=== PATIENT | female | born 1955 | race Caucasian/White ===

== ENCOUNTER 2023-03-16 09:51 | Outpatient (OUT) | payer OTHER, SELFPAY ==
--- NOTE | 2023-03-16 10:43 | CA_ITS ---
Patient Name: ABUNDIO IGLESIAS MR#: [id number] : 1955 Exam Date: 03/16/2023 Ordering Doctor: DIOMEDES PEPE CNP ECHOCARDIOGRAM REPORT PROCEDURE: CA ECHO DOPPLER COMPLETE INDICATIONS: Dizziness, hypertension COMPARISON: None. DESCRIPTION: COMPLETE ECHOCARDIOGRAM Real-time transthoracic echocardiography with 2D, M-mode, spectral and color flow Doppler performed. QUALITY: Technical quality was adequate. 60 , 163#, BSA 1.71 m2 LEFT VENTRICLE: Normal chamber size. Normal left ventricular wall thickness. LV EF: Global left ventricular systolic function is difficult to assess but appears preserved; visually estimated ejection fraction is 55 to 60%. Cannot assess regional wall motion abnormalities. DIASTOLIC: Normal diastolic function. ATRIAL SEPTUM: Visually appears intact. LEFT ATRIUM: Normal chamber size. RIGHT ATRIUM: Normal chamber size. RIGHT VENTRICLE: Normal chamber size. Normal right ventricular systolic function. TRICUSPID VALVE: Normal mobility and thickness. No stenosis with trivial regurgitation. MITRAL VALVE: Normal mobility and thickness. No evidence of mitral valve stenosis. There is no mitral annular calcification. No mitral regurgitation. AORTIC VALVE: Normal trileaflet appearance. No visible sclerosis. Normal leaflet mobility. No evidence of aortic valve stenosis. No aortic regurgitation. AORTIC ROOT: Normal diameter and appearance. PULMONIC VALVE: Normal thickness and mobility. No stenosis. No regurgitation. PERICARDIUM: Anterior free space; trivial effusion versus fat pad. IVC: Not well visualized. CONCLUSION: 1. Global left ventricular systolic function is difficult to assess but appears preserved; visually estimated ejection fraction is 55 to 60% 2. The right ventricle is normal in size and systolic function 3. Normal diastolic function 4. Valves are poorly seen; no obvious valvular abnormalities 5. Anterior free space; trivial effusion versus fat pad Adult Echocardiography Procedure Report Left Ventricle LVEDD (3.7 - 5.6 cm): 4.28 cm LVESD (2.2 - 4.0 cm): 2.49 cm LVIVS thickness (0.6 - 1.2 cm): 0.85 cm LVPW thickness (0.5 - 1.0 cm): 0.85 cm e': 0.08 m/s E - e': 4.22 LVOT Max Gradient: 1.99 mm[Hg] LVOT Area (cm2): 0.71 m/s Peak Velocity (LVOT): 0.71 m/s Mean Velocity (LVOT): 0.46 m/s LVOT Diameter 2.04 cm Left Atrium LA Volume Index (2D A2C): 21.72 ml/m2 Left Atrium Systolic Dimension: 3.70 cm Mitral Valve MV E to A Ratio: 0.78 Mitral Valve A-Wave Peak Velocity: 0.44 m/s Mitral Valve E-Wave Peak Velocity: 0.35 m/s Right Ventricle Aorta AO Root Diam: 2.90 cm Ascending Ao Diam: 2.76 cm Aortic Valve AoV Area (Peak Manuel): 2.29 cm2, 2.29 cm2 AoV Area (VTI): 2.65 cm2, 2.65 cm2 Peak Velocity(Antegrade Flow): 1.01 m/s Peak Gradient(Antegrade Flow): 4.05 mm[Hg] Mean Velocity(Antegrade Flow): 0.69 m/s Mean Gradient(Antegrade Flow): 2.13 mm[Hg] Velocity Time Integral: 19.72 cm Tricuspid Valve Pulmonic Valve Mean Gradient: 1.77 mm[Hg], 1.61 mm[Hg], 1.65 mm[Hg] Mean Velocity: 0.64 m/s, 0.60 m/s, 0.60 m/s Peak Velocity: 0.83 m/s Peak Gradient: 2.66 mm[Hg], 2.66 mm[Hg], 2.90 mm[Hg] Right Atrium Right Atrium Systolic Pressure: 28.79 ml, 28.79 ml Dictated by: Leandro Rice M.D. on 03/16/2023 at 14:18 Approved by: Leandro Rice M.D. on 03/16/2023 at 14:22
== END 2023-03-16 09:52 | disposition home or self-care (01) ==
LOC: CARD 09:52
PROVIDERS: PCP Nurse Practitioner Family; Visit Provider Nurse Practitioner Family
DX: R07.9 Chest pain, unspecified (principal)
CPT/HCPCS: 93306

== ENCOUNTER 2023-06-19 14:34 | Outpatient (OUT) | payer OTHER, SELFPAY ==
[2023-06-19 15:14] LABS: Bilirubin Urine NEGATIVE (NEGATIVE); Blood Urine TRACE-I (NEGATIVE); Clarity Urine CLEAR (CLEAR); Color Urine LT. YELLOW (YELLOW); Glucose Urine UA NEGATIVE (NEGATIVE); Ketones Urine NEGATIVE (NEGATIVE); Leukocyte Esterase Urine TRACE (NEGATIVE); Nitrite Urine NEGATIVE (NEGATIVE); Protein Urine NEGATIVE (NEG/TRACE); Specific Gravity Urine <=1.005 (1.005-1.025); Urobilinogen Urine 0.2 EU/dL (0.2-1.0)
[2023-06-19 15:22] LABS: Bacteria Urine NONE SEEN #/HPF (NONE SEEN); Mucus Urine NONE SEEN (NONE SEEN); RBC Urine 0-2 #/HPF (0-2); Squamous Epithelial Cell Urine FEW #/LPF (NONE/RARE); WBC Urine 0-2 #/HPF (NONE SEEN)
== END 2023-06-19 14:35 | disposition home or self-care (01) ==
LOC: LAB 14:36
PROVIDERS: PCP Nurse Practitioner Family; Visit Provider Nurse Practitioner Family
DX: N39.0 Urinary tract infection, site not specified (principal)
CPT/HCPCS: 81001; 87086

== ENCOUNTER 2023-09-05 10:15 | Outpatient (OUT) | payer OTHER, SELFPAY ==
[2023-09-05 10:45] LABS: Basophils Absolute Auto 0.1 10^3/uL (0.0-0.1); Basophils Percent Auto 0.8 % (0.2-2.0); Eosinophils Absolute Auto 0.2 10^3/uL (0.0-0.7); Hematocrit 43.4 % (36.0-48.0); Hemoglobin 14.4 g/dL (12.0-16.0); Immature Granulocytes Abs Auto 0.01 10^3/uL (0.00-0.03); Immature Granulocytes Pct Auto 0.2 % (0.0-0.5); Lymphocytes Absolute Auto 1.5 10^3/uL (1.2-3.8); Lymphocytes Percent Auto 25.6 % (20.5-60.0); Mean Corpuscular HGB Conc 33.2 g/dL (29.9-35.2); Mean Corpuscular Hemoglobin 29.8 pg (26.7-34.0); Mean Corpuscular Volume 89.9 fL (81.0-99.0); Mean Platelet Volume 12.3 fL (9.5-13.5); Monocytes Absolute Auto 0.6 10^3/uL (0.3-0.8); Monocytes Percent Auto 9.6 % (1.7-12.0); Neutrophils Absolute Auto 3.6 10^3/uL (1.4-6.5); Neutrophils Percent Auto 59.8 % (43.0-75.0); Platelet Count 187 10^3/uL (150-450); Red Blood Count 4.83 10^6/uL (4.20-5.40); Red Cell Distribution Width 13.2 % (11.0-15.0); White Blood Count 5.9 10^3/uL (4.0-11.0)
[2023-09-05 11:03] LABS: Estimated Average Glucose 114 mg/dL; Glycohemoglobin A1C 5.6 % (4.5-6.2)
[2023-09-05 12:01] LABS: Alanine Aminotransferase 17 U/L (14-59); Albumin Globulin Ratio 1.2; Albumin Level 3.8 g/dL (3.4-5.0); Alkaline Phosphatase 76 U/L (46-116); Anion Gap 13.8; Aspartate Amino Transferase 21 U/L (15-37); BUN Creatinine Ratio 23.5; Calcium 8.9 mg/dL (8.5-10.1); Carbon Dioxide 26.3 mmol/L (21.0-32.0); Chloride 103 mmol/L (98-107); Cholesterol 191 mg/dL (<=200); Estimated GFR (African America >60 (>=60); Estimated GFR (Non-African Ame >60 (>=60); Free T3 3.18 pg/mL (2.18-3.98); Globulin 3.2 g/dL; Glucose 92 mg/dL (74-106); HDL Cholesterol 63 mg/dL (40-60); Potassium 4.1 mmol/L (3.5-5.1); Sodium 139 mmol/L (136-145); Triglycerides 67 mg/dL (<=150); VLDL CHOLESTEROL 13.4 mg/dL
[2023-09-06 04:07] LABS: Insulin 5.3 uIU/mL (2.6-24.9)
== END 2023-09-05 10:16 | disposition home or self-care (01) ==
LOC: LAB 10:17
PROVIDERS: PCP Nurse Practitioner Family; Visit Provider Nurse Practitioner Family
DX: E78.5 Hyperlipidemia, unspecified (principal); R53.83 Other fatigue; R73.09 Other abnormal glucose; I10 Essential (primary) hypertension; D64.9 Anemia, unspecified; E03.9 Hypothyroidism, unspecified; E55.9 Vitamin D deficiency, unspecified
CPT/HCPCS: 36415; 80053; 80061; 82306; 83036; 83525; 83540; 84436; 84443; 84481; 85025

== ENCOUNTER 2024-01-02 09:49 | Outpatient (OUT) | payer OTHER, SELFPAY ==
--- OUTSIDE RECORDS SUMMARY | 2024-01-02 09:54 | XMS_ITS | CCD ---
Author Organization [facility] Care Team Providers Care Operations Advisor Name Role Phone MILLY PEPE Admitting Unavailable MY, MILLY Attending Unavailable MY, MILLY Consulting Unavailable MY, MILLY Primary Care Unavailable MY, MILLY Attending Unavailable MY, MILLY Consulting Unavailable MY, MILLY Primary Care Unavailable MY, MILLY Admitting Unavailable MY, MILLY Attending Unavailable MY, MILLY Primary Care Unavailable DR SHWETA FISCHER V Consulting Unavailable MY, MILLY Admitting Unavailable MY, MILLY Consulting Unavailable My East MD Primary Care Provider [phone] DIMITRY ALY Attending Unavailable ROSALIEY, MY M Referring Unavailable HOY, MY M Primary Care Unavailable PADMAJA BARNEY Attending Unavailable STARLA LAMAS Attending Unavailable DIMITRY ALY Attending Unavailable DIMITRY ALY G Referring Unavailable HOY, MY M Primary Care Unavailable ORLY RODRÍGUEZ Attending Unavailable ORLY RODRÍGUEZ Referring Unavailable HOY, MY M Primary Care Unavailable DIMITRY ALY Referring Unavailable HOY, MY M Primary Care Unavailable DIMITRY ALY Referring Unavailable HOY, MY M Primary Care Unavailable Allergies Allergy Classification Reported Allergen(s) Allergy Type Date of Onset Reaction(s) Facility (4 sources) NSAIDs; Translations: [NSAIDS (NON-STEROIDAL ANTI-INFLAMMATORY DRUG)] Drug allergy (disorder) 06-28-19 17 [facility] (1 source) Sulfamethoxazole / Trimethoprim Drug Allergy 07-05-19 17 [facility] (2 sources) Non-steroidal anti-inflammatory agent Propensity to adverse reactions to drug 01-29-20 21 [facility]See Comments[facility] Sulfonamides (Antibiotic); Translations: [SULFA (SULFONAMIDE ANTIBIOTICS)] Propensity to adverse reactions to drug 05-12-[address] [facility] (4 sources) Trimethoprim; Translations: [TRIMETHOPRIM] Drug Allergy 01-29-20 21 Other (See Comments) [facility] (4 sources) trolamine salicylate; Translations: [TROLAMINE SALICYLATE] Drug Allergy 09-17-[address] [facility] (1 source) Sulfamethoxazole / Trimethoprim; Translations: [SULFAMETHOXAZOLE-T RIMETHOPRIM] Drug Allergy 08-12-19 07 [facility] Medications Current Medications Medication Drug Class(es) Dates Sig (Normalized) Sig (Original) estradiol 0.1 mg/ml vaginal cream (2 sources) Estrogen Start: 01-05-2023 estradioL (ESTRACE) 0.01 % (0.1 mg/gram) vaginal cream Indications: Vaginal atrophy Insert 2 g into the vagina 2 (two) times a week. 43 g 3 01/05/2023 Active irbesartan 300 mg oral tablet (2 sources) Angiotensin 2 Receptor Jesus take 1 tablet by mouth in the morning irbesartan (AVAPRO) 300 mg tablet Take 1 tablet (300 mg total) by mouth in the morning. 0 Active levothyroxine sodium 0.075 mg oral tablet (2 sources) l-Thyroxine Start: 07-21-2016 take 1 tablet by mouth in the morning levothyroxine (SYNTHROID, LEVOTHROID) 75 MCG tablet Take 1 tablet (75 mcg total) by mouth in the morning. 0 07/21/2016 Active liothyronine sodium 0.005 mg oral tablet (2 sources) l-Triiodothyronin e Start: 03-28-2019 take 1 tablet by mouth in the morning liothyronine (CYTOMEL) 5 MCG tablet Take 1 tablet (5 mcg total) by mouth in the morning. 0 03/28/2019 Active oxknxlji-juum-UQ-megha cium &mins (THERAGRAN-M) 9 mg iron-400 mcg tablet (2 sources) jovybcbc-qfzs-GF -ca lcium &mins (THERAGRAN-M) 9 mg iron-400 mcg tablet Take 1 tablet by mouth in the morning. 0 Active pravastatin sodium 40 mg oral tablet (2 sources) HMG-CoA Reductase Inhibitor take 1 tablet by mouth once daily pravastatin (PRAVACHOL) 40 mg tablet Take 1 tablet (40 mg total) by mouth nightly. 0 Active Completed/Discontinued Medications Medication Drug Class(es) Dates Sig (Normalized) Sig (Original) potassium citrate 10 meq extended release oral tablet (2 sources) Start: 07-14-2020 End: 04-18-2023 take 2 tablets by mouth twice daily at mealtime potassium citrate (UROCIT-K) 10 mEq (1,080 mg) CR tablet Take 2 tablets (20 mEq total) by mouth 2 (two) times a day with meals. 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] Onset: 01-08-2013 2021 Chronic Cardiac dysrhythmias (6 sources) Tachycardia, unspecified; Translations: [Palpitations] Onset: 06-30-2022 Episodic Disorders of lipid metabolism (2 sources) Hypercholesterolemia ; Translations: [Pure hypercholesterolemia , unspecified] Onset: 09-19-2017 09-19-2017 Chronic Essential hypertension (2 sources) Hypertensive disorder; Translations: [Essential (primary) hypertension] Onset: 01-05-2023 01-05-2023 Chronic Menopausal disorders (2 sources) Atrophy of vagina; Translations: [Postmenopausal atrophic vaginitis] Onset: 09-19-2017 09-19-2017 Chronic Other nutritional; endocrine; and metabolic disorders (2 sources) Obese class I; Translations: [Obesity, unspecified] Onset: 01-05-2023 01-05-2023 Chronic Other screening for suspected conditions (not mental disorders or infectious disease) (1 source) Encounter for screening mammogram for malignant neoplasm of breast; Translations: [Encounter for screening mammogram for malignant neoplasm of breast] Onset: 10-23-2023 Episodic Residual codes; unclassified (1 source) Family history of ischemic heart disease and other diseases of the circulatory system; Translations: [FAM HX ISCHEMIC HRT DZ OTH DZ CIRC] Onset: 07-06-2022 Episodic Thyroid disorders (4 sources) Hypothyroidism; Translations: [Hypothyroidism, unspecified] Onset: 12-27-2012 09-19-2017 Chronic Past or Other Problems Problem Classification Problem Date Documented Da te Episodic/Chronic Calculus of urinary tract (6 sources) Calculus of kidney; Translations: [Kidney stone] Onset: 10-13-2016 04-12-2022 Episodic Cancer of head and neck (2 sources) History of malignant neoplasm of salivary gland; Translations: [Personal history of malignant neoplasm of other sites of lip, oral cavity, and pharynx] Onset: 09-19-2017 09-19-2017 Episodic Genitourinary symptoms and ill-defined conditions (1 source) Hematuria, unspecified; Translations: [HEMATURIA UNSPECIFIED] Onset: 10-21-2021 Episodic Mood disorders (2 sources) Mood disorders Onset: 01-05-2023 01-05-2023 Other non-traumatic joint disorders (2 sources) Shoulder pain; Translations: [Pain in unspecified shoulder] Onset: 05-27-2013 2021 Episodic Residual codes; unclassified (2 sources) Insomnia; Translations: [Insomnia, unspecified] Onset: 05-27-2013 2021 Episodic Residual codes; unclassified (2 sources) Family history of diabetes mellitus; Translations: [Family history of diabetes mellitus] Onset: 01-08-2013 2021 Episodic Residual codes; unclassified (2 sources) Family history of malignant neoplasm of lung; Translations: [Family history of malignant neoplasm of trachea, bronchus and lung] Onset: 01-08-2013 2021 Episodic Spondylosis; intervertebral disc disorders; other back problems (2 sources) Sciatica; Translations: [Sciatica, left side] Onset: 10-05-2018 2021 Episodic Unclassified (2 sources) Onset: 01-05-2023 01-05-2023 Urinary tract infections (4 sources) Urinary tract infection, site not specified; Translations: [UTI SITE NOT SPECIFIED] Onset: 10-19-2021 Episodic Results Test Name Value Interpretation Reference Range Facility 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 Computer aided detection was utilized. FINDINGS: The breasts are heterogeneously dense, which may obscure small masses. There are no suspicious masses, calcifications, or areas of architectural distortion. IMPRESSION: No mammographic evidence of malignancy. BI-RADS: BI-RADS 1 - Negative Recommendation: Routine screening mammogram in 1 year. Finalized by Darrel Phillips MD on 10/24/2023 11:24 AM 1 c MAMM 1 YR Normal [facility] XR ABDOMEN AP 1 VWon 024 XR ABDOMEN AP 1 VW XR ABDOMEN AP 1 VW Abdomen single view Clinical history: Kidney stones Impression: * Appropriate bowel pattern. No acute findings. Vague calcifications projecting over the kidneys. Difficult to determine whether any of these are actually calyx stones due to overlying stool but there are probably multiple tiny calyx stones on the left. Each of these measure a few millimeters and are similar to the appearance from the CT from November 11, 2021 showing extensive medullary calcifications. Finalized by Trey Atkins MD on 06/22/2023 6:29 PM Normal [facility] XR ABDOMEN AP 1 VWon 024 XR ABDOMEN AP 1 VW XR ABDOMEN AP 1 VW Single view of the abdomen supine dated 04/14/2023 at 3:15 PM INDICATION: Nephrolithiasis. FINDINGS: Comparison is 12/05/2017. Constipation. Multiple small calculi projecting over the left kidney, and calcifications in the pelvis likely phlebolith. IMPRESSION: 1. Multiple small left renal calculi, and the probable phleboliths in the pelvis. Finalized by Sj Ku MD on 04/17/2023 7:22 AM Normal [facility] Office Visiton 04-11-2023 Follow-up visit [id number] Abundio Iglesias 1955 F Date Provider Department Center 04/11/2023 [facility] Family History Problem Relation Age of Onset Heart failure Mother Heart attack Father Heart attack Father's Brother Family Status - Relation Status Age at Mother Father Father's Brother Level of Service:73614 [place] OFFICE/OUTPATIENT ESTABLISHED MOD MDM 30 MIN Normal [facility] INSULINon 05-21-2022 Insulin 9.7 uIU/mL Normal 2.6-24.9 [facility] Comment on above: Performed By: #### C BC #### [facility] [address] [place] [address] Dr. Zackery Beck CBC AUTO DIFFon 05-20-2022 BASO # 0.1 103/ul Normal 0.0-0.1 [facility] Comment on above: Performed By: #### C BC #### [facility] [address] [place] [address] Dr. Zackery Beck Basophils/100 WBC (Bld) 0.6 % Normal 0.2-2.0 [facility] Comment on above: Performed By: #### C BC #### [facility] [address] [place] [address] Dr. Zackery Beck EO # 0.1 103/ul Normal 0.0-0.7 [facility] Comment on above: Performed By: #### C BC #### [facility] [address] [place] [address] Dr. Zackery Beck Eosinophils/100 WBC (Bld) 1.8 % Normal 0.9-7.0 [facility] Comment on above: Performed By: #### C BC #### [facility] [address] [place] [address] Dr. Zackery Beck Erythrocyte distribution width (RBC) [Ratio] 13.6 % Normal 11.0-15.0 [facility] Comment on above: Performed By: #### C BC #### [facility] [address] [place] [address] Dr. Zackery Beck Hematocrit (Bld) [Volume fraction] 48.1 % Critically high 36.0-48.0 [facility] Comment on above: Performed By: #### C BC #### [facility] [address] [place] [address] Dr. Zackery Beck Hemoglobin (Bld) [Mass/Vol] 16.0 g/dL Normal 12.0-16.0 [facility] Comment on above: Performed By: #### C BC #### [facility] [address] [place] [address] Dr. Zackery Beck IG # 0.02 10e3/ul Normal 0.00-0.03 [facility] Comment on above: Performed By: #### C BC #### [facility] [address] [place] [address] Dr. Zackery Beck IG % 0.3 % Normal 0.0-0.5 [facility] Comment on above: Performed By: #### C BC #### [facility] [address] [place] [address] Dr. Zackery Beck LYMPH # 1.5 103/ul Normal 1.2-3.8 [facility] Comment on above: Performed By: #### C BC #### [facility] [address] [place] [address] Dr. Zackery Beck Lymphocytes/100 WBC (Bld) 19.0 % Critically low 20.5-60.0 [facility] Comment on above: Performed By: #### C BC #### [facility] [address] [place] [address] Dr. Zackery Beck MANUAL DIFF REQ NO Normal [facility] Comment on above: Performed By: #### C BC #### [facility] [address] [place] [address] Dr. Zackery Beck MCH (RBC) [Entitic mass] 28.6 pg Normal 26.7-34.0 [facility] Comment on above: Performed By: #### C BC #### [facility] [address] [place] [address] Dr. Zackery Beck MCHC (RBC) [Mass/Vol] 33.3 g/dL Normal 29.9-35.2 [facility] Comment on above: Performed By: #### C BC #### [facility] [address] [place] [address] Dr. Zackery Beck MCV (RBC) [Entitic vol] 85.9 fL Normal 81.0-99.0 [facility] Comment on above: Performed By: #### C BC #### [facility] [address] [place] [address] Dr. Zackery Beck MONO # 0.5 103/ul Normal 0.3-0.8 [facility] Comment on above: Performed By: #### C BC #### [facility] [address] [place] [address] Dr. Zackery Beck Monocytes/100 WBC (Bld) 6.7 % Normal 1.7-12.0 [facility] Comment on above: Performed By: #### C BC #### [facility] [address] [place] [address] Dr. Zackery Beck NEUT # 5.6 103/ul Normal 1.4-6.5 [facility] Comment on above: Performed By: #### C BC #### [facility] [address] [place] [address] Dr. Zackery Beck Neutrophils/100 WBC (Bld) 71.6 % Normal 43.0-75.0 [facility] Comment on above: Performed By: #### C BC #### [facility] [address] [place] [address] Dr. Zackery Beck Platelet mean volume (Bld) [Entitic vol] 11.6 fL Normal 9.5-13.5 [facility] Comment on above: Performed By: #### C BC #### [facility] [address] [place] [address] Dr. Zackery Beck PLT 249 103/ul Normal 150-450 [facility] Comment on above: Performed By: #### C BC #### [facility] [address] [place] [address] Dr. Zackery Beck RBC 5.60 106/ul Critically high 4.20-5.40 [facility] Comment on above: Performed By: #### C BC #### [facility] [address] [place] [address] Dr. Zackery Beck WBC 7.8 103/ul Normal 4.0-11.0 [facility] Comment on above: Performed By: #### C BC #### [facility] [address] [place] [address] Dr. Zackery Beck FREE THYROXINE INDEX T7on FTI 3.74 Normal 1.30-4.50 [facility] Comment on above: Performed By: #### L IPID, TSH, CMP, T7 #### [facility] [address] [address] [address] Zackery Beck T3U 37.0 % Normal 30.0-39.0 [facility] Comment on above: Performed By: #### L IPID, TSH, CMP, T7 #### [facility] [address] [address] [address] Zackery Beck T4 [Mass/Vol] 10.10 ug/dL Normal 4.80-13.90 [facility] Comment on above: Performed By: #### L IPID, TSH, CMP, T7 #### [facility] [address] [address] [address] Zackery Beck GLYCOHEMOGLOBIN A1Con 2022 ADA RECOMMENDATION SEE BELOW Normal [facility] Comment on above: Result Comment: ADA RECOMMENDED LIMIT 4.0 - 6.0 ADA THERAPEUTIC TARGET < 7.0 ACTION SUGGESTED > 7.0 Performed By: #### A 1C #### [facility] [address] [address] [address] Zackery Beck Glucose [Mass/Vol] 114 mg/dL Normal [facility] Comment on above: Performed By: #### A 1C #### [facility] [address] [address] [address] Zackery Beck HbA1c (Bld) [Mass fraction] 5.6 % Normal 4.5-6.2 [facility] Comment on above: Performed By: #### A 1C #### [facility] [address] [address] [address] Zackery Beck IRONon 05-20-2022 Iron [Mass/Vol] 84.0 ug/dL Normal 50.0-170.0 [facility] Comment on above: Performed By: #### I GÓMEZ #### [facility] [address] [place] [address] Dr. Zackery Beck LIPID PROFILEon 05-20-2022 CHOL-HDL RATIO NORM SEE BELOW Normal [facility] Comment on above: Result Comment: 3.3 - 4.4 LOW RISK 4.4 - 7.1 AVERAGE RISK 7.1 - 11.0 MODERATE RISK >11.0 HIGH RISK Performed By: #### L IPID, TSH, CMP, T7 #### [facility] [address] [address] [address] Zackery Beck Cholesterol [Mass/Vol] 293 mg/dL Critically high <=200 [facility] Comment on above: Performed By: #### L IPID, TSH, CMP, T7 #### [facility] [address] [address] [address] Zackery Beck Cholesterol in HDL [Mass/Vol] 71 mg/dL Critically high 40-60 [facility] Comment on above: Performed By: #### L IPID, TSH, CMP, T7 #### [facility] [address] [place] [address] Dr. Zackery Beck Cholesterol in LDL [Mass/Vol] 206.4 mg/dL Normal [facility] Comment on above: Performed By: #### L IPID, TSH, CMP, T7 #### [facility] [address] [address] [address] Zackery Beck Cholesterol.total/Ch olesterol in HDL [Mass ratio] 4.1 {ratio} Normal [facility] Comment on above: Performed By: #### L IPID, TSH, CMP, T7 #### [facility] [address] [address] [address] Zackery Beck HDL NORMAL > or = 60 mg/dl - LOW CARDIOVASCULAR RISK <40 mg/dl - HIGH CARDIOVASCULAR RISK Normal [facility] Comment on above: Performed By: #### L IPID, TSH, CMP, T7 #### [facility] [address] [place] [address] Dr. Zackery Beck LDL CALC NORMAL SEE BELOW Normal [facility] Comment on above: Result Comment: <100 mg/dl OPTIMAL 100 - 129 mg/dl NEAR OR ABOVE OPTIMAL 130 - 159 mg/dl BORDERLINE HIGH 160 - 189 mg/dl HIGH >190 mg/dl VERY HIGH Performed By: #### L IPID, TSH, CMP, T7 #### [facility] [address] [place] [address] Dr. Zackery Beck Triglyceride [Mass/Vol] 78 mg/dL Normal <=150 [facility] Comment on above: Performed By: #### L IPID, TSH, CMP, T7 #### [facility] [address] [address] [address] Zackery Beck VLDL CALC 15.6 mg/dL Normal [facility] Comment on above: Performed By: #### L IPID, TSH, CMP, T7 #### [facility] [address] [address] [address] Zackery Beck PROF 14(COMP METB)on 023 Albumin [Mass/Vol] 4.3 g/dL Normal 3.4-5.0 [facility] Comment on above: Performed By: #### L IPID, TSH, CMP, T7 #### [facility] [address] [place] [address] Dr. Zackery Beck Albumin/Globulin [Mass ratio] 1.3 {ratio} Normal [facility] Comment on above: Performed By: #### L IPID, TSH, CMP, T7 #### [facility] [address] [address] [address] Zackery Beck ALP [Catalytic activity/Vol] 94 U/L Normal 46-116 [facility] Comment on above: Performed By: #### L IPID, TSH, CMP, T7 #### [facility] [address] [place] [address] Dr. Zackery Beck ALT [Catalytic activity/Vol] 20 U/L Normal 14-59 [facility] Comment on above: Performed By: #### L IPID, TSH, CMP, T7 #### [facility] [address] [address] [address] Zackery Beck Anion gap [Moles/Vol] 16.5 mmol/L Normal [facility] Comment on above: Performed By: #### L IPID, TSH, CMP, T7 #### [facility] [address] [address] [address] Zackery Beck AST [Catalytic activity/Vol] 20 U/L Normal 15-37 [facility] Comment on above: Performed By: #### L IPID, TSH, CMP, T7 #### [facility] [address] [place] [address] Dr. Zackery Beck Bilirubin [Mass/Vol] 0.5 mg/dL Normal 0.2-1.0 [facility] Comment on above: Performed By: #### L IPID, TSH, CMP, T7 #### [facility] [address] [place] [address] Dr. Zackery Beck Calcium [Mass/Vol] 9.5 mg/dL Normal 8.5-10.1 [facility] Comment on above: Performed By: #### L IPID, TSH, CMP, T7 #### [facility] [address] [place] [address] Dr. Zackery Beck Chloride [Moles/Vol] 103 mmol/L Normal 98-107 [facility] Comment on above: Performed By: #### L IPID, TSH, CMP, T7 #### [facility] [address] [place] [address] Dr. Zackery Beck CO2 [Moles/Vol] 23.5 mmol/L Normal 21.0-32.0 [facility] Comment on above: Performed By: #### L IPID, TSH, CMP, T7 #### [facility] [address] [place] [address] Dr. Zackery Beck Creatinine [Mass/Vol] 0.93 mg/dL Normal 0.55-1.02 [facility] Comment on above: Performed By: #### L IPID, TSH, CMP, T7 #### [facility] [address] [place] [address] Dr. Zackery Beck EGFR-AF SPANISH >60 Normal >=60 [facility] Comment on above: Performed By: #### L IPID, TSH, CMP, T7 #### [facility] [address] [place] [address] Dr. Zackery Beck EGFR-NON AF SPANISH >60 Normal >=60 [facility] Comment on above: Performed By: #### L IPID, TSH, CMP, T7 #### [facility] [address] [place] [address] Dr. Zackery Beck Globulin (S) [Mass/Vol] 3.2 g/dL Normal [facility] Comment on above: Performed By: #### L IPID, TSH, CMP, T7 #### [facility] [address] [address] [address] Zackery Beck Glucose [Mass/Vol] 112 mg/dL Critically high 74-106 T [facility] Comment on above: Performed By: #### L IPID, TSH, CMP, T7 #### [facility] [address] [address] [address] Zackery Beck Potassium [Moles/Vol] 4.0 mmol/L Normal 3.5-5.1 [facility] Comment on above: Performed By: #### L IPID, TSH, CMP, T7 #### [facility] [address] [address] [address] Zackery Beck Protein [Mass/Vol] 7.5 g/dL Normal 6.4-8.2 [facility] Comment on above: Performed By: #### L IPID, TSH, CMP, T7 #### [facility] [address] [address] [address] Zackery Beck Sodium [Moles/Vol] 139 mmol/L Normal 136-145 [facility] Comment on above: Performed By: #### L IPID, TSH, CMP, T7 #### [facility] [address] [address] [address] Zackery Beck Urea nitrogen [Mass/Vol] 30.0 mg/dL Critically high 7.0-18.0 [facility] Comment on above: Performed By: #### L IPID, TSH, CMP, T7 #### [facility] [address] [address] [address] Zackery Beck Urea nitrogen/Creatinine [Mass ratio] 32.3 mg/mg Normal [facility] Comment on above: Performed By: #### L IPID, TSH, CMP, T7 #### [facility] [address] [address] [address] Zackery Beck TSHon 05-20-2022 TSH 0.652 uIU/mL Normal 0.358-3.740 [facility] Comment on above: Performed By: #### L IPID, TSH, CMP, T7 #### [facility] [address] [place] [address] Dr. Zackery Beck CULTURE URINEon 10-19-2021 CULTURE URINE Culture Observations: LIGHT GROWTH OF MIXED GENITAL DARSHANA. NO POTENTIAL PATHOGENS SEEN. Normal [facility] Comment on above: Performed By: #### U RCX #### [facility] [address] [place] [address] Dr. Zackery Beck UA RANDOM W/MICROSCOPICon AMORPHOUS CRYSTALS RARE Normal [facility] [facility] Comment on above: Performed By: #### U AMIC #### [facility] [address] [place] [address] Dr. Zackery Beck BACTERIA TRACE Abnormal NONE SEEN [facility] Comment on above: Performed By: #### U AMIC #### [facility] [address] [place] [address] Dr. Zackery Beck Bilirubin Ql (U) Negative Normal NEGATIVE [facility] Comment on above: Performed By: #### U AMIC #### [facility] [address] [place] [address] Dr. Zackery Beck CAST NONE SEEN Normal NONE SEEN [facility] Comment on above: Performed By: #### U AMIC #### [facility] [address] [place] [address] Dr. Zackery Beck Clarity (U) CLEAR Normal CLEAR [facility] Comment on above: Performed By: #### U AMIC #### [facility] [address] [place] [address] Dr. Zackery Beck Color (U) LT. YELLOW Normal YELLOW [facility] Comment on above: Performed By: #### U AMIC #### [facility] [address] [place] [address] Dr. Zackery Beck Crystals LM Nom (Urine sed) SEEN Abnormal NONE SEEN [facility] Comment on above: Performed By: #### U AMIC #### [facility] [address] [place] [address] Dr. Zackery Beck Epithelial cells LM Ql (Urine sed) RARE Normal NONE SEEN /RARE [facility] Comment on above: Performed By: #### U AMIC #### [facility] [address] [address] [address] Zackery Beck Glucose Ql (U) Negative Normal NEGATIVE [facility] Comment on above: Performed By: #### U AMIC #### [facility] [address] [address] [address] Zackery Beck Hemoglobin Ql (U) TRACE-LYSED Abnormal NEGATIVE [facility] [place] [facility] Comment on above: Performed By: #### U AMIC #### [facility] [address] [address] [address] Zackery Beck Ketones Ql (U) Negative Normal NEGATIVE [facility] Comment on above: Performed By: #### U AMIC #### [facility] [address] [place] [address] Dr. Zackery Beck LEUKOCYTES TRACE Abnormal NEGATIVE [facility] Comment on above: Performed By: #### U AMIC #### [facility] [address] [address] [address] Zackery Beck MUCOUS TRACE Abnormal NONE SEEN [facility] Comment on above: Performed By: #### U AMIC #### [facility] [address] [address] [address] Zackery Beck Nitrite Ql (U) Negative Normal NEGATIVE [facility] Comment on above: Performed By: #### U AMIC #### [facility] [address] [address] [address] Zackery Beck pH (U) 5.5 [pH] Normal 5-9 [facility] Comment on above: Performed By: #### U AMIC #### [facility] [address] [address] [address] Zackery Beck RBC 2-5 Abnormal 0-2 [facility] Comment on above: Performed By: #### U AMIC #### [facility] [address] [place] [address] Dr. Zackery Beck SPEC GRAVITY <=1.005 Abnormal 1.005-<=1.025 [facility] Comment on above: Performed By: #### U AMIC #### [facility] [address] [address] [address] Zackery Beck UA PROTEIN Negative Normal NEGATIVE/ TRACE [facility] Comment on above: Performed By: #### U AMIC #### [facility] [address] [place], [place] [address] Dr. Zackery Beck Urobilinogen Qn (U) 0.2 {Monse'U}/dL Normal 0.2 - 1. 0 [facility] Comment on above: Performed By: #### U AMIC #### [facility] [address] [address] [address] Zackery Beck WBC 5-10 Abnormal NONE SEEN [facility] Comment on above: Performed By: #### U AMIC #### [facility] [address] [address] [address] Zackery Beck XR KUB 1 VIEWon 10-19-2021 XR KUB 1 VIEW EXAMINATION: XR KUB 1 VIEW HISTORY: Blood in urine COMPARISON: 07/31/2020 FINDINGS: KIDNEY/URETER - RIGHT: No visible renal or ureteral calcifications. KIDNEY/URETER - LEFT: Nephrolithiasis PELVIS: No visible ureteral calcifications. Any visible calcifications favor phleboliths. BOWEL: No abnormal dilation or deviation. BONES: No acute abnormality. OTHER: Negative. No abnormal gaseous collections. IMPRESSION: Left nephrolithiasis Electronically authenticated by: SHWETA FISCHER Date: 2021-10-19 18:38 Normal [facility] Vital Signs Date Time Vital Sign Value Performing Clinician Ayala julien 04-18-2023 13:25-0500 Body height 152.4 cm Dimitry Aly MD Work Phone: [facility] [employer] [facility] 04-18-2023 13:25-050 Body mass index (BMI) [Ratio] 31.25 kg/m2 Dimitry Aly MD Work Phone: [facility] 04-18-2023 13:25-0500 Body weight 72.58 kg Dimitry Aly MD Work Phone: [facility] 04-18-2023 13:25-0500 Diastolic blood pressure 82 mm[Hg] Dimitry Aly MD Work Phone: [facility] 04-18-2023 13:25-0500 Heart rate 72 /min Dimitry Aly MD Work Phone: [facility] 04-18-2023 13:25-0500 Systolic blood pressure 121 mm[Hg] Dimitry Aly MD Work Phone: [facility] Encounters Encounter Date Encounter Type Care Provider Facility Start: 10-23-2023 End: 10-23-2023 ambulatory ORLY Naik [facility] Start: 06-22-2023 End: 06-22-2023 ambulatory [facility] Start: 05-23-2023 End: 05-23-2023 ambulatory [facility] Start: 04-18-2023 End: 04-18-2023 ambulatory [facility] Start: 04-18-2023 End: 04-18-2023 Office outpatient visit 15 minutes Dimitry Aly MD [facility] Comment on above: Kidney stones (Prima ry Dx) Start: 04-14-2023 End: 04-14-2023 ambulatory [facility] Start: 04-14-2023 Telephone encounter Jerri Byrnes [facility] Start: 04-14-2023 End: 04-15-2023 ambulatory [facility] Start: 04-11-2023 End: 04-11-2023 ambulatory [facility] Start: 06-30-2022 End: 07-01-2022 ambulatory MILLY PEPE Facility:[facility] Start: 05-22-2022 Encounter for genera l adult medical examination without abnormal findings MILLY PEPE [facility] Start: 05-20-2022 End: 05-21-2022 ambulatory MILLY PEPE Facility:[facility] Start: 05-20-2022 End: 05-21-2022 Encounter for general adult medical examination without abnormal findings MILLY PEPE Facility:[facility] Start: 10-19-2021 End: 10-20-2021 ambulatory MILLY PEPE Facility:[facility] Procedures Date Procedure Procedure Detail Performing Clinician Start: 04-18-2023 Follow-up visit Follow-up DIMITRY ALY Start: 01-05-2023 Adult depression screening assessment Jerri Arleth CHAVIRA Start: 06-29-2022 Mammography Jerrikelly Reinoso LPN Start: 03-09-2020 Colonoscopy Jerri Arleth CHAVIRA Start: 12-27-2012 History of cholecystectomy History of cholecystectomy Jerri Arleth CHAVIRA Plan of Treatment Date Care Activity Detail Author Start: 10-23-2031 DTaP,Tdap and Td Vaccines (2 - Td or Tdap) DTaP,Tdap and Td Vaccines (2 - Td or Tdap) [facility] Start: 03-09-2030 Screening for malign ant neoplasm of colon Colonoscopy [facility] Start: 04-18-2024 Adult BMI Screening Adult BMI Screen ing [facility] Start: 04-18-2024 Tobacco Screening Tobacco Screening [facility] Start: 04-17-2024 End: 04-17-2025 XR Abdomen AP X-ray abdomen ap 1 view Imaging Routine Kidney stones Expected: 04/17/2024, Expires: 04/17/2025 [facility] Work Phone: Comment on above: Expected: 04/17/2024 , Expires: 04/17/2025 Start: 04-09-2024 End: 04-09-2024 Patient encounter procedure 04/09/2024 3:15 PM EST Office Visit [facility] [address] [place] [address] [place] [address] [address] Dimitry Aly MD [address] [place] [address] [facility] Start: 01-06-2024 Adult BMI Follow Up Plan Adult BMI Follow Up Plan [facility] Start: 01-06-2024 Adult BMI Screening Adult BMI Screen ing [facility] Start: 01-06-2024 Depression Screening Depression Scre ening [facility] Start: 01-06-2024 Tobacco Screening Tobacco Screening [facility] Start: 06-30-2023 Screening for malign ant neoplasm of breast Mammogram [facility] Start: 04-18-2023 End: 04-18-2023 Patient encounter procedure 04/18/2023 1:15 PM EST Office Visit [facility] [address] [place] [address] [place] [address] Dimitry Aly MD [address] [place] [address] [facility] Start: 2022 Fall Risk Screening Fall Risk Screen ing [facility] Start: 10-28-2022 Influenza vaccination Influenza Vacc ine [facility] Start: 1955 Medicare Annual Wellness Visit Medicare Annual Wellness Visit [facility] Immunizations Immunization Date Immunization Notes Care Provider Fa cility 02-08-2021 zoster vaccine recombinant Jerri Reinoso [employer] [facility] 11-21-2020 zoster vaccine recombinant Jerri Reinoso [employer] [facility] 10-24-2015 zoster vaccine, live Jerri Reinoso L PN [facility] Payers Date Payer Category Payer Unknown [employer] [id number] 2022-Present [phone] [address] [place] [address] [id number] 2022 Medicare [id number] 1959 Private Health Insurance [id number] 1955 Unknown [id number] 1957 Unknown [id number] 1957 Unknown [id number] 1957 Unknown [id number] 1957 Unknown [id number] 1957 Unknown [id number] 1957 Unknown [id number] 1955 Unknown [id number] Unknown [id number] Social History Date Type Detail Facility Start: 2021 Tobacco smoking stat [place] [facility] Ex-smoker [facility] End: 02-27-2006 History of tobacco use Current smoker [facility] End: 02-27-2006 History of tobacco use Cigarette Smoker [facility] Start: 2021 Tobacco use and exposure Smokeless tobacco non-user [facility] Start: 01-05-2023 End: 04-18-2023 Alcohol intake Current non-drinker of alcohol (finding) [facility] Start: 03-10-2020 End: 01-05-2023 History of Social function [facility] Start: 03-10-2020 End: 01-05-[address] [facility] Adolescent depressio n screening assessment 0 [facility] Start: 1955 Sex Assigned At Not on file P [facility] Medical Equipment Procedure Code Equipment Code Equipment Origin al Text Equipment Identifier Dates Stent Percuflex [place]+ 6x24 - [id number] Start: 05-11-2017 Progress note 05-23-2023 Note Date & Type Note Facility 05-23-2023 Note Patient here for fol low up 7 day Holter monitor. Palpitations have resolved, and she states her lightheadedness has improved. Still denies chest pain and SOB. Review of Systems Neurological: Positive for light-headedness (improving). All other systems reviewed and are negative. [facility] History of Present illness Narrative 04-18-2023 Dimitry Aly MD - 04/18/2023 1:15 PM EST Note Date & Type Note Facility 04-18-2023 History of Present illness Narrative Images from the original note were not included. [address] [place] [address] A [facility] [address] Patient: Abundio Iglesias Date of : 1955 Encounter Date: 04/18/2023 History of Present Illness: The patient is a 67 y.o. female, an established patient, and is here for followup. She has a history of recurrent kidney stones with medullary sponge kidney. She has undergone ESWL in 2018, bilateral ureteroscopy in 2018 and again in 2020 and 2021. She has also done metabolic workups in 2018 showing elevated oxalate and low citrate and decreased urine volume. She was put on Urocit-K with correction of the parameters on follow-up 24 urine. Last imaging was ct in Nov 18. She had left-sided small nonobstructing stones. The largest stone was 3 x 4 mm. She is asymptomatic. . She found that the Urocit-K was causing constipation and stop taking it. Follow-up KUB was performed which we reviewed together showing some stable left lower pole small calculi. No additional new stones seen bilaterally. There is some overlying stool on the left with a few punctate calcifications which probably are part of the colon but possibly within the kidney. Also similar to her prior CT. Summary of old records: Urinalysis today: No results for input(s): EXTPOCURCO , EXTPOCURCH , EXTPOCAPP , EXTPOCURBS , EXTPOCURBIL , EXTPOCUKET , EXTPOCUSPG , EXTPOCUHGB , EXTPOCUPRO , EXTPOCUURO , EXTPOCULEU , EXTPOCUNIT , EXTPOCUWBC , EXTPOCUBLD , EXTPOCURBC , EXTPOCUCRY , EXTPOCUBAC , EXTPOCUTREP , EXTPOCUPH in the last 72 hours. Last BUN and creatinine: Lab Results Component Value Date BUN 23 02/12/2021 Lab Results Component Value Date CREATININE 1.42 (H) 02/12/2021 Last PSA: No results found for: PSA No results found for: PROSTATICSP Additional Lab/Culture results: None Imaging Reviewed during this Office Visit: None (Results were independently reviewed by physician and radiology report verified) Past Medical, Family, and Social History Update: The following portions of the patient's history were reviewed and updated as appropriate: allergies, current medications, past family history, past medical history, past social history, past surgical history and problem list. 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 CYSTOSCOPY REMOVAL STENT Bilateral 03/31/2021 Performed by Dimitry Aly MD at [facility] CYSTOSCOPY REMOVAL STENT Bilateral 05/23/2017 Performed by Dimitry Aly MD at [facility] CYSTOSCOPY URETEROSCOPY BILATERAL WITH HOMIUM LASER/BILATERAL STENT PLACEMENT/STONE BASKETING Bilateral 05/11/2017 Performed by Dimitry Aly MD at [facility] ESOPHAGOGASTRODUODENOSCOPY ESOPHAGOGASTRODUODENOSCOPY N/A 03/09/2020 Performed by Jerald Malhotra DO at [facility] EXTRACORPOREAL SHOCK WAVE LITHOTRIPSY Right 04/25/2017 Performed by Dimitry Aly MD at [facility] EYE SURGERY INSERTION STENT URETER Bilateral 02/12/2021 Performed by Dimitry Aly MD at [facility] LASER HOLMIUM URETEROSCOPY RENAL STONES < OR=1CM Right 03/31/2021 Performed by Dimitry Aly MD at [facility] NECK SURGERY URETERAL STENT PLACEMENT Family History Problem Relation Age of Onset Heart disease Maternal Grandmother Cancer Maternal Grandfather lung Hypertension Father Heart disease Father Diabetes Father Arthritis Father Hypertension Mother Heart disease Mother Diabetes Mother Diabetes Brother Hypertension Brother Hypertension Sister Ovarian cancer Neg Hx Breast cancer Neg Hx Current Outpatient Medications Medication Sig Dispense Refill estradioL (ESTRACE) 0.01 % (0.1 mg/gram) vaginal cream Insert 2 g into the vagina 2 (two) times a week. 43 g 3 irbesartan (AVAPRO) 300 mg tablet Take 1 tablet (300 mg total) by mouth in the morning. levothyroxine (SYNTHROID, LEVOTHROID) 75 MCG tablet Take 1 tablet (75 mcg total) by mouth in the morning. liothyronine (CYTOMEL) 5 MCG tablet Take 1 tablet (5 mcg total) by mouth in the morning. zpbgcbzo-tkce-NN-calcium &mins (THERAGRAN-M) 9 mg iron-400 mcg tablet Take 1 tablet by mouth in the morning. pravastatin (PRAVACHOL) 40 mg tablet Take 1 tablet (40 mg total) by mouth nightly. No current facility-administered medications for this visit. (All medications reviewed and updated by provider since last office visit or hospitalization) Allergies: Arthritis [trolamine salicylate], Nsaids (non-steroidal anti-inflammatory drug), Sulfa (sulfonamide antibiotics), and Trimethoprim Tobacco History: Social History Tobacco Use Smoking Status Former Types: Cigarettes Quit date: 2006 Years since quittin.1 Smokeless Tobacco Never (If patient a smoker, smoking cessation counseling offered) Social History: Social History Substance and Sexual Activity Alcohol Use No Review of Systems: General: Negative for chills and fever. Cardiovascular: Negative for chest pain and shortness of breath. Gastrointestinal: Negative for constipation, diarrhea, nausea, and vomitting. Physical Exam: BP 121/82 Pulse 72 Ht 152.4 cm (5') Wt 72.6 kg (160 lb) BMI 31.25 kg/m Assessment and Plan: Abundio was seen today for follow-up. Diagnoses and all orders for this visit: Kidney stones - X-ray abdomen ap 1 view; Future Problem List Genitourinary Kidney stones - Primary Overview Gross hematuria with CT urogram and cystoscopy performed January 2015. Has known bilateral stones and medullary sponge kidney Recurrent gross hematuria January 2017 with right upper pole hydronephrosis secondary to 1.2 x 6 mm renal stone.. ESWL and cysto 04/27/17 - successful Left renal colic with bilateral ureteral stones present May 10, 2017. Bilateral ureteroscopy with laser and stents May 11, 2017 Her creatinine is elevated to 2.04 a few days after surgery. I explained to her this is multifactorial due to her dehydration, ibuprofen which has been stopped, and the bilateral ureteral obstruction which has now been addressed with stents in place. Repeat creatinine improved. Stents removed May 23, 201712/14: Passed a left stone 02/13: Metabolic workup with decreased urine volume, elevated oxalate and low citrate. Today we talked about ways to decrease stone recurrences including increased hydration (more than 2.5 liters or urine output per day), avoidance of Western diet and not changing calcium consumption. Additionally given a copy of low oxalate diet. Plan repeat 24 hour urine in 6-8 weeks 04/03/18: Repeat 24 hr urine showing improvement in urine output, continued elevated oxalate despite low oxalate diet, decreased citrate. Options for citrate replacement discussed. Plan to start Urocit-K 05/29/18: Normal 24 hour urine with correction of oxalate and citrate with use of Urocit K. Will continue but cut down to 2 tabs bid given the profound response using 6 per day. Recheck 1 year with kub Feb 2020 - passed stone on right 07/14/20: CT with bilateral renal calculi largest 6 mm on right. Plan to restart Urocit-K 2 tablets twice a day. KUB 1 year unless symptomatic 02/12/21: Bilateral ureteral stones. Bilateral ureteroscopy with laser of left-sided stones, right ureter too tight to pass ureteral scope and stents 03/31/21: Bilateral stent removal, right ureteroscopy laser lithotripsy 11/02/21: Recent dysuria. Will get records/imaging from PCP. Start Rapaflo in case of small distal stone. Try 3 days of Pyridium 11/04/21: UA neg, C&S neg. See addendum for PCP's notes. Symptoms persist. She agrees to CT for further evaluation. If persistent and no obvious stones, we could consider [facility] instillations or cystoscopy 12/01/21: CT shows numerous left-sided stones and a few small stones on the right. No obvious ureteral stones. I advised a bland diet and avoidance of bladder irritants. We did discuss [facility] instillations but she wants to hold off on that for now. She will call if she changes her mind. Cystoscopy if persistent 04/12/22: Nonobstructing left renal stones. Asymptomatic. Plan to continue Urocit-K, recheck KUB 1 year 04/18/23: stable stone burden. Stopped urocit k due to constipation Relevant Orders X-ray abdomen ap 1 view Follow-up: Dimitry Aly MD This note was created with the assistance of a speech recognition program. While intending to generate a timely document that accurately reflects the content of the visit, no guarantee can be provided that every grammatical or spelling mistake has been or will be identified or corrected. Thank you for your understanding. documented in this encounter [facility] Note 04-14-2023 Telephone Encounter - Jerri Reinoso LPN - 04/14/2023 2:17 PM EST Note Date & Type Note Facility 04-14-2023 Miscellaneous Notes Formattin g of this note might be different from the original. Called Pt. To remind her to get her KUB done before her appointment on Monday with MD Jeffery. This nurse also reminded Pt. Of when her appointment was. Pt. Stated that She completely forgot about getting her KUB done for her appointment and was glad that this nurse called to remind her. documented in this encounter [facility] Telephone encounter Note 04-14-2023 Telephone Encounter - Jerri Reinoso LPN - 04/14/2023 2:17 PM EST Note Date & Type Note Facility 04-14-2023 Telephone encount er Note Called Pt. To remind her to get her KUB done before her appointment on Monday with MD Jeffery. This nurse also reminded Pt. Of when her appointment was. Pt. Stated that She completely forgot about getting her KUB done for her appointment and was glad that this nurse called to remind her. [facility] Progress note 04-11-2023 Note Date & Type Note Facility 04-11-2023 Note New patient here to establish care. Ref from Milly Pepe CNP for tachycardia. She had echo last month. Wore a Holter monitor and had routine stress test back in June 2022. She does feel flutters once in awhile. Says her HR gets very high sometimes, around [address]. Gets lightheaded after bending down and standing up. Mother had CHF and they believe her father had [place]. Review of Systems Cardiovascular: Positive for palpitations. Neurological: Positive for light-headedness. All other systems reviewed and are negative. [facility] Progress note 04-11-2023 Note Date & Type Note Facility 04-11-2023 Note [facility] Consult Note Reason for visit: tachycardia? HPI: Abundio Iglesias is a 67 y.o. year old with past medical history of Hypertension, GERD, hypothyroidism, dyslipidemia. She was referred to us for concerns of tachycardia. She had a Holter monitor which showed a couple episodes of PSVT which were 4 beats but she was not symptomatic of She has had some recent dizziness but she has been doing 18-hour fast and working out while she is fasting and after workouts is when she became dizzy She is concerned about tachycardia while she exercises her heart rate gets up to 150s to 160 She had stress test 06/2022 and it was a treadmill test and her peak heart was 157 with no concerns for ischemia I discussed with her if her heart rate is just gradually going up during exercise up to 150s 160s that is okay as long she is not having any chest pain or abnormal shortness of breath PMH: No past medical history on file. PSH: No past surgical history on file. SH: Social Determinants of Health Tobacco Use: Not on file Alcohol Use: Not on file Financial Resource Strain: Not on file Food Insecurity: Not on file Transportation Needs: Not on file Physical Activity: Not on file Stress: Not on file Social Connections: Not on file Intimate Partner Violence: Not on file Depression: Not on file Housing Stability: Not on file Utilities: Not on file Allergies: Not on File Weight: No weight available There were no vitals taken for this visit. Meds: No current outpatient medications on file prior to visit. No current facility-administered medications on file prior to visit. ROS: Cardio Basic Cardiovascular Symptoms: no lightheadedness, no leg edema, no syncope, no orthopnea, no PND, no claudication, Constitutional Constitutional: no fever, no night sweats, no significant weight gain, no significant weight loss, no exercise intolerance Eyes Eyes: no dry eyes, no irritation, no vision change ENMT Ears: no difficulty hearing, no ear pain Nose: no frequent nosebleeds, Mouth/Throat: no sore throat, no bleeding gums, no snoring, no dry mouth, no mouth ulcers, no oral abnormalities, no teeth problems Respiratory Respiratory: no cough, no wheezing, no coughing up blood, no sleep apnea Musculoskeletal Musculoskeletal: no muscle aches, no muscle weakness, joint pain+, no back pain, no swelling in the extremities Integumentary Skin no rash, no ulcer, no varicosities, no discoloration, no pruritus Neurologic Neurologic: no loss of consciousness, no weakness, no numbness, no seizures, no dizziness, no headaches Psychiatric Psych: no depression, feeling safe in relationship, no alcohol abuse, Hematologic/Lymphatic Hematologic/Lymphatic no swollen glands, no bruising Physical Exam: Constitutional General Appearance: well-nourished, well-developed, appears stated age Level of Distress: comfortable Psychiatric Mental Status: alert, normal affect Orientation: oriented to time, place, and person Insight: good judgement Eyes Lids and Conjunctivae: non-injected, no xanthelasma ENMT Ears: no lesions on external ear Nose: no lesions on external nose Oropharynx: no cyanosis, no pallor Neck Neck: supple, trachea midline Carotid Arteries: bilateral normal upstroke, no bruits Jugular Veins: normal jugular venous pressure Thyroid: not enlarged Lungs Respiratory Effort: unlabored Chest Exam: normal curvature, no thoracic deformity Auscultation: clear, no wheezing, no rales, no rhonchi Cardiovascular Rate And Rhythm: regular Heart Sounds: normal S1, normal s2, no gallop Systolic Murmur: not heard Diastolic Murmur: not heard Extremities: no cyanosis, no edema, no peripheral signs of emboli Peripheral Pulses Radial Pulse: normal Abdomen Inspection and Palpation: soft, non distended, no bruit, non tender Musculoskeletal Inspection: no joint swelling Neurologic Gait: normal gait Skin Inspection and Palpation: warm and dry Nails: no clubbing Labs: @LABRESULTS@ No results found for: CHOLESTEROL TOTAL , HDL , LDL CALC , LDL DIRECT , TRIGLYCERIDES , TSH , T3 TOTAL , T4 TOTAL , THYROID PEROXIDASE AB , BNP EKG: No results found for this or any previous visit (from the past 4464 hour(s)). Echo: Stress test: Coronary angiogram: @CATH@ Diagnostic Imaging: No images are attached to the encounter. Assessment and Plan: Dizziness/tachycardia -dizziness related to working out while doing intermittent fasting -tachycarida is normal with exercise and she rice snot get any symptoms of chest pain -will do 7 day holter , will have her exercise while wearing to rule out arrhythmia concerns -treadmill stress 06/2022 negative for ischemia, peak HR 157bpm which is what is happeneing when she exercisess -she has no sudden spike in HR or drop in HR and does nto sound like an SVT while she exercises -her holter showed a (more content not included)... [facility] Evaluation note Note Date & Type Note Facility Evaluation note Diagnosis Kidney stones- Primary Calculus of kidney documented in this encounter [facility] Instructions Note Date & Type Note Facility Instructions Not on filedocumented in this en counter [facility] Instructions Note Date & Type Note Facility Instructions Not on filedocumented in this en counter [facility] Summary Purpose Family History No Family History Records FoundNo Family History Records FoundNo Family History Records FoundNo Family History Records Found Advance Directives No Advanced Directives Records FoundLatest Code Status on File Code Status Date Activated Date Inactivated Comments Full Code 02/11/2021 6:45 PM 02/12/2021 10:20 PM Additional Source Comments INFORMATION SOURCE (unrecogn ized section and content) DATE CREATED AUTHOR 07/07/2022 [facility] DATE CREATED AUTHOR AUTHOR'S ORGANIZ ATION [facility] DATE CREATED AUTHOR AUTHOR'S ORGANIZ ATION 05/24/2023 [facility] DATE CREATED AUTHOR AUTHOR'S ORGANIZ ATION 10/24/2023 [facility] Care Teams (unrecognized sec tion and content) Operations Advisor Relationship Specialty Start Date End Date My East MD [address] [place] [id number] PCP - General Family Medicine 09/24/18 Operations Advisor Relationship Specialty [place] [address] [place] [id number] PCP - General Family Medicine 09/24/18 Reason for Visit (unrecogniz ed section and content) Reason Comments Follow-up FOR RECORDS PERTAINING TO PATIENTS WHO ARE OR HAVE BEEN ENROLLED IN A CHEMICAL DEPENDENCY/SUBSTANCEABUSE PROGRAM, SOME INFORMATION MAY BE OMITTED. This clinical summary was aggregated from multiple sources. Caution should be exercised in using it in the provision of clinical care. This summary normalizes information from multiple sources, and as a consequence, information in this document may materially change the coding, format and clinical context of patient data. In addition, data may be omitted in some cases. CLINICAL DECISIONS SHOULD BE BASED ON THE PRIMARY CLINICAL RECORDS. [facility] [employer] provides no warranty or guarantee of the accuracy or completeness of information in this document.
[2024-01-02 10:11] LABS: Bilirubin Urine NEGATIVE (NEGATIVE); Blood Urine TRACE-I (NEGATIVE); Clarity Urine SL CLOUDY (CLEAR); Color Urine LT. GREEN (YELLOW); Glucose Urine UA NEGATIVE (NEGATIVE); Ketones Urine NEGATIVE (NEGATIVE); Leukocyte Esterase Urine LARGE (NEGATIVE); Nitrite Urine NEGATIVE (NEGATIVE); Protein Urine NEGATIVE (NEG/TRACE); Specific Gravity Urine 1.015 (1.005-1.025); Urobilinogen Urine 0.2 EU/dL (0.2-1.0)
[2024-01-02 10:25] LABS: WBC Urine 50-75 #/HPF (NONE SEEN)
[2024-01-02 10:26] LABS: Bacteria Urine SMALL #/HPF (NONE SEEN); Cast Seen? NONE SEEN #/LPF (NONE SEEN); Crystals Seen? None Seen #/HPF (None Seen); Mucus Urine NONE SEEN (NONE SEEN); Squamous Epithelial Cell Urine RARE #/LPF (NONE/RARE); Urine Culture Indicated ALREADY ORDERED
== END 2024-01-02 09:50 | disposition home or self-care (01) ==
LOC: LAB 09:50
PROVIDERS: PCP Nurse Practitioner Family; Visit Provider Nurse Practitioner Family
DX: R30.0 Dysuria (principal)
CPT/HCPCS: 81001; 87086; 87150; 87186

== ENCOUNTER 2024-01-23 10:25 | Outpatient (OUT) | payer OTHER, SELFPAY ==
--- OUTSIDE RECORDS SUMMARY | 2024-01-23 10:45 | XMS_ITS | CCD ---
Author Organization [facility]ini[facility] Care Team Providers Care Patient Admitting Clerk Name Role Phone MILLY PEPE Admitting Unavailable [...] Unavailable My [place] MD Primary Care Provider [phone] DIMITRY ALY Attending Unavailable ROSALIEY, MY M [...] DRUG)] Drug allergy (disorder) 06-28-19 17 [facility] (1 source) Sulfamethoxazole / Trimethoprim Drug Allergy 07-05-19 17 [facility] (2 sources) Non-steroidal anti-inflammatory agent Propensity to adverse reactions to drug 01-29-20 21 [facility]See Comments[facility] Sulfonamides (Antibiotic); Translations: [SULFA (SULFONAMIDE ANTIBIOTICS)] Propensity to adverse reactions to drug 05-12-19 18 [facility] (4 sources) Trimethoprim; Translations: [TRIMETHOPRIM] Drug Allergy 01-29-20 21 Other (See Comments) [facility] (4 sources) trolamine salicylate; Translations: [TROLAMINE SALICYLATE] Drug Allergy 09-17-19 17 Swelling [facility] (1 source) Sulfamethoxazole / Trimethoprim; Translations: [SULFAMETHOXAZOLE-T RIMETHOPRIM] Drug Allergy 08-12-19 07 [facility] Repository Medications Current Medications Medication Drug Class(es) [...] mouth in the morning. 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 MAMM SCREENING BILATERAL W CAD MAMM SCREENING BILATERAL W CAD ABUNDIO ISAAK IGLESIAS 1955 [id number] EXAM: MAMM SCREENING BILATERAL W CAD, 10/23/2023 [...] AM 1 c MAMM 1 YR Normal [facility] XR ABDOMEN AP 1 VWon 024 XR [...] Atkins MD on 06/22/2023 6:29 PM Normal [facility] XR ABDOMEN AP 1 VWon 024 XR [...] Ku MD on 04/17/2023 7:22 AM Normal [facility] Office Visiton 04-11-2023 Follow-up visit [id number] Abundio Iglesias 1955 F Date Provider Department Center 04/11/2023 [facility] Family History Problem Relation Age of Onset Heart failure Mother Heart attack Father Heart attack Father's Brother Family Status - Relation Status Age at Mother Father Father's Brother Level of Service:73141 NC OFFICE/OUTPATIENT ESTABLISHED MOD MDM 30 MIN Normal [facility] INSULINon 05-21-2022 Insulin 9.7 uIU/mL Normal 2.6-24.9 [facility] Comment on above: Performed By: #### C BC #### [facility] [address] [place] [address] Dr. Zackery Beck CBC AUTO DIFFon 05-20-2022 BASO # 0.1 103/ul Normal 0.0-0.1 [facility] Comment on above: Performed By: #### C BC #### [facility] [address] [place] [address] Dr. Zackery Beck Basophils/100 WBC (Bld) 0.6 % Normal 0.2-2.0 [facility] Comment on above: Performed By: #### C BC #### [facility] [address] [place] [address] Dr. Zackery Beck EO # 0.1 103/ul Normal 0.0-0.7 [facility] Comment on above: Performed By: #### C BC #### [facility] [address] [place] [address] Dr. Zackery Beck Eosinophils/100 WBC (Bld) 1.8 % Normal 0.9-7.0 [facility] Comment on above: Performed By: #### C BC #### [facility] [address] [place] [address] Dr. Zackery Beck Erythrocyte distribution width (RBC) [Ratio] 13.6 % Normal 11.0-15.0 [facility] Comment on above: Performed By: #### C BC #### [facility] [address] [place] [address] Dr. Zackery Beck Hematocrit (Bld) [Volume fraction] 48.1 % Critically high 36.0-48.0 [facility] Comment on above: Performed By: #### C BC #### [facility] [address] [place] [address] Dr. Zackery Beck Hemoglobin (Bld) [Mass/Vol] 16.0 g/dL Normal 12.0-16.0 [facility] Comment on above: Performed By: #### C BC #### [facility] [address] [place] [address] Dr. Zackery Beck IG # 0.02 10e3/ul Normal 0.00-0.03 [facility] Comment on above: Performed By: #### C BC #### [facility] [address] [place] [address] Dr. Zackery Beck IG % 0.3 % Normal 0.0-0.5 [facility] Comment on above: Performed By: #### C BC #### [facility] [address] [place] [address] Dr. Zackery Beck LYMPH # 1.5 103/ul Normal 1.2-3.8 [facility] Comment on above: Performed By: #### C BC #### [facility] [address] [place] [address] Dr. Zackery Beck Lymphocytes/100 WBC (Bld) 19.0 % Critically low 20.5-60.0 [facility] Comment on above: Performed By: #### C BC #### [facility] [address] [place] [address] Dr. Zackery Beck MANUAL DIFF REQ NO Normal [facility] Comment on above: Performed By: #### C BC #### [facility] [address] [place] [address] Dr. Zackery Beck MCH (RBC) [Entitic mass] 28.6 pg Normal 26.7-34.0 [facility] Comment on above: Performed By: #### C BC #### [facility] [address] [place] [address] Dr. Zackery Beck MCHC (RBC) [Mass/Vol] 33.3 g/dL Normal 29.9-35.2 [facility] Comment on above: Performed By: #### C BC #### [facility] [address] [place] [address] Dr. Zackery Beck MCV (RBC) [Entitic vol] 85.9 fL Normal 81.0-99.0 [facility] Comment on above: Performed By: #### C BC #### [facility] [address] [place] [address] Dr. Zackery Beck MONO # 0.5 103/ul Normal 0.3-0.8 [facility] Comment on above: Performed By: #### C BC #### [facility] [address] [place] [address] Dr. Zackery Beck Monocytes/100 WBC (Bld) 6.7 % Normal 1.7-12.0 [facility] Comment on above: Performed By: #### C BC #### [facility] [address] [place] [address] Dr. Zackery Beck NEUT # 5.6 103/ul Normal 1.4-6.5 [facility] Comment on above: Performed By: #### C BC #### [facility] [address] [place] [address] Dr. Zackery Beck Neutrophils/100 WBC (Bld) 71.6 % Normal 43.0-75.0 [facility] Comment on above: Performed By: #### C BC #### [facility] [address] [place] [address] Dr. Zackery Beck Platelet mean volume (Bld) [Entitic vol] 11.6 fL Normal 9.5-13.5 [facility] Comment on above: Performed By: #### C BC #### [facility] [address] [place] [address] Dr. Zackery Beck PLT 249 103/ul Normal 150-450 [facility] Comment on above: Performed By: #### C BC #### [facility] [address] [place] [address] Dr. Zackery Beck RBC 5.60 106/ul Critically high 4.20-5.40 [facility] Comment on above: Performed By: #### C BC #### [facility] [address] [place] [address] Dr. Zackery Beck WBC 7.8 103/ul Normal 4.0-11.0 [facility] Comment on above: Performed By: #### C BC #### [facility] [address] [place] [address] Dr. Zackery Beck FREE THYROXINE INDEX T7on FTI 3.74 Normal 1.30-4.50 [facility] Comment on above: Performed By: #### L IPID, TSH, CMP, T7 #### [facility] [address] [address] [address] Zackery Beck T3U 37.0 % Normal 30.0-39.0 [facility] Comment on above: Performed By: #### L IPID, TSH, CMP, T7 #### [facility] [address] [address] [address] Zackery Beck T4 [Mass/Vol] 10.10 ug/dL Normal 4.80-13.90 [facility] Comment on above: Performed By: #### L IPID, TSH, CMP, T7 #### [facility] [address] [address] [address] Zackery Beck GLYCOHEMOGLOBIN A1Con 2022 ADA RECOMMENDATION SEE BELOW Normal [facility] Comment on above: Result Comment: ADA RECOMMENDED LIMIT 4.0 - 6.0 ADA THERAPEUTIC TARGET < 7.0 ACTION SUGGESTED > 7.0 Performed By: #### A 1C #### [facility] [address] [address] [address] Zackery Beck Glucose [Mass/Vol] 114 mg/dL Normal [facility] Comment on above: Performed By: #### A 1C #### [facility] [address] [address] [address] Zackery Beck HbA1c (Bld) [Mass fraction] 5.6 % Normal 4.5-6.2 [facility] Comment on above: Performed By: #### A 1C #### [facility] [address] [address] [address] Zackery Beck IRONon 05-20-2022 Iron [Mass/Vol] 84.0 ug/dL Normal 50.0-170.0 [facility] Comment on above: Performed By: #### I GÓMEZ #### [facility] [address] [place] [address] Dr. Zackery Beck LIPID PROFILEon 05-20-2022 CHOL-HDL RATIO NORM SEE BELOW Normal [facility] Comment on above: Result Comment: 3.3 - 4.4 LOW RISK 4.4 - 7.1 AVERAGE RISK 7.1 - 11.0 MODERATE RISK >11.0 HIGH RISK Performed By: #### L IPID, TSH, CMP, T7 #### [facility] [address] [address] [address] Zackery Beck Cholesterol [Mass/Vol] 293 mg/dL Critically high <=200 [facility] Comment on above: Performed By: #### L IPID, TSH, CMP, T7 #### [facility] [address] [address] [address] Zackery Beck Cholesterol in HDL [Mass/Vol] 71 mg/dL Critically high 40-60 [facility] Comment on above: Performed By: #### L IPID, TSH, CMP, T7 #### [facility] [address] [place] [address] Dr. Zackery Beck Cholesterol in LDL [Mass/Vol] 206.4 mg/dL Normal [facility] Comment on above: Performed By: #### L IPID, TSH, CMP, T7 #### [facility] [address] [address] [address] Zackery Beck Cholesterol.total/Ch olesterol in HDL [Mass ratio] 4.1 {ratio} Normal [facility] Comment on above: Performed By: #### L IPID, TSH, CMP, T7 #### [facility] [address] [address] [address] Zackery Beck HDL NORMAL > or = 60 mg/dl - LOW CARDIOVASCULAR RISK <40 mg/dl - HIGH CARDIOVASCULAR RISK Normal [facility] Comment on above: Performed By: #### L IPID, TSH, CMP, T7 #### [facility] [address] [place] [address] Dr. Zackery Beck LDL CALC NORMAL SEE BELOW Normal [facility] Comment on above: Result Comment: <100 mg/dl OPTIMAL 100 - 129 mg/dl NEAR OR ABOVE OPTIMAL 130 - 159 mg/dl BORDERLINE HIGH 160 - 189 mg/dl HIGH >190 mg/dl VERY HIGH Performed By: #### L IPID, TSH, CMP, T7 #### [facility] [address] [place] [address] Dr. Zackery Beck Triglyceride [Mass/Vol] 78 mg/dL Normal <=150 [facility] Comment on above: Performed By: #### L IPID, TSH, CMP, T7 #### [facility] [address] [address] [address] Zackery Beck VLDL CALC 15.6 mg/dL Normal [facility] Comment on above: Performed By: #### L IPID, TSH, CMP, T7 #### [facility] [address] [address] [address] Zackery Beck PROF 14(COMP METB)on 023 Albumin [Mass/Vol] 4.3 g/dL Normal 3.4-5.0 [facility] Comment on above: Performed By: #### L IPID, TSH, CMP, T7 #### [facility] [address] [place] [address] Dr. Zackery Beck Albumin/Globulin [Mass ratio] 1.3 {ratio} Normal [facility] Comment on above: Performed By: #### L IPID, TSH, CMP, T7 #### [facility] [address] [address] [address] Zackery Beck ALP [Catalytic activity/Vol] 94 U/L Normal 46-116 [facility] Comment on above: Performed By: #### L IPID, TSH, CMP, T7 #### [facility] [address] [place] [address] Dr. Zackery Beck ALT [Catalytic activity/Vol] 20 U/L Normal 14-59 [facility] Comment on above: Performed By: #### L IPID, TSH, CMP, T7 #### [facility] [address] [address] [address] Zackery Beck Anion gap [Moles/Vol] 16.5 mmol/L Normal [facility] Comment on above: Performed By: #### L IPID, TSH, CMP, T7 #### [facility] [address] [address] [address] Zackery Beck AST [Catalytic activity/Vol] 20 U/L Normal 15-37 [facility] Comment on above: Performed By: #### L IPID, TSH, CMP, T7 #### [facility] [address] [place] [address] Dr. Zackery Beck Bilirubin [Mass/Vol] 0.5 mg/dL Normal 0.2-1.0 [facility] Comment on above: Performed By: #### L IPID, TSH, CMP, T7 #### [facility] [address] [place] [address] Dr. Zackery Beck Calcium [Mass/Vol] 9.5 mg/dL Normal 8.5-10.1 [facility] Comment on above: Performed By: #### L IPID, TSH, CMP, T7 #### [facility] [address] [place] [address] Dr. Zackery Beck Chloride [Moles/Vol] 103 mmol/L Normal 98-107 [facility] Comment on above: Performed By: #### L IPID, TSH, CMP, T7 #### [facility] [address] [place] [address] Dr. Zackery Beck CO2 [Moles/Vol] 23.5 mmol/L Normal 21.0-32.0 [facility] Comment on above: Performed By: #### L IPID, TSH, CMP, T7 #### [facility] [address] [place] [address] Dr. Zackery Beck Creatinine [Mass/Vol] 0.93 mg/dL Normal 0.55-1.02 [facility] Comment on above: Performed By: #### L IPID, TSH, CMP, T7 #### [facility] [address] [place] [address] Dr. Zackery Beck EGFR-AF TURKMEN >60 Normal >=60 [facility] Comment on above: Performed By: #### L IPID, TSH, CMP, T7 #### [facility] [address] [place] [address] Dr. Zackery Beck EGFR-NON AF TURKMEN >60 Normal >=60 [facility] Comment on above: Performed By: #### L IPID, TSH, CMP, T7 #### [facility] [address] [place] [address] Dr. Zackery Beck Globulin (S) [Mass/Vol] 3.2 g/dL Normal [facility] Comment on above: Performed By: #### L IPID, TSH, CMP, T7 #### [facility] [address] [address] [address] Zackery Beck Glucose [Mass/Vol] 112 mg/dL Critically high 74-106 T [facility] Comment on above: Performed By: #### L IPID, TSH, CMP, T7 #### [facility] [address] [address] [address] Zackery Beck Potassium [Moles/Vol] 4.0 mmol/L Normal 3.5-5.1 [facility] Comment on above: Performed By: #### L IPID, TSH, CMP, T7 #### [facility] [address] [address] [address] Zackery Beck Protein [Mass/Vol] 7.5 g/dL Normal 6.4-8.2 [facility] Comment on above: Performed By: #### L IPID, TSH, CMP, T7 #### [facility] [address] [address] [address] Zackery Beck Sodium [Moles/Vol] 139 mmol/L Normal 136-145 [facility] Comment on above: Performed By: #### L IPID, TSH, CMP, T7 #### [facility] [address] [address] [address] Zackery Beck Urea nitrogen [Mass/Vol] 30.0 mg/dL Critically high 7.0-18.0 [facility] Comment on above: Performed By: #### L IPID, TSH, CMP, T7 #### [facility] [address] [address] [address] Zackery Beck Urea nitrogen/Creatinine [Mass ratio] 32.3 mg/mg Normal [facility] Comment on above: Performed By: #### L IPID, TSH, CMP, T7 #### [facility] [address] [address] [address] Zackery Beck TSHon 05-20-2022 TSH 0.652 uIU/mL Normal 0.358-3.740 [facility] Comment on above: Performed By: #### L IPID, TSH, CMP, T7 #### [facility] [address] [place] [address] Dr. Zackery Beck CULTURE URINEon 10-19-2021 CULTURE URINE Culture Observations: LIGHT GROWTH OF MIXED GENITAL DARSHANA. NO POTENTIAL PATHOGENS SEEN. Normal [facility] Comment on above: Performed By: #### U RCX #### [facility] [address] [place] [address] Dr. Zackery Beck UA RANDOM W/MICROSCOPICon AMORPHOUS CRYSTALS RARE Normal [facility] Comment on above: Performed By: #### U AMIC #### [facility] [address] [place] [address] Dr. Zackery Beck BACTERIA TRACE Abnormal NONE SEEN [facility] Comment on above: Performed By: #### U AMIC #### [facility] [address] [place] [address] Dr. Zackery Beck Bilirubin Ql (U) Negative Normal NEGATIVE [facility] Comment on above: Performed By: #### U AMIC #### [facility] [address] [place] [address] Dr. Zackery Beck CAST NONE SEEN Normal NONE SEEN [facility] Comment on above: Performed By: #### U AMIC #### [facility] [address] [place] [address] Dr. Zackery Beck Clarity (U) CLEAR Normal CLEAR [facility] Comment on above: Performed By: #### U AMIC #### [facility] [address] [place] [address] Dr. Zackery Beck Color (U) LT. YELLOW Normal YELLOW [facility] Comment on above: Performed By: #### U AMIC #### [facility] [address] [place] [address] Dr. Zackery Beck Crystals LM Nom (Urine sed) SEEN Abnormal NONE SEEN [facility] Comment on above: Performed By: #### U AMIC #### [facility] [address] [place] [address] Dr. Zackery Beck Epithelial cells LM Ql (Urine sed) RARE Normal NONE SEEN /RARE [facility] Comment on above: Performed By: #### U AMIC #### [facility] [address] [address] [address] Zackery Beck Glucose Ql (U) Negative Normal NEGATIVE [facility] Comment on above: Performed By: #### U AMIC #### [facility] [address] [address] [address] Zackery Beck Hemoglobin Ql (U) TRACE-LYSED Abnormal NEGATIVE [facility] Comment on above: Performed By: #### U AMIC #### [facility] [address] [address] [address] Zackery Beck Ketones Ql (U) Negative Normal NEGATIVE [facility] Comment on above: Performed By: #### U AMIC #### [facility] [address] [place] [address] Dr. Zackery Beck LEUKOCYTES TRACE Abnormal NEGATIVE [facility] Comment on above: Performed By: #### U AMIC #### [facility] [address] [address] [address] Zackery Beck MUCOUS TRACE Abnormal NONE SEEN [facility] Comment on above: Performed By: #### U AMIC #### [facility] [address] [address] [address] Zackery Beck Nitrite Ql (U) Negative Normal NEGATIVE [facility] Comment on above: Performed By: #### U AMIC #### [facility] [address] [address] [address] Zackery Beck pH (U) 5.5 [pH] Normal 5-9 [facility] Comment on above: Performed By: #### U AMIC #### [facility] [address] [address] [address] Zackery Beck RBC 2-5 Abnormal 0-2 [facility] Comment on above: Performed By: #### U AMIC #### [facility] [address] [place] [address] Dr. Zackery Beck SPEC GRAVITY <=1.005 Abnormal 1.005-<=1.025 [facility] Comment on above: Performed By: #### U AMIC #### [facility] [address] [address] [address] Zackery Beck UA PROTEIN Negative Normal NEGATIVE/ TRACE [facility] Comment on above: Performed By: #### U AMIC #### [facility] [address] [place], [place] [address] Dr. Zackery Beck Urobilinogen Qn (U) 0.2 {Monse'U}/dL Normal 0.2 - 1. 0 [facility] Comment on above: Performed By: #### U AMIC #### [facility] [address] [address] [address] Zackery Beck WBC 5-10 Abnormal NONE SEEN [facility] Comment on above: Performed By: #### U AMIC #### [facility] [address] [address] [address] Zackery Beck XR KUB 1 VIEWon [...] by: SHWETA FISCHER Date: 2021-10-19 18:38 Normal [facility] Vital Signs Date Time Vital Sign Value Performing Clinician Ayala julien 04-18-2023 13:25-0500 Body height 152.4 cm Dimitry Aly MD Work Phone: [facility] [employer] [facility] 04-18-2023 13:25-050 Body mass index (BMI) [Ratio] 31.25 kg/m2 Dimitry Aly MD Work Phone: [facility] 04-18-2023 13:25-0500 Body weight 72.58 kg Dimitry Aly MD Work Phone: [facility] 04-18-2023 13:25-0500 Diastolic blood pressure 82 mm[Hg] Dimitry Aly MD Work Phone: [facility] 04-18-2023 13:25-0500 Heart rate 72 /min Dimitry Aly MD Work Phone: [facility] 04-18-2023 13:25-0500 Systolic blood pressure 121 mm[Hg] Dimitry Aly MD Work Phone: [facility] Encounters Encounter Date Encounter Type Care Provider Facility Start: 10-23-2023 End: 10-23-2023 ambulatory ORLY Naik [facility] Start: 06-22-2023 End: 06-22-2023 ambulatory [facility] Start: 05-23-2023 End: 05-23-[address] [facility] Start: 04-18-2023 End: 04-18-2023 ambulatory [facility] Start: 04-18-2023 End: 04-18-2023 Office outpatient visit 15 minutes Dimit[facility] Aly [facility] Comment on above: Kidney stones (Prima ry Dx) Start: 04-14-2023 End: 04-14-2023 ambulatory [facility] Start: 04-14-2023 Telephone encounter Jerri Byrnes [facility] Start: 04-14-2023 End: 04-15-2023 ambulatory [facility] Start: 04-11-2023 End: 04-11-[address] [facility] Start: 06-30-2022 End: 07-01-2022 ambulatory MILLY PEPE Facility:[facility] Start: 05-22-2022 Encounter for genera l adult medical examination without abnormal findings MILLY PEPE [facility] Start: 05-20-2022 End: 05-21-2022 ambulatory MILLY PEPE Facility:[facility] Start: 05-20-2022 End: 05-21-2022 Encounter for general adult medical examination without abnormal findings MILLY PEPE Facility:[facility] Start: 10-19-2021 End: 10-20-2021 ambulatory MILLY PPEE Facility:[facility] Procedures Date Procedure Procedure Detail Performing [...] Td Vaccines (2 - Td or Tdap) [facility] Start: 03-09-2030 Screening for malign ant neoplasm of colon Colonoscopy [facility] Start: 04-18-2024 Adult BMI Screening Adult BMI Screen ing [facility] Start: 04-18-2024 Tobacco Screening Tobacco Screening [facility] Start: 04-17-2024 End: 04-17-2025 XR Abdomen AP X-ray abdomen ap 1 view Imaging Routine Kidney stones Expected: 04/17/2024, Expires: 04/17/2025 [facility] Work Phone: Comment on above: Expected: 04/17/2024 , Expires: 04/17/2025 Start: 04-09-2024 End: 04-09-2024 Patient encounter procedure 04/09/2024 3:15 PM EST Office Visit [facility] [address] [place] [address] [place] [address] [place] [address] Dimitry Aly MD [address] [place] [address] [facility] Start: 01-06-2024 Adult BMI Follow Up Plan Adult BMI Follow Up Plan [facility] Start: 01-06-2024 Adult BMI Screening Adult BMI Screen ing [facility] Start: 01-06-2024 Depression Screening Depression Scre ening [facility] Start: 01-06-2024 Tobacco Screening Tobacco Screening [facility] Start: 06-30-2023 Screening for malign ant neoplasm of breast Mammogram [facility] Start: 04-18-2023 End: 04-18-2023 Patient encounter procedure 04/18/2023 1:15 PM EST Office Visit [facility] [address] [place] [address] [place] [address] Dimitry Aly MD [address] [place] [address] [facility] Start: 2022 Fall Risk Screening Fall Risk Screen ing [facility] Start: 10-28-2022 Influenza vaccination Influenza Vacc ine [facility] Start: 1955 Medicare Annual Wellness Visit Medicare Annual Wellness Visit [facility] Immunizations Immunization Date Immunization Notes Care Provider Fa cility 02-08-2021 zoster vaccine recombinant 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 2022 Medicare [id number] 1957 Private Health Insurance [id number] 1955 Unknown [id number] [id number] 1955 Unknown [id number]. [id number] 1957 Unknown [id number]. [id number] 1957 Unknown [id number]. 2.1286 1957 Unknown [id number] [id number]. 2.1286 1957 Unknown [id number] [id number]. 2.1286 1957 Unknown [id number] [id number]. 2.1286 1955 Unknown [id number]. 2.1286 Unknown [id number] Social History Date Type Detail Facility Start: 2021 Tobacco smoking stat [facility] Ex-smoker [facility] End: 02-27-2006 History of tobacco use Current smoker [facility] End: 02-27-2006 History of tobacco use Cigarette Smoker [facility] Start: 2021 Tobacco use and exposure Smokeless tobacco non-user [facility] Start: 01-05-2023 End: 04-18-2023 Alcohol intake Current non-drinker of alcohol (finding) [facility] Start: 03-10-2020 End: 01-05-2023 History of Social function [facility] Start: 03-10-2020 End: 01-05-2023 Tobacco use panel [facility] Adolescent depressio n screening assessment 0 [facility] Start: 1955 Sex Assigned At Not on file P [facility] Medical Equipment Procedure Code Equipment Code Equipment Origin al Text Equipment Identifier Dates Stent Percuflex [place]+ [id number] - [id number] Start: 05-11-2017 Progress note 05-23-2023 Note Date & Type Note Facility 05-23-2023 Note Patient here for fol low up 7 day Holter monitor. Palpitations have resolved, and she states her lightheadedness has improved. Still denies chest pain and SOB. Review of Systems Neurological: Positive for light-headedness (improving). All other systems reviewed and are negative. [facility] History of Present illness Narrative 04-18-2023 Dimitry Aly MD - 04/18/2023 1:15 PM EST Note Date & Type Note Facility 04-18-2023 History of Present illness Narrative Images from the original note were not included. 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 Visual impairment contacts Past Surgical History: Procedure Laterality Date APPENDECTOMY BREAST BIOPSY Left 05/26/1994 benign excisional-not visible CHOLECYSTECTOMY COLONOSCOPY [id number] COLONOSCOPY N/A 03/09/2020 Performed by Jerald Malhotra DO at [facility] CYSTOSCOPY N/A 04/25/2017 Performed by Dimitry Aly MD at [facility] CYSTOSCOPY , right ureteroscopy, with laser right ureter dilation Right 02/12/2021 Performed by Dimitry Aly MD at [facility] CYSTOSCOPY REMOVAL STENT Bilateral 03/31/2021 Performed by Dimitry Aly MD at [facility] CYSTOSCOPY REMOVAL STENT Bilateral 05/23/2017 Performed by Dimitry Ayl MD at [facility] CYSTOSCOPY URETEROSCOPY BILATERAL WITH HOMIUM LASER/BILATERAL STENT PLACEMENT/STONE BASKETING Bilateral 05/11/2017 Performed by Dimitry Aly MD at [facility] ESOPHAGOGASTRODUODENOSCOPY ESOPHAGOGASTRODUODENOSCOPY N/A 03/09/2020 Performed by Jerald Malhotra DO at [facility] EXTRACORPOREAL SHOCK WAVE LITHOTRIPSY Right 04/25/2017 Performed by Dimitry Aly MD at [facility] EYE SURGERY INSERTION STENT URETER Bilateral 02/12/2021 Performed by Dimitry Aly MD at [facility] LASER HOLMIUM URETEROSCOPY RENAL STONES < OR=1CM Right 03/31/2021 Performed by Dimitry Aly MD at [facility] NECK SURGERY URETERAL STENT PLACEMENT Family History [...] mcg total) by mouth in the morning. [id number]-calcium &mins (THERAGRAN-M) 9 mg iron-400 mcg tablet [...] for your understanding. documented in this encounter [facility] Note 04-14-2023 Telephone Encounter - Jerri Reinoso [...] to remind her. documented in this encounter [facility] Telephone encounter Note 04-14-2023 Telephone Encounter - [...] that this nurse called to remind her. [facility] Progress note 04-11-2023 Note Date & Type [...] CHF and they believe her father had ND. Review of Systems Cardiovascular: Positive for palpitations. Neurological: Positive for light-headedness. All other systems reviewed and are negative. [facility] Progress note 04-11-2023 Note Date & Type [...] holter showed a (more content not included)... [facility] Evaluation note Note Date & Type Note [...] and content) DATE CREATED AUTHOR 07/07/2022 [facility] DATE CREATED AUTHOR AUTHOR'S ORGANIZ ATION [facility]/26/2023 [facility] DATE CREATED AUTHOR AUTHOR'S ORGANIZ ATION 05/24/2023 [facility] DATE CREATED AUTHOR AUTHOR'S ORGANIZ ATION 10/24/2023 [facility] Care Teams (unrecognized sec tion and content) Patient Admitting Clerk Relationship Specialty Start Date End Date My East MD [address] [place] [id number] PCP - General Family Medicine 09/24/18 Patient Admitting Clerk Relationship Specialty [place] [address] [place] [id number] PCP - General Family Medicine 09/24/18 Reason [...] BE BASED ON THE PRIMARY CLINICAL RECORDS. [facility] [employer] provides no warranty or guarantee of the accuracy or completeness of information in this document.
[2024-01-23 10:52] LABS: Bilirubin Urine NEGATIVE (NEGATIVE); Blood Urine TRACE-I (NEGATIVE); Clarity Urine SL CLOUDY (CLEAR); Color Urine LT. YELLOW (YELLOW); Glucose Urine UA NEGATIVE (NEGATIVE); Ketones Urine NEGATIVE (NEGATIVE); Leukocyte Esterase Urine MODERATE (NEGATIVE); Nitrite Urine NEGATIVE (NEGATIVE); Protein Urine NEGATIVE (NEG/TRACE); Urobilinogen Urine 0.2 EU/dL (0.2-1.0)
[2024-01-23 11:02] LABS: Bacteria Urine SMALL #/HPF (NONE SEEN); Cast Seen? NONE SEEN #/LPF (NONE SEEN); Crystals Seen? None Seen #/HPF (None Seen); Mucus Urine NONE SEEN (NONE SEEN); Squamous Epithelial Cell Urine RARE #/LPF (NONE/RARE); Urine Culture Indicated ALREADY ORDERED; WBC Urine 50-75 #/HPF (NONE SEEN)
== END 2024-01-23 10:26 | disposition home or self-care (01) ==
LOC: LAB 10:28
PROVIDERS: PCP Nurse Practitioner Family; Visit Provider Nurse Practitioner Family
DX: N39.0 Urinary tract infection, site not specified (principal)
CPT/HCPCS: 81001; 87086; 87150; 87186

== ENCOUNTER 2024-02-12 12:30 | Outpatient (OUT) | payer OTHER, SELFPAY ==
--- OUTSIDE RECORDS SUMMARY | 2024-02-12 12:34 | XMS_ITS | CCD ---
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 Name Role Phone MILLY PEPE Admitting Unavailable [...] Unavailable [facility] [place] MD Primary Care Provider [phone] DIMITRY ALY Attending Unavailable ROSALIEY, MY M [...] DRUG)] Drug allergy (disorder) 06-28-19 17 [facility] (1 source) Sulfamethoxazole / Trimethoprim Drug Allergy 07-05-19 17 [facility] (2 sources) Non-steroidal anti-inflammatory agent Propensity to adverse reactions to drug 01-29-20 21 [facility]See Comments[facility] Sulfonamides (Antibiotic); Translations: [SULFA (SULFONAMIDE ANTIBIOTICS)] Propensity to adverse reactions to drug 05-12-19 18 [facility] (4 sources) Trimethoprim; Translations: [TRIMETHOPRIM] Drug Allergy 01-29-20 21 Other (See Comments) [facility] (4 sources) trolamine salicylate; Translations: [TROLAMINE SALICYLATE] Drug Allergy 09-17-19 17 Swelling [facility] (1 source) Sulfamethoxazole / Trimethoprim; Translations: [SULFAMETHOXAZOLE-T RIMETHOPRIM] Drug Allergy 08-12-19 07 [facility] Medications Current Medications Medication Drug [...] mouth in the morning. 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 10-24-2023 MAMM SCREENING BILATERAL W CAD MAMM SCREENING BILATERAL W CAD ABUNDIO ISAAK IGLESIAS 1955 [id number] EXAM: MAMM SCREENING BILATERAL W CAD, 10/23/2023 [...] [facility] Follow-up visit [id number] Abundio Iglesias 1955 F Date Provider Department Center 04/11/2023 [facility] Family History Problem Relation Age of Onset Heart failure Mother Heart attack Father Heart attack Father's Brother Family Status - Relation Status Age at Mother Father Father's Brother Level of Service:59389 AL OFFICE/OUTPATIENT ESTABLISHED MOD MDM 30 MIN Normal [facility] INSULINon 05-21-2022 Insulin 9.7 uIU/mL Normal 2.6-24.9 [facility] Comment on above: Performed By: #### C BC #### [facility] [address] [place] [address] Dr. Zackery Beck CBC AUTO DIFFon 05-20-2022 BASO # 0.1 103/ul Normal 0.0-0.1 [facility] Comment on above: Performed By: #### C BC #### [facility] [address] [place] [address] Dr. Zackery Beck Basophils/100 WBC (Bld) 0.6 % Normal 0.2-2.0 [facility] Comment on above: Performed By: #### C BC #### [facility] [address] [place] [address] Dr. Zackery Beck EO # 0.1 103/ul Normal 0.0-0.7 [facility] Comment on above: Performed By: #### C BC #### [facility] [address] [place] [address] Dr. Zackery Beck Eosinophils/100 WBC (Bld) 1.8 % Normal 0.9-7.0 [facility] Comment on above: Performed By: #### C BC #### [facility] [address] [place] [address] Dr. Zackery Beck Erythrocyte distribution width (RBC) [Ratio] 13.6 % Normal 11.0-15.0 [facility] Comment on above: Performed By: #### C BC #### [facility] [address] [place] [address] Dr. Zackery Beck Hematocrit (Bld) [Volume fraction] 48.1 % Critically high 36.0-48.0 [facility] Comment on above: Performed By: #### C BC #### [facility] [address] [place] [address] Dr. Zackery Beck Hemoglobin (Bld) [Mass/Vol] 16.0 g/dL Normal 12.0-16.0 [facility] Comment on above: Performed By: #### C BC #### [facility] [address] [place] [address] Dr. Zackery Beck IG # 0.02 10e3/ul Normal 0.00-0.03 [facility] Comment on above: Performed By: #### C BC #### [facility] [address] [place] [address] Dr. Zackery Beck IG % 0.3 % Normal 0.0-0.5 [facility] Comment on above: Performed By: #### C BC #### [facility] [address] [place] [address] Dr. Zackery Beck LYMPH # 1.5 103/ul Normal 1.2-3.8 [facility] Comment on above: Performed By: #### C BC #### [facility] [address] [place] [address] Dr. Zackery Beck Lymphocytes/100 WBC (Bld) 19.0 % Critically low 20.5-60.0 [facility] Comment on above: Performed By: #### C BC #### [facility] [address] [place] [address] Dr. Zackery Beck MANUAL DIFF REQ NO Normal [facility] Comment on above: Performed By: #### C BC #### [facility] [address] [place] [address] Dr. Zackery Beck MCH (RBC) [Entitic mass] 28.6 pg Normal 26.7-34.0 [facility] Comment on above: Performed By: #### C BC #### [facility] [address] [place] [address] Dr. Zackery Beck MCHC (RBC) [Mass/Vol] 33.3 g/dL Normal 29.9-35.2 [facility] Comment on above: Performed By: #### C BC #### [facility] [address] [place] [address] Dr. Zackery Beck MCV (RBC) [Entitic vol] 85.9 fL Normal 81.0-99.0 [facility] Comment on above: Performed By: #### C BC #### [facility] [address] [place] [address] Dr. Zackery Beck MONO # 0.5 103/ul Normal 0.3-0.8 [facility] Comment on above: Performed By: #### C BC #### [facility] [address] [place] [address] Dr. Zackery Beck Monocytes/100 WBC (Bld) 6.7 % Normal 1.7-12.0 [facility] Comment on above: Performed By: #### C BC #### [facility] [address] [place] [address] Dr. Zackery Beck NEUT # 5.6 103/ul Normal 1.4-6.5 [facility] Comment on above: Performed By: #### C BC #### [facility] [address] [place] [address] Dr. Zackery Beck Neutrophils/100 WBC (Bld) 71.6 % Normal 43.0-75.0 [facility] Comment on above: Performed By: #### C BC #### [facility] [address] [place] [address] Dr. Zackery Beck Platelet mean volume (Bld) [Entitic vol] 11.6 fL Normal 9.5-13.5 [facility] Comment on above: Performed By: #### C BC #### [facility] [address] [place] [address] Dr. Zackery Beck PLT 249 103/ul Normal 150-450 [facility] Comment on above: Performed By: #### C BC #### [facility] [address] [place] [address] Dr. Zackery Beck RBC 5.60 106/ul Critically high 4.20-5.40 [facility] Comment on above: Performed By: #### C BC #### [facility] [address] [place] [address] Dr. Zackery Beck WBC 7.8 103/ul Normal 4.0-11.0 [facility] Comment on above: Performed By: #### C BC #### [facility] [address] [place] [address] Dr. Zackery Beck FREE THYROXINE INDEX T7on FTI 3.74 Normal 1.30-4.50 [facility] Comment on above: Performed By: #### L IPID, TSH, CMP, T7 #### [facility] [address] [address] [address] Zackery Beck T3U 37.0 % Normal 30.0-39.0 [facility] Comment on above: Performed By: #### L IPID, TSH, CMP, T7 #### [facility] [address] [address] [address] Zackery Beck T4 [Mass/Vol] 10.10 ug/dL Normal 4.80-13.90 [facility] Comment on above: Performed By: #### L IPID, TSH, CMP, T7 #### [facility] [address] [address] [address] Zackery Beck GLYCOHEMOGLOBIN A1Con 2022 ADA RECOMMENDATION SEE BELOW Normal [facility] Comment on above: Result Comment: ADA RECOMMENDED LIMIT 4.0 - 6.0 ADA THERAPEUTIC TARGET < 7.0 ACTION SUGGESTED > 7.0 Performed By: #### A 1C #### [facility] [address] [address] [address] Zackery Beck Glucose [Mass/Vol] 114 mg/dL Normal [facility] Comment on above: Performed By: #### A 1C #### [facility] [address] [address] [address] Zackery Beck HbA1c (Bld) [Mass fraction] 5.6 % Normal 4.5-6.2 [facility] Comment on above: Performed By: #### A 1C #### [facility] [address] [address] [address] Zackery Beck IRONon 05-20-2022 Iron [Mass/Vol] 84.0 ug/dL Normal 50.0-170.0 [facility] Comment on above: Performed By: #### I GÓMEZ #### [facility] [address] [place] [address] Dr. Zackery Beck LIPID PROFILEon 05-20-2022 CHOL-HDL RATIO NORM SEE BELOW Normal [facility] Comment on above: Result Comment: 3.3 - 4.4 LOW RISK 4.4 - 7.1 AVERAGE RISK 7.1 - 11.0 MODERATE RISK >11.0 HIGH RISK Performed By: #### L IPID, TSH, CMP, T7 #### [facility] [address] [address] [address] Zackery Beck Cholesterol [Mass/Vol] 293 mg/dL Critically high <=200 [facility] Comment on above: Performed By: #### L IPID, TSH, CMP, T7 #### [facility] [address] [address] [address] Zackery Beck Cholesterol in HDL [Mass/Vol] 71 mg/dL Critically high 40-60 [facility] Comment on above: Performed By: #### L IPID, TSH, CMP, T7 #### [facility] [address] [place] [address] Dr. Zackery Beck Cholesterol in LDL [Mass/Vol] 206.4 mg/dL Normal [facility] Comment on above: Performed By: #### L IPID, TSH, CMP, T7 #### [facility] [address] [address] [address] Zackery Beck Cholesterol.total/Ch olesterol in HDL [Mass ratio] 4.1 {ratio} Normal [facility] Comment on above: Performed By: #### L IPID, TSH, CMP, T7 #### [facility] [address] [address] [address] Zackery Beck HDL NORMAL > or = 60 mg/dl - LOW CARDIOVASCULAR RISK <40 mg/dl - HIGH CARDIOVASCULAR RISK Normal [facility] Comment on above: Performed By: #### L IPID, TSH, CMP, T7 #### [facility] [address] [place] [address] Dr. Zackery Beck LDL CALC NORMAL SEE BELOW Normal [facility] Comment on above: Result Comment: <100 mg/dl OPTIMAL 100 - 129 mg/dl NEAR OR ABOVE OPTIMAL 130 - 159 mg/dl BORDERLINE HIGH 160 - 189 mg/dl HIGH >190 mg/dl VERY HIGH Performed By: #### L IPID, TSH, CMP, T7 #### [facility] [address] [place] [address] Dr. Zackery Beck Triglyceride [Mass/Vol] 78 mg/dL Normal <=150 [facility] Comment on above: Performed By: #### L IPID, TSH, CMP, T7 #### [facility] [address] [address] [address] Zackery Beck VLDL CALC 15.6 mg/dL Normal [facility] Comment on above: Performed By: #### L IPID, TSH, CMP, T7 #### [facility] [address] [address] [address] Zackery Beck PROF 14(COMP METB)on 023 Albumin [Mass/Vol] 4.3 g/dL Normal 3.4-5.0 [facility] Comment on above: Performed By: #### L IPID, TSH, CMP, T7 #### [facility] [address] [place] [address] Dr. Zackery Beck Albumin/Globulin [Mass ratio] 1.3 {ratio} Normal [facility] Comment on above: Performed By: #### L IPID, TSH, CMP, T7 #### [facility] [address] [address] [address] Zackery Beck ALP [Catalytic activity/Vol] 94 U/L Normal 46-116 [facility] Comment on above: Performed By: #### L IPID, TSH, CMP, T7 #### [facility] [address] [place] [address] Dr. Zackery Beck ALT [Catalytic activity/Vol] 20 U/L Normal 14-59 [facility] Comment on above: Performed By: #### L IPID, TSH, CMP, T7 #### [facility] [address] [address] [address] Zackery Beck Anion gap [Moles/Vol] 16.5 mmol/L Normal [facility] Comment on above: Performed By: #### L IPID, TSH, CMP, T7 #### [facility] [address] [address] [address] Zackery Beck AST [Catalytic activity/Vol] 20 U/L Normal 15-37 [facility] Comment on above: Performed By: #### L IPID, TSH, CMP, T7 #### [facility] [address] [place] [address] Dr. Zackery Beck Bilirubin [Mass/Vol] 0.5 mg/dL Normal 0.2-1.0 [facility] Comment on above: Performed By: #### L IPID, TSH, CMP, T7 #### [facility] [address] [place] [address] Dr. Zackery Beck Calcium [Mass/Vol] 9.5 mg/dL Normal 8.5-10.1 [facility] Comment on above: Performed By: #### L IPID, TSH, CMP, T7 #### [facility] [address] [place] [address] Dr. Zackery Beck Chloride [Moles/Vol] 103 mmol/L Normal 98-107 [facility] Comment on above: Performed By: #### L IPID, TSH, CMP, T7 #### [facility] [address] [place] [address] Dr. Zackery Beck CO2 [Moles/Vol] 23.5 mmol/L Normal 21.0-32.0 [facility] Comment on above: Performed By: #### L IPID, TSH, CMP, T7 #### [facility] [address] [place] [address] Dr. Zackery Beck Creatinine [Mass/Vol] 0.93 mg/dL Normal 0.55-1.02 [facility] Comment on above: Performed By: #### L IPID, TSH, CMP, T7 #### [facility] [address] [place] [address] Dr. Zackery Beck EGFR-AF CAMBODIAN >60 Normal >=60 [facility] Comment on above: Performed By: #### L IPID, TSH, CMP, T7 #### [facility] [address] [place] [address] Dr. Zackery Beck EGFR-NON AF CAMBODIAN >60 Normal >=60 [facility] Comment on above: Performed By: #### L IPID, TSH, CMP, T7 #### [facility] [address] [place] [address] Dr. Zackery Beck Globulin (S) [Mass/Vol] 3.2 g/dL Normal [facility] Comment on above: Performed By: #### L IPID, TSH, CMP, T7 #### [facility] [address] [address] [address] Zackery Beck Glucose [Mass/Vol] 112 mg/dL Critically high 74-106 [facility] Comment on above: Performed By: #### L IPID, TSH, CMP, T7 #### [facility] [address] [address] [address] Zackery Beck Potassium [Moles/Vol] 4.0 mmol/L Normal 3.5-5.1 [facility] Comment on above: Performed By: #### L IPID, TSH, CMP, T7 #### [facility] [address] [address] [address] Zackery Beck Protein [Mass/Vol] 7.5 g/dL Normal 6.4-8.2 [facility] Comment on above: Performed By: #### L IPID, TSH, CMP, T7 #### [facility] [address] [address] [address] Zackery Beck Sodium [Moles/Vol] 139 mmol/L Normal 136-145 [facility] Comment on above: Performed By: #### L IPID, TSH, CMP, T7 #### [facility] [address] [address] [address] Zackery Beck Urea nitrogen [Mass/Vol] 30.0 mg/dL Critically high 7.0-18.0 [facility] Comment on above: Performed By: #### L IPID, TSH, CMP, T7 #### [facility] [address] [address] [address] Zackery Beck Urea nitrogen/Creatinine [Mass ratio] 32.3 mg/mg Normal [facility] Comment on above: Performed By: #### L IPID, TSH, CMP, T7 #### [facility] [address] [address] [address] Zackery Beck TSHon 05-20-2022 TSH 0.652 uIU/mL Normal 0.358-3.740 [facility] Comment on above: Performed By: #### L IPID, TSH, CMP, T7 #### [facility] [address] [place] [address] Dr. Zackery Beck CULTURE URINEon 10-19-2021 CULTURE URINE Culture Observations: LIGHT GROWTH OF MIXED GENITAL DARSHANA. NO POTENTIAL PATHOGENS SEEN. Normal [facility] Comment on above: Performed By: #### U RCX #### [facility] [address] [place] [address] Dr. Zackery Beck UA RANDOM W/MICROSCOPICon AMORPHOUS CRYSTALS RARE Normal [facility] Comment on above: Performed By: #### U AMIC #### [facility] [address] [place] [address] Dr. Zackery Beck BACTERIA TRACE Abnormal NONE SEEN [facility] Comment on above: Performed By: #### U AMIC #### [facility] [address] [place] [address] Dr. Zackery Beck Bilirubin Ql (U) Negative Normal NEGATIVE [facility] Comment on above: Performed By: #### U AMIC #### [facility] [address] [place] [address] Dr. Zackery Beck CAST NONE SEEN Normal NONE SEEN [facility] Comment on above: Performed By: #### U AMIC #### [facility] [address] [place] [address] Dr. Zackery Beck Clarity (U) CLEAR Normal CLEAR [facility] Comment on above: Performed By: #### U AMIC #### [facility] [address] [place] [address] Dr. Zackery Beck Color (U) LT. YELLOW Normal YELLOW [facility] Comment on above: Performed By: #### U AMIC #### [facility] [address] [place] [address] Dr. Zackery Beck Crystals LM Nom (Urine sed) SEEN Abnormal NONE SEEN [facility] Comment on above: Performed By: #### U AMIC #### [facility] [address] [place] [address] Dr. Zackery Beck Epithelial cells LM Ql (Urine sed) RARE Normal NONE SEEN /RARE [facility] Comment on above: Performed By: #### U AMIC #### [facility] [address] [address] [address] Zackery Beck Glucose Ql (U) Negative Normal NEGATIVE [facility] Comment on above: Performed By: #### U AMIC #### [facility] [address] [address] [address] Zackery Beck Hemoglobin Ql (U) TRACE-LYSED Abnormal NEGATIVE [facility] Comment on above: Performed By: #### U AMIC #### [facility] [address] [address] [address] Zackery Beck Ketones Ql (U) Negative Normal NEGATIVE [facility] Comment on above: Performed By: #### U AMIC #### [facility] [address] [place] [address] Dr. Zackery Beck LEUKOCYTES TRACE Abnormal NEGATIVE [facility] Comment on above: Performed By: #### U AMIC #### [facility] [address] [address] [address] Zackery Beck MUCOUS TRACE Abnormal NONE SEEN [facility] Comment on above: Performed By: #### U AMIC #### [facility] [address] [address] [address] Zackery Beck Nitrite Ql (U) Negative Normal NEGATIVE [facility] Comment on above: Performed By: #### U AMIC #### [facility] [address] [address] [address] Zackery Beck pH (U) 5.5 [pH] Normal 5-9 [facility] Comment on above: Performed By: #### U AMIC #### [facility] [address] [address] [address] Zackery Beck RBC 2-5 Abnormal 0-2 [facility] Comment on above: Performed By: #### U AMIC #### [facility] [address] [place] [address] Dr. Zackery Beck SPEC GRAVITY <=1.005 Abnormal 1.005-<=1.025 [facility] Comment on above: Performed By: #### U AMIC #### [facility] [address] [address] [address] Zackery Beck UA PROTEIN Negative Normal NEGATIVE/ TRACE [facility] Comment on above: Performed By: #### U AMIC #### [facility] [address] [place], [place] [address] Dr. Zackery Beck Urobilinogen Qn (U) 0.2 {Monse'U}/dL Normal 0.2 - 1. 0 [facility] Comment on above: Performed By: #### U AMIC #### [facility] [address] [address] [address] Zackery Beck WBC 5-10 Abnormal NONE SEEN [facility] Comment on above: Performed By: #### U AMIC #### [facility] [address] [address] [address] Zackery Beck XR KUB 1 VIEWon [...] by: SHWETA FISCHER Date: 2021-10-19 18:38 Normal [facility] Vital Signs Date Time Vital Sign Value Performing Clinician Ayala julien 04-18-2023 13:25-0500 Body height 152.4 cm Dimitry Aly MD Work Phone: [facility] 04-18-2023 13:25-050 Body mass index (BMI) [Ratio] 31.25 kg/m2 Dimitry Aly MD Work Phone: [facility] 04-18-2023 13:25-0500 Body weight 72.58 kg Dimitry Aly MD Work Phone: [facility] 04-18-2023 13:25-0500 Diastolic blood pressure 82 mm[Hg] Dimitry Aly MD Work Phone: [facility] 04-18-2023 13:25-0500 Heart rate 72 /min Dimitry Aly MD Work Phone: [facility] 04-18-2023 13:25-0500 Systolic blood pressure 121 mm[Hg] Dimitry Aly MD Work Phone: [facility] Encounters Encounter Date Encounter Type Care Provider Facility Start: 10-23-2023 End: 10-23-2023 ambulatory ORLY Naik [facility] Start: 06-22-2023 End: 06-22-2023 ambulatory [facility] Start: 05-23-2023 End: 05-23-2023 ambulatory [facility] Start: 04-18-2023 End: 04-18-2023 ambulatory [facility] Start: 04-18-2023 End: 04-18-2023 Office outpatient visit 15 minutes Dimitry Aly MD [facility] Comment on above: Kidney stones (Prima ry Dx) Start: 04-14-2023 End: 04-14-2023 ambulatory [facility] Start: 04-14-2023 Telephone encounter Jerri Byrnes [facility] Start: 04-14-2023 End: 04-15-2023 ambulatory [facility] Start: 04-11-2023 End: 04-11-2023 ambulatory [facility] Start: 06-30-2022 End: 07-01-2022 ambulatory MILLY PEPE Facility:[facility] Start: 05-22-2022 Encounter for genera l adult medical examination without abnormal findings MILLY PEPE [facility] Start: 05-20-2022 End: 05-21-2022 ambulatory MILLY [...] Td Vaccines (2 - Td or Tdap) [facility] Start: 03-09-2030 Screening for malign ant neoplasm of colon Colonoscopy [facility] Start: 04-18-2024 Adult BMI Screening Adult BMI Screen ing [facility] Start: 04-18-2024 Tobacco Screening Tobacco Screening [facility] Start: 04-17-2024 End: 04-17-2025 XR Abdomen AP X-ray abdomen ap 1 view Imaging Routine Kidney stones Expected: 04/17/2024, Expires: 04/17/2025 [facility] Work Phone: Comment on above: Expected: 04/17/2024 , Expires: 04/17/2025 Start: 04-09-2024 End: 04-09-2024 Patient encounter procedure 04/09/2024 3:15 PM EST Office Visit [facility] [address] [place] [address] [place] [address] [place] [address] Dimitry Aly MD [address] [place] [address] [facility] Start: 01-06-2024 Adult BMI Follow Up Plan Adult BMI Follow Up Plan [facility] Start: 01-06-2024 Adult BMI Screening Adult BMI Screen ing [facility] Start: 01-06-2024 Depression Screening Depression Scre ening [facility] Start: 01-06-2024 Tobacco Screening Tobacco Screening [facility] Start: 06-30-2023 Screening for malign ant neoplasm of breast Mammogram [facility] Start: 04-18-2023 End: 04-18-2023 Patient encounter procedure 04/18/2023 1:15 PM EST Office Visit [facility] [address] [place] [address] [place] [address] Dimitry Aly MD [address] [place] [address] [facility] Start: 2022 Fall Risk Screening Fall Risk Screen ing [facility] Start: 10-28-2022 Influenza vaccination Influenza Vacc ine [facility] Start: 1955 Medicare Annual Wellness Visit Medicare Annual Wellness Visit [facility] Immunizations Immunization Date Immunization Notes Care Provider Fa cility 02-08-2021 zoster vaccine recombinant Jerri Reinoso VAMP STRAP IRONER [facility] 11-21-2020 zoster vaccine recombinant Jerri Reinoso VAMP STRAP IRONER [facility] 10-24-2015 zoster vaccine, live Jerri Reinoso L PN [facility] Payers Date Payer Category Payer Unknown [employer] [id number] 2022-Present [phone] [address] [place] [address] [id number] 2022 Medicare [id number] 1957 Private Health Insurance [id number] 1955 Unknown [id number]. 2.593 1955 Unknown [id number] [id number]. 2.593 1957 Unknown [id number] 2.16.840.1.327502.3.579. 2.593 1957 Unknown [id number] [id number]. 2.1286 1957 Unknown [id number] 2.16.840.1.579038.3.579. 2.1286 1957 Unknown [id number] [id number]. 2.1286 1957 Unknown [id number] [id number]. 2.1286 1955 Unknown [id number] [id number]. 2.1286 Unknown [id number] Social History Date Type Detail Facility Start: 2021 Tobacco smoking stat [facility] Ex-smoker [facility] End: 02-27-2006 History of tobacco use Current smoker [facility] End: 02-27-2006 History of tobacco use Cigarette Smoker [facility] Start: 2021 Tobacco use and exposure Smokeless tobacco non-user [facility] Start: 01-05-2023 End: 04-18-2023 Alcohol intake Current non-drinker of alcohol (finding) [facility] Start: 03-10-2020 End: 01-05-2023 History of Social function [facility] Start: 03-10-2020 End: 01-05-2023 Tobacco use panel [facility] Adolescent depressio n screening assessment 0 [facility] Start: 1955 Sex Assigned At Not on file P [facility] Medical Equipment Procedure Code Equipment Code Equipment Origin al Text Equipment Identifier Dates Stent Percuflex [place]+ 6x24 - [id number] Start: 05-11-2017 Progress note 05-23-2023 Note Date & Type Note Facility 05-23-2023 Note Patient here for fol low up 7 day Holter monitor. Palpitations have resolved, and she states her lightheadedness has improved. Still denies chest pain and SOB. Review of Systems Neurological: Positive for light-headedness (improving). All other systems reviewed and are negative. [facility] History of Present illness Narrative 04-18-2023 Dimitry Aly MD - 04/18/2023 1:15 PM EST Note Date & Type Note Facility 04-18-2023 History of Present illness Narrative Images from the original note were not included. 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 Visual impairment contacts Past Surgical History: Procedure Laterality Date APPENDECTOMY BREAST BIOPSY Left 05/26/1994 benign excisional-not visible CHOLECYSTECTOMY COLONOSCOPY [id number] COLONOSCOPY N/A 03/09/2020 Performed by Jerald Malhotra DO at [facility] CYSTOSCOPY N/A 04/25/2017 Performed by Dimitry Aly MD at [facility] CYSTOSCOPY , right ureteroscopy, with laser right ureter dilation Right 02/12/2021 Performed by Dimitry Aly MD at [facility] CYSTOSCOPY REMOVAL STENT Bilateral 03/31/2021 Performed by Dimitry Aly MD at [facility] CYSTOSCOPY REMOVAL STENT Bilateral 05/23/2017 Performed by Dimitry Aly MD at [facility] CYSTOSCOPY URETEROSCOPY BILATERAL WITH HOMIUM LASER/BILATERAL STENT PLACEMENT/STONE BASKETING Bilateral 05/11/2017 Performed by Dimitry Aly MD at [facility] ESOPHAGOGASTRODUODENOSCOPY ESOPHAGOGASTRODUODENOSCOPY N/A 03/09/2020 Performed by Jerald Malhotra DO at [facility] EXTRACORPOREAL SHOCK WAVE LITHOTRIPSY Right 04/25/2017 Performed by Dimitry Aly MD at [facility] EYE SURGERY INSERTION STENT URETER Bilateral 02/12/2021 Performed by Dimitry Aly MD at [facility] LASER HOLMIUM URETEROSCOPY RENAL STONES < OR=1CM Right 03/31/2021 Performed by Dimitry Aly MD at [facility] NECK SURGERY URETERAL STENT PLACEMENT Family [...] mcg total) by mouth in the morning. fpugnyqv-myzw-KU-calcium &mins (THERAGRAN-M) 9 mg iron-400 mcg tablet [...] for your understanding. documented in this encounter [facility] Note 04-14-2023 Telephone Encounter - Jerri Reinoso [...] to remind her. documented in this encounter [facility] Telephone encounter Note 04-14-2023 Telephone Encounter - [...] that this nurse called to remind her. [facility] Progress note 04-11-2023 Note Date & [...] CHF and they believe her father had AR. Review of Systems Cardiovascular: Positive for palpitations. Neurological: Positive for light-headedness. All other systems reviewed and are negative. [facility] Progress note 04-11-2023 Note Date & [...] holter showed a (more content not included)... 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 [facility] [employer] provides no warranty or guarantee of the accuracy or completeness of information in this document.
[2024-02-12 14:03] LABS: Bilirubin Urine NEGATIVE (NEGATIVE); Blood Urine TRACE-I (NEGATIVE); Clarity Urine CLEAR (CLEAR); Color Urine LT. YELLOW (YELLOW); Glucose Urine UA NEGATIVE (NEGATIVE); Ketones Urine NEGATIVE (NEGATIVE); Leukocyte Esterase Urine LARGE (NEGATIVE); Nitrite Urine NEGATIVE (NEGATIVE); Protein Urine TRACE mg/dL (NEG/TRACE); Specific Gravity Urine 1.015 (1.005-1.025)
[2024-02-12 14:18] LABS: WBC Urine 50-75 #/HPF (NONE SEEN)
[2024-02-12 14:23] LABS: Bacteria Urine LARGE #/HPF (NONE SEEN)
[2024-02-12 14:24] LABS: Mucus Urine NONE SEEN (NONE SEEN); Squamous Epithelial Cell Urine FEW #/LPF (NONE/RARE)
[2024-02-12 14:25] LABS: Urine Culture Indicated ALREADY ORDERED
== END 2024-02-12 12:31 | disposition home or self-care (01) ==
LOC: LAB 12:31
PROVIDERS: PCP Nurse Practitioner Family; Visit Provider Nurse Practitioner Family
DX: N39.0 Urinary tract infection, site not specified (principal)
CPT/HCPCS: 81001; 87086; 87150; 87186

== ENCOUNTER 2024-02-14 09:51 | Outpatient (OUT) | payer OTHER, SELFPAY ==
[2024-02-14 10:08] LABS: Hematocrit 37.7 % (36.0-48.0); Hemoglobin 12.6 g/dL (12.0-16.0); Mean Corpuscular HGB Conc 33.4 g/dL (29.9-35.2); Mean Corpuscular Hemoglobin 29.9 pg (26.7-34.0); Mean Corpuscular Volume 89.3 fL (81.0-99.0); Mean Platelet Volume 11.5 fL (9.5-13.5); Platelet Count 185 10^3/uL (150-450); Red Blood Count 4.22 10^6/uL (4.20-5.40); Red Cell Distribution Width 13.2 % (11.0-15.0); White Blood Count 14.6 10^3/uL (4.0-11.0)
--- OUTSIDE RECORDS SUMMARY | 2024-02-14 10:19 | XMS_ITS | CCD ---
Author Organization [facility] CliniSyin Care Team Providers Care Belt Polisher Name Role Phone MILLY PEPE Admitting Unavailable [...] Unavailable [place] MD Primary Care Provider [phone] DIMITRY ALY Attending Unavailable ROSALIEY, MY M [...] DRUG)] Drug allergy (disorder) 06-28-19 17 [facility] (1 source) Sulfamethoxazole / Trimethoprim Drug Allergy 07-05-19 17 [facility] (2 sources) Non-steroidal anti-inflammatory agent Propensity to adverse reactions to drug 01-29-20 21 Other (See Comments) [facility] (5 sources) Sulfonamides (Antibiotic); Translations: [SULFA (SULFONAMIDE ANTIBIOTICS)] Propensity to adverse reactions to drug 05-12-19 18 [facility] (4 sources) Trimethoprim; Translations: [TRIMETHOPRIM] Drug Allergy 01-29-20 21 Other (See Comments) [facility] (4 sources) trolamine salicylate; Translations: [TROLAMINE SALICYLATE] Drug Allergy 09-17-19 17 Swelling [facility] (1 source) Sulfamethoxazole / Trimethoprim; Translations: [SULFAMETHOXAZOLE-T RIMETHOPRIM] Drug Allergy 08-12-19 07 [facility] Repository Medications Current Medications Medication Drug Class(es) [...] mouth in the morning. 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 MAMM SCREENING BILATERAL W CAD MAMM SCREENING BILATERAL W CAD ABUNDIO ISAAK IGLESIAS 1955 [id number] EXAM: MAMM SCREENING BILATERAL W CAD, 10/23/2023 [...] AM 1 c MAMM 1 YR Normal [facility] XR ABDOMEN AP 1 VWon 024 [...] Atkins MD on 06/22/2023 6:29 PM Normal [facility] XR ABDOMEN AP 1 VWon 024 [...] Ku MD on 04/17/2023 7:22 AM Normal [facility] Office Visiton 04-11-2023 Follow-up visit [id number] Abundio Iglesias 1955 F Date Provider Department Center 04/11/2023 [facility] Family History Problem Relation Age of Onset Heart failure Mother Heart attack Father Heart attack Father's Brother Family Status - Relation Status Age at Mother Father Father's Brother Level of Service:37610 IN OFFICE/OUTPATIENT ESTABLISHED MOD MDM 30 MIN Normal [facility] INSULINon 05-21-2022 Insulin 9.7 uIU/mL Normal 2.6-24.9 [facility] Comment on above: Performed By: #### C BC #### [facility] [address] [place] [address] Dr. Zackery Beck CBC AUTO DIFFon 05-20-2022 BASO # 0.1 103/ul Normal 0.0-0.1 [facility] Comment on above: Performed By: #### C BC #### [facility] [address] [place] [address] Dr. Zackery Beck Basophils/100 WBC (Bld) 0.6 % Normal 0.2-2.0 [facility] Comment on above: Performed By: #### C BC #### [facility] [address] [place] [address] Dr. Zackery Beck EO # 0.1 103/ul Normal 0.0-0.7 [facility] Comment on above: Performed By: #### C BC #### [facility] [address] [place] [address] Dr. Zackery Beck Eosinophils/100 WBC (Bld) 1.8 % Normal 0.9-7.0 [facility] Comment on above: Performed By: #### C BC #### [facility] [address] [place] [address] Dr. Zackery Beck Erythrocyte distribution width (RBC) [Ratio] 13.6 % Normal 11.0-15.0 [facility] Comment on above: Performed By: #### C BC #### [facility] [address] [place] [address] Dr. Zackery Beck Hematocrit (Bld) [Volume fraction] 48.1 % Critically high 36.0-48.0 [facility] Comment on above: Performed By: #### C BC #### [facility] [address] [place] [address] Dr. Zackery Beck Hemoglobin (Bld) [Mass/Vol] 16.0 g/dL Normal 12.0-16.0 [facility] Comment on above: Performed By: #### C BC #### [facility] [address] [place] [address] Dr. Zackery Beck IG # 0.02 10e3/ul Normal 0.00-0.03 [facility] Comment on above: Performed By: #### C BC #### [facility] [address] [place] [address] Dr. Zackery Beck IG % 0.3 % Normal 0.0-0.5 [facility] Comment on above: Performed By: #### C BC #### [facility] [address] [place] [address] Dr. Zackery Beck LYMPH # 1.5 103/ul Normal 1.2-3.8 [facility] Comment on above: Performed By: #### C BC #### [facility] [address] [place] [address] Dr. Zackery Beck Lymphocytes/100 WBC (Bld) 19.0 % Critically low 20.5-60.0 [facility] Comment on above: Performed By: #### C BC #### [facility] [address] [place] [address] Dr. Zackery Beck MANUAL DIFF REQ NO Normal [facility] Comment on above: Performed By: #### C BC #### [facility] [address] [place] [address] Dr. Zackery Beck MCH (RBC) [Entitic mass] 28.6 pg Normal 26.7-34.0 [facility] Comment on above: Performed By: #### C BC #### [facility] [address] [place] [address] Dr. Zackery Beck MCHC (RBC) [Mass/Vol] 33.3 g/dL Normal 29.9-35.2 [facility] Comment on above: Performed By: #### C BC #### [facility] [address] [place] [address] Dr. Zackery Beck MCV (RBC) [Entitic vol] 85.9 fL Normal 81.0-99.0 [facility] Comment on above: Performed By: #### C BC #### [facility] [address] [place] [address] Dr. Zackery Beck MONO # 0.5 103/ul Normal 0.3-0.8 [facility] Comment on above: Performed By: #### C BC #### [facility] [address] [place] [address] Dr. Zackery Beck Monocytes/100 WBC (Bld) 6.7 % Normal 1.7-12.0 [facility] Comment on above: Performed By: #### C BC #### [facility] [address] [place] [address] Dr. Zackery Beck NEUT # 5.6 103/ul Normal 1.4-6.5 [facility] Comment on above: Performed By: #### C BC #### [facility] [address] [place] [address] Dr. Zackery Beck Neutrophils/100 WBC (Bld) 71.6 % Normal 43.0-75.0 [facility] Comment on above: Performed By: #### C BC #### [facility] [address] [place] [address] Dr. Zackery Beck Platelet mean volume (Bld) [Entitic vol] 11.6 fL Normal 9.5-13.5 [facility] Comment on above: Performed By: #### C BC #### [facility] [address] [place] [address] Dr. Zackery Beck PLT 249 103/ul Normal 150-450 [facility] Comment on above: Performed By: #### C BC #### [facility] [address] [place] [address] Dr. Zackery Beck RBC 5.60 106/ul Critically high 4.20-5.40 [facility] Comment on above: Performed By: #### C BC #### [facility] [address] [place] [address] Dr. Zackery Beck WBC 7.8 103/ul Normal 4.0-11.0 [facility] Comment on above: Performed By: #### C BC #### [facility] [address] [place] [address] Dr. Zackery Beck FREE THYROXINE INDEX T7on FTI 3.74 Normal 1.30-4.50 [facility] Comment on above: Performed By: #### L IPID, TSH, CMP, T7 #### [facility] [address] [address] [address] Zackery Beck T3U 37.0 % Normal 30.0-39.0 [facility] Comment on above: Performed By: #### L IPID, TSH, CMP, T7 #### [facility] [address] [address] [address] Zackery Beck T4 [Mass/Vol] 10.10 ug/dL Normal 4.80-13.90 [facility] Comment on above: Performed By: #### L IPID, TSH, CMP, T7 #### [facility] [address] [address] [address] Zackery Beck GLYCOHEMOGLOBIN A1Con 2022 ADA RECOMMENDATION SEE BELOW Normal [facility] Comment on above: Result Comment: ADA RECOMMENDED LIMIT 4.0 - 6.0 ADA THERAPEUTIC TARGET < 7.0 ACTION SUGGESTED > 7.0 Performed By: #### A 1C #### [facility] [address] [address] [address] Zackery Beck Glucose [Mass/Vol] 114 mg/dL Normal [facility] Comment on above: Performed By: #### A 1C #### [facility] [address] [address] [address] Zackery Beck HbA1c (Bld) [Mass fraction] 5.6 % Normal 4.5-6.2 [facility] Comment on above: Performed By: #### A 1C #### [facility] [address] [address] [address] Zackery Beck IRONon 05-20-2022 Iron [Mass/Vol] 84.0 ug/dL Normal 50.0-170.0 [facility] Comment on above: Performed By: #### I GÓMEZ #### [facility] [address] [place] [address] Dr. Zackery Beck LIPID PROFILEon 05-20-2022 CHOL-HDL RATIO NORM SEE BELOW Normal [facility] Comment on above: Result Comment: 3.3 - 4.4 LOW RISK 4.4 - 7.1 AVERAGE RISK 7.1 - 11.0 MODERATE RISK >11.0 HIGH RISK Performed By: #### L IPID, TSH, CMP, T7 #### [facility] [address] [address] [address] Zackery Beck Cholesterol [Mass/Vol] 293 mg/dL Critically high <=200 [facility] Comment on above: Performed By: #### L IPID, TSH, CMP, T7 #### [facility] [address] [address] [address] Zackery Beck Cholesterol in HDL [Mass/Vol] 71 mg/dL Critically high 40-60 [facility] Comment on above: Performed By: #### L IPID, TSH, CMP, T7 #### [facility] [address] [place] [address] Dr. Zackery Beck Cholesterol in LDL [Mass/Vol] 206.4 mg/dL Normal [facility] Comment on above: Performed By: #### L IPID, TSH, CMP, T7 #### [facility] [address] [address] [address] Zackery Beck Cholesterol.total/Ch olesterol in HDL [Mass ratio] 4.1 {ratio} Normal [facility] Comment on above: Performed By: #### L IPID, TSH, CMP, T7 #### [facility] [address] [address] [address] Zackery Beck HDL NORMAL > or = 60 mg/dl - LOW CARDIOVASCULAR RISK <40 mg/dl - HIGH CARDIOVASCULAR RISK Normal [facility] Comment on above: Performed By: #### L IPID, TSH, CMP, T7 #### [facility] [address] [place] [address] Dr. Zackery Beck LDL CALC NORMAL SEE BELOW Normal [facility] Comment on above: Result Comment: <100 mg/dl OPTIMAL 100 - 129 mg/dl NEAR OR ABOVE OPTIMAL 130 - 159 mg/dl BORDERLINE HIGH 160 - 189 mg/dl HIGH >190 mg/dl VERY HIGH Performed By: #### L IPID, TSH, CMP, T7 #### [facility] [address] [place] [address] Dr. Zackery Beck Triglyceride [Mass/Vol] 78 mg/dL Normal <=150 [facility] Comment on above: Performed By: #### L IPID, TSH, CMP, T7 #### [facility] [address] [address] [address] Zackery Beck VLDL CALC 15.6 mg/dL Normal [facility] Comment on above: Performed By: #### L IPID, TSH, CMP, T7 #### [facility] [address] [address] [address] Zackery Beck PROF 14(COMP METB)on 023 Albumin [Mass/Vol] 4.3 g/dL Normal 3.4-5.0 [facility] Comment on above: Performed By: #### L IPID, TSH, CMP, T7 #### [facility] [address] [place] [address] Dr. Zackery Beck Albumin/Globulin [Mass ratio] 1.3 {ratio} Normal [facility] Comment on above: Performed By: #### L IPID, TSH, CMP, T7 #### [facility] [address] [address] [address] Zackery Beck ALP [Catalytic activity/Vol] 94 U/L Normal 46-116 [facility] Comment on above: Performed By: #### L IPID, TSH, CMP, T7 #### [facility] [address] [place] [address] Dr. Zackery Beck ALT [Catalytic activity/Vol] 20 U/L Normal 14-59 [facility] Comment on above: Performed By: #### L IPID, TSH, CMP, T7 #### [facility] [address] [address] [address] Zackery Beck Anion gap [Moles/Vol] 16.5 mmol/L Normal [facility] Comment on above: Performed By: #### L IPID, TSH, CMP, T7 #### [facility] [address] [address] [address] Zackery Beck AST [Catalytic activity/Vol] 20 U/L Normal 15-37 [facility] Comment on above: Performed By: #### L IPID, TSH, CMP, T7 #### [facility] [address] [place] [address] Dr. Zackery Beck Bilirubin [Mass/Vol] 0.5 mg/dL Normal 0.2-1.0 [facility] Comment on above: Performed By: #### L IPID, TSH, CMP, T7 #### [facility] [address] [place] [address] Dr. Zackery Beck Calcium [Mass/Vol] 9.5 mg/dL Normal 8.5-10.1 [facility] Comment on above: Performed By: #### L IPID, TSH, CMP, T7 #### [facility] [address] [place] [address] Dr. Zackery Beck Chloride [Moles/Vol] 103 mmol/L Normal 98-107 [facility] Comment on above: Performed By: #### L IPID, TSH, CMP, T7 #### [facility] [address] [place] [address] Dr. Zackery Beck CO2 [Moles/Vol] 23.5 mmol/L Normal 21.0-32.0 [facility] Comment on above: Performed By: #### L IPID, TSH, CMP, T7 #### [facility] [address] [place] [address] Dr. Zackery Beck Creatinine [Mass/Vol] 0.93 mg/dL Normal 0.55-1.02 [facility] Comment on above: Performed By: #### L IPID, TSH, CMP, T7 #### [facility] [address] [place] [address] Dr. Zackery Beck EGFR-AF BELARUSIAN >60 Normal >=60 [facility] Comment on above: Performed By: #### L IPID, TSH, CMP, T7 #### [facility] [address] [place] [address] Dr. Zackery Beck EGFR-NON AF BELARUSIAN >60 Normal >=60 [facility] Comment on above: Performed By: #### L IPID, TSH, CMP, T7 #### [facility] [address] [place] [address] Dr. Zackery Beck Globulin (S) [Mass/Vol] 3.2 g/dL Normal [facility] Comment on above: Performed By: #### L IPID, TSH, CMP, T7 #### [facility] [address] [address] [address] Zackery Beck Glucose [Mass/Vol] 112 mg/dL Critically high 74-106 [facility] Comment on above: Performed By: #### L IPID, TSH, CMP, T7 #### [facility] [address] [address] [address] Zackery Beck Potassium [Moles/Vol] 4.0 mmol/L Normal 3.5-5.1 [facility] Comment on above: Performed By: #### L IPID, TSH, CMP, T7 #### [facility] [address] [address] [address] Zackery Beck Protein [Mass/Vol] 7.5 g/dL Normal 6.4-8.2 [facility] Comment on above: Performed By: #### L IPID, TSH, CMP, T7 #### [facility] [address] [address] [address] Zackery Beck Sodium [Moles/Vol] 139 mmol/L Normal 136-145 [facility] Comment on above: Performed By: #### L IPID, TSH, CMP, T7 #### [facility] [address] [address] [address] Zackery Beck Urea nitrogen [Mass/Vol] 30.0 mg/dL Critically high 7.0-18.0 [facility] Comment on above: Performed By: #### L IPID, TSH, CMP, T7 #### [facility] [address] [address] [address] Zackery Beck Urea nitrogen/Creatinine [Mass ratio] 32.3 mg/mg Normal [facility] Comment on above: Performed By: #### L IPID, TSH, CMP, T7 #### [facility] [address] [address] [address] Zackery Beck TSHon 05-20-2022 TSH 0.652 uIU/mL Normal 0.358-3.740 [facility] Comment on above: Performed By: #### L IPID, TSH, CMP, T7 #### [facility] [address] [place] [address] Dr. Zackery Beck CULTURE URINEon 10-19-2021 CULTURE URINE Culture Observations: LIGHT GROWTH OF MIXED GENITAL DARSHANA. NO POTENTIAL PATHOGENS SEEN. Normal [facility] Comment on above: Performed By: #### U RCX #### [facility] [address] [place] [address] Dr. Zackery Beck UA RANDOM W/MICROSCOPICon AMORPHOUS CRYSTALS RARE Normal [facility] Comment on above: Performed By: #### U AMIC #### [facility] [address] [place] [address] Dr. Zackery Beck BACTERIA TRACE Abnormal NONE SEEN [facility] Comment on above: Performed By: #### U AMIC #### [facility] [address] [place] [address] Dr. Zackery Beck Bilirubin Ql (U) Negative Normal NEGATIVE [facility] Comment on above: Performed By: #### U AMIC #### [facility] [address] [place] [address] Dr. Zackery Beck CAST NONE SEEN Normal NONE SEEN [facility] Comment on above: Performed By: #### U AMIC #### [facility] [address] [place] [address] Dr. Zackery Beck Clarity (U) CLEAR Normal CLEAR [facility] Comment on above: Performed By: #### U AMIC #### [facility] [address] [place] [address] Dr. Zackery Beck Color (U) LT. YELLOW Normal YELLOW [facility] Comment on above: Performed By: #### U AMIC #### [facility] [address] [place] [address] Dr. Zackery Beck Crystals LM Nom (Urine sed) SEEN Abnormal NONE SEEN [facility] Comment on above: Performed By: #### U AMIC #### [facility] [address] [place] [address] Dr. Zackery Beck Epithelial cells LM Ql (Urine sed) RARE Normal NONE SEEN /RARE [facility] Comment on above: Performed By: #### U AMIC #### [facility] [address] [address] [address] Zackery Beck Glucose Ql (U) Negative Normal NEGATIVE [facility] Comment on above: Performed By: #### U AMIC #### [facility] [address] [address] [address] Zackery Beck Hemoglobin Ql (U) TRACE-LYSED Abnormal NEGATIVE [facility] Comment on above: Performed By: #### U AMIC #### [facility] [address] [address] [address] Zackery Beck Ketones Ql (U) Negative Normal NEGATIVE [facility] Comment on above: Performed By: #### U AMIC #### [facility] [address] [place] [address] Dr. Zackery Beck LEUKOCYTES TRACE Abnormal NEGATIVE [facility] Comment on above: Performed By: #### U AMIC #### [facility] [address] [address] [address] Zackery Beck MUCOUS TRACE Abnormal NONE SEEN [facility] Comment on above: Performed By: #### U AMIC #### [facility] [address] [address] [address] Zackery Beck Nitrite Ql (U) Negative Normal NEGATIVE [facility] Comment on above: Performed By: #### U AMIC #### [facility] [address] [address] [address] Zackery Beck pH (U) 5.5 [pH] Normal 5-9 [facility] Comment on above: Performed By: #### U AMIC #### [facility] [address] [address] [address] Zackery Beck RBC 2-5 Abnormal 0-2 [facility] Comment on above: Performed By: #### U AMIC #### [facility] [address] [place] [address] Dr. Zackery Beck SPEC GRAVITY <=1.005 Abnormal 1.005-<=1.025 [facility] Comment on above: Performed By: #### U AMIC #### [facility] [address] [address] [address] Zackery Beck UA PROTEIN Negative Normal NEGATIVE/ TRACE [facility] Comment on above: Performed By: #### U AMIC #### [facility] [address] [place], [place] [address] Dr. Zackery Beck Urobilinogen Qn (U) 0.2 {Monse'U}/dL Normal 0.2 - 1. 0 [facility] Comment on above: Performed By: #### U AMIC #### [facility] [address] [address] [address] Zackery Beck WBC 5-10 Abnormal NONE SEEN [facility] Comment on above: Performed By: #### U AMIC #### [facility] [address] [address] [address] Zackery Beck XR KUB 1 VIEWon [...] by: SHWETA FISCHER Date: 2021-10-19 18:38 Normal [facility] Vital Signs Date Time Vital Sign Value Performing Clinician Ayala julien 04-18-2023 13:25-0500 Body height 152.4 cm Dimitry Aly MD Work Phone: [facility] 04-18-2023 13:25-050 Body mass index (BMI) [Ratio] 31.25 kg/m2 Dimitry Aly MD Work Phone: [facility] 04-18-2023 13:25-0500 Body weight 72.58 kg Dimitry Aly MD Work Phone: [facility] 04-18-2023 13:25-0500 Diastolic blood pressure 82 mm[Hg] Dimitry Aly MD Work Phone: [facility] 04-18-2023 13:25-0500 Heart rate 72 /min Dimitry Aly MD Work Phone: [facility] 04-18-2023 13:25-0500 Systolic blood pressure 121 mm[Hg] Dimitry Aly MD Work Phone: [facility] Encounters Encounter Date Encounter Type Care Provider Facility Start: 10-23-2023 End: 10-23-2023 ambulatory ORLY [facility] Start: 06-22-2023 End: 06-22-2023 ambulatory [facility] Start: 05-23-2023 End: 05-23-2023 ambulatory [facility] Start: 04-18-2023 End: 04-18-2023 ambulatory [facility] Start: 04-18-2023 End: 04-18-2023 Office outpatient visit 15 minutes Dimitry Aly MD Work Phone[facility] Comment on above: Kidney stones (Prima ry Dx) Start: 04-14-2023 End: 04-14-2023 ambulatory [facility] Start: 04-14-2023 Telephone encounter Jerri Byrnes [facility] Start: 04-14-2023 End: 04-15-2023 ambulatory [facility] Start: 04-11-2023 End: 04-11-2023 ambulatory [facility] Start: 06-30-2022 End: 07-01-2022 ambulatory MILLY PEPE Facility:[facility] Start: 05-22-2022 Encounter for genera l adult medical examination without abnormal findings MILLY PEPE [facility] Start: 05-20-2022 End: 05-21-2022 ambulatory MILLY PEPE [...] Td Vaccines (2 - Td or Tdap) [facility] Start: 03-09-2030 Screening for malign ant neoplasm of colon Colonoscopy [facility] Start: 04-18-2024 Adult BMI Screening Adult BMI Screen ing [facility] Start: 04-18-2024 Tobacco Screening Tobacco Screening [facility] Start: 04-17-2024 End: 04-17-2025 XR Abdomen AP X-ray abdomen ap 1 view Imaging Routine Kidney stones Expected: 04/17/2024, Expires: 04/17/2025 [facility] Work Phone: Comment on above: Expected: 04/17/2024 , Expires: 04/17/2025 Start: 04-09-2024 End: 04-09-2024 Patient encounter procedure 04/09/2024 3:15 PM EST Office Visit [facility] [address] [place] [address] [place] [address] [place] [address] Dimitry Aly MD [address] [place] [address] [facility] Start: 01-06-2024 Adult BMI Follow Up Plan Adult BMI Follow Up Plan [facility] Start: 01-06-2024 Adult BMI Screening Adult BMI Screen ing [facility] Start: 01-06-2024 Depression Screening Depression Scre ening [facility] Start: 01-06-2024 Tobacco Screening Tobacco Screening [facility] Start: 06-30-2023 Screening for malign ant neoplasm of breast Mammogram [facility] Start: 04-18-2023 End: 04-18-2023 Patient encounter procedure 04/18/2023 1:15 PM EST Office Visit [facility] [address] [place] [address] [place] [address] Dimitry Aly MD [address] [place] [address] [facility] Start: 2022 Fall Risk Screening Fall Risk Screen ing [facility] Start: 10-28-2022 Influenza vaccination Influenza Vacc ine [facility] Start: 1955 Medicare Annual Wellness Visit Medicare Annual Wellness Visit [facility] Immunizations Immunization Date Immunization Notes Care Provider Fa cility 02-08-2021 zoster vaccine recombinant Jerri Reinoso LUNCH COOK [facility] 11-21-2020 zoster vaccine recombinant Jerri Reinoso LUNCH COOK [facility] 10-24-2015 zoster vaccine, live Jerri Reinoso L PN [facility] Payers Date Payer Category Payer Unknown [employer] [id number] 2022-Present [phone] [address] [place] [address] [id number] 2022 Medicare [id number] 1957 Private Health Insurance [id number] 1955 Unknown [id number] 1955 Unknown [id number] 1955 Unknown [id number] 1955 Unknown [id number] [id number] 1955 Unknown [id number] [id number] 1955 Unknown [id number] [id number] 1955 Unknown [id number] [id number] 1955 Unknown [id number] [id number] Unknown [id number] Social History Date Type Detail Facility Start: 2021 Tobacco smoking stat [facility] Ex-smoker [facility] End: 02-27-2006 History of tobacco use Current smoker [facility] End: 02-27-2006 History of tobacco use Cigarette Smoker [facility] Start: 2021 Tobacco use and exposure Smokeless tobacco non-user [facility] Start: 01-05-2023 End: 04-18-2023 Alcohol intake Current non-drinker of alcohol (finding) [facility] Start: 03-10-2020 End: 01-05-2023 History of Social function [facility] Start: 03-10-2020 End: 01-05-2023 Tobacco use panel [facility] Adolescent depressio n screening assessment 0 [facility] Start: 1955 Sex Assigned At Not on file P [facility] Medical Equipment Procedure Code Equipment Code Equipment Origin al Text Equipment Identifier Dates Stent Percuflex [place]+ 6x24 - [id number] Start: 05-11-2017 Progress note 05-23-2023 Note Date & Type Note Facility 05-23-2023 Note Patient here for fol low up 7 day Holter monitor. Palpitations have resolved, and she states her lightheadedness has improved. Still denies chest pain and SOB. Review of Systems Neurological: Positive for light-headedness (improving). All other systems reviewed and are negative. [facility] History of Present illness Narrative 04-18-2023 Dimitry Aly MD - 04/18/2023 1:15 PM EST Note Date & Type Note Facility 04-18-2023 History of Present illness Narrative Images from the original note were not included. 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 Visual impairment contacts Past Surgical History: Procedure Laterality Date APPENDECTOMY BREAST BIOPSY Left 05/26/1994 benign excisional-not visible CHOLECYSTECTOMY COLONOSCOPY [id number] COLONOSCOPY N/A 03/09/2020 Performed by Jerald Malhotra DO at [facility] CYSTOSCOPY N/A 04/25/2017 Performed by Dimitry Aly MD at [facility] CYSTOSCOPY , right ureteroscopy, with laser right ureter dilation Right 02/12/2021 Performed by Dimitry Aly MD at [facility] CYSTOSCOPY REMOVAL STENT Bilateral 03/31/2021 Performed by Dimitry Aly MD at [facility] CYSTOSCOPY REMOVAL STENT Bilateral 05/23/2017 Performed by Dimitry Aly MD at [facility] CYSTOSCOPY URETEROSCOPY BILATERAL WITH HOMIUM LASER/BILATERAL STENT PLACEMENT/STONE BASKETING Bilateral 05/11/2017 Performed by Dimitry Aly MD at [facility] ESOPHAGOGASTRODUODENOSCOPY ESOPHAGOGASTRODUODENOSCOPY N/A 03/09/2020 Performed by Jerald Malhotra DO at [facility] EXTRACORPOREAL SHOCK WAVE LITHOTRIPSY Right 04/25/2017 Performed by Dimitry Aly MD at [facility] EYE SURGERY INSERTION STENT URETER Bilateral 02/12/2021 Performed by Dimitry Aly MD at [facility] LASER HOLMIUM URETEROSCOPY RENAL STONES < OR=1CM Right 03/31/2021 Performed by Dimitry Aly MD at [facility] NECK SURGERY URETERAL STENT PLACEMENT Family [...] mcg total) by mouth in the morning. ivbfxgoq-uwyj-SI-calcium &mins (THERAGRAN-M) 9 mg iron-400 mcg tablet [...] for your understanding. documented in this encounter [facility] Note 04-14-2023 Telephone Encounter - Jerri Reinoso [...] to remind her. documented in this encounter [facility] Telephone encounter Note 04-14-2023 Telephone Encounter - [...] that this nurse called to remind her. [facility] Progress note 04-11-2023 Note Date & Type [...] CHF and they believe her father had DE. Review of Systems Cardiovascular: Positive for palpitations. Neurological: Positive for light-headedness. All other systems reviewed and are negative. [facility] Progress note 04-11-2023 Note Date & Type [...] holter showed a (more content not included)... 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 [facility] [employer] provides no warranty or guarantee of the accuracy or completeness of information in this document.
[2024-02-14 10:39] LABS: Alanine Aminotransferase 26 U/L (14-59); Albumin Globulin Ratio 0.8; Albumin Level 2.9 g/dL (3.4-5.0); Alkaline Phosphatase 80 U/L (46-116); Aspartate Amino Transferase 27 U/L (15-37); BUN Creatinine Ratio 15.6; Calcium 9.1 mg/dL (8.5-10.1); Carbon Dioxide 27.6 mmol/L (21.0-32.0); Chloride 105 mmol/L (98-107); Estimated GFR (African America 48 (>=60 mL/min/1.73m^2); Estimated GFR (Non-African Ame 39 (>=60 mL/min/1.73m^2); Globulin 3.5 g/dL; Glucose 126 mg/dL (74-106); Potassium 3.6 mmol/L (3.5-5.1); Sodium 142 mmol/L (136-145); Total Protein 6.4 g/dL (6.4-8.2)
[2024-02-14 11:40] LABS: Monocytes Absolute Manual 0.58 10^3/uL (0.30-0.80); Segmented Neut Absolute Manual 11.68 10^3/uL (1.4-6.5)
[2024-02-14 11:41] LABS: Band Neutrophils Absolute 0.7 10^3/uL (0.0-0.3)
== END 2024-02-14 09:52 | disposition home or self-care (01) ==
LOC: LAB 09:57
PROVIDERS: PCP Nurse Practitioner Family; Visit Provider Nurse Practitioner Family
DX: N39.0 Urinary tract infection, site not specified (principal)
CPT/HCPCS: 36415; 80053; 85007; 85027

== ENCOUNTER 2024-02-14 16:41 | Emergency (ER) | payer OTHER, SELFPAY ==
[2024-02-14 16:49] VITALS: BP 170/105; PULSE 119; TEMP 39.2; O2SAT 100; BMI 33.8
--- NOTE | 2024-02-14 17:14 | ED.FEMALEGU1 ---
HPI - Female Genitourinary General Chief complaint: Urogenital-Female Stated complaint: UTI Time Seen by Provider: 02/14/24 16:42 Source: patient Mode of arrival: walk-in Limitations: no limitations History of Present Illness HPI Narrative: Patient is a 68-year-old female who presents to the emergency department for worsening pelvic, back pain and vomiting. She has been treated multiple times for UTI over the last 2 months with her primary care provider. She states she submitted a urine specimen 2 days ago and saw her doctor today in the office. She was found to have a low-grade fever. Patient reports increasing pain in the pelvis radiating to the back bilaterally. She was unaware that she had a fever. She states the pain started 3 days ago. She does have a history of kidney stones and has been seen by Dr. Aly for urology in [place] previously. She believes she had cystoscopy 5 to 7 years ago that was normal. Related Data Home Medications ?Medication ?Instructions ?Recorded ?Confirmed ciprofloxacin HCl 500 mg tablet 500 mg PO BID 02/14/24 02/14/24 irbesartan 300 mg tablet 300 mg PO .once daily 02/14/24 02/14/24 levothyroxine 75 mcg tablet 75 mcg PO .once daily 02/14/24 02/14/24 liothyronine 5 mcg tablet 5 mcg PO .once daily 02/14/24 02/14/24 pravastatin 40 mg tablet 40 mg PO .once daily 02/14/24 02/14/24 Allergies Allergy/AdvReac Type Severity Reaction Status Date / Time Sulfa (Sulfonamide Allergy Severe angio edema Verified 02/14/24 17:02 Antibiotics) sulfamethoxazole (From Allergy Severe angioedema Verified 02/14/24 17:02 Bactrim) trimethoprim (From Bactrim) Allergy Severe angioedema Verified 02/14/24 17:02 Review of Systems ROS Constitutional Reports: fever; Denies: chills Ears, nose, mouth, and throat Denies: throat pain Cardiovascular Denies: chest pain Respiratory Denies: shortness of breath or cough Gastrointestinal Reports: abdominal pain, nausea and vomiting; Denies: diarrhea Genitourinary Reports: painful urination Musculoskeletal Reports: back pain Integumentary/Breast Denies: rash Neurological Denies: numbness in extremities or weakness in extremities Hematologic/Lymphatic Denies: easy bruising or easy bleeding PFSH PFSH Social History Little interest or pleasure in doing things: not at all Feeling down, depressed, or hopeless: not at all Exam Narrative Exam Narrative: Gen.: Awake, alert, in no distress Head: Normocephalic, atraumatic ENT: Moist mucous membranes Respiratory: No respiratory distress, lungs clear bilaterally Cardio: Regular rate and rhythm Gastrointestinal: Abdomen is soft, nondistended and nontender to palpation, no CVA tenderness Extremities: Moves extremities equally Psych: Normal mood and affect Neuro: No focal neuro deficit Skin: Warm, dry, intact Constitutional Vital Signs, click to edit/add: Last Vital Signs Temp 99.6 F 02/14/24 18:39 Pulse 95 H 02/14/24 18:39 Resp 16 02/14/24 18:39 BP 120/85 02/14/24 18:39 Pulse Ox 88 L 02/14/24 19:06 O2 Del Method Room Air, Nasal Cannula 02/14/24 19:06 O2 Flow Rate 2 02/14/24 19:06 Course Vital Signs Vital signs: Vital Signs Temperature 102.6 F H 02/14/24 16:49 Pulse Rate 119 H 02/14/24 16:49 Respiratory Rate 20 02/14/24 16:49 Blood Pressure 170/105 H 02/14/24 16:49 Pulse Oximetry 100 02/14/24 16:49 Oxygen Delivery Method Room Air 02/14/24 16:49 Temperature 99.6 F 02/14/24 18:39 Pulse Rate 95 H 02/14/24 18:39 Respiratory Rate 16 02/14/24 18:39 Blood Pressure 120/85 02/14/24 18:39 Pulse Oximetry 88 L 02/14/24 19:06 Oxygen Delivery Method Room Air, Nasal Cannula 02/14/24 19:06 Oxygen Delivery Flow Rate 2 02/14/24 19:06 MDM - Female Genitourinary MDM Narrative Medical decision making narrative: Patient was medicated for pain with Dilaudid, Toradol and Tylenol for fever. She was given Zofran for comfort. IV fluids given for suspected sepsis and Levaquin was given for antibiotic coverage. Patient was given additional Zofran for comfort. She was placed on oxygen by nasal cannula 2 L for comfort after pain medication. Laboratory studies show mild leukocytosis with bandemia, minimally elevated lactic acid and creatinine 1.4. CT shows the patient has 2 stones in the left ureter with moderate hydronephrosis and obstruction. I discussed this with the patient and her at bedside. Patient is known to urology through [facility] where she has had procedures in the past. I contacted the on-call physician, Dr. Schuler. Patient's urologist is not on-call and it was recommended that the patient be admitted here for stent with definitive care as an outpatient with her urology group. I discussed this with the patient and her and she is agreeable. I discussed the case with Dr. Pandya for urology at this facility, we are unable to stent the patient tonight due to after hours anesthesia being unavailable. Dr. Pandya requested the patient be sent to [facility] to be evaluated by her known urology group. Patient and family are agreeable to transfer to [facility] for management by urology. Repeat vital signs show blood pressure 120/85, heart rate 95, temp 99.6 ?F. 1900: [facility] transfer line contacted to initiate transfer. Discussed the transfer with Dr. Schuler for urology who accepted the transfer (1921) and requested the patient be sent to the emergency department. She was accepted by ER physician Dr. Disla. Stable at time of transfer by EMS. Critical care time 35 min SHARED APC VISIT, PHYSICIAN ATTESTATION: [id number] I performed a substantive part of the MDM during the patient?s E/M visit. I personally evaluated and examined the patient. I personally made or approved the documented management plan and acknowledge its risk of complications. Medical Records Attestation: I reviewed the patient's medical records. Lab Data Attestation: I reviewed the patient's lab results. Labs: Lab Results 02/14/24 02/14/24 Range/Units 16:59 17:09 WBC 12.3 H (4.0-11.0) 10^3/uL RBC 4.27 (4.20-5.40) 10^6/uL Hgb 12.7 (12.0-16.0) g/dL Hct 38.0 (36.0-48.0) % MCV 89.0 (81.0-99.0) fL MCH 29.7 (26.7-34.0) pg MCHC 33.4 (29.9-35.2) g/dL RDW 13.3 (11.0-15.0) % Plt Count 182 (150-450) 10^3/uL MPV 12.0 (9.5-13.5) fL Seg Neuts % (Manual) 79.0 H (43.0-75.0) Band Neutrophils % 10.0 H (0-5) % Lymphocytes % (Manual) 9.0 L (20.5-60.0) % Monocytes % (Manual) 0.0 L (1.7-12.0) % Eosinophils % (Manual) 1.0 (0.9-7.0) % Basophils % (Manual) 1.0 (0.2-2.0) % Neutrophils # (Manual) 9.71 H (1.4-6.5) 10^3/uL Band Neutrophils # 1.2 H (0.0-0.3) 10^3/uL Lymphocytes # (Manual) 1.10 L (1.20-3.80) 10^3/uL Monocytes # (Manual) 0.00 L (0.30-0.80) 10^3/uL Eosinophils # (Manual) 0.12 (0.00-0.70) 10^3/uL Basophils # (Manual) 0.12 H (0.00-0.10) 10^3/uL PT 10.3 (9.0-11.6) sec INR 0.97 VBG pH 7.374 (7.330-7.430) VBG pCO2 43.3 (40.0-52.0) mmHg Sodium 138 (136-145) mmol/L Potassium 3.5 (3.5-5.1) mmol/L Chloride 100 (98-107) mmol/L Carbon Dioxide 24.7 (21.0-32.0) mmol/L Anion Gap 16.8 BUN 21.0 H (7.0-18.0) mg/dL Creatinine 1.42 H (0.55-1.02) mg/dL Est GFR ( Amer) 45 L (>=60 mL/min/1.73m^2) Est GFR (Non-Af Amer) 37 L (>=60 mL/min/1.73m^2) BUN/Creatinine Ratio 14.8 Glucose 119 H (74-106) mg/dL Lactate 2.1 H (0.4-2.0) mmol/L Calcium 9.2 (8.5-10.1) mg/dL Total Bilirubin 1.5 H (0.2-1.0) mg/dL AST 33 (15-37) U/L ALT 31 (14-59) U/L Alkaline Phosphatase 86 (46-116) U/L Total Protein 6.9 (6.4-8.2) g/dL Albumin 3.1 L (3.4-5.0) g/dL Globulin 3.8 g/dL Albumin/Globulin Ratio 0.8 Urine Color Lt. yellow (YELLOW) Urine Clarity Clear (CLEAR) Urine pH 5.5 (5.0-9.0) Ur Specific [place] >=1.030 A (1.005-1.025) Urine Protein 100 A (NEG/TRACE) mg/dL Urine Glucose (UA) Negative (NEGATIVE) mg/dL Urine Ketones 15 A (NEGATIVE) mg/dL Urine Occult Blood Small A (NEGATIVE) Urine Nitrite Negative (NEGATIVE) Urine Bilirubin Small A (NEGATIVE) Urine Urobilinogen 1.0 (0.2-1.0) EU/dL Ur Leukocyte Esterase Moderate A (NEGATIVE) Urine RBC 0-2 (0-2) #/HPF Urine WBC 20-50 A (NONE SEEN) #/HPF Ur Squamous Epith Cells Few A (NONE/RARE) #/LPF Urine Crystals None seen (None Seen) #/HPF Urine Bacteria Moderate A (NONE SEEN) #/HPF Urine Casts Seen A (NONE SEEN) #/LPF Hyaline Casts Rare Urine Mucus Small A (NONE SEEN) Ur Culture Indicated? Yes Imaging Data CT scan - abdomen: Attestation: I have reviewed the pertinent imaging results. Radiologist's impression: ITS Impressions Abdomen/Pelvis CT 02/14/24 17:58 IMPRESSION: Obstructing stones in the left UVJ and left mid ureter resulting in moderate hydronephrosis. Electronically authenticated by: ERICKA LEES Date: 02/14/2024 18:20 Discharge Plan Discharge Chief Complaint: Urogenital-Female Clinical Impression: Left ureteral calculus, Sepsis, Acute UTI Patient Disposition: [facility] Time of Disposition Decision: 19:31 Discharge Location: [facility] Condition: Good Mode of Transportation: EMS Prescriptions / Home Meds: No Action ciprofloxacin HCl 500 mg tablet 500 mg PO BID pravastatin 40 mg tablet 40 mg PO .once daily liothyronine 5 mcg tablet 5 mcg PO .once daily levothyroxine 75 mcg tablet 75 mcg PO .once daily irbesartan 300 mg tablet 300 mg PO .once daily Print Language: Greenlandic Referrals: DIOMEDES PEPE [Primary Care Provider] - 1 week
[2024-02-14 17:30] LABS: Hemoglobin 12.7 g/dL (12.0-16.0); Mean Corpuscular HGB Conc 33.4 g/dL (29.9-35.2); Mean Corpuscular Hemoglobin 29.7 pg (26.7-34.0); Platelet Count 182 10^3/uL (150-450); Red Blood Count 4.27 10^6/uL (4.20-5.40); Red Cell Distribution Width 13.3 % (11.0-15.0); White Blood Count 12.3 10^3/uL (4.0-11.0)
[2024-02-14] MEDS: 0.9 % SODIUM CHLORIDE 1,000 ML 999 ML IV (17:34)
[2024-02-14] MEDS: ONDANSETRON PF 4 MG/2 ML VIAL IV ×2 (17:36→19:04)
[2024-02-14] MEDS: KETOROLAC TROMETHAMINE 30 MG/ML VIAL IVP (17:37)
[2024-02-14] MEDS: HYDROMORPHONE HCL 1 MG/ML CARTRIDGE 0.5 MG IVP (17:39)
[2024-02-14 17:42] LABS: Bilirubin Urine SMALL (NEGATIVE); Blood Urine SMALL (NEGATIVE); Clarity Urine CLEAR (CLEAR); Color Urine LT. YELLOW (YELLOW); Glucose Urine UA NEGATIVE (NEGATIVE); Ketones Urine 15 mg/dL (NEGATIVE); Leukocyte Esterase Urine MODERATE (NEGATIVE); Nitrite Urine NEGATIVE (NEGATIVE); Protein Urine 100 mg/dL (NEG/TRACE); Specific Gravity Urine >=1.030 (1.005-1.025); pH Urine 5.5 (5.0-9.0)
[2024-02-14] MEDS: LEVOFLOXACIN IN DEXTROSE 5 % 750 MG/150 ML PREMIX 100 MG IV (17:42)
[2024-02-14 17:44] LABS: PCO2 VBG 43.3 mmHg (40.0-52.0); pH VBG 7.374 (7.330-7.430)
[2024-02-14] MEDS: ACETAMINOPHEN 325 MG TABLET 650 MG PO (17:45)
[2024-02-14 17:46] LABS: INR 0.97; Prothrombin Time 10.3 sec (9.0-11.6)
[2024-02-14 17:52] LABS: Urine Microscopic Indicated YES
[2024-02-14 17:53] LABS: Bacteria Urine MODERATE #/HPF (NONE SEEN); Cast Seen? SEEN #/LPF (NONE SEEN); Crystals Seen? None Seen #/HPF (None Seen); Hyaline Casts Urine RARE; Mucus Urine SMALL (NONE SEEN); RBC Urine 0-2 #/HPF (0-2); Squamous Epithelial Cell Urine FEW #/LPF (NONE/RARE); Urine Culture Indicated YES; WBC Urine 20-50 #/HPF (NONE SEEN)
--- NOTE | 2024-02-14 17:58 | CT_ITS ---
The [address] [address] Patient Name: ABUNDIO IGLESIAS MRN: [id number] date: 1955 Sex: F Assigned Patient Location: ER Current Patient Location: ER Accession/Order Number: [id number] Exam Date: 02/14/2024 17:56 Report Date: 02/14/2024 18:20 At the request of: WALTER LIMON Procedure: CT abdomen pelvis wo con CT ABDOMEN/PELVIS WITHOUT IV CONTRAST. INDICATION: Abdominal pain COMPARISON: There are no other studies available for comparison. TECHNIQUE: Contiguous axial images were obtained from the lung bases to the pelvic floor without intravenous or oral contrast. Coronal and sagittal reformations are provided. FINDINGS: LOWER LUNGS: Clear. LIVER/BILIARY TREE: No discrete lesion. No intrahepatic ductal dilatation. GALLBLADDER: Status post cholecystectomy.. CBD: Normal CBD. SPLEEN: Normal in size. PANCREAS: No appreciable peripancreatic fluid. No pancreatic ductal dilatation. No discrete lesion. ADRENALS: Normal. KIDNEYS: There is an obstructing 3 x 3 mm stone in the left UVJ and a 5 x 6 mm stone in the middle third of the left ureter resulting in moderate hydronephrosis. There are multiple nonobstructing left renal stones. STOMACH AND BOWEL: There is a small hiatal hernia. No dilated bowel loops. No bowel wall thickening. APPENDIX: Not visualized. PERITONEAL CAVITY: There is left perinephric stranding. ABDOMINAL WALL: No subcutaneous stranding. No subcutaneous fluid collection. LYMPH NODES: No mesenteric or retroperitoneal lymphadenopathy by CT criteria. ABDOMINAL AORTA: No aneurysm. PELVIS: No acute abnormality. MUSCULOSKELETAL: No acute osseous abnormality. CT/CT abdomen pelvis wo con IMPRESSION: Obstructing stones in the left UVJ and left mid ureter resulting in moderate hydronephrosis. Electronically authenticated by: ERICKA LEES Date: 02/14/2024 18:20
[2024-02-14 18:03] LABS: Lactate/Lactic Acid 2.1 mmol/L (0.4-2.0)
[2024-02-14 18:07] LABS: Alanine Aminotransferase 31 U/L (14-59); Albumin Globulin Ratio 0.8; Albumin Level 3.1 g/dL (3.4-5.0); Alkaline Phosphatase 86 U/L (46-116); Anion Gap 16.8; Aspartate Amino Transferase 33 U/L (15-37); BUN Creatinine Ratio 14.8; Bilirubin Total 1.5 mg/dL (0.2-1.0); Calcium 9.2 mg/dL (8.5-10.1); Carbon Dioxide 24.7 mmol/L (21.0-32.0); Chloride 100 mmol/L (98-107); Estimated GFR (African America 45 (>=60 mL/min/1.73m^2); Estimated GFR (Non-African Ame 37 (>=60 mL/min/1.73m^2); Globulin 3.8 g/dL; Glucose 119 mg/dL (74-106); Potassium 3.5 mmol/L (3.5-5.1); Sodium 138 mmol/L (136-145); Total Protein 6.9 g/dL (6.4-8.2)
[2024-02-14 18:08] LABS: Band Neutrophils Absolute 1.2 10^3/uL (0.0-0.3); Basophils Abs Manual 0.12 10^3/uL (0.00-0.10); Eosinophils Absolute Manual 0.12 10^3/uL (0.00-0.70); Segmented Neut Absolute Manual 9.71 10^3/uL (1.4-6.5)
[2024-02-14 18:39] VITALS: BP 120/85; PULSE 95; TEMP 37.6; O2SAT 94
[2024-02-14 19:06] VITALS: O2SAT 88
[2024-02-14 20:00] VITALS: BP 100/62; PULSE 88; TEMP 37.1; O2SAT 96
[2024-02-14 20:47] LABS: Lactate/Lactic Acid 0.8 mmol/L (0.4-2.0)
[2024-02-14 21:45] VITALS: BP 110/69; PULSE 85; TEMP 37.1; O2SAT 96
[2024-02-16 00:59] LABS: A. calcoaceticus-baumannii Cpx NOT DETECTED (NOT DETECTE); Bacteroides fragilis NOT DETECTED (NOT DETECTE); Candida albicans NOT DETECTED (NOT DETECTE); Candida auris NOT DETECTED (NOT DETECTE); Candida glabrata NOT DETECTED (NOT DETECTE); Candida krusei NOT DETECTED (NOT DETECTE); Candida parapsilosis NOT DETECTED (NOT DETECTE); Candida tropicalis NOT DETECTED (NOT DETECTE); Cryptococcus neoformans/gattii NOT DETECTED (NOT DETECTE); Enterobacter cloacae complex NOT DETECTED (NOT DETECTE); Enterococcus faecalis NOT DETECTED (NOT DETECTE); Enterococcus faecium NOT DETECTED (NOT DETECTE); Haemophilus influenzae NOT DETECTED (NOT DETECTE); Klebsiella aerogenes NOT DETECTED (NOT DETECTE); Klebsiella pneumoniae group NOT DETECTED (NOT DETECTE); Listeria monocytogenes NOT DETECTED (NOT DETECTE); Neisseria meningitidis NOT DETECTED (NOT DETECTE); Proteus spp. NOT DETECTED (NOT DETECTE); Pseudomonas aeruginosa NOT DETECTED (NOT DETECTE); Salmonella spp. NOT DETECTED (NOT DETECTE); Serratia marcescens NOT DETECTED (NOT DETECTE); Staphylococcus epidermidis NOT DETECTED (NOT DETECTE); Staphylococcus lugdunensis NOT DETECTED (NOT DETECTE); Staphylococcus spp. NOT DETECTED (NOT DETECTE); Stenotrophomonas maltophilia NOT DETECTED (NOT DETECTE); Streptococcus agalactiae NOT DETECTED (NOT DETECTE); Streptococcus pneumoniae NOT DETECTED (NOT DETECTE); Streptococcus pyogenes NOT DETECTED (NOT DETECTE); Streptococcus spp. NOT DETECTED (NOT DETECTE)
[2024-02-16 02:14] LABS: Source BLOOD
[2024-02-16 02:19] LABS: Enterobacterales DETECTED (NOT DETECTE)
[2024-02-16 14:27] LABS: CTX-M NOT DETECTED (NOT DETECTE); IMP NOT DETECTED (NOT DETECTE); KPC NOT DETECTED (NOT DETECTE)
[2024-02-16 14:28] LABS: NDM NOT DETECTED (NOT DETECTE); OXA-48-like NOT DETECTED (NOT DETECTE); mcr-1 NOT DETECTED (NOT DETECTE)
[2024-02-16 14:29] LABS: VIM NOT DETECTED (NOT DETECTE)
== END 2024-02-14 21:38 | disposition short-term general hospital (02) ==
PROVIDERS: Physician Assistant; Emergency Provider Emergency Medicine; PCP Nurse Practitioner Family
DX: A41.9 Sepsis, unspecified organism (principal); N13.6 Pyonephrosis; Z87.442 Personal history of urinary calculi; R50.9 Fever, unspecified
CPT/HCPCS: 36415; 74176; 80053; 81001; 82800; 83605; 85007; 85027; 85610; 87040; 87086; 87150; 87186; 96365; 96366; 96375; 96376; 99285; J1171; J1885; J2405

== ENCOUNTER 2024-07-02 10:00 | Outpatient (OUT) | payer OTHER, SELFPAY ==
[2024-07-02 10:23] LABS: Basophils Absolute Auto 0.1 10^3/uL (0.0-0.1); Basophils Percent Auto 0.9 % (0.2-2.0); Eosinophils Absolute Auto 0.2 10^3/uL (0.0-0.7); Eosinophils Percent Auto 3.9 % (0.9-7.0); Hematocrit 42.3 % (36.0-48.0); Hemoglobin 14.2 g/dL (12.0-16.0); Immature Granulocytes Abs Auto 0.01 10^3/uL (0.00-0.03); Immature Granulocytes Pct Auto 0.2 % (0.0-0.5); Lymphocytes Absolute Auto 1.5 10^3/uL (1.2-3.8); Lymphocytes Percent Auto 25.8 % (20.5-60.0); Mean Corpuscular HGB Conc 33.6 g/dL (29.9-35.2); Mean Corpuscular Hemoglobin 29.3 pg (26.7-34.0); Mean Corpuscular Volume 87.4 fL (81.0-99.0); Mean Platelet Volume 12.1 fL (9.5-13.5); Monocytes Absolute Auto 0.6 10^3/uL (0.3-0.8); Monocytes Percent Auto 9.7 % (1.7-12.0); Neutrophils Absolute Auto 3.5 10^3/uL (1.4-6.5); Neutrophils Percent Auto 59.5 % (43.0-75.0); Platelet Count 229 10^3/uL (150-450); Red Blood Count 4.84 10^6/uL (4.20-5.40); Red Cell Distribution Width 13.4 % (11.0-15.0); White Blood Count 5.9 10^3/uL (4.0-11.0)
--- NOTE | 2024-07-02 10:30 | XR_ITS ---
[address] [address] Patient Name: ABUNDIO IGLESIAS MRN: [id number] date: 1955 Sex: F Assigned Patient Location: LAB Current Patient Location: LAB Accession/Order Number: [id number] Exam Date: 07/02/2024 11:30 Report Date: 07/02/2024 11:30 At the request of: DIOMEDES PEPE Procedure: XR chest 2V Chest 2 views CLINICAL HISTORY: Dyspnea On Exertion COMPARISON: None FINDINGS: Heart appears normal in size. No consolidation pneumothorax pleural effusion or free air. XR/XR chest 2V IMPRESSION: NO ACUTE CARDIOPULMONARY ABNORMALITY. Impression dictated by: Milo Davila Jr., D.ORedd 07/02/2024 11:30 AM Dictation Location[facility] Electron[facility] authenticated by: [id number] Y Date: 07/02/2024 11:30
[2024-07-02 10:57] LABS: Estimated Average Glucose 123 mg/dL; Glycohemoglobin A1C 5.9 % (4.5-6.2)
[2024-07-02 10:58] LABS: Alanine Aminotransferase 21 U/L (14-59); Albumin Globulin Ratio 1.2; Albumin Level 3.8 g/dL (3.4-5.0); Alkaline Phosphatase 79 U/L (46-116); Anion Gap 12.5; Aspartate Amino Transferase 20 U/L (15-37); BUN Creatinine Ratio 22.4; Bilirubin Total 0.7 mg/dL (0.2-1.0); Calcium 8.9 mg/dL (8.5-10.1); Carbon Dioxide 28.7 mmol/L (21.0-32.0); Chloride 100 mmol/L (98-107); Chol HDL Ratio 2.4; Cholesterol 173 mg/dL (<=200); Estimated GFR (African America >60 (>=60 mL/min/1.73m^2); Estimated GFR (Non-African Ame 57 (>=60 mL/min/1.73m^2); Free T3 3.26 pg/mL (2.18-3.98); Globulin 3.3 g/dL; Glucose 98 mg/dL (74-106); HDL Cholesterol 72 mg/dL (40-60); Potassium 4.2 mmol/L (3.5-5.1); Sodium 137 mmol/L (136-145); Thyroid Stimulating Hormone 1.942 uIU/mL (0.358-3.740); Total Protein 7.1 g/dL (6.4-8.2); Triglycerides 51 mg/dL (<=150); VLDL CHOLESTEROL 10.2 mg/dL
[2024-07-03 03:07] LABS: Insulin 6.7 uIU/mL (2.6-24.9)
== END 2024-07-02 10:01 | disposition home or self-care (01) ==
LOC: LAB 10:03
PROVIDERS: PCP Nurse Practitioner Family; Visit Provider Nurse Practitioner Family
DX: R06.09 Other forms of dyspnea (principal); I10 Essential (primary) hypertension
CPT/HCPCS: 36415; 71046; 80053; 80061; 82306; 83036; 83525; 83540; 84436; 84443; 84481; 85025

== ENCOUNTER 2024-07-29 10:43 | Outpatient (OUT) | payer OTHER, SELFPAY ==
--- NOTE | 2024-07-29 10:35 | NM_ITS ---
Patient Name: ABUNDIO IGLESIAS MR#: [id number] : 1955 Exam Date: 07/29/2024 Ordering Doctor: DR ERIC LAY M.D. RADIOLOGY REPORT PROCEDURE: NM FLORINDA PERF SPECT REST STR COMPARISON: None. INDICATIONS: SHORTNESS OF BREATH TECHNIQUE: Exam Description: Stress/Rest one day protocol gated SPECT Rest Imagin.6 mCi Tc-99m Cardiolite IV on 07/29/2024 Stress Imaging 30.9 mCi Tc-99m Cardiolite IV on 07/29/2024 Exercise Protocol: Archie Heart Rate (bpm): Rest: 73 Max: 153 PMHR: 99 Blood Pressure: Rest: 138/78 Max: 146/90 Exercise Time: Minutes: 6 Seconds: 25 Stage Reached: Stage: 3 Mets 8.2 Symptoms: Rest and peak stress ECG findings were pending and the exercise portion of the study was pending per attending physician [facility] . For more details please see separate cardiac stress test report. FINDINGS: QUALITY OF STUDY: Good PERFUSION DEFECT: None LOCATION: SIZE: SEVERITY: TYPE: WALL MOTION: Normal LV SIZE: 42 mL. TID / TCD: 0.8 LVEF: Calculated EF 84%. SUMMARY: Normal Myocardial perfusion imaging study CONCLUSION: Normal myocardial perfusion stress test without evidence of ischemia or infarction Normal left ventricle systolic function, EF 84% No transient ischemic dilatation, TID 0.8 EKG portion of stress test is reported seperately Dictated by: Sarthak Shepherd MD on 08/01/2024 at 15:47 Approved by: Sarthak Shepherd MD on 08/01/2024 at 15:51
--- NOTE | 2024-07-29 13:20 | PM.STRESS ---
Stress Test Stress Test Allergies Allergy/AdvReac Type Severity Reaction Status Date / Time Sulfa (Sulfonamide Allergy Severe angio edema Verified 02/14/24 17:02 Antibiotics) sulfamethoxazole (From Allergy Severe angioedema Verified 02/14/24 17:02 Bactrim) trimethoprim (From Bactrim) Allergy Severe angioedema Verified 02/14/24 17:02 Requesting physician: Leandro Rice Procedure: This was a Treadmill stress test with myocardial perfusion imaging performed at the [facility] on 07/29/2024. Intravenous line was secured. The patient was attached to electrocardiographic monitoring. Baseline vital signs and ECG were obtained. The patient exercised on the treadmill according to the Archie protocol. Cardiolite was administered at peak exercise. The patient then went on to obtain myocardial perfusion imaging. The patient exercised for 6 minutes and 25 seconds according to the Archie protocol. the patient reached stage 3 and achieved 8.2 METS. Resting heart rate was 73 bpm and peak heart rate was 153 bpm representing 99% of maximal predicted heart rate. Resting blood pressure was 138/78 and peak blood pressure was 146/90. General Information: Reason for Stress Test: Shortness of breath. Cardiac History and Risk Factors: Hypertension. Resting 12 - Lead Electrocardiogram: Normal sinus rhythm. Stress Test: Protocol: Archie protocol. Exercise Capacity: Good. Blood Pressure Response: Resting hypertension with appropriate response to exercise. Rhythm: Sinus rhythm with no arrhythmias. ST - Response: No ischemic ST changes seen. Patient Response: Shortness of breath. No chest pain. Interpretation: 1. Negative treadmill exercise stress test for exercise-induced ischemic ST changes. 2. Luna treadmill score of +6.5 is associated with low risk for long-term cardiac events. 3. Myocardial perfusion images will be reported separately.
== END 2024-07-29 10:44 | disposition home or self-care (01) ==
LOC: NM 10:43
PROVIDERS: PCP Nurse Practitioner Family; Visit Provider Internal Medicine Interventional Cardiology
DX: R06.02 Shortness of breath (principal)
CPT/HCPCS: 78452; 93017; A9500

== ENCOUNTER 2024-08-09 09:51 | Outpatient (OUT) | payer OTHER, SELFPAY ==
--- OUTSIDE RECORDS SUMMARY | 2024-08-09 10:13 | XMS_ITS | CCD ---
Author Organization [facility] CliniSymo Care Team Providers Care Clinical Resource Nurse Name Role Phone DIOMEDES PEPE Admitting Unavailable MY, DIOMEDES Attending Unavailable MY, DIOMEDES Consulting Unavailable MY, DIOMEDES Primary Care Unavailable MY, DIOMEDES Attending Unavailable MY, DIOMEDES Consulting Unavailable MY, DIOMEDES Primary Care Unavailable MY, DIOMEDES Admitting Unavailable MY, DIOMEDES Attending Unavailable MY, DIOMEDES Primary Care Unavailable DR SHWETA FISCHER V Consulting Unavailable MY, DIOMEDES Admitting Unavailable MY, DIOMEDES Consulting Unavailable My East MD Primary Care Provider [phone] RESIDENT, EMILE ADMITTING NIGHT Admitting Un available NIMISHA JEAN Attending Unavailable HOY, MY M Primary Care Unavailable YASMIN, DIMITRY G Consulting Unavailable ELISEO VALLEJO Consulting Unavailable YASMIN, DIMITRY Attending Unavailable YASMIN, DIMITRY Referring Unavailable HOY, MY M Primary Care Unavailable SHAWNEE RODRÍGUEZ Attending Unavailable SHAWNEE RODRÍGUEZ Referring Unavailable HOY, MY M Primary Care Unavailable YASMIN, DIMITRY G Referring Unavailable HOY, MY M Primary Care Unavailable YASMIN, DIMITRY G Referring Unavailable HOY, MY M Primary Care Unavailable YASMIN, DIMITRY G Referring Unavailable HOY, MY M Primary Care Unavailable YASMIN, DIMITRY G Admitting Unavailable YASMIN, DIMITRY G Attending Unavailable HOY, MY M Primary Care Unavailable YASMIN, DIMITRY Referring Unavailable HOY, MY M Primary Care Unavailable YASMIN, DIMITRY Referring Unavailable HOY, MY M Primary Care Unavailable YASMIN, DIMITRY G Attending Unavailable YASMIN, DIMITRY G Referring Unavailable HOY, MY M Primary Care Unavailable HOY, MY M Referring Unavailable HOY, MY M Primary Care Unavailable YASMIN, DIMITRY G Attending Unavailable HOY, MY M Referring Unavailable HOY, MY M Primary Care Unavailable YASMIN, DIMITRY G Attending Unavailable HOY, MY M Referring Unavailable MY EAST Primary Care Unavailable ERIC RICE Attending Unavailable Allergies Allergy Classification Reported Allergen(s) Allergy Type Date of Onset Reaction(s) Facility (5 sources) NSAIDs; Translations: [NSAIDS (NON-STEROIDAL ANTI-INFLAMMATORY DRUG)] Drug allergy (disorder) 06-28-19 17 [facility] Repository (1 source) Sulfamethoxazole / Trimethoprim Drug Allergy 07-05-19 17 [facility] (8 sources) celecoxib; Translations: [CELECOXIB] Drug Allergy 02-16-20 24 Swelling [facility] (4 sources) Non-steroidal anti-inflammatory agent Propensity to adverse reactions to drug 01-29-20 Other (See Comments) [facility] (8 sources) Sulfonamides (Antibiotic); Translations: [SULFA (SULFONAMIDE ANTIBIOTICS)] Propensity to adverse reactions to drug 05-12-19 18 [facility] (8 sources) Trimethoprim; Translations: [TRIMETHOPRIM] Drug Allergy 01-29-20 21 Other (See Comments) [facility] (8 sources) trolamine salicylate; Translations: [TROLAMINE SALICYLATE] Drug Allergy 09-17-19 17 Swelling [facility] (5 sources) Morphine; Translations: [MORPHINE] Drug Allergy 03-12-19 25 Shortness Of Breath [facility] (1 source) Sulfamethoxazole / Trimethoprim; Translations: [SULFAMETHOXAZOLE-T RIMETHOPRIM] Drug Allergy 08-12-19 07 [facility] Repository Medications Current Medications Medication Drug Class(es) Dates Sig (Normalized) Sig (Original) acetaminophen 325 mg / HYDROcodone bitartrate 5 mg oral tablet (2 sources) Opioid Agonist Start: 03-26-2024 HYDROcodone-acet aminophen (NORCO) 5-325 mg per tablet Indications: Kidney stones Take 1 tablet by mouth every 6 (six) hours as needed for pain for up to 4 doses. Max Daily Amount: 4 tablets 4 tablet 03/26/2024 Active cefTRIAXone 1000 mg injection (1 source) Cephalosporin Antibacterial Start: 02-15-2024 take 1000 mg intravenously every twenty-four hours 1,000 mg, intravenous, at 100 mL/hr, Administer over 30 Minutes, Every 24 hours, First dose on Rosa Maria 02/15/24 at 1600, Look-alike/sound -alike medication - verify indication for use. Do not co-administer with calcium-containi ng solutions such as Lactated Ringers., Indication: UTI chlorhexidine gluconate 1.2 mg/ml mouthwash (1 source) Start: 02-16-2024 15 mL, mouth/throat, 2 times daily, First dose on Mon02/16/24 at 1230, Swish undiluted for 30 seconds, then spit. glucagon (rdna) 1 mg injection (1 source) Antihypoglycemic Agent Start: 02-15-2024 1 mg, intramuscular, As needed, low blood sugar, blood glucose less than 70 mg/dL and unconscious or NPO without IV access., Starting on Rosa Maria 02/15/24 at 0315, If conscious and not NPO, immediately follow with meal tray or high protein (7Grams) snack if tray not available. If NPO, initiate IV 5% Dextrose/Water at 100 mL/hr and contact prescriber for additional orders. If blood glucose is not greater than 70 mg/dL after initial treatment, repeat treatment. 150 ml glucose 50 mg/ml injection (3 sources) Start: 02-15-2024 15 g, oral, As needed, low blood sugar, blood glucose less than 70 mg/dL, Starting on Rosa Maria 02/15/24 at 0315, If patient conscious and taking PO. If blood glucose is not greater than 70 mg/dL after initial treatment, repeat treatment. Start: 02-15-2024 25 mL, intrave nous, As needed, low blood sugar, blood glucose less than 70 mg/dL and unconscious or NPO with IV access, Starting on Rosa Maria 02/15/24 at 0315, Push over 1-3 minutes STAT. If conscious and not NPO, immediately follow with meal tray or high protein (7 grams) snack if tray not available. If NPO, initiate 5% dextrose in water at 100 mL/hr and contact prescriber for additional orders. If blood glucose is not greater than 70 mg/dL after initial treatment, repeat treatment. VESICANT (RED) Warning: HYPERTONIC solution. Start: 02-15-2024 take 70 mg intraveno usly every hour 100 mL/hr, intravenous, Continuous PRN, blood glucose less than 70 mg/dL, Starting on Rosa Maria 19/24 at 0315, Use immediately following dextrose 50% or glucagon treatment for patients who are unconscious or NPO. Contact prescriber for additional orders. If blood glucose is not greater than 70 mg/dL after initial treatment, repeat treatment. 1 ml HYDROmorphone hydrochloride 1 mg/ml injection (1 source) Opioid Agonist Start: 02-15-2024 take 1 mg intravenously every four hours as needed for pain 1 mg, intravenous, Every 4 hours PRN, severe pain - pain scale 7-10, Starting on Mon02/15/24 at 0846, If IV push, administer over over 2 to 3 minutes. Look-alike/sound-alike medication - verify indication for use. irbesartan 300 mg oral tablet (5 sources) Angiotensin 2 Receptor Jesus take 1 tablet by mouth in the morning irbesartan (AVAPRO) 300 mg tablet Take 1 tablet (300 mg total) by mouth in the morning. Active levothyroxine sodium 0.075 mg oral tablet (6 sources) l-Thyroxine Start: 07-21-2016 take 1 tablet by mouth in the morning levothyroxine (SYNTHROID, LEVOTHROID) 75 MCG tablet Take 1 tablet (75 mcg total) by mouth in the morning. 07/21/2016 Active liothyronine sodium 0.005 mg oral tablet (6 sources) l-Triiodothyro nine Start: 03-28-2019 take 1 tablet by mouth in the morning liothyronine (CYTOMEL) 5 MCG tablet Take 1 tablet (5 mcg total) by mouth in the morning. 03/28/2019 Active losartan potassium 50 mg oral tablet (1 source) Angiotensin 2 Receptor Jesus Start: 02-16-2024 take 100 mg by mouth once daily 100 mg, oral, Daily, First dose on Mon02/16/24 at 0900, Look-alike/sound-alike medication - verify indication for use. 1 ml morphine sulfate 2 mg/ml injection (1 source) Opioid Agonist Start: 02-15-2024 take 2 mg intravenously every four hours as needed for pain 2 mg, intravenous, Every 4 hours PRN, severe pain - pain scale 7-10, Starting on Mon02/15/24 at 0221, Look-alike/sound-alike medication - verify indication for use. cnbhgdjj-lszw-AK- calcium &mins (THERAGRAN-M) 9 mg iron-400 mcg tablet (5 sources) ukxzoiee-jwwr-HY -calcium &mins (THERAGRAN-M) 9 mg iron-400 mcg tablet Take 1 tablet by mouth in the morning. Active gdbdrwqu-htyl-QG -calcium &mins (THERAGRAN-M) 9 mg iron-400 mcg tablet Take 1 tablet by mouth in the morning. 2 ml ondansetron 2 mg/ml injection (1 source) Serotonin-3 Receptor Antagonist Start: 02-15-2024 take 4 mg intravenously every eight hours as needed for vomiting and nausea 4 mg, intravenous, Every 8 hours PRN, vomiting, nausea, Starting on Rosa Maria 02/15/24 at 0221, Administer over 2-5 minutes. pravastatin sodium 40 mg oral tablet (5 sources) HMG-CoA Reductase Inhibitor take 1 tablet by mouth once daily pravastatin (PRAVACHOL) 40 mg tablet Take 1 tablet (40 mg total) by mouth nightly. Active 125 ml sodium chloride 9 mg/ml prefilled syringe (4 sources) Start: 02-15-2024 3 mL, intravenous, Every 12 hours scheduled, First dose on Rosa Maria 02/15/24 at 0900 Start: 02-15-2024 3 mL, intraven ous, As needed, line care, before and after each intermittent use, Starting on Rosa Maria 02/15/24 at 0315 Start: 02-15-2024 take 20 mL intraveno usly every hour as needed 20 mL/hr, intravenous, Continuous PRN, to maintain patency of lines, Starting on Rosa Maria 02/15/24 at 0315 Start: 02-15-2024 take 25 mL intraveno usly every hour as needed 25 mL, intravenous, at 100 mL/hr, Administer over 15 Minutes, As needed, line care, line care after IVPB administration, Starting on Rosa Maria 02/15/24 at 0315 Completed/Discontinued Medications Medication Drug Class(es) Dates Sig (Normalized) Sig (Original) aprepitant 40 mg oral capsule (1 source) Substance P/Neurokinin-1 Receptor Antagonist Start: 02-15-2024 End: 02-15-2024 take 40 mg by mouth once 40 mg, oral, Once, On Rosa Maria 02/15/24 at 1045, For 1 dose, Pre-op cefdinir 300 mg oral capsule (1 source) Cephalosporin Antibacterial Start: 02-16-2024 End: 02-16-2024 take 1 capsule by mouth in the morning, then take 1 capsule by mouth at bedtime cefDINIR (OMNICEF) 300 mg capsule Take 1 capsule (300 mg total) by mouth in the morning and 1 capsule (300 mg total) before bedtime. Do all this for 10 days. 20 capsule 02/16/2024 02/16/2024 Discontinued (Stop Taking at Discharge) cefTRIAXone (ROCEPHIN) 1,000 mg in sodium chloride 0.9 % 50 mL IVPB-MBP (1 source) Start: 02-15-2024 End: 02-15-2024 1,000 mg, intravenous, at 100 mL/hr, Administer over 30 Minutes, Once, On Rosa Maria 02/15/24 at 0115, For 1 dose, Look-alike/sound-a like medication - verify indication for use. Do not co-administer with calcium-containing solutions such as Lactated Ringers., Indication: Other, Specify: urosepsis ciprofloxacin 500 mg oral tablet (1 source) Quinolone Antimicrobial Start: 02-16-2024 End: 02-16-2024 take 1 tablet by mouth in the morning, then take 1 tablet by mouth at bedtime ciprofloxacin HCl (CIPRO) 500 mg tablet Take 1 tablet (500 mg total) by mouth in the morning and 1 tablet (500 mg total) before bedtime. Do all this for 7 days. 14 tablet 02/16/2024 02/16/2024 Discontinued (Patient Never Started This Medication) estradiol 0.1 mg/ml vaginal cream (1 source) Estrogen Start: 01-05-2023 End: 02-16-2024 estradioL (ESTRACE) 0.01 % (0.1 mg/gram) vaginal cream Indications: Vaginal atrophy Insert 2 g into the vagina 2 (two) times a week. 43 g 3 01/05/2023 02/16/2024 Discontinued (Therapy completed) 2 ml midazolam 1 mg/ml cartridge (1 source) Benzodiazepine Start: 02-15-2024 End: 02-15-2024 2 mg, intravenous, As needed, anxiety, Starting on Rosa Maria 02/15/24 at 0949, For 2 doses, Pre-op, May repeat in 10 minutes, if needed, if original midazolam (VERSED) ineffective, Indication: Other, Indication: anxiety pantoprazole 40 mg injection (2 sources) Proton Pump Inhibitor Start: 02-15-2024 End: 02-15-2024 40 mg, intravenous, Once, On Rosa Maria 02/15/24 at 0200, For 1 dose, Look-alike/sound-a like medication - verify indication for use., Indication: Other (ONEIL) Start: 02-15-2024 40 mg, oral, E very morning before breakfast, First dose on Rosa Maria 02/15/24 at 0700, Look-alike/sound-alike medication - verify indication for use. 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-2013 2021 Chronic Cardiac dysrhythmias (4 sources) Tachycardia, unspecified; Translations: [TACHYCARDIA UNSPECIFIED] Onset: 06-30-2022 Episodic Disorders of lipid metabolism (4 sources) Hypercholesterolemia ; Translations: [Pure hypercholesterolemia , unspecified] Onset: 09-19-2017 09-19-2017 Chronic Essential hypertension (5 sources) Hypertensive disorder; Translations: [Essential (primary) hypertension] Onset: 01-05-2023 01-05-2023 Chronic Genitourinary symptoms and ill-defined conditions (2 sources) Hematuria, unspecified; Translations: [Urinary tract obstruction] Onset: 10-21-2021 02-16-2024 Episodic Menopausal disorders (4 sources) Atrophy of vagina; Translations: [Postmenopausal atrophic vaginitis] Onset: 09-19-2017 09-19-2017 Chronic Other diseases of kidney and ureters (1 source) Hydronephrosis; Translations: [Other hydronephrosis] 02-15-2024 Episodic Other diseases of kidney and ureters (1 source) Other obstructive and reflux uropathy; Translations: [Other obstructive and reflux uropathy] Onset: 02-14-2024 Episodic Other diseases of kidney and ureters (1 source) Other hydronephrosis; Translations: [Other hydronephrosis] Onset: 02-14-2024 Episodic Other lower respiratory disease (2 sources) Shortness of breath; Translations: [Shortness of breath] Onset: 07-18-2024 Episodic Other nutritional; endocrine; and metabolic disorders (4 sources) Obese class I; Translations: [Obesity (BMI 30.0-34.9)] Onset: 01-05-2023 01-05-2023 Chronic Residual codes; unclassified (1 source) Family history of ischemic heart disease and other diseases of the circulatory system; Translations: [FAM HX ISCHEMIC HRT DZ OTH DZ CIRC] Onset: 07-06-2022 Episodic Residual codes; unclassified (1 source) Pain, unspecified; Translations: [Pain, unspecified] Onset: 02-15-2024 Episodic Septicemia (except in labor) (7 sources) Septic shock; Translations: [Sepsis, unspecified organism] Onset: 02-15-2024 02-15-2024 Episodic Shock (1 source) Severe sepsis with septic shock; Translations: [Severe sepsis with septic shock] Onset: 02-15-2024 Episodic Thyroid disorders (8 sources) Hypothyroidism; Translations: [Hypothyroidism, unspecified] Onset: 12-27-2012 09-19-2017 Chronic Unclassified (1 source) Abundio Iglesias 68 yr female (1955) Onset: 02-14-2024 Unclassified (1 source) Kidney stones [N20.0] Onset: 03-26-2024 Past or Other Problems Problem Classification Problem Date Documented Da te Episodic/Chronic Calculus of urinary tract (11 sources) Calculus of kidney; Translations: [Urinary tract obstruction] Onset: 10-13-2016 02-15-2024 Episodic Cancer of head and neck (4 sources) History of malignant neoplasm of salivary gland; Translations: [Personal history of malignant neoplasm of other sites of lip, oral cavity, and pharynx] Onset: 09-19-2017 09-19-2017 Episodic Mood disorders (4 sources) Mood disorders Onset: 01-05-2023 Resolved: 02-16-2024 02-16-2024 Other non-traumatic joint disorders (4 sources) Shoulder pain; Translations: [Pain in unspecified shoulder] Onset: 05-27-2013 2021 Episodic Other screening for suspected conditions (not mental disorders or infectious disease) (1 source) Encounter for screening mammogram for malignant neoplasm of breast; Translations: [Encounter for screening mammogram for malignant neoplasm of breast] Onset: 10-23-2023 Episodic Residual codes; unclassified (4 sources) Insomnia; Translations: [Insomnia, unspecified] Onset: 05-27-2013 2021 Episodic Residual codes; unclassified (4 sources) Family history of diabetes mellitus; Translations: [Family history of diabetes mellitus] Onset: 01-08-2013 2021 Episodic Residual codes; unclassified (4 sources) Family history of malignant neoplasm of lung; Translations: [Family history of malignant neoplasm of trachea, bronchus and lung] Onset: 01-08-2013 2021 Episodic Spondylosis; intervertebral disc disorders; other back problems (4 sources) Disorder of left sciatic nerve; Translations: [Sciatica, left side] Onset: 10-05-2018 2021 Episodic Unclassified (4 sources) Onset: 01-05-2023 01-05-2023 Urinary tract infections (4 sources) Urinary tract infection, site not specified; Translations: [UTI SITE NOT SPECIFIED] Onset: 10-19-2021 Episodic Results Test Name Value Interpretation Reference Range Facility 36on 08-05-2024 36 MD Nathaly Pacheco MA Please reassure her that her stress test was normal. She can follow-up with her PCP. Thank Advised patient of Dr. Rice's finding. Patient verbalized understanding. Normal [facility] Orders Onlyon 07-30-2024 Orders Only [id number] Abundio Iglesias 1955 F Date Provider Department Center 07/30/2024 [id number], HISTORICAL KAIT Ramírez Family History Problem Relation Age of Onset Heart failure Mother Heart attack Father Heart attack Father's Brother Family Status - Relation Status Age at Mother Father Father's Brother [facility] Office Visiton 07-18-2024 Follow-up visit [id number] Abundio Iglesias 1955 Date Provider Department Center 07/18/2024 271-[id number] RICE Family History Problem Relation Age of Onset Heart failure Mother Heart attack Father Heart attack Father's Brother Family Status - Relation Status Age at Mother Father Father's Brother Level of Service:60727 SD OFFICE/OUTPATIENT ESTABLISHED MOD MDM 30 MIN Normal [facility] Orders Onlyon 07-17-2024 Orders Only [id number] Abundio Iglesias 1955 F Date Provider Department Center 07/17/2024 [id number], HISTORICAL BH CARD Gianna Hos Family History Problem Relation Age of Onset Heart failure Mother Heart attack Father Heart attack Father's Brother Family Status - Relation Status Age at Mother Father Father's Brother Normal [facility] XR ABDOMEN AP 1 VWon 025 XR ABDOMEN AP 1 VW XR ABDOMEN AP 1 VW Abdomen single view Clinical history:Kidney stones renal calculus screening and follow-up Comparison: 06/22/2023 Findings: AP supine view of the abdomen. Nonobstructive bowel gas pattern. Mild to moderate amount of gas and stool throughout the colon. No current abnormal calcifications seen overlying the course of the ureters or kidneys. Impression: No current radiographic evidence of nephroureterolithias is. Finalized by Jerald Marie MD on 04/08/2024 12:49 PM Normal [facility] URINALYSISon 03-12-2024 Bilirubin Ql (U) Negative Normal NEG [facility] Comment on above: Performed By: #### U A #### [facility] ([id number]) [address], [address] [place] [address] BLOOD/HGB Large Abnormal NEG [facility] Comment on above: Performed By: #### U A #### [facility] ([id number]) [address], [address] [place] [address] Color (U) YELLOW Normal YELLOW [facility] Comment on above: Performed By: #### U A #### [facility] ([id number]) [address], [address] [place] [address] Glucose Ql (U) Negative Normal NEG [facility] Comment on above: Performed By: #### U A #### [facility] ([id number]) [address], [address] [place] [address] Ketones Ql (U) Negative Normal NEG [facility] Comment on above: Performed By: #### U A #### [facility] ([id number]) [address], [address] [place] [address] Leukocyte esterase Test strip Ql (U) Negative Normal NEG [facility] Comment on above: Performed By: #### U A #### [facility] ([id number]) [address], [address] [place] [address] MUCOUS PRESENT Abnormal NONE [facility] Comment on above: Performed By: #### U A #### [facility] ([id number]) [address], [address] [place] [address] Nitrite Ql (U) Negative Normal NEG [facility] Comment on above: Performed By: #### U A #### [facility] ([id number]) [address], [address] [place] [address] pH (U) 6.0 [pH] Normal 5.0-8.5 [facility] Comment on above: Performed By: #### U A #### [facility] ([id number]) [address], [address] [place] [address] Protein Ql (U) Negative Normal NEG [facility] Comment on above: Performed By: #### U A #### [facility] ([id number]) [address], [address] [place] [address] R.B.CELLS 1 /hpf Normal 0-5 [facility] Comment on above: Performed By: #### U A #### [facility] ([id number]) [address], [address] [place] [address] Specific gravity (U) [Rel density] 1.007 Normal 1.003-1.035 [facility] Comment on above: Performed By: #### U A #### [facility] ([id number]) [address] [place] [address] SQUAMOUS EPITHELIUM <1 Normal 0-5 [facility] Comment on above: Performed By: #### U A #### [facility] ([id number]) [address], [address] [place] [address] TURBIDITY CLEAR Normal CLEAR [facility] Comment on above: Performed By: #### U A #### [facility] ([id number]) [address] [place] [address] Urobilinogen (U) [Mass/Vol] mg/dL Normal <1.1 [facility] Comment on above: Performed By: #### U A #### [facility] ([id number]) [address] [place] [address] W.B.CELLS 1 /hpf Normal 0-5 [facility] Comment on above: Performed By: #### U A #### [facility] ([id number]) [address] [place] [address] URINE CULTUREon 03-12-2024 Bacteria identified Cx Nom (U) CULTURE RESULTS <10,000 ORGANISMS/ML NORMAL URO GENITAL DARSHANA Normal [facility] Comment on above: Performed By: #### 6 30-4 #### [facility] ([id number]) [address] [place] [address] BASIC METABOLIC PANLon 02-15 Anion gap [Moles/Vol] 12 mmol/L Normal 5-15 [facility] Comment on above: Performed By: #### C BCA, CMP, 3040-3 #### [facility] ([id number]) [address] [place] [address] Calcium [Mass/Vol] 9.0 mg/dL Normal 8.5-10.5 [facility] Comment on above: Performed By: #### C JACKIE MELENDEZ, 3040-3 #### [facility] ([id number]) [address], [address] [place] [address] Chloride [Moles/Vol] 106 mmol/L Normal 98-109 [facility] Comment on above: Performed By: #### C JACKIE MELENDEZ, 3039-3 #### [facility] ([id number]) [address], [address] [place] [address] CO2 [Moles/Vol] 21 mmol/L Low 22-32 [facility] Comment on above: Performed By: #### Any MELENDEZ CMP, 3040-3 #### [facility] ([id number]) [address], [address] [place] [address] Creatinine [Mass/Vol] 1.00 mg/dL Normal 0.40-1.00 [facility] Comment on above: Result Comment: METH OD TRACEABLE TO IDMS STANDARD Performed By: #### C JACKIE MELENDEZ, 0-3 #### [facility] ([id number]) [address], [address] [place] [address] GFR/1.73 sq M.predicted among non-blacks MDRD (S/P/Bld) [Vol rate/Area] 62 mL/min/{1.73_m2} Normal >59 [facility] Comment on above: Result Comment: Reported eGFR is based on the CKD-EPI 2020 equation that does not use a race coefficient. Performed By: #### C JACKIE MELENDEZ, 3040-3 #### [facility] ([id number]) [address], [address] [place] [address] Glucose [Mass/Vol] 108 mg/dL High 65-99 [facility] Comment on above: Performed By: #### Any MELENDEZ CMP, 0-3 #### [facility] ([id number]) [address], [address] [place] [address] Potassium [Moles/Vol] 3.9 mmol/L Normal 3.5-5.0 [facility] Comment on above: Performed By: #### C BCA, CMP, 3040-3 #### [facility] ([id number]) [address], [address] [place] [address] Sodium [Moles/Vol] 139 mmol/L Normal 134-146 [facility] Comment on above: Performed By: #### C BCA, CMP, 3040-3 #### [facility] ([id number]) [address], [address] [place] [address] Urea nitrogen [Mass/Vol] 30 mg/dL High 5-27 [facility] Comment on above: Performed By: #### C BCA, CMP, 3040-3 #### [facility] ([id number]) [address], [address] [place] [address] Bacteria identified Cx Nom ( U)on 02-16-2024 Service comment (Unsp spec) [Interp] <10,000 ORGANISMS/ML NORMAL URO GENITAL DARSHANA [facility] Service comment (Unsp spec) [Interp] URINE RECEIVED WITHOUT PRESERVATIVE [facility] Service comment (Unsp spec) [Interp] NO GROWTH AT <1000 CFU/mL [facility] Basic Metabolic Panelon 12-2 Anion gap [Moles/Vol] 12 mmol/L 5 - 15 mmol/L [facility] Calcium [Mass/Vol] 9 mg/dL 8.5 - 10. 5 mg/dL [facility] Chloride [Moles/Vol] 106 mmol/L 98 - 10 9 mmol/L [facility] CO2 [Moles/Vol] 21 mmol/L Low 22 - 32 mmol/L [facility] Creatinine [Mass/Vol] 1 mg/dL 0.40 - 1.00 mg/dL [facility] Comment on above: METHOD TRACEABLE TO IDMS STANDARD eGFR (CKD-EPI)non-race dependent 62 - PINF [facility] Comment on above: Reported eGFR is based on the CKD-EPI 2020 equation that does not use a race coefficient. Glucose [Mass/Vol] 108 mg/dL High 65 - 99 mg/dL [facility] Interpretation and review of laboratory results Abnormal [facility] Potassium [Moles/Vol] 3.9 mmol/L 3.5 - 5.0 mmol/L [facility] Sodium [Moles/Vol] 139 mmol/L 134 - 146 mmol/L [facility] Urea nitrogen [Mass/Vol] 30 mg/dL High 5 - 27 mg/dL [facility] CBC AND AUTO DIFFon 12-20 24 ABSOLUTE BASOPHIL 0.0 X10E9/L Normal 0.0-0.2 [facility] Comment on above: Performed By: #### Any MELENDEZ CMP, 3040-3 #### [facility] ([id number]) [address], [address] [place] [address] ABSOLUTE NEUTROPHIL 11.2 X10E9/L High 1.5-6.6 [facility] Comment on above: Performed By: #### Any MELENDEZ CMP, 3040-3 #### [facility] ([id number]) [address], [address] [place] [address] Basophils/100 WBC (Bld) 0.2 % Normal [facility] Comment on above: Performed By: #### Any MELENDEZ CMP, 3040-3 #### [facility] ([id number]) [address], [address] [place] [address] Eosinophils (Bld) [#/Vol] 0.0 10*3/uL Normal 0.0-0.4 [facility] Comment on above: Performed By: #### Any MELENDEZ CMP, 3040-3 #### [facility] ([id number]) [address], [address] [place] [address] Eosinophils/100 WBC (Bld) 0.3 % Normal [facility] Comment on above: Performed By: #### C NORA CMP, 3039-3 #### [facility] ([id number]) [address], [address] [place] [address] Erythrocyte distribution width (RBC) [Ratio] 13.6 % Normal 11.5-15.0 [facility] Comment on above: Performed By: #### C NORA CMP, 3039-3 #### [facility] ([id number]) [address], [facility] [address] [place] [address] Hematocrit (Bld) [Volume fraction] 34.5 % Low 35-47 [facility] Comment on above: Performed By: #### C NORA CMP, 3039-04 #### [facility] ([id number]) [address], [facility] [address] [place] [address] Hemoglobin (Bld) [Mass/Vol] 11.6 g/dL Low 11.7-15.5 [facility] Comment on above: Performed By: #### Any MELENDEZ CMP, 3039-04 #### [facility] ([id number]) [address], [facility] [address] [place] [address] Lymphocytes (Bld) [#/Vol] 0.8 10*3/uL Low 1.0-3.5 [facility] Comment on above: Performed By: #### Any MELENDEZ CMP, 3039-3 #### [facility] ([id number]) [address], [address] [place] [address] Lymphocytes/100 WBC (Bld) 6.3 % Normal [facility] Comment on above: Performed By: #### Any MELENDEZ CMP, 3039-3 #### [facility] ([id number]) [address], [address] [place] [address] MCH (RBC) [Entitic mass] 29.7 pg Normal 27-34 [facility] Comment on above: Performed By: #### C NORA CMP, 3039-3 #### [facility] ([id number]) [address], [address] [place] [address] MCHC (RBC) [Mass/Vol] 33.8 g/dL Normal 32-36 [facility] Comment on above: Performed By: #### C BCA, CMP, 3039-3 #### [facility] ([id number]) [address], [address] [place] [address] MCV (RBC) [Entitic vol] 88 fL Normal 80-100 [facility] Comment on above: Performed By: #### Any BCA, CMP, 3039-3 #### [facility] ([id number]) [address], [address] [place] [address] Monocytes (Bld) [#/Vol] 1.0 10*3/uL High 0-0.9 [facility] Comment on above: Performed By: #### Any BCA, CMP, 3039-3 #### [facility] ([id number]) [address], [address] [place] [address] Monocytes/100 WBC (Bld) 7.9 % Normal [facility] Comment on above: Performed By: #### Any BCA, CMP, 3039-3 #### [facility] ([id number]) [address], [address] [place] [address] Neutrophils/100 WBC (Bld) 85.3 % Normal [facility] Comment on above: Performed By: #### C BCA, CMP, 3039-3 #### [facility] ([id number]) [address], [address] [place] [address] Platelet mean volume (Bld) [Entitic vol] 11.1 fL Normal 7-12 [facility] Comment on above: Performed By: #### C BCA, CMP, 3039-3 #### [facility] ([id number]) [address], [address] [place] [address] Platelets (Bld) [#/Vol] 164 10*3/uL Normal 150-450 [facility] Comment on above: Performed By: #### Any MELENDEZ CMP, 3040-3 #### [facility] ([id number]) [address], [address] [place] [address] RBC COUNT 3.92 X10E12/L Normal 3.80-5.20 [facility] Comment on above: Performed By: #### Any MELENDEZ CMP, 3040-3 #### [facility] ([id number]) [address], [facility] [address] [place] [address] WBC (Bld) [#/Vol] 13.2 10*3/uL High 4.0-11.0 [facility] Comment on above: Performed By: #### Any MELENDEZ CMP, 3040-3 #### [facility] ([id number]) [address], [address] [place] [address] CBC auto differentialon 01-28 Basophils (Bld) [#/Vol] 0 10*3/uL [facility] Basophils/100 WBC (Bld) 0.2 % [facility] Eosinophils (Bld) [#/Vol] 0 10*3/uL [facility] Eosinophils/100 WBC (Bld) 0.3 % [facility] Erythrocyte distribution width (RBC) [Ratio] 13.6 % 11.5 - 15.0 % [facility] Hematocrit (Bld) [Volume fraction] 34.5 % Low 35 - 47 % [facility] Hemoglobin (Bld) [Mass/Vol] 11.6 g/dL Low 11.7 - 15.5 g/dL [facility] Interpretation and review of laboratory results Abnormal [facility] Lymphocytes (Bld) [#/Vol] 0.8 10*3/uL Low [facility] Lymphocytes/100 WBC (Bld) 6.3 % [facility] MCH (RBC) [Entitic mass] 29.7 pg 27 - 34 pg [facility] MCHC (RBC) [Mass/Vol] 33.8 g/dL 32 - 36 g/dL [facility] MCV (RBC) [Entitic vol] 88 fL 80 - 100 fL [facility] Monocytes (Bld) [#/Vol] 1 10*3/uL High [facility] Monocytes/100 WBC (Bld) 7.9 % [facility] Neutrophils (Bld) [#/Vol] 11.2 10*3/uL High [facility] Neutrophils/100 WBC (Bld) 85.3 % [facility] Platelet mean volume (Bld) [Entitic vol] 11.1 fL 7 - 12 fL [facility] Platelets (Bld) [#/Vol] 164 10*3/uL [facility] RBC (Bld) [#/Vol] 3.92 10*6/uL [facility] WBC corrected for nucl RBC Auto (Bld) [#/Vol] 13.2 High [facility] BLOOD CULTUREon 02-15-2024 Bacteria identified Aer cx Nom (Bld) CULTURE RESULTS NO GROWTH 5 DAYS Normal [facility] CBC AND AUTO DIFFon 02-15-20 24 Band form neutrophils/100 WBC (Bld) 7.8 % Normal [facility] Comment on above: Performed By: #### C JACKIE MELENDEZ, 3040-3 #### [facility] ([id number]) [address] [address] [address] [place] [address] Erythrocyte distribution width (RBC) [Ratio] 13.9 % Normal 11.5-15.0 [facility] Comment on above: Performed By: #### C NORA CMP, 3040-3 #### [facility] ([id number]) [address], [facility] [address] [place] [address] Hematocrit (Bld) [Volume fraction] 32.3 % Low 35-47 [facility] Comment on above: Performed By: #### Any MELENDEZ CMP, 3040-3 #### [facility] ([id number]) [address], [address] [place] [address] Hemoglobin (Bld) [Mass/Vol] 11.0 g/dL Low 11.7-15.5 [facility] Comment on above: Performed By: #### Any MELENDEZ CMP, 3039-3 #### [facility] ([id number]) [address], [facility] [address] [place] [address] Lymphocytes (Bld) [#/Vol] 0.6 10*3/uL Low 1.0-3.5 [facility] Comment on above: Performed By: #### Any MELENDEZ CMP, 3039-3 #### [facility] ([id number]) [address], [facility] [address] [place] [address] Lymphocytes/100 WBC (Bld) 4.9 % Normal [facility] Comment on above: Performed By: #### Any MELENDEZ CMP, 3039-3 #### [facility] ([id number]) [address], [facility] [address] [place] [address] MCH (RBC) [Entitic mass] 30.2 pg Normal 27-34 [facility] Comment on above: Performed By: #### Any MELENDEZ CMP, 3039-3 #### [facility] ([id number]) [address], [facility] [address] [place] [address] MCHC (RBC) [Mass/Vol] 34.0 g/dL Normal 32-36 [facility] Comment on above: Performed By: #### Any MELENDEZ, CMP, 3039-3 #### [facility] ([id number]) [address], [facility] [address] [place] [address] MCV (RBC) [Entitic vol] 89 fL Normal 80-100 [facility] Comment on above: Performed By: #### Any MELENDEZ, CMP, 3039-3 #### [facility] ([id number]) [address], [facility] [address] [place] [address] Monocytes (Bld) [#/Vol] 0.2 10*3/uL Normal 0-0.9 [facility] Comment on above: Performed By: #### Any MELENDEZ CMP, 3039-3 #### [facility] ([id number]) [address], [address] [place] [address] Monocytes/100 WBC (Bld) 1.9 % Normal [facility] Comment on above: Performed By: #### Any MELENDEZ CMP, 3039-3 #### [facility] ([id number]) [address], [address] [place] [address] NEUTROPHIL VACUOLES 1+ Abnormal NONE [facility] Comment on above: Performed By: #### Any MELENDEZ CMP, 3039- #### [facility] ([id number]) [address], [address] [place] [address] Neutrophils (Bld) [#/Vol] 11.1 10*3/uL High 1.5-6.6 [facility] Comment on above: Performed By: #### Any MELENDEZ CMP, 3039- #### [facility] ([id number]) [address], [address] [place] [address] OVALOCYTE 1+ Abnormal NONE [facility] Comment on above: Performed By: #### Any MELENDEZ CMP, 3039-3 #### [facility] ([id number]) [address], [address] [place] [address] Platelet mean volume (Bld) [Entitic vol] 10.6 fL Normal 7-12 [facility] Comment on above: Performed By: #### Any MELENDEZ CMP, 3039-3 #### [facility] ([id number]) [address], [address] [place] [address] Platelets (Bld) [#/Vol] 142 10*3/uL Low 150-450 [facility] Comment on above: Performed By: #### Any MELENDEZ CMP, 3039-3 #### [facility] ([id number]) [address], [address] [place] [address] RBC COUNT 3.64 X10E12/L Low 3.80-5.20 [facility] Comment on above: Performed By: #### Any BCA, CMP, 3040-3 #### [facility] ([id number]) [address], [address] [place] [address] SEG NEUTROPHIL 85.4 % Normal [facility] Comment on above: Performed By: #### Any BCA, [facility], 3040-3 #### [facility] ([id number]) [address], [address] [place] [address] WBC (Bld) [#/Vol] 11.9 10*3/uL High 4.0-11.0 [facility] Comment on above: Performed By: #### Any BCA, [facility], 3040-3 #### [facility] ([id number]) [address], [address] [place] [address] CBC auto differentialon 01-27 Band form neutrophils/100 WBC (Bld) 7.8 % [facility] Erythrocyte distribution width (RBC) [Ratio] 13.9 % 11.5 - 15.0 % [facility] Hematocrit (Bld) [Volume fraction] 32.3 % Low 35 - 47 % [facility] Hemoglobin (Bld) [Mass/Vol] 11 g/dL Low 11.7 - 15.5 g/dL [facility] Interpretation and review of laboratory results Abnormal [facility] Leukocyte toxic vacuoles LM Ql (Bld) 1+ Abnormal NONE^NONE [facility] Lymphocytes (Bld) [#/Vol] 0.6 10*3/uL Low [facility] Lymphocytes/100 WBC (Bld) 4.9 % [facility] MCH (RBC) [Entitic mass] 30.2 pg 27 - 34 pg [facility] MCHC (RBC) [Mass/Vol] 34 g/dL 32 - 36 g/dL [facility] MCV (RBC) [Entitic vol] 89 fL 80 - 100 fL [facility] Monocytes (Bld) [#/Vol] 0.2 10*3/uL [facility] Monocytes/100 WBC (Bld) 1.9 % [facility] Neutrophils (Bld) [#/Vol] 11.1 10*3/uL High [facility] Ovalocytes LM Ql (Bld) 1+ Abnormal NONE^NONE [facility] Platelet mean volume (Bld) [Entitic vol] 10.6 fL 7 - 12 fL [facility] Platelets (Bld) [#/Vol] 142 10*3/uL Low [facility] RBC (Bld) [#/Vol] 3.64 10*6/uL Low [facility] Segmented neutrophils/100 WBC (Bld) 85.4 % [facility] WBC corrected for nucl RBC Auto (Bld) [#/Vol] 11.9 High [facility] COMPREHENSIVE METABOLIC PANE Jordan 02-15-2024 Albumin [Mass/Vol] 3.4 g/dL Normal 3.2-5.3 [facility] Comment on above: Performed By: #### C NORA CMP, 3040-3 #### [facility] ([id number]) [address], [address] [place] [address] ALP [Catalytic activity/Vol] 71 U/L Normal 39-130 [facility] Comment on above: Performed By: #### C NORA CMP, 3040-3 #### [facility] ([id number]) [address], [address] [place] [address] ALT [Catalytic activity/Vol] 29 U/L Normal 0-31 [facility] Comment on above: Performed By: #### C NORA CMP, 3040-3 #### [facility] ([id number]) [address], [address] [place] [address] Anion gap [Moles/Vol] 9 mmol/L Normal 5-15 [facility] Comment on above: Performed By: #### C BCA, CMP, 3039-3 #### [facility] ([id number]) [address], [address] [place] [address] AST [Catalytic activity/Vol] 42 U/L High 0-41 [facility] Comment on above: Performed By: #### C BCA, CMP, 3039-3 #### [facility] ([id number]) [address], [address] [place] [address] Bilirubin [Mass/Vol] 1.1 mg/dL Normal 0.3-1.2 [facility] Comment on above: Performed By: #### C BCA, CMP, 3039-3 #### [facility] ([id number]) [address] [place] [address] Calcium [Mass/Vol] 8.4 mg/dL Low 8.5-10.5 [facility] Comment on above: Performed By: #### C BCA, CMP, 3039-3 #### [facility] ([id number]) [address], [address] [place] [address] Chloride [Moles/Vol] 103 mmol/L Normal 98-109 [facility] Comment on above: Performed By: #### C BCA, CMP, 3039-3 #### [facility] ([id number]) [address] [place] [address] CO2 [Moles/Vol] 24 mmol/L Normal 22-32 [facility] Comment on above: Performed By: #### C BCA, CMP, 3039-3 #### [facility] ([id number]) [address], [address] [place] [address] Creatinine [Mass/Vol] 1.43 mg/dL High 0.40-1.00 [facility] Comment on above: Result Comment: METH OD TRACEABLE TO IDMS STANDARD Performed By: #### C BCA, CMP, 3039-3 #### [facility] ([id number]) [address] [place] [address] GFR/1.73 sq M.predicted among non-blacks MDRD (S/P/Bld) [Vol rate/Area] 40 mL/min/{1.73_m2} Low >59 [facility] Comment on above: Result Comment: Reported eGFR is based on the CKD-EPI 2020 equation that does not use a race coefficient. Performed By: #### C JACKIE MELENDEZ, 3040-3 #### [facility] ([id number]) [address], [address] [place] [address] Glucose [Mass/Vol] 105 mg/dL High 65-99 [facility] Comment on above: Performed By: #### C JACKIE MELENDEZ, 3040-3 #### [facility] ([id number]) [address] [place] [address] Potassium [Moles/Vol] 4.1 mmol/L Normal 3.5-5.0 [facility] Comment on above: Performed By: #### C JACKIE MELENDEZ, 3040-3 #### [facility] ([id number]) [address] [place] [address] Protein [Mass/Vol] 5.8 g/dL Low 6.0-8.0 [facility] Comment on above: Performed By: #### Any MELENDEZ CMP, 3040-3 #### [facility] ([id number]) [address] [place] [address] Sodium [Moles/Vol] 136 mmol/L Normal 134-146 [facility] Comment on above: Performed By: #### C JACKIE MELENDEZ, 3040-3 #### [facility] ([id number]) [address] [place] [address] Urea nitrogen [Mass/Vol] 28 mg/dL High 5-27 [facility] Comment on above: Performed By: #### C BCA, CMP, 3040-3 #### [facility] ([id number]) [address] [facility], [address] [place] [address] Cobalamin (Vitamin B12) [Mas s/Vol]on 02-15-2024 [facility] Comprehensive metabolic pane jordan 02-15-2024 Albumin [Mass/Vol] 3.4 g/dL 3.2 - 5.3 g/dL [facility] ALP [Catalytic activity/Vol] 71 U/L 39 - 130 U/L [facility] ALT No additional P-5'-P [Catalytic activity/Vol] 29 U/L 0 - 31 U/L [facility] Anion gap [Moles/Vol] 9 mmol/L 5 - 15 mmol/L [facility] AST [Catalytic activity/Vol] 42 U/L High 0 - 41 U/L [facility] Bilirubin [Mass/Vol] 1.1 mg/dL 0.3 - 1 .2 mg/dL [facility] Calcium [Mass/Vol] 8.4 mg/dL Low 8.5 - 10. 5 mg/dL [facility] Chloride [Moles/Vol] 103 mmol/L 98 - 10 9 mmol/L [facility] CO2 [Moles/Vol] 24 mmol/L 22 - 32 mmol/L [facility] Creatinine [Mass/Vol] 1.43 mg/dL High 0.40 - 1.00 mg/dL [facility] Comment on above: METHOD TRACEABLE TO IDPR STANDARD eGFR (CKD-EPI)non-race dependent 40 Low - PINF [facility] Comment on above: Reported eGFR is based on the CKD-EPI 2020 equation that does not use a race coefficient. Glucose [Mass/Vol] 105 mg/dL High 65 - 99 mg/dL [facility] Potassium [Moles/Vol] 4.1 mmol/L 3.5 - 5.0 mmol/L [facility] Protein [Mass/Vol] 5.8 g/dL Low 6.0 - 8.0 g/dL [facility] Sodium [Moles/Vol] 136 mmol/L 134 - 146 mmol/L [facility] Urea nitrogen [Mass/Vol] 28 mg/dL High 5 - 27 mg/dL [facility] FERRITINon 02-15-2024 Ferritin [Mass/Vol] 82 ng/mL Normal 11-307 [facility] Comment on above: Performed By: #### 1 9123-9, FEPR, 2276-4, 2284-8, 2131-10 #### [facility] ([id number]) [address] [place] [address] FL FLUOROSCOPY UP TO 1 HOURo n 02-15-2024 FL FLUOROSCOPY UP TO 1 HOUR FL FLUOROSCOPY UP TO 1 HOUR INTRAOPERATIVE FLUOROSCOPY HISTORY: Left stent placement IMPRESSION: Intraoperative fluoroscopy provided for the clinical service during placement of left ureteral stent. Reference air kerma 2.3 mGy. A radiologist was not present during this procedure. Questions regarding this exam should be directed to the clinical service that performed the procedure. Finalized by Denver Morin MD on 02/15/2024 12:17 PM Normal [facility] Ferritinon 02-15-2024 Ferritin [Mass/Vol] 82 ng/mL 11 - 307 ng/mL [facility] Ferritin [Mass/Vol]on 2023 [facility] Folateon 02-15-2024 Folate [Mass/Vol] 22.2 ng/mL 5.8 - PINF ng/mL [facility] Comment on above: NEW REFERENCE RANGE Folate [Mass/Vol]on 02-15-20 24 [facility] FOLIC ACID 22.2 ng/mL Normal >5.8 [facility] Comment on above: Result Comment: NEW REFERENCE RANGE Performed By: #### 1 9123-9, FEPR, 2276-4, 2283-8, 2131-10 #### [facility] ([id number]) [address], [address] [place] [address] IRON PROFILEon 02-15-2024 Iron [Mass/Vol] 11 ug/dL Low 50-170 [facility] Comment on above: Performed By: #### 1 9123-9, FEPR, 2276-4, 2284-8, 2131-10 #### [facility] ([id number]) [address], [address] [place] [address] IRON BINDING 274 ug/dL Normal 250-425 [facility] Comment on above: Performed By: #### 1 9123-9, FEPR, 2276-4, 2284-8, 2131-10 #### [facility] ([id number]) [address], [address] [place] [address] IRON SATURATION 4 % SATURATION Low 15-50 [facility] Comment on above: Performed By: #### 1 9123-9, FEPR, 2276-4, 2284-8, 2131-10 #### [facility] ([id number]) [address], [address] [place] [address] Iron and TIBCon 02-15-2024 Interpretation and review of laboratory results Abnormal [facility] Iron [Mass/Vol] 11 ug/dL Low 50 - 170 ug/dL [facility] Iron binding capacity [Mass/Vol] 274 ug/dL 250 - 425 ug/dL [facility] Iron saturation [Mass fraction] 4 Low [facility] LIPASEon 02-15-2024 Lipase [Catalytic activity/Vol] 8 U/L Low 11-82 [facility] Comment on above: Performed By: #### C BCA, CMP, 3040-3 #### [facility] ([id number]) [address] [place] [address] Lactate (P julianne) [Moles/Vol]o n 02-15-2024 [facility] LACTATE W/REFLEX 0.8 mmol/L Normal 0.4-2.0 [facility] Comment on above: Result Comment: Result did not trigger repeat Lactate, re-order if needed. Performed By: #### 3 2133-1 #### [facility] ([id number]) [address] [place] [address] Lactate w/ Reflexon 12-19-20 24 Lactate (P julianne) [Moles/Vol] 0.8 mmol/L 0.4 - 2.0 mmol/L [facility] Comment on above: Result did not trigger repeat Lactate, re-order if needed. Lipaseon 02-15-2024 Lipase [Catalytic activity/Vol] 8 U/L Low 11 - 82 U/L [facility] MAGNESIUMon 02-15-2024 Magnesium [Mass/Vol] 1.7 mg/dL Low 1.8-2.6 [facility] Comment on above: Performed By: #### 1 9123-9, FEPR, 2276-4, 2284-8, 2132-9 #### [facility] ([id number]) [address], [address] [place] [address] Magnesiumon 02-15-2024 Magnesium [Mass/Vol] 1.7 mg/dL Low 1.8 - 2 .6 mg/dL [facility] Magnesium [Mass/Vol]on 02-14 Interpretation and review of laboratory results Abnormal [facility] No Panel Informationon 02-14 Interpretation and review of laboratory results Abnormal [facility] RF Less than 1 houron 2023 INTRAOPERATIVE FLUOROSCOPY HISTORY: Left stent placement IMPRESSION: Intraoperative fluoroscopy provided for the clinical service during placement of left ureteral stent. Reference air kerma 2.3 mGy. A radiologist was not present during this procedure. Questions regarding this exam should be directed to the clinical service that performed the procedure. Finalized by Denver Morin MD on 02/15/2024 12:17 PM [facility] Denver Morin MD - 02/15/2024 INTRAOPERATIVE FLUOROSCOPY HISTORY: Left stent placement IMPRESSION: Intraoperative fluoroscopy provided for the clinical service during placement of left ureteral stent. Reference air kerma 2.3 mGy. A radiologist was not present during this procedure. Questions regarding this exam should be directed to the clinical service that performed the procedure. Finalized by Denver Morin MD on 02/15/2024 12:17 PM [facility] Radiology Study observation (narrative) [facility] RF Less than 1 hourOrdered B y: Denver Morin on 02-15-2024 [facility] Work Phone: URINE CULTUREon 02-15-2024 Bacteria identified Cx Nom (U) SPECIMEN NOTES URINE RECEIVED WITHOUT PRESERVATIVE CULTURE RESULTS NO GROWTH AT <1000 CFU/mL Normal [facility] Comment on above: Performed By: #### C BCA, CMP, 3040-3 #### [facility] ([id number]) [address], [address] [place] [address] Bacteria identified Cx Nom (U) CULTURE RESULTS <10,000 ORGANISMS/ML NORMAL URO GENITAL DARSHANA Normal [facility] Comment on above: Performed By: #### C BCA, CMP, 3040-3 #### [facility] ([id number]) [address] [place] [address] VITAMIN B12on 02-15-2024 Cobalamin (Vitamin B12) [Mass/Vol] 190 pg/mL Normal 180-914 [facility] Comment on above: Performed By: #### 1 9123-9, FEPR, 2276-4, 2284-8, 2132-9 #### [facility] ([id number]) [address] [place] [address] Vitamin B12on 02-15-2024 Cobalamin (Vitamin B12) [Mass/Vol] 190 pg/mL 180 - 914 pg/mL [facility] 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 Zackery Beck CBC AUTO DIFFon 05-20-2022 BASO # 0.1 103/ul Normal 0.0-0.1 [facility] Comment on above: Performed By: #### C BC #### [facility] [address] [place], [place] [address] Dr. Zackery Beck Basophils/100 WBC (Bld) 0.6 % Normal 0.2-2.0 [facility] Comment on above: Performed By: #### C BC #### [facility] [address] [place] [address] Dr. Zackery Beck EO # 0.1 103/ul Normal 0.0-0.7 [facility] Comment on above: Performed By: #### C BC #### [facility] [address] [place] [address] Dr. Zackery Beck Eosinophils/100 WBC (Bld) 1.8 % Normal 0.9-7.0 [facility] Comment on above: Performed By: #### C BC #### [facility] [address] [place] [address] Dr. Zackery Beck Erythrocyte distribution width (RBC) [Ratio] 13.6 % Normal 11.0-15.0 [facility] Comment on above: Performed By: #### C BC #### [facility] [address] [place] [address] Dr. Zackery Beck Hematocrit (Bld) [Volume fraction] 48.1 % Critically high 36.0-48.0 [facility] Comment on above: Performed By: #### C BC #### [facility] [address] [place] [address] Dr. Zackery Beck Hemoglobin (Bld) [Mass/Vol] 16.0 g/dL Normal 12.0-16.0 [facility] Comment on above: Performed By: #### C BC #### [facility] [address] [place] [address] Dr. Zackery Beck IG # 0.02 10e3/ul Normal 0.00-0.03 [facility] Comment on above: Performed By: #### C BC #### [facility] [address] [place] [address] Dr. Zackery Beck IG % 0.3 % Normal 0.0-0.5 [facility] Comment on above: Performed By: #### C BC #### [facility] [address] [place] [address] Dr. Zackery Beck LYMPH # 1.5 103/ul Normal 1.2-3.8 [facility] Comment on above: Performed By: #### C BC #### [facility] [address] [place] [address] Dr. Zackery Beck Lymphocytes/100 WBC (Bld) 19.0 % Critically low 20.5-60.0 [facility] Comment on above: Performed By: #### C BC #### [facility] [address] [place] [address] Dr. Zackery Beck MANUAL DIFF REQ NO Normal [facility] Comment on above: Performed By: #### C BC #### [facility] [address] [place] [address] Dr. Zackery Beck MCH (RBC) [Entitic mass] 28.6 pg Normal 26.7-34.0 [facility] Comment on above: Performed By: #### C BC #### [facility] [address] [place] [address] Dr. Zackery Beck MCHC (RBC) [Mass/Vol] 33.3 g/dL Normal 29.9-35.2 [facility] Comment on above: Performed By: #### C BC #### [facility] [address] [place] [address] Dr. Zackery Beck MCV (RBC) [Entitic vol] 85.9 fL Normal 81.0-99.0 [facility] Comment on above: Performed By: #### C BC #### [facility] [address] [place] [address] Dr. Zackery Beck MONO # 0.5 103/ul Normal 0.3-0.8 [facility] Comment on above: Performed By: #### C BC #### [facility] [address] [place] [address] Dr. Zackery Beck Monocytes/100 WBC (Bld) 6.7 % Normal 1.7-12.0 [facility] Comment on above: Performed By: #### C BC #### [facility] [address] [place] [address] Dr. Zackery Beck NEUT # 5.6 103/ul Normal 1.4-6.5 [facility] Comment on above: Performed By: #### C BC #### [facility] [address] [address] [address] Zackery Beck Neutrophils/100 WBC (Bld) 71.6 % Normal 43.0-75.0 [facility] Comment on above: Performed By: #### C BC #### [facility] [address] [address] [address] Zackery Beck Platelet mean volume (Bld) [Entitic vol] 11.6 fL Normal 9.5-13.5 [facility] Comment on above: Performed By: #### C BC #### [facility] [address] [place] [address] Dr. Zackery Beck PLT 249 103/ul Normal 150-450 [facility] Comment on above: Performed By: #### C BC #### [facility] [address] [place] [address] Dr. Zackery Beck RBC 5.60 106/ul Critically high 4.20-5.40 [facility] Comment on above: Performed By: #### C BC #### [facility] [address] [place] [address] Dr. Zackery Beck WBC 7.8 103/ul Normal 4.0-11.0 [facility] Comment on above: Performed By: #### C BC #### [facility] [address] [place] [address] Dr. Zackery Beck FREE THYROXINE INDEX T7on FTI 3.74 Normal 1.30-4.50 [facility] Comment on above: Performed By: #### L IPID, TSH, CMP, T7 #### [facility] [address] [place] [address] Dr. Zackery Beck T3U 37.0 % Normal 30.0-39.0 [facility] Comment on above: Performed By: #### L IPID, TSH, CMP, T7 #### [facility] [address] [place] [address] Dr. Zackery Beck T4 [Mass/Vol] 10.10 ug/dL Normal 4.80-13.90 [facility] Comment on above: Performed By: #### L IPID, TSH, CMP, T7 #### [facility] [address] [address] [address] Zackery Beck GLYCOHEMOGLOBIN A1Con 2022 ADA RECOMMENDATION SEE BELOW Normal [facility] Comment on above: Result Comment: ADA RECOMMENDED LIMIT 4.0 - 6.0 ADA THERAPEUTIC TARGET < 7.0 ACTION SUGGESTED > 7.0 Performed By: #### A 1C #### [facility] [address] [address] [address] Zackery Beck Glucose [Mass/Vol] 114 mg/dL Normal [facility] Comment on above: Performed By: #### A 1C #### [facility] [address] [address] [address] Zackery Beck HbA1c (Bld) [Mass fraction] 5.6 % Normal 4.5-6.2 [facility] Comment on above: Performed By: #### A 1C #### [facility] [address] [address] [address] Zackery Beck IRONon 05-20-2022 Iron [Mass/Vol] 84.0 ug/dL Normal 50.0-170.0 [facility] Comment on above: Performed By: #### I GÓMEZ #### [facility] [address] [place] [address] Dr. Zackery Beck LIPID PROFILEon 05-20-2022 CHOL-HDL RATIO NORM SEE BELOW Normal [facility] Comment on above: Result Comment: 3.3 - 4.4 LOW RISK 4.4 - 7.1 AVERAGE RISK 7.1 - 11.0 MODERATE RISK >11.0 HIGH RISK Performed By: #### L IPID, TSH, CMP, T7 #### [facility] [address] [address] [address] Zackery Beck Cholesterol [Mass/Vol] 293 mg/dL Critically high <=200 [facility] Comment on above: Performed By: #### L IPID, TSH, CMP, T7 #### [facility] [address] [address] [address] Zackery Beck Cholesterol in HDL [Mass/Vol] 71 mg/dL Critically high 40-60 [facility] Comment on above: Performed By: #### L IPID, TSH, CMP, T7 #### [facility] [address] [address] [address] Zackery Beck Cholesterol in LDL [Mass/Vol] 206.4 mg/dL Normal [facility] Comment on above: Performed By: #### L IPID, TSH, CMP, T7 #### [facility] [address] [address] [address] Zackery Beck Cholesterol.total/Ch olesterol in HDL [Mass ratio] 4.1 {ratio} Normal [facility] Comment on above: Performed By: #### L IPID, TSH, CMP, T7 #### [facility] [address] [address] [address] Zackery Beck HDL NORMAL > or = 60 mg/dl - LOW CARDIOVASCULAR RISK <40 mg/dl - HIGH CARDIOVASCULAR RISK Normal [facility] Comment on above: Performed By: #### L IPID, TSH, CMP, T7 #### [facility] [address] [address] [address] Zackery Beck LDL CALC NORMAL SEE BELOW Normal [facility] Comment on above: Result Comment: <100 mg/dl OPTIMAL 100 - 129 mg/dl NEAR OR ABOVE OPTIMAL 130 - 159 mg/dl BORDERLINE HIGH 160 - 189 mg/dl HIGH >190 mg/dl VERY HIGH Performed By: #### L IPID, TSH, CMP, T7 #### [facility] [address] [address] [address] Zackery Beck Triglyceride [Mass/Vol] 78 mg/dL Normal <=150 [facility] Comment on above: Performed By: #### L IPID, TSH, CMP, T7 #### [facility] [address] [address] [address] Zackery Beck VLDL CALC 15.6 mg/dL Normal [facility] Comment on above: Performed By: #### L IPID, TSH, CMP, T7 #### [facility] [address] [address] [address] Zackery Beck PROF 14(COMP METB)on 023 Albumin [Mass/Vol] 4.3 g/dL Normal 3.4-5.0 [facility] Comment on above: Performed By: #### L IPID, TSH, CMP, T7 #### [facility] [address] [address] [address] Zackery Beck Albumin/Globulin [Mass ratio] 1.3 {ratio} Normal [facility] Comment on above: Performed By: #### L IPID, TSH, CMP, T7 #### [facility] [address] [address] [address] Zackery Beck ALP [Catalytic activity/Vol] 94 U/L Normal 46-116 [facility] Comment on above: Performed By: #### L IPID, TSH, CMP, T7 #### [facility] [address] [place] [address] Dr. Zackery Beck ALT [Catalytic activity/Vol] 20 U/L Normal 14-59 [facility] Comment on above: Performed By: #### L IPID, TSH, CMP, T7 #### [facility] [address] [place] [address] Dr. Zackery Beck Anion gap [Moles/Vol] 16.5 mmol/L Normal [facility] Comment on above: Performed By: #### L IPID, TSH, CMP, T7 #### [facility] [address] [place] [address] Dr. Zackery Beck AST [Catalytic activity/Vol] 20 U/L Normal 15-37 [facility] Comment on above: Performed By: #### L IPID, TSH, CMP, T7 #### [facility] [address] [place] [address] Dr. Zackery Beck Bilirubin [Mass/Vol] 0.5 mg/dL Normal 0.2-1.0 [facility] Comment on above: Performed By: #### L IPID, TSH, CMP, T7 #### [facility] [address] [address] [address] Zackery Beck Calcium [Mass/Vol] 9.5 mg/dL Normal 8.5-10.1 [facility] Comment on above: Performed By: #### L IPID, TSH, CMP, T7 #### [facility] [address] [place] [address] Dr. Zackery Beck Chloride [Moles/Vol] 103 mmol/L Normal 98-107 [facility] Comment on above: Performed By: #### L IPID, TSH, CMP, T7 #### [facility] [address] [place] [address] Dr. Zackery Beck CO2 [Moles/Vol] 23.5 mmol/L Normal 21.0-32.0 [facility] Comment on above: Performed By: #### L IPID, TSH, CMP, T7 #### [facility] [address] [place] [address] Dr. Zackery Beck Creatinine [Mass/Vol] 0.93 mg/dL Normal 0.55-1.02 [facility] Comment on above: Performed By: #### L IPID, TSH, CMP, T7 #### [facility] [address] [place] [address] Dr. Zackery Beck EGFR-AF TRISTANIAN >60 Normal >=60 [facility] Comment on above: Performed By: #### L IPID, TSH, CMP, T7 #### [facility] [address] [place] [address] Dr. Zackery Beck EGFR-NON AF TRISTANIAN >60 Normal >=60 [facility] Comment on above: Performed By: #### L IPID, TSH, CMP, T7 #### [facility] [address] [place] [address] Dr. Zackery Beck Globulin (S) [Mass/Vol] 3.2 g/dL Normal [facility] Comment on above: Performed By: #### L IPID, TSH, CMP, T7 #### [facility] [address] [place] [address] Dr. Zackery Beck Glucose [Mass/Vol] 112 mg/dL Critically high 74-106 [facility] Comment on above: Performed By: #### L IPID, TSH, CMP, T7 #### [facility] [address] [place] [address] Dr. Zackery Beck Potassium [Moles/Vol] 4.0 mmol/L Normal 3.5-5.1 [facility] Comment on above: Performed By: #### L IPID, TSH, CMP, T7 #### [facility] [address] [address] [address] Zackery Beck Protein [Mass/Vol] 7.5 g/dL Normal 6.4-8.2 [facility] Comment on above: Performed By: #### L IPID, TSH, CMP, T7 #### [facility] [address] [place] [address] Dr. Zackery Beck Sodium [Moles/Vol] 139 mmol/L Normal 136-145 [facility] Comment on above: Performed By: #### L IPID, TSH, CMP, T7 #### [facility] [address] [place] [address] Dr. Zackery Beck Urea nitrogen [Mass/Vol] 30.0 mg/dL Critically high 7.0-18.0 [facility] Comment on above: Performed By: #### L IPID, TSH, CMP, T7 #### [facility] [address] [place] [address] Dr. Zackery Beck Urea nitrogen/Creatinine [Mass ratio] 32.3 mg/mg Normal [facility] Comment on above: Performed By: #### L IPID, TSH, CMP, T7 #### [facility] [address] [place] [address] Dr. Zackery Beck TSHon 05-20-2022 TSH 0.652 uIU/mL Normal 0.358-3.740 [facility] Comment on above: Performed By: #### L IPID, TSH, CMP, T7 #### [facility] [address] [place] [address] Dr. Zackery Beck CULTURE URINEon 10-19-2021 CULTURE URINE Culture Observations: LIGHT GROWTH OF MIXED GENITAL DARSHANA. NO POTENTIAL PATHOGENS SEEN. Normal [facility] Comment on above: Performed By: #### U RCX #### [facility] [address] [place] [address] Dr. Zackery Beck UA RANDOM W/MICROSCOPICon AMORPHOUS CRYSTALS RARE Normal [facility] Comment on above: Performed By: #### U AMIC #### [facility] [address] [place] [address] Dr. Zackery Beck BACTERIA TRACE Abnormal NONE SEEN [facility] Comment on above: Performed By: #### U AMIC #### [facility] [address] [place] [address] Dr. Zackery Beck Bilirubin Ql (U) Negative Normal NEGATIVE [facility] Comment on above: Performed By: #### U AMIC #### [facility] [address] [address] [address] Zackery Beck CAST NONE SEEN Normal NONE SEEN [facility] Comment on above: Performed By: #### U AMIC #### [facility] [address] [place] [address] Dr. Zackery Beck Clarity (U) CLEAR Normal CLEAR [facility] Comment on above: Performed By: #### U AMIC #### [facility] [address] [address] [address] Zackery Beck Color (U) LT. YELLOW Normal YELLOW [facility] Comment on above: Performed By: #### U AMIC #### [facility] [address] [place] [address] Dr. Zackery Beck Crystals LM Nom (Urine sed) SEEN Abnormal NONE SEEN [facility] Comment on above: Performed By: #### U AMIC #### [facility] [address] [place] [address] Dr. Zackery Beck Epithelial cells LM Ql (Urine sed) RARE Normal NONE SEEN /RARE [facility] Comment on above: Performed By: #### U AMIC #### [facility] [address] [address] [address] Zackery Beck Glucose Ql (U) Negative Normal NEGATIVE [facility] Comment on above: Performed By: #### U AMIC #### [facility] [address] [place] [address] Dr. Zackery Beck Hemoglobin Ql (U) TRACE-LYSED Abnormal NEGATIVE [facility] Comment on above: Performed By: #### U AMIC #### [facility] [address] [address] [address] Zackery Beck Ketones Ql (U) Negative Normal NEGATIVE [facility] Comment on above: Performed By: #### U AMIC #### [facility] [address] [address] [address] Zackery Beck LEUKOCYTES TRACE Abnormal NEGATIVE [facility] Comment on above: Performed By: #### U AMIC #### [facility] [address] [address] [address] Zackery Beck MUCOUS TRACE Abnormal NONE SEEN [facility] Comment on above: Performed By: #### U AMIC #### [facility] [address] [place] [address] Dr. Zackery Beck Nitrite Ql (U) Negative Normal NEGATIVE [facility] Comment on above: Performed By: #### U AMIC #### [facility] [address] [place] [address] Dr. Zackery Beck pH (U) 5.5 [pH] Normal 5-9 [facility] Comment on above: Performed By: #### U AMIC #### [facility] [address] [address] [address] Zackery Beck RBC 2-5 Abnormal 0-2 [facility] Comment on above: Performed By: #### U AMIC #### [facility] [address] [place] [address] Dr. Zackery Beck SPEC GRAVITY <=1.005 Abnormal 1.005-<=1.025 [facility] Comment on above: Performed By: #### U AMIC #### [facility] [address] [place] [address] Dr. Zackery Beck UA PROTEIN Negative Normal NEGATIVE/ TRACE [facility] Comment on above: Performed By: #### U AMIC #### [facility] [address] [place] [address] Dr. Zackery Beck Urobilinogen Qn (U) 0.2 {Monse'U}/dL Normal 0.2 - 1. 0 [facility] Comment on above: Performed By: #### U AMIC #### [facility] [address] [place], [place] [address] Dr. Zackery Beck WBC 5-10 Abnormal NONE SEEN [facility] Comment on above: Performed By: #### U AMIC #### [facility] [address] [place] [address] [address] [address] Zackery Beck XR KUB 1 VIEWon [...] SHWETA FISCHER Date: 2021-10-19 18:38 Normal [facility] Vital Signs Date Time Vital Sign Value Performing Clinician Facility 04-09-2024 14:57-0500 Body height 152.[address] 04-09-2024 14:57-0500 Body mass index (BMI) [Ratio] 31.64 kg/m2 [address] 04-09-2024 14:57-0500 Body weight 73.[address] 04-09-2024 14:57-0500 Diastolic blood pressure 72 mm[Hg] [address] 04-09-2024 14:57-0500 Heart rate 73 /min [address] 04-09-2024 14:57-0500 Systolic blood pressure 103 mm[Hg] [address] [address] 02-16-2024 12:02-0500 Body temperature 98.01 [degF] Chacha Arambula MD Work Phone: [facility] 02-16-2024 12:02-0500 Diastolic blood pressure 94 mm[Hg] Chacha Arambula MD Work Phone: [facility] 02-16-2024 12:02-0500 Heart rate 77 /min Chacha Arambula MD Work Phone: [facility] 02-16-2024 12:02-0500 Respiratory rate 16 /min Chacha Arambula MD Work Phone: [facility] 02-16-2024 12:02-0500 SaO2% (BldA) [Mass fraction] 94 % Chacha Arambula MD Work Phone: [facility] 02-16-2024 12:02-0500 Systolic blood pressure 149 mm[Hg] Chacha Arambula MD Work Phone: [facility] [employer] [facility] 02-15-2024 05:00-0500 Body mass index (BMI) [Ratio] 34.14 kg/m2 Chacha [facility]ula [facility] 02-15-2024 05:00-0500 Body weight 79.3 kg Chacha [facility]ambula [facility] 02-15-2024 03:23-0500 Body height 152.4 cm Chacha Arambula MD [facility] Encounters Encounter Date Encounter Type Care Provider Facility Start: 07-18-2024 End: 07-18-2024 ambulatory [facility] Start: 04-09-2024 End: 04-09-2024 Office outpatient visit 15 minutes Dimitry Aly MD Work Phone: [facility] Comment on above: Kidney stones (Prima ry Dx) Start: 04-09-2024 End: 04-09-2024 ambulatory [facility] Start: 04-08-2024 End: 04-08-2024 Orders Only Tom Cervantes [facility] Comment on above: Kidney stones (Prima ry Dx) Start: 03-26-2024 End: 03-26-2024 Evaluation and management of inpatient [facility] Start: 03-12-2024 End: 03-12-2024 ambulatory [facility] Start: 03-12-2024 Encounter for other preprocedural examination [facility] Start: 02-15-2024 End: 02-22-2024 Telephone encounter Dimitry Aly MD Work Phone: [facility] Start: 02-15-2024 [facility] Start: 02-14-2024 End: 02-16-2024 Evaluation and management of inpatient Nimisha Jean MD Work Phone: [facility] Acute Comment on above: Septic shock (CMS-HC C) (Primary Dx); Urinary tract obstruction by kidney stone; Other hydronephrosis Start: 10-23-2023 End: 10-23-2023 ambulatory [facility] Start: 06-22-2023 End: 06-22-2023 ambulatory [facility] Start: 04-18-2023 End: 04-18-2023 ambulatory [facility] Start: 04-14-2023 End: 04-14-2023 ambulatory [facility] Start: 04-14-2023 End: 04-15-2023 ambulatory [facility] Start: 06-30-2022 End: 07-01-2022 ambulatory DIOMEDES PEPE Facility:[facility]1 Start: 05-22-2022 Encounter for genera l adult medical examination without abnormal findings DIOMEDES PEPE [facility] Start: 05-20-2022 End: 05-21-2022 ambulatory DIOMEDES PEPE Facility:[facility]1 Start: 05-20-2022 End: 05-21-2022 Encounter for general adult medical examination without abnormal findings DIOMEDES PEPE Facility:[facility]1 Start: 10-19-2021 End: 10-20-2021 ambulatory DIOMEDES PEPE Facility:[facility]1 Procedures Date Procedure Procedure Detail Performing Clinician Start: 04-09-2024 Follow-up visit Follow-up DIMITRY ALY Start: 02-16-2024 Basic metabolic panel calcium total Gianfranco Agosto DO Work Phone: Start: 02-16-2024 Adult depression screening assessment Dimitry Aly MD Work Phone: Start: 02-15-2024 Fluoroscopy up to 1 hour physician/qhp time Eliseo aVllejo MD Work Phone: Start: 02-15-2024 Culture bacterial quanttative colony count urine Eliseo Vallejo MD Work Phone: Start: 02-15-2024 End: 02-15-2024 Cysto w/insert ureteral stent Eliseo Vallejo MD Work Phone: Start: 02-15-2024 End: 02-15-2024 Culture bacterial quanttative colony count urine Armando Hollingsworth MD Work Phone: Start: 02-15-2024 Cyanocobalamin vitamin b-12 Gianfranco Naik Triny DO Work Phone: Start: 02-15-2024 PULSE OXIMETRY, SPOT Gianfranco Heena TuckerTriny DO Work Phone: Start: 02-15-2024 Comprehensive metabolic panel Armando Hollingsworth MD Work Phone: Start: 10-23-2023 Mammography Dimitry Aly MD Work Phone: Start: 03-09-2020 Colonoscopy Dimitry Aly MD Work Phone: Start: 12-27-2012 History of cholecystectomy History of cholecystectomy Chacha Arambula MD Work Phone: Plan of Treatment Date Care Activity Detail Author Start: 10-23-2031 DTaP,Tdap and Td Vaccines (2 - Td or Tdap) DTaP,Tdap and Td Vaccines (2 - Td or Tdap) [facility] [employer] [facility] Start: 03-09-2030 Screening for malign ant neoplasm of colon Colonoscopy [facility] Start: 04-15-2025 End: 04-15-2025 Patient encounter procedure 04/15/2025 1:15 PM EST Office Visit [facility] [address] [place] [id number] Dimitry Aly MD [address] [place] [id number] [facility] Start: 04-09-2025 Adult BMI Screening Adult BMI Screen ing [facility] Start: 04-09-2025 Tobacco Screening Tobacco Screening [facility] Start: 04-09-2025 End: 04-09-2026 XR Abdomen AP X-ray abdomen ap 1 view Imaging Routine Kidney stones Expected: 04/09/2025, Expires: 04/09/2026 [facility] Work Phone: Comment on above: Expected: 04/09/2025 , Expires: 04/09/2026 Start: 03-26-2025 Adult BMI Screening Adult BMI Screen ing [facility] Start: 03-26-2025 Tobacco Screening Tobacco Screening [facility] Start: 02-15-2025 Depression Screening Depression Scre ening [facility] Start: 02-15-2025 Tobacco Screening Tobacco Screening [facility] Start: 02-14-2025 Adult BMI Screening Adult BMI Screen ing [facility] Start: 10-22-2024 Screening for malign ant neoplasm of breast Mammogram [facility] Start: 04-09-2024 End: 04-09-2024 Patient encounter procedure 04/09/2024 3:15 PM EST Office Visit [facility] [address] [place] [phone] Dimitry Aly MD [address] [place] [id number] [facility] Start: 04-09-2024 End: 04-09-2024 Telemedicine consultation with patient 04/09/2024 3:00 PM EST Telemedicine [facility] [address] [place] [address] [place] [address] Dimitry Aly MD [address] [place] [id number] [facility] Start: 04-08-2024 End: 04-08-2025 XR Abdomen AP X-ray abdomen ap 1 view Imaging Routine Kidney stones Expected: 04/08/2024, Expires: 04/08/2025 [employer] Work Phone: Comment on above: Expected: 04/08/2024 , Expires: 04/08/2025 Start: 03-26-2024 End: 03-26-2024 Admission to same day surgery center 03/26/2024 10:00 AM EST - 03/26/2024 11:00 AM EST Surgery [facility] [address] [place] [address] Dimitry Aly MD [address] [place] [address] [id number] LASER HOLMIUM URETEROSCOPY RENAL STONES < OR=1CM [15374 (CPT )] [facility] Comment on above: LASER HOLMIUM URETER OSCOPY RENAL STONES < OR=1CM [02193 (CPT )] Start: 03-26-2024 End: 03-26-2024 Cysto w/insert ureteral stent CYSTOSCOPY EXCHANGE STENT URETER Kidney stones 03/26/2024 10:00 AM EST [facility] Start: 03-26-2024 End: 03-26-2024 Cysto w/ureteroscopy w/lithotripsy LASER HOLMIUM URETEROSCOPY RENAL STONES < OR=1CM Kidney stones 03/26/2024 10:00 AM EST [facility] Start: 03-26-2024 Subsequent hospital visit by physician 03/26/2024 10:00 AM EST Hospital Encounter [facility] [address] [place] [address] Dimitry Aly MD [address] [place] [id number] [facility] Start: 03-12-2024 End: 03-12-2024 Patient encounter procedure 03/12/2024 1:45 PM EST Office Visit [facility] [address] [place] [address] [place] [address] Dimitry Aly MD [address] [place] [address] [facility] Start: 03-12-2024 End: 03-12-2024 Patient encounter procedure 03/12/2024 11:15 AM EST Procedure visit [facility] - Pre Admit [address] [place] [phone] [facility] Start: 01-06-2024 Adult BMI Follow Up Plan Adult BMI Follow Up Plan [facility] Start: 10-29-2023 Influenza vaccination Influenza Vacc ine [facility] Start: 2022 Fall Risk Screening Fall Risk Screen [facility] Bacteria identified in Blood by Aerobe culture [facility] Work Phone: Oxygen Therapy - Maintain SpO2: 90%; *SAND CUTTER Guidelines for O2: Yes; Document: \Breathez Vac [email or web address].[email or web address]\ep ic\EPIC_Reference\Order s\Respiratory Care Guidelines\CPG Oxygen 2022.pdf Oxygen Therapy - Maintain SpO2: 90%; *SAND CUTTER Guidelines for O2: Yes; Document: \Breathez Vac [email or web address].[email or web address]\ep ic\EPIC_Reference\Order s\Respiratory Care Guidelines\CPG Oxygen 2022.pdf Respiratory Care Routine As Needed until discontinued starting 02/15/2024 [facility] Work Phone: Comment on above: As Needed until disc ontinued starting 02/15/2024 Respiratory Care consult *SAND CUTTER Guidelines for Resp Care Consult: Yes; Document: \[email or web address]\ep ic\EPIC_Reference\Order s\Respiratory Care Guidelines\CPG Consult 2019.pdf Respiratory Care consult *SAND CUTTER Guidelines for Resp Care Consult: Yes; Document: \[email or web address]\ep ic\EPIC_Reference\Order s\Respiratory Care Guidelines\CPG Consult 2019.pdf Respiratory Care Routine Every 12 hour check until discontinued starting 02/15/2024 [facility] Comment on above: Every 12 hour check until discontinued starting 02/15/2024 Immunizations Immunization Date Immunization Notes Care Provider Fa rocky 10-22-2021 tetanus toxoid, redu jennifer diphtheria toxoid, and acellular pertussis vaccine, adsorbed Chacha Arambula MD Work Phone: [facility] 02-08-2021 zoster vaccine recombinant Chacha [facility]ambula MD [facility] 11-21-2020 zoster vaccine recombinant Chacha Arambula MD [facility] 10-24-2015 zoster vaccine, live Chacha Arambula MD Work Phone: [facility] [employer] Plan Payers Date Payer Category Payer Medicare O [facility] [id number] 2022 Medicare [id number] 1959 Private Health Insurance [id number] 1955 Unknown [id number] [id number]. 2.593 1955 Unknown [id number] 2.16.840.1.949134.3.579. 2.593 1957 Unknown [id number] 2.16.840.1.449264.3.579. 2.593 1957 Unknown [id number] 2.16.840.1.524113.3.579. 2.1286 1957 Unknown [id number] 2.16.840.1.191203.3.579. 2.1286 1957 Unknown [id number] 2.16.840.1.015364.3.579. 2.1286 1957 Unknown [id number] 2.16.840.1.776830.3.579. 2.1286 1957 Unknown [id number] 2.16.840.1.687313.3.579. 2.1286 1957 Unknown [id number] 2.16.840.1.022337.3.579. 2.1286 1957 Unknown [id number] 2.16.840.1.100613.3.579. 2.1286 1957 Unknown [id number] 2.16.840.1.432911.3.579. 2.1286 1957 Unknown [id number] 2.16.840.1.048010.3.579. 2.1286 1957 Unknown [id number] 2.16.840.1.265595.3.579. 2.1286 1957 Unknown [id number] 2.16.840.1.849456.3.579. 2.1286 1957 Unknown [id number] 2.16.840.1.651860.3.579. 2.1286 1957 Unknown [id number] 2.16.840.1.139251.3.579. 2.[facility]6 Unknown [id number] Social History Date Type Detail Facility Start: 2021 End: 03-12-2024 Tobacco smoking status NHIS Ex-smoker [facility] End: 02-27-2006 History of tobacco use Current smoker [facility] End: 02-27-2006 History of tobacco use Cigarette Smoker [facility] Start: 2021 End: 03-12-2024 Tobacco use and exposure Smokeless tobacco non-user [facility] Start: 02-16-2024 End: 04-09-2024 Alcoholic beverage intake Current non-drinker of alcohol (finding) [facility] Start: 03-10-2020 End: 02-16-2024 History of Social function [facility] Start: 03-10-2020 End: 02-16-2024 [facility] Utilities [facility] Has the electric, Exhibition A s, oil, or water company threatened to shut off services in your home in past 12Mo No [facility] Adolescent depressio n screening assessment 0 [facility] Start: 1955 Sex assigned at Not on file P [employer] Start: 10-02-2014 Sex Female (finding) [facility] Medical Equipment Procedure Code Equipment Code Equipment Origin al Text Equipment Identifier Dates Stent Percuflex [place]+ 6x24 - [id number] Start: 05-11-2017 Stent Percuflex [place]+ 6x24 - [id number] Start: 05-11-2017 Set Stnt 24cm 6f r Universa 2 Pgtl Crv Ureter Aq Rdpq Grad - [id number] Start: 02-15-2024 Goals Date Patient Goal Desired Activity /State Personal health goal Comment on above: Formatting of this n ote might be different from the original. Evaluation of progress towards goal: pt would like to return home self care, family support. Functional Status Date Assessment Result Facility [facility] Clinical Notes 02-14-2024 to 07-18-2024 Dimitry Aly MD - 04/09/2024 3:00 PM Hugo Cervantes CMA - 04/08/2024 10:15 AM ESTDischarge Planning Note - Vanesa Polanco RN - 02/16/2024 1:50 PM ESTDischarge InstructionsAttachments Note Date & Type Note Facility 07-18-2024 Note [facility] Consult Note Reason for visit: Patient is here today per her PCP request for SOB Patient states she was given Morphine in Jan 2024 and had a bad experience with it, since then she has had SOB. HPI: Abundio Iglesias is a 68 y.o. year old with past medical history [...] chest pain or abnormal shortness of breath Dizziness/tachycardia -dizziness related to working out while [...] while she exercises -her holter showed a few short episodes of PSVT likely atach and she is not symptomatic UPDATE 07/18/2024 The patient is here to see me due to concerns regarding symptoms. She was diagnosed with a kidney infection and stones in January. She was given morphine. She apparently developed some reaction to the morphine. In her words, ever since, she has had difficulty taking a full breath. She states that she was not in shape before hand but now she feels she cannot walk without getting extremely fatigued and short of breath. No chest pain. No orthopnea, no paroxysmal, dyspnea, no lower extremity edema. Review of Systems Cardiovascular: Positive for dyspnea on exertion. Respiratory: Positive for shortness of breath. PMH: Past Medical History: Diagnosis Date Graves disease Hyperlipidemia Hypertension PSH: Past Surgical History: Procedure Laterality Date CHOLECYSTECTOMY EYE SURGERY SALIVARY GLAND SURGERY SH: Social Determinants of Health Tobacco Use: Medium Risk (04/09/2024) Received from [facility] Patient History Smoking Tobacco Use: Former Smokeless Tobacco Use: Never Passive Exposure: Not on file Alcohol Use: Not on file Financial Resource Strain: Not on file Food Insecurity: No Food Insecurity (04/09/2024) Received from [facility] Hunger Screening Within the past 12 months we worried whether our food would run out before we got money to buy more.: Never True Within the past 12 months the food we bought just didn't last and we didn't have money to get more.: Never True Transportation Needs: No Transportation Needs (02/16/2024) Received from [facility] PRAPARE - Transportation Lack of Transportation (Medical): No Lack of Transportation (Non-Medical): No Physical Activity: Not on file Stress: Not on file Social Connections: Not on file Intimate Partner Violence: Unknown (04/21/2023) ID Safety & Environment Fear of Current or Ex-Partner: Not on file Emotionally Abused: Not on file Physically Abused: Not on file Sexually Abused: Not on file Physically or Sexually Abused: Not on file Depression: Not at risk (02/16/2024) Received from [facility] PHQ-2 Total Score: 0 Housing Stability: Low Risk (02/16/2024) Received from [facility] Housing Instability Are you worried or concerned that in the next two months you may not have stable housing that you own, rent or stay in as a part of a household?: No Utilities: Not At Risk (02/16/2024) [facility] Utilities Threatened with loss of utilities: No Health Literacy: Not on file Allergies: Allergies Allergen Reactions Morphine Shortness of breath Celecoxib Swelling Nsaids (Non-Steroidal Anti-Inflammatory Drug) Other Sulfa (Sulfonamide Antibiotics) Sulfamethoxazole-Trimethoprim Trimethoprim Unknown Trolamine Salicylate Swelling Celebrex, vioxx Weight: No weight available Visit Vitals Smoking Status Former Meds: Current Outpatient Medications on File Prior to Visit Medication Sig Dispense Refill irbesartan (Avapro) 300 mg tablet Take 300 mg by mouth in the morning. levothyroxine (Synthroid, Levoxyl) 75 mcg tablet Take 75 mcg by mouth in the morning. liothyronine (Cytomel) 5 mcg tablet Take 5 mcg by mouth in the morning. pravastatin (Pravachol) 40 mg tablet Take 40 (more content not included)... [facility] 04-09-2024 History of Present illness Narrative Images from the original note were not included. [address] [place] [phone] Patient: Abundio Iglesias Date of : 1955 Encounter Date: 04/09/2024 History of Present Illness: Chief Complaint: kidney stones The patient is a 68 y.o. female, an established patient, and is here for followup. She has a history of recurrent kidney stones with medullary sponge kidney. She has undergone ESWL in 2018, bilateral ureteroscopy in 2018 and again in 2020 and 2021 as well as 2024. She has also done metabolic workups in 2018 showing elevated oxalate and low citrate and decreased urine volume. She was put on Urocit-K with correction of the parameters on follow-up 24 urine however she found that the Urocit-K was causing constipation and discontinued it. Her last intervention was a few weeks ago. She has done well postop. She had a follow-up KUB which I reviewed showing no new stones or residual calculi. Summary of old records: Urinalysis today: No results for input(s): EXTPOCURCO , EXTPOCURCH , EXTPOCAPP , EXTPOCURBS , EXTPOCURBIL , EXTPOCUKET , EXTPOCUSPG , EXTPOCUHGB , EXTPOCUPRO , EXTPOCUURO , EXTPOCULEU , EXTPOCUNIT , EXTPOCUWBC , EXTPOCUBLD , EXTPOCURBC , EXTPOCUCRY , EXTPOCUBAC , EXTPOCUTREP , EXTPOCUPH , EXTPOCULEE in the last 72 hours. Last BUN and creatinine: Lab Results Component Value Date BUN 30 (H) 02/16/2024 Lab Results Component Value Date CREATININE 1.00 02/16/2024 Last PSA: No results found for: PSA No results found for: PROSTATICSP Additional Lab/Culture results: None Imaging Reviewed during this Office Visit: kub (Results were independently reviewed by physician and radiology report verified) Past Medical, Family, and Social History Update: The following portions of the patient's history were reviewed and updated as appropriate: allergies, current medications, past family history, past medical history, past social history, past surgical history and problem list. 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 Visual impairment contacts Past Surgical History: Procedure Laterality Date APPENDECTOMY BREAST BIOPSY Left 05/26/1994 benign excisional-not visible CHOLECYSTECTOMY COLONOSCOPY [id number] COLONOSCOPY N/A 03/09/2020 Performed by Jerald Malhotra DO at [facility] CYSTOSCOPY N/A 04/25/2017 Performed by Dimitry Aly MD at [facility] CYSTOSCOPY , right ureteroscopy, with laser right ureter dilation Right 02/12/2021 Performed by Dimitry Aly MD at [facility] CYSTOSCOPY INSERTION STENT LEFT URETER Left 02/15/2024 Performed by Eliseo Vallejo MD at [facility] CYSTOSCOPY REMOVAL STENT Left 03/26/2024 Performed by Dimitry Aly MD at [facility] CYSTOSCOPY REMOVAL STENT Bilateral 03/31/2021 Performed by Dimitry Aly MD at [facility] CYSTOSCOPY REMOVAL STENT Bilateral 05/23/2017 Performed by Dimitry Aly MD at [facility] CYSTOSCOPY URETEROSCOPY BILATERAL WITH HOMIUM LASER/BILATERAL STENT PLACEMENT/STONE BASKETING Bilateral 05/11/2017 Performed by Dimitry Aly MD at [facility] ESOPHAGOGASTRODUODENOSCOPY ESOPHAGOGASTRODUODENOSCOPY N/A 03/09/2020 Performed by Jerald Malhotra DO at [facility] EXTRACORPOREAL SHOCK WAVE LITHOTRIPSY Right 04/25/2017 Performed by Dimitry Aly MD at [facility] EYE SURGERY INSERTION STENT URETER Bilateral 02/12/2021 Performed by Dimitry Aly MD at [facility] LASER HOLMIUM URETEROSCOPY RENAL STONES < OR=1CM Left 03/26/2024 Performed by Dimitry Aly MD at [facility] LASER HOLMIUM URETEROSCOPY RENAL STONES < OR=1CM Right 03/31/2021 Performed by Dimitry Aly MD at [facility] NECK SURGERY URETERAL STENT PLACEMENT Family History Problem Relation Age of Onset Heart disease Maternal Grandmother Cancer Maternal Grandfather lung Hypertension Father Heart disease Father Diabetes Father Arthritis Father Hypertension Mother Heart disease Mother Diabetes Mother Diabetes Brother Hypertension Brother Hypertension Sister Ovarian cancer Neg Hx Breast cancer Neg Hx Current Outpatient Medications Medication Sig Dispense Refill HYDROcodone-acetaminophen (NORCO) 5-325 mg per tablet Take 1 tablet by mouth every 6 (six) hours as needed for pain for up to 4 doses. Max Daily Amount: 4 tablets 4 tablet 0 irbesartan (AVAPRO) 300 mg tablet Take 1 tablet (300 mg total) by mouth in the morning. levothyroxine (SYNTHROID, LEVOTHROID) 75 MCG tablet Take 1 tablet (75 mcg total) by mouth in the morning. liothyronine (CYTOMEL) 5 MCG tablet Take 1 tablet (5 mcg total) by mouth in the morning. wipakczn-woon-TM-calcium &mins (THERAGRAN-M) 9 mg iron-400 mcg tablet Take 1 tablet by mouth in the morning. pravastatin (PRAVACHOL) 40 mg tablet Take 1 tablet (40 mg total) by mouth nightly. No current facility-administered medications for this visit. (All medications reviewed and updated by provider since last office visit or hospitalization) Allergies: Morphine, Arthritis [trolamine salicylate], Celecoxib, Nsaids (non-steroidal anti-inflammatory drug), Sulfa (sulfonamide antibiotics), and Trimethoprim Tobacco History: Social History Tobacco Use Smoking Status Former Current packs/day: 0.00 Types: Cigarettes Quit date: 2006 Years since quittin.1 Smokeless Tobacco Never (If patient a smoker, smoking cessation counseling offered) Social History: Social History Substance and Sexual Activity Alcohol Use No Review of Systems: General: Negative for chills and fever. Cardiovascular: Negative for chest pain and shortness of breath. Gastrointestinal: Negative for constipation, diarrhea, nausea, and vomitting. -per HPI Physical Exam: BP 103/72 Pulse 73 Ht 152.4 cm (5') Wt 73.5 kg (162 lb) LMP (LMP Unknown) BMI 31.64 kg/m Assessment and Plan: Abundio was seen today for follow-up. Diagnoses and all orders for this visit: Kidney stones Problem List Genitourinary Kidney stones - Primary [...] burden. Stopped urocit k due to constipation 03/23: Ureteroscopy left 04/09/24: KUB with no new stones. Plan to recheck 1 year. Additionally suggested either increasing consumption of diet serum missed or litholyte to her citrate and decrease her risk of recurrent stones. Follow-up: Dimitry Aly MD This note was created with the assistance of a speech recognition program. While intending to generate a timely document that accurately reflects the content of the visit, no guarantee can be provided that every grammatical or spelling mistake has been or will be identified or corrected. Thank you for your understanding. documented in this encounter [facility] 04-08-2024 History of Present illness Narrative [facility] registration called requesting us to place an order for a KUB prior to appt coming up with Dr. Aly. Last KUB was on date of surgery. Pt was under the impression and requested order to be placed. Order placed. documented in this encounter [facility] 02-16-2024 Progress note Formatting of t his note might be different from the original. DISCHARGE PLANNING NOTE Case discussed in daily transition rounds and chart reviewed by CN. Discharge Plan remains: Home with self care. will transport. Denies any needs at discharge. CN will continue to follow and is available should any further needs arise. - Vanesa Polanco RN 02/16/24 1:50 PM [facility] 02-16-2024 Miscellaneous Notes DISCHARGE PLANNING NOTE Case discussed in daily transition rounds and chart reviewed by CN. Discharge Plan remains: Home with self care. will transport. Denies any needs at discharge. CN will continue to follow and is available should any further needs arise. - Vanesa Polanco RN 02/16/24 1:50 PM Problem: Pain Goal: Patient goal is pain score less than 4, able to rest, and participant in treatment plan as appropriate Description: INTERVENTIONS: 1. Encourage patient or legal small business representative to report early pain and ask for pain medicine when needed 2. Assess pain using appropriate pain scale and include the scale used when documenting 3. Administer analgesics based on type and severity of pain and evaluate response within appropriate time frame 4. Implement non-pharmacological measures as appropriate and evaluate response 5. Consider cultural and social influences on pain and pain management 6. Notify LIP if interventions ineffective or patient reports new pain 7. Monitor vital signs including pulse ox, end-tidal CO2 based on pain intervention 8. Reassess pain per policy 9. Teach patient or legal small business representative interventions for comforting Note: Evaluation of progress towards goal: Patient will verbalize tolerable pain level after pain interventions. Will continue to monitor and treat pain throughout shift. Problem: Safety Goal: Patient will be injury free during hospitalization Description: INTERVENTIONS: 1. Assess patient's risk for falls and implement fall prevention plan of care per policy 2. Provide and maintain a safe environment 3. Proper use of double Identifiers 4. Medication administration using the 5 rights 5. Hand hygiene 6. Specimens are labeled at the bedside 7. Instruct patient/ patient small business representative about use of safety devices 8. Include patient/ patient small business representative in decisions related to safety Note: Evaluation of progress towards goal: Patient safety has been maintained, will continue with safety interventions until DC. Problem: Infection Goal: Absence of infection during hospitalization Description: INTERVENTIONS 1. Assess and monitor for signs and symptoms of infection. 2. Monitor lab/diagnostic results. 3. Monitor all insertion sites i.e., indwelling lines, tubes and drains. 4. Monitor endotracheal (as able) and nasal secretions for changes in amount and color. 5. Administer medications as ordered. 6. Instruct and encourage patient and family to use good hand hygiene technique. 7. Identify and instruct patient/patient small business representative in use of appropriate isolation precautions for identified infection/symptoms. 8. Provide and discuss with patient/patient small business representative on educational MDRO sheet. 9. Encourage and monitor nutritional status daily and consult recycler forklift driver truck driver if indicated. 10. Implement neutropenic guidelines as needed. Note: Evaluation of progress towards goal: Patient will show no new signs of infection, will continue with stable vitals, nurse to continue to assess and monitor until DC. 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 Complete learning assessment and assess knowledge base 2. Provide teaching at level of understanding 3. Provide teaching via preferred learning method(s) Note: Evaluation of progress towards goal: Nurse to continue education with patient and family as needed via their preferred learning method until DC. Problem: Pain Goal: Patient goal is pain score less than 4, able to rest, and participant in treatment plan as appropriate Description: INTERVENTIONS: 1. Encourage patient or legal small business representative to report early pain and ask for pain medicine when needed 2. Assess pain using appropriate pain scale and include the scale used when documenting 3. Administer analgesics based on type and severity of pain and evaluate response within appropriate time frame 4. Implement non-pharmacological measures as appropriate and evaluate response 5. Consider cultural and social influences on pain and pain management 6. Notify LIP if interventions ineffective or patient reports new pain 7. Monitor vital signs including pulse ox, end-tidal CO2 based on pain intervention 8. Reassess pain per policy 9. Teach patient or legal small business representative interventions for comforting Outcome: Progressing Note: Evaluation of progress towards goal: Encouraged patient or legal small business representative to report early pain and ask for pain medicine when needed. Assessed pain using appropriate pain scale and included the scale used when documenting. Administered analgesics based on type and severity of pain and evaluated response within appropriate time frame. Reassessed pain per policy. Problem: Safety Goal: Patient will be injury free during hospitalization Description: INTERVENTIONS: 1. Assess patient's risk for falls and implement fall prevention plan of care per policy 2. Provide and maintain a safe environment 3. Proper use of double Identifiers 4. Medication administration using the 5 rights 5. Hand hygiene 6. Specimens are labeled at the bedside 7. Instruct patient/ patient small business representative about use of safety devices 8. Include patient/ patient small business representative in decisions related to safety Outcome: Progressing Note: Evaluation of progress towards goal: Assessed patient's risk for falls and implemented fall prevention plan of care per policy. Provided and maintained a safe environment. Used proper hand hygiene. Problem: Infection Goal: Absence of infection during hospitalization Description: INTERVENTIONS 1. Assess and monitor for signs and symptoms of infection. 2. Monitor lab/diagnostic results. 3. Monitor all insertion sites i.e., indwelling lines, tubes and drains. 4. Monitor endotracheal (as able) and nasal secretions for changes in amount and color. 5. Administer medications as ordered. 6. Instruct and encourage patient and family to use good hand hygiene technique. 7. Identify and instruct patient/patient small business representative in use of appropriate isolation precautions for identified infection/symptoms. 8. Provide and discuss with patient/patient small business representative on educational MDRO sheet. 9. Encourage and monitor nutritional status daily and consult recycler forklift driver truck driver if indicated. 10. Implement neutropenic guidelines as needed. Outcome: Progressing Note: Evaluation of progress towards goal: Assessed and monitored for signs and symptoms of infection. Monitored lab/diagnostic results. Monitored all insertion sites i.e., indwelling lines, tubes and drains. 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 Complete learning assessment and assess knowledge base 2. Provide teaching at level of understanding 3. Provide teaching via preferred learning method(s) Outcome: Progressing Note: Evaluation of progress towards goal: Completed learning assessment and assess knowledge base. Provided teaching at level of understanding. Provided teaching via preferred learning method(s.) Problem: Discharge Planning Goal: Discharge to post-acute care, other facility, or home with appropriate resources Description: Patient's goal is: INTERVENTIONS 1. Conduct assessment to determine patient/family and health care team treatment goals, and need for post-acute services based on payer coverage, community resources, and patient preferences, and barriers to discharge 2. Coordinate with Social work, Care Navigation, and Utilization Review to arrange appropriate level of services according to patient's needs based on patient preference and payer coverage in collaboration with the physician and health care team 3. Address psychosocial, clinical, and financial barriers to discharge as identified in assessment in conjunction with the patient/family and health care team 4. Consult appropriate ancillary services (i.e.. PT/OT/ST, etc) as needed 5. Communicate with and update the patient/family, physician, and health care team regarding progress on the discharge plan 6. Identify discharge learning needs (meds, wound care, etc). 7. Arrange for needed discharge transportation as appropriate Outcome: Progressing Note: Evaluation of progress towards goal: Assessed patient for self-management skills. Encouraged participation in diabetes management. Identified potential discharge barriers on admission and throughout hospital stay. Problem: Moderate - High Risk Fall Score Description: Gutierrez Fall Score of =/> 25 or indicated by [facility] Assessment Goal: Patient should be free from fall Description: Interventions: 1. Cowen to environment 2. Hourly rounds addressing the 4 P's (Pain, Positioning, Possessions, Potty) 3. Clear area of hazards (spills, clutter, electrical cords, unnecessary equipment) 4. Place equipment (bed & TV controls, call light, phone, urinal) within reach 5. Encourage patient to wear glasses and hearing aides as appropriate 6. Maintain bed in lowest position 7. Lock wheels on bed/wheelchair 8. Provide adequate lighting, including night light 9. Assess need for additional bedding, food/fluids, pain med's prior to sleep/routinely 10. Provide gripper slippers or personal non-skid footwear 11. Teach patient and patient small business representative to maintain environment for safety and engage in all aspects of fall prevention program 12. Remind patient to call for help before getting out of bed 13. Initiate bed/chair/exit alarms supportive devices as appropriate, (chair wedge, no-skid floor mat, raised edge mattress, hip protectors) 14. Locate patient bed assignment for optimal visualization 15. Evaluate and identify Safe Patient Handling Equipment needs 16. Provide supervision when out of bed or chair 17. Utilize gait belt as needed to assist with ambulation 18. Place adaptive equipment (cane, walker) within reach 19. Request patient small business representative bring adaptive equipment/mobility aids from home or obtain and provide as needed 20. Consult pharmacy regarding effects of med's affecting mobility, cognition, and alternatives 21. Obtain physician order for PT if risk factors associated with mobility are present 22. Obtain physician order for OT as appropriate 23. Utilize diversional activities 24. Educate patient and patient small business representative how to maintain a safe environment during visitation times (notify nurse prior to leaving bedside) 25. Consider appropriateness of medical or non-medical claims specialist 26. Set up voiding schedule as appropriate (every 2 hours) Outcome: Progressing Note: Evaluation of progress towards goal: Hourly rounded addressing the 4 P's (Pain, Positioning, Possessions, Potty). Clear area of hazards (spills, clutter, electrical cords, unnecessary equipment.) Place equipment (bed & TV controls, call light, phone, urinal) within reach. Encouraged patient to wear glasses and hearing aides as appropriate. Maintained bed in lowest position. Locked wheels on bed/wheelchair. Provided adequate lighting, including night light. Problem: Genitourinary - Adult Goal: Urinary catheter remains patent Description: INTERVENTIONS: 1. Assess patency of urinary catheter. 2. Irrigate catheter per LIP order if indicated and notify LIP if unable to irrigate. Outcome: Progressing Note: Evaluation of progress towards goal: Assessed patency of urinary catheter. Irrigated catheter per LIP order if indicated and notify LIP if unable to irrigate. Problem: Pain Goal: Patient goal is pain score less than 4, able to rest, and participant in treatment plan as appropriate Description: INTERVENTIONS: 1. Encourage patient or legal small business representative to report early pain and ask for pain medicine when needed 2. Assess pain using appropriate pain scale and include the scale used when documenting 3. Administer analgesics based on type and severity of pain and evaluate response within appropriate time frame 4. Implement non-pharmacological measures as appropriate and evaluate response 5. Consider cultural and social influences on pain and pain management 6. Notify LIP if interventions ineffective or patient reports new pain 7. Monitor vital signs including pulse ox, end-tidal CO2 based on pain intervention 8. Reassess pain per policy 9. Teach patient or legal small business representative interventions for comforting Outcome: Progressing Note: Evaluation of progress towards goal: Patient will verbalize tolerable pain level after pain interventions. Will continue to monitor and treat pain throughout shift. Problem: Safety Goal: Patient will be injury free during hospitalization Description: INTERVENTIONS: 1. Assess patient's risk for falls and implement fall prevention plan of care per policy 2. Provide and maintain a safe environment 3. Proper use of double Identifiers 4. Medication administration using the 5 rights 5. Hand hygiene 6. Specimens are labeled at the bedside 7. Instruct patient/ patient small business representative about use of safety devices 8. Include patient/ patient small business representative in decisions related to safety Outcome: Progressing Note: Evaluation of progress towards goal: Patient safety has been maintained, will continue with safety interventions until DC. Problem: Infection Goal: Absence of infection during hospitalization Description: INTERVENTIONS 1. Assess and monitor for signs and symptoms of infection. 2. Monitor lab/diagnostic results. 3. Monitor all insertion sites i.e., indwelling lines, tubes and drains. 4. Monitor endotracheal (as able) and nasal secretions for changes in amount and color. 5. Administer medications as ordered. 6. Instruct and encourage patient and family to use good hand hygiene technique. 7. Identify and instruct patient/patient small business representative in use of appropriate isolation precautions for identified infection/symptoms. 8. Provide and discuss with patient/patient small business representative on educational MDRO sheet. 9. Encourage and monitor nutritional status daily and consult recycler forklift driver truck driver if indicated. 10. Implement neutropenic guidelines as needed. Outcome: Progressing Note: Evaluation of progress towards goal: Patient will show no new signs of infection, will continue with stable vitals, nurse to continue to assess and monitor until DC. 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 Complete learning assessment and assess knowledge base 2. Provide teaching at level of understanding 3. Provide teaching via preferred learning method(s) Outcome: Progressing Note: Evaluation of progress towards goal: Patient will verbalize the need of knowledge regarding patients reason for stay Problem: Discharge Planning Goal: Discharge to post-acute care, other facility, or home with appropriate resources Description: Patient's goal is: INTERVENTIONS 1. Conduct assessment to determine patient/family and health care team treatment goals, and need for post-acute services based on payer coverage, community resources, and patient preferences, and barriers to discharge 2. Coordinate with Social work, Care Navigation, and Utilization Review to arrange appropriate level of services according to patient's needs based on patient preference and payer coverage in collaboration with the physician and health care team 3. Address psychosocial, clinical, and financial barriers to discharge as identified in assessment in conjunction with the patient/family and health care team 4. Consult appropriate ancillary services (i.e.. PT/OT/ST, etc) as needed 5. Communicate with and update the patient/family, physician, and health care team regarding progress on the discharge plan 6. Identify discharge learning needs (meds, wound care, etc). 7. Arrange for needed discharge transportation as appropriate Outcome: Progressing Note: Evaluation of progress towards goal: Nurse to continue to assist patient with DC planning as needed, nurse to assist to remove barriers to DC as able. Problem: Moderate - High Risk Fall Score Description: Gutierrez Fall Score of =/> 25 or indicated by [facility] Assessment Goal: Patient should be free from fall Description: Interventions: 1. Cowen to environment 2. Hourly rounds addressing the 4 P's (Pain, Positioning, Possessions, Potty) 3. Clear area of hazards (spills, clutter, electrical cords, unnecessary equipment) 4. Place equipment (bed & TV controls, call light, phone, urinal) within reach 5. Encourage patient to wear glasses and hearing aides as appropriate 6. Maintain bed in lowest position 7. Lock wheels on bed/wheelchair 8. Provide adequate lighting, including night light 9. Assess need for additional bedding, food/fluids, pain med's prior to sleep/routinely 10. Provide gripper slippers or personal non-skid footwear 11. Teach patient and patient small business representative to maintain environment for safety and engage in all aspects of fall prevention program 12. Remind patient to call for help before getting out of bed 13. Initiate bed/chair/exit alarms supportive devices as appropriate, (chair wedge, no-skid floor mat, raised edge mattress, hip protectors) 14. Locate patient bed assignment for optimal visualization 15. Evaluate and identify Safe Patient Handling Equipment needs 16. Provide supervision when out of bed or chair 17. Utilize gait belt as needed to assist with ambulation 18. Place adaptive equipment (cane, walker) within reach 19. Request patient small business representative bring adaptive equipment/mobility aids from home or obtain and provide as needed 20. Consult pharmacy regarding effects of med's affecting mobility, cognition, and alternatives 21. Obtain physician order for PT if risk factors associated with mobility are present 22. Obtain physician order for OT as appropriate 23. Utilize diversional activities 24. Educate patient and patient small business representative how to maintain a safe environment during visitation times (notify nurse prior to leaving bedside) 25. Consider appropriateness of medical or non-medical claims specialist 26. Set up voiding schedule as appropriate (every 2 hours) Outcome: Progressing Note: Evaluation of progress towards goal: Patient remains free from fall, nurse to continue with fall interventions and assist patient as needed. Images from the original note were not included. DISCHARGE PLANNING NOTE SW met with patient introduced self & role. Pt was alert, oriented during assessment. Pt presented with flank & lower abdominal pain. Pt has h/o frequent UTI, concern for septic stone. CT w/ x2 stones in Lft ureter w/ hydro, pt underwent cystoscopy & stent placement, on IV atb. Patient lives with her spouse in single story. Pt reports she is independent with ADL's and does not use any assistive devices for ambulation. Pt denied any current home care services. Pt denied any concern getting or affording food/medications. Pt PCP and pharmacy verified. Pt denied tobacco, alcohol or illicit drug use. DC plan will be home with spouse support. Pt declined need for HC or DME at this time. Pt will make own PCP f/u appt. Spouse will transport home at dc. SW/CN will continue to follow should any dc needs arise. Services Requested: Services Requested Patient expects to be discharged to:: home Discharge Disposition: Home with self care Does the patient need discharge transportation arranged?: No Initial DC Assessment Completed: Yes Patient Goals: Goals: Goals <enter goal here> (pt-stated) Evaluation of progress towards goal: pt would like to return home self care, family support. - DANIEL Cedeno 02/15/24 2:48 PM Problem: Pain Goal: Patient goal is pain score less than 4, able to rest, and participant in treatment plan as appropriate Description: INTERVENTIONS: 1. Encourage patient or legal small business representative to report early pain and ask for pain medicine when needed 2. Assess pain using appropriate pain scale and include the scale used when documenting 3. Administer analgesics based on type and severity of pain and evaluate response within appropriate time frame 4. Implement non-pharmacological measures as appropriate and evaluate response 5. Consider cultural and social influences on pain and pain management 6. Notify LIP if interventions ineffective or patient reports new pain 7. Monitor vital signs including pulse ox, end-tidal CO2 based on pain intervention 8. Reassess pain per policy 9. Teach patient or legal small business representative interventions for comforting Outcome: Progressing Note: Evaluation of progress towards goal: Encouraged patient or legal small business representative to report early pain and ask for pain medicine when needed. Assessed pain using appropriate pain scale and include the scale used when documenting. Administered analgesics based on type and severity of pain and evaluate response within appropriate time frame. Implemented non-pharmacological measures as appropriate and evaluate response. Problem: Safety Goal: Patient will be injury free during hospitalization Description: INTERVENTIONS: 1. Assess patient's risk for falls and implement fall prevention plan of care per policy 2. Provide and maintain a safe environment 3. Proper use of double Identifiers 4. Medication administration using the 5 rights 5. Hand hygiene 6. Specimens are labeled at the bedside 7. Instruct patient/ patient small business representative about use of safety devices 8. Include patient/ patient small business representative in decisions related to safety Outcome: Progressing Note: Evaluation of progress towards goal: Assessed patient's risk for falls and implement fall prevention plan of care per policy. Provided and maintain a safe environment. Proper use of double Identifiers. Medication administration using the 5 rights. Problem: Infection Goal: Absence of infection during hospitalization Description: INTERVENTIONS 1. Assess and monitor for signs and symptoms of infection. 2. Monitor lab/diagnostic results. 3. Monitor all insertion sites i.e., indwelling lines, tubes and drains. 4. Monitor endotracheal (as able) and nasal secretions for changes in amount and color. 5. Administer medications as ordered. 6. Instruct and encourage patient and family to use good hand hygiene technique. 7. Identify and instruct patient/patient small business representative in use of appropriate isolation precautions for identified infection/symptoms. 8. Provide and discuss with patient/patient small business representative on educational MDRO sheet. 9. Encourage and monitor nutritional status daily and consult recycler forklift driver truck driver if indicated. 10. Implement neutropenic guidelines as needed. Outcome: Progressing Note: Evaluation of progress towards goal: Assessed and monitored for signs and symptoms of infection. Monitored lab/diagnostic results. Monitored all insertion sites i.e., indwelling lines, tubes and drains. Monitored endotracheal (as able) and nasal secretions for changes in amount and color documented in this encounter [facility] 02-16-2024 Hospital Discharge instructions Chacha Arambula MD - 02/16/2024 11:46 AM EST If you have any questions regarding care after discharge please call your doctor. Please seek medical attention for symptoms that are worsening or not improving. If you are experiencing an emergency, call [phone] Follow up with your primary care physician within 1-2 weeks of discharge. Please follow up with Urology. Discharged on an antibiotic called ciprofloxacin. Please take as prescribed. Please see discharge paperwork for further information about this medication. The following attachments cannot be sent through Care Everywhere.Ciprofloxacin (Systemic), ADULT (Arabic)documented in this encounter [facility] 02-16-2024 Hospital course Narrative Images from the original note were not included. [facility] Medicine Discharge Summary Patient Name: Abundio Iglesias : 1955 PCP: [facility] MD DATE OF ADMISSION: 02/14/2024 DATE OF DISCHARGE: 02/16/2024 PRIMARY DISCHARGE DIAGNOSIS: Pyelonephritis secondary to left-sided obstructing kidney stones SECONDARY DISCHARGE DIAGNOSIS: GERD Hypothyroidism Hyperlipidemia Essential hypertension CONSULTANTS: Urology [facility]/HOSPITAL COURSE SUMMARY: Abundio Iglesias is a 68 y.o. female who presented to [facility] outside ER on 02/14 with chief complaint of flank pain. Found to have obstructing left kidney stones with moderate hydronephrosis and obstruction and therefore was transferred to [facility] for urologic evaluation. Had stent placed with Urology on 02/14 without complication. Was on Rocephin while inpatient. Symptoms significantly improved on 02/15 and spoke with Urology, agreed to discharge patient on broad-spectrum antibiotics with close follow up of urine cultures. She is to follow up with the Urology as outpatient. DISCHARGE INSTRUCTIONS: Disposition: discharge to home Condition: good Activity: as tolerated Diet: Adult diet Regular Texture Adult diet Code Status: Full FOLLOW-UP: Follow up with primary care provider within 1-2 weeks of discharge Follow up with Urology The patient was seen and examined on the day of discharge. All questions answered to patient's satisfaction. The patient was counseled regarding impressions, instructions for management, and to seek medical attention for new, worsening, or unimproved symptoms. Physical Exam: BP 129/90 Pulse 71 Temp 36.6 C (97.8 F) (Oral) Resp 16 Ht 152.4 cm (5') Wt 79.3 kg (174 lb 13.2 oz) LMP (LMP Unknown) SpO2 93% BMI 34.14 kg/m General appearance: alert, oriented, in no acute distress Skin: warm and dry to touch HEENT: atraumatic, EOM's intact, sclera non icteric, no erythema, no exudate Neck: no JVD, neck supple, no lymphadenopathy Lungs: clear to ausculation bilaterally, no use of accessory muscles Heart: RRR, normal S1 and S2, no murmurs Abdomen: soft, non-distended, non-tender, bowel sounds normal Extremities: no edema Neurologic: no focal motor or sensory deficits Psychiatric: appropriate affect Intake/output: Net IO Since Admission: -200 mL [02/16/24 1143] Labs: Results from last 7 days Lab Units 02/16/24 0659 02/15/24 0150 WBC X10E9/L 13.2* 11.9* HEMOGLOBIN g/dL 11.6* 11.0* HEMATOCRIT % 34.5* 32.3* PLATELETS X10E9/L 164 142* Results from last 7 days Lab Units 02/16/24 0659 02/15/24 0532 02/15/24 0150 SODIUM mmol/L 139 -- 136 POTASSIUM mmol/L 3.9 -- 4.1 CHLORIDE mmol/L 106 -- 103 CO2 mmol/L 21* -- 24 BUN mg/dL 30* -- 28* CREATININE mg/dL 1.00 -- 1.43* CALCIUM mg/dL 9.0 -- 8.4* MAGNESIUM mg/dL -- 1.7* -- Results from last 7 days Lab Units 02/15/24 0150 ALBUMIN g/dL 3.4 TOTAL PROTEIN g/dL 5.8* ALT U/L 29 AST U/L 42* ALK PHOS U/L 71 Results from last 7 days Lab Units 02/16/24 0659 02/15/24 0150 GLUCOSE mg/dL 108* 105* No results found for: HGBA1C Results from last 7 days Lab Units 02/15/24 0150 LIPASE U/L 8* Results from last 7 days Lab Units 02/15/24 0532 VITAMIN B 12 pg/mL 190 FOLATE ng/mL 22.2 FERRITIN ng/mL 82 IRON ug/dL 11* TIBC-CALC ONLY DO NOT ORDER ug/dL 274 IRON SATURATION % SATURATION 4* Lab Results Component Value Date WBCU 569 (H) 01/05/2023 SPECIFICGRA 1.018 01/05/2023 LEUKOCYTE Large (A) 01/05/2023 NITRITEN Negative 09/29/2018 PHNUR 5.0 09/29/2018 PROTEINNUR Negative 09/29/2018 KETONESNUR Trace (A) 09/29/2018 UROBILINOGEN <1.1 01/05/2023 BLOODHGBNU Trace (A) 09/29/2018 Imaging Fluoroscopy less than one hour Result Date: 02/15/2024 INTRAOPERATIVE FLUOROSCOPY HISTORY: Left stent placement IMPRESSION: Intraoperative fluoroscopy provided for the clinical service during placement of left ureteral stent. Reference air kerma 2.3 mGy. A radiologist was not present during this procedure. Questions regarding this exam should be directed to the clinical service that performed the procedure. Finalized by Denver Morin MD on 02/15/2024 12:17 PM Last Echo No results found. Cultures Microbiology Results Procedure Component Value Units Date/Time Urine Culture [[id number]] Collected: 02/15/24 1155 Specimen: Urine from Other Updated: 02/16/24 1004 Specimen Notes URINE RECEIVED WITHOUT PRESERVATIVE Culture NO GROWTH AT <1000 CFU/mL Urine culture [[id number]] Collected: 02/15/24 1000 Specimen: Urine Updated: 02/15/24 1820 Blood culture #1 [[id number]] Collected: 02/15/24 0200 Specimen: Blood Updated: 02/16/24 0248 Culture NO GROWTH 1 DAY Blood culture #2 [[id number]] Collected: 02/15/24 0200 Specimen: Blood Updated: 02/16/24 0247 Culture NO GROWTH 1 DAY DISCHARGE MEDICATIONS: Your medication list START taking these medications Instructions Last Dose Given Next Dose Due cefDINIR 300 mg capsule Commonly known as: OMNICEF Take 1 capsule (300 mg total) by mouth in the morning and 1 capsule (300 mg total) before bedtime. Do all this for 10 days. CONTINUE taking these medications Instructions Last Dose Given Next Dose Due irbesartan 300 mg tablet Commonly known as: AVAPRO levothyroxine 75 MCG tablet Commonly known as: SYNTHROID, LEVOTHROID liothyronine 5 MCG tablet Commonly known as: CYTOMEL bmlevlqe-zhio-ZR-calcium &mins 9 mg iron-400 mcg tablet Commonly known as: THERAGRAN-M pravastatin 40 mg tablet Commonly known as: PRAVACHOL STOP taking these medications estradioL 0.01 % (0.1 mg/gram) vaginal cream Commonly known as: ESTRACE Where to Get Your Medications These medications were sent to [facility] [address] [place] [address] - [address] [facility] [address], [place] [address] cefDINIR 300 mg capsule 35 minutes were spent on discharging this patient. Chacha Arambula MD documented in this encounter [facility] 02-16-2024 Plan of care note Problem: Pain Goal: Patient goal is pain score less than 4, able to rest, and participant in treatment plan as appropriate Description: INTERVENTIONS: 1. Encourage patient or legal small business representative to report early pain and ask for pain medicine when needed 2. Assess pain using appropriate pain scale and include the scale used when documenting 3. Administer analgesics based on type and severity of pain and evaluate response within appropriate time frame 4. Implement non-pharmacological measures as appropriate and evaluate response 5. Consider cultural and social influences on pain and pain management 6. Notify LIP if interventions ineffective or patient reports new pain 7. Monitor vital signs including pulse ox, end-tidal CO2 based on pain intervention 8. Reassess pain per policy 9. Teach patient or legal small business representative interventions for comforting Note: Evaluation of progress towards goal: Patient will verbalize tolerable pain level after pain interventions. Will continue to monitor and treat pain throughout shift. Problem: Safety Goal: Patient will be injury free during hospitalization Description: INTERVENTIONS: 1. Assess patient's risk for falls and implement fall prevention plan of care per policy 2. Provide and maintain a safe environment 3. Proper use of double Identifiers 4. Medication administration using the 5 rights 5. Hand hygiene 6. Specimens are labeled at the bedside 7. Instruct patient/ patient small business representative about use of safety devices 8. Include patient/ patient small business representative in decisions related to safety Note: Evaluation of progress towards goal: Patient safety has been maintained, will continue with safety interventions until DC. Problem: Infection Goal: Absence of infection during hospitalization Description: INTERVENTIONS 1. Assess and monitor for signs and symptoms of infection. 2. Monitor lab/diagnostic results. 3. Monitor all insertion sites i.e., indwelling lines, tubes and drains. 4. Monitor endotracheal (as able) and nasal secretions for changes in amount and color. 5. Administer medications as ordered. 6. Instruct and encourage patient and family to use good hand hygiene technique. 7. Identify and instruct patient/patient small business representative in use of appropriate isolation precautions for identified infection/symptoms. 8. Provide and discuss with patient/patient small business representative on educational MDRO sheet. 9. Encourage and monitor nutritional status daily and consult recycler forklift driver truck driver if indicated. 10. Implement neutropenic guidelines as needed. Note: Evaluation of progress towards goal: Patient will show no new signs of infection, will continue with stable vitals, nurse to continue to assess and monitor until DC. 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 Complete learning assessment and assess knowledge base 2. Provide teaching at level of understanding 3. Provide teaching via preferred learning method(s) Note: Evaluation of progress towards goal: Nurse to continue education with patient and family as needed via their preferred learning method until DC. [facility] 02-16-2024 History of Present illness Narrative Images from the original note were not included. Hospital day: 1 Chief Complaint: S/P Cysto L stent for obstructing stone Subjective: AF HDS NAEO Discomfort with starks Bp 100s Labs pending this am Urine yellow UOP 350 Weight: 79.3 kg (174 lb 13.2 oz) Patient Vitals for the past 24 hrs: BP Temp Temp src Pulse Resp SpO2 02/16/24 0603 (!) 142/92 36.7 C (98 F) Oral 76 16 92 % 02/15/24 2334 125/87 36.7 C (98 F) Oral 72 16 93 % 02/15/24 1933 105/76 36.7 C (98 F) Oral 72 16 92 % 02/15/24 1640 108/82 36.6 C (97.9 F) Oral 81 16 -- 02/15/24 1344 -- 36.6 C (97.9 F) Oral 82 16 -- 02/15/24 1320 -- 36 C (96.8 F) Temporal -- -- -- 02/15/24 1305 96/64 -- -- 77 18 93 % 02/15/24 1250 94/67 -- -- 78 18 92 % 02/15/24 1235 92/61 -- -- 89 23 93 % 02/15/24 1220 96/62 37 C (98.6 F) -- 98 (!) 26 96 % 02/15/24 1219 93/63 36 C (96.8 F) -- 98 22 95 % 02/15/24 0945 -- -- -- -- -- 94 % 02/15/24 0944 141/82 36.9 C (98.4 F) Temporal 105 20 (!) 88 % 02/15/24 0807 139/72 36.8 C (98.2 F) Oral 93 16 97 % Intake/Output Summary (Last 24 hours) at 02/16/2024 0618 Last data filed at 02/16/2024 0600 Gross per 24 hour Intake 1050 ml Output 350 ml Net 700 ml Results from last 7 days Lab Units 02/15/24 0150 POTASSIUM mmol/L 4.1 CHLORIDE mmol/L 103 CO2 mmol/L 24 BUN mg/dL 28* CREATININE mg/dL 1.43* GLUCOSE mg/dL 105* CALCIUM mg/dL 8.4* Results from last 7 days Lab Units 02/15/24 0150 WBC X10E9/L 11.9* HEMOGLOBIN g/dL 11.0* HEMATOCRIT % 32.3* PLATELETS X10E9/L 142* Lab Results Component Value Date SPECIFICGRA 1.018 01/05/2023 LEUKOCYTE Large (A) 01/05/2023 NITRITEN Negative 09/29/2018 PHNUR 5.0 09/29/2018 PROTEINNUR Negative 09/29/2018 GLU 105 (H) 02/15/2024 KETONESNUR Trace (A) 09/29/2018 UROBILINOGEN <1.1 01/05/2023 BLOODHGBNU Trace (A) 09/29/2018 Additional Lab/culture results: Physical Exam: General: No acute distress Heart: Regular rate and rythym Lungs: Symmetric chest rise, normal work of breathing Abdomen: Soft, non tender, non distended : Starks Interval Imaging Findings: Impression: 68 yo F with concern of infection and obstructing left stone s/p cysto L stent Plan: FU Cxs and abx adjusted accordingly, Ucx pending AM Labs pending DC starks FU outpt for definitive stone treatment Katie Agustin MD Urology PGY5 Cosigned by Dimitry Aly MD at 02/16/2024 4:47 PM EST Associated attestation - Dimitry Aly MD - 02/16/2024 4:47 PM EST As above. Ok to remove starks. Will defer to primary team to follow up urine cultures and treat accordingly. I have requested follow-up ureteroscopy to address the stones once her UTIs treated documented in this encounter [facility] 02-15-2024 Plan of care note Problem: Pain Goal: Patient goal is pain score less than 4, able to rest, and participant in treatment plan as appropriate Description: INTERVENTIONS: 1. Encourage patient or legal small business representative to report early pain and ask for pain medicine when needed 2. Assess pain using appropriate pain scale and include the scale used when documenting 3. Administer analgesics based on type and severity of pain and evaluate response within appropriate time frame 4. Implement non-pharmacological measures as appropriate and evaluate response 5. Consider cultural and social influences on pain and pain management 6. Notify LIP if interventions ineffective or patient reports new pain 7. Monitor vital signs including pulse ox, end-tidal CO2 based on pain intervention 8. Reassess pain per policy 9. Teach patient or legal small business representative interventions for comforting Outcome: Progressing Note: Evaluation of progress towards goal: Encouraged patient or legal small business representative to report early pain and ask for pain medicine when needed. Assessed pain using appropriate pain scale and included the scale used when documenting. Administered analgesics based on type and severity of pain and evaluated response within appropriate time frame. Reassessed pain per policy. Problem: Safety Goal: Patient will be injury free during hospitalization Description: INTERVENTIONS: 1. Assess patient's risk for falls and implement fall prevention plan of care per policy 2. Provide and maintain a safe environment 3. Proper use of double Identifiers 4. Medication administration using the 5 rights 5. Hand hygiene 6. Specimens are labeled at the bedside 7. Instruct patient/ patient small business representative about use of safety devices 8. Include patient/ patient small business representative in decisions related to safety Outcome: Progressing Note: Evaluation of progress towards goal: Assessed patient's risk for falls and implemented fall prevention plan of care per policy. Provided and maintained a safe environment. Used proper hand hygiene. Problem: Infection Goal: Absence of infection during hospitalization Description: INTERVENTIONS 1. Assess and monitor for signs and symptoms of infection. 2. Monitor lab/diagnostic results. 3. Monitor all insertion sites i.e., indwelling lines, tubes and drains. 4. Monitor endotracheal (as able) and nasal secretions for changes in amount and color. 5. Administer medications as ordered. 6. Instruct and encourage patient and family to use good hand hygiene technique. 7. Identify and instruct patient/patient small business representative in use of appropriate isolation precautions for identified infection/symptoms. 8. Provide and discuss with patient/patient small business representative on educational MDRO sheet. 9. Encourage and monitor nutritional status daily and consult recycler forklift driver truck driver if indicated. 10. Implement neutropenic guidelines as needed. Outcome: Progressing Note: Evaluation of progress towards goal: Assessed and monitored for signs and symptoms of infection. Monitored lab/diagnostic results. Monitored all insertion sites i.e., indwelling lines, tubes and drains. 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 Complete learning assessment and assess knowledge base 2. Provide teaching at level of understanding 3. Provide teaching via preferred learning method(s) Outcome: Progressing Note: Evaluation of progress towards goal: Completed learning assessment and assess knowledge base. Provided teaching at level of understanding. Provided teaching via preferred learning method(s.) Problem: Discharge Planning Goal: Discharge to post-acute care, other facility, or home with appropriate resources Description: Patient's goal is: INTERVENTIONS 1. Conduct assessment to determine patient/family and health care team treatment goals, and need for post-acute services based on payer coverage, community resources, and patient preferences, and barriers to discharge 2. Coordinate with Social work, Care Navigation, and Utilization Review to arrange appropriate level of services according to patient's needs based on patient preference and payer coverage in collaboration with the physician and health care team 3. Address psychosocial, clinical, and financial barriers to discharge as identified in assessment in conjunction with the patient/family and health care team 4. Consult appropriate ancillary services (i.e.. PT/OT/ST, etc) as needed 5. Communicate with and update the patient/family, physician, and health care team regarding progress on the discharge plan 6. Identify discharge learning needs (meds, wound care, etc). 7. Arrange for needed discharge transportation as appropriate Outcome: Progressing Note: Evaluation of progress towards goal: Assessed patient for self-management skills. Encouraged participation in diabetes management. Identified potential discharge barriers on admission and throughout hospital stay. Problem: Moderate - High Risk Fall Score Description: Gutierrez Fall Score of =/> 25 or indicated by [facility] Assessment Goal: Patient should be free from fall Description: Interventions: 1. Cowen to environment 2. Hourly rounds addressing the 4 P's (Pain, Positioning, Possessions, Potty) 3. Clear area of hazards (spills, clutter, electrical cords, unnecessary equipment) 4. Place equipment (bed & TV controls, call light, phone, urinal) within reach 5. Encourage patient to wear glasses and hearing aides as appropriate 6. Maintain bed in lowest position 7. Lock wheels on bed/wheelchair 8. Provide adequate lighting, including night light 9. Assess need for additional bedding, food/fluids, pain med's prior to sleep/routinely 10. Provide gripper slippers or personal non-skid footwear 11. Teach patient and patient small business representative to maintain environment for safety and engage in all aspects of fall prevention program 12. Remind patient to call for help before getting out of bed 13. Initiate bed/chair/exit alarms supportive devices as appropriate, (chair wedge, no-skid floor mat, raised edge mattress, hip protectors) 14. Locate patient bed assignment for optimal visualization 15. Evaluate and identify Safe Patient Handling Equipment needs 16. Provide supervision when out of bed or chair 17. Utilize gait belt as needed to assist with ambulation 18. Place adaptive equipment (cane, walker) within reach 19. Request patient small business representative bring adaptive equipment/mobility aids from home or obtain and provide as needed 20. Consult pharmacy regarding effects of med's affecting mobility, cognition, and alternatives 21. Obtain physician order for PT if risk factors associated with mobility are present 22. Obtain physician order for OT as appropriate 23. Utilize diversional activities 24. Educate patient and patient small business representative how to maintain a safe environment during visitation times (notify nurse prior to leaving bedside) 25. Consider appropriateness of medical or non-medical claims specialist 26. Set up voiding schedule as appropriate (every 2 hours) Outcome: Progressing Note: Evaluation of progress towards goal: Hourly rounded addressing the 4 P's (Pain, Positioning, Possessions, Potty). Clear area of hazards (spills, clutter, electrical cords, unnecessary equipment.) Place equipment (bed & TV controls, call light, phone, urinal) within reach. Encouraged patient to wear glasses and hearing aides as appropriate. Maintained bed in lowest position. Locked wheels on bed/wheelchair. Provided adequate lighting, including night light. Problem: Genitourinary - Adult Goal: Urinary catheter remains patent Description: INTERVENTIONS: 1. Assess patency of urinary catheter. 2. Irrigate catheter per LIP order if indicated and notify LIP if unable to irrigate. Outcome: Progressing Note: Evaluation of progress towards goal: Assessed patency of urinary catheter. Irrigated catheter per LIP order if indicated and notify LIP if unable to irrigate. [facility] 02-15-2024 Plan of care note Problem: Pain Goal: Patient goal is pain score less than 4, able to rest, and participant in treatment plan as appropriate Description: INTERVENTIONS: 1. Encourage patient or legal small business representative to report early pain and ask for pain medicine when needed 2. Assess pain using appropriate pain scale and include the scale used when documenting 3. Administer analgesics based on type and severity of pain and evaluate response within appropriate time frame 4. Implement non-pharmacological measures as appropriate and evaluate response 5. Consider cultural and social influences on pain and pain management 6. Notify LIP if interventions ineffective or patient reports new pain 7. Monitor vital signs including pulse ox, end-tidal CO2 based on pain intervention 8. Reassess pain per policy 9. Teach patient or legal small business representative interventions for comforting Outcome: Progressing Note: Evaluation of progress towards goal: Patient will verbalize tolerable pain level after pain interventions. Will continue to monitor and treat pain throughout shift. Problem: Safety Goal: Patient will be injury free during hospitalization Description: INTERVENTIONS: 1. Assess patient's risk for falls and implement fall prevention plan of care per policy 2. Provide and maintain a safe environment 3. Proper use of double Identifiers 4. Medication administration using the 5 rights 5. Hand hygiene 6. Specimens are labeled at the bedside 7. Instruct patient/ patient small business representative about use of safety devices 8. Include patient/ patient small business representative in decisions related to safety Outcome: Progressing Note: Evaluation of progress towards goal: Patient safety has been maintained, will continue with safety interventions until DC. Problem: Infection Goal: Absence of infection during hospitalization Description: INTERVENTIONS 1. Assess and monitor for signs and symptoms of infection. 2. Monitor lab/diagnostic results. 3. Monitor all insertion sites i.e., indwelling lines, tubes and drains. 4. Monitor endotracheal (as able) and nasal secretions for changes in amount and color. 5. Administer medications as ordered. 6. Instruct and encourage patient and family to use good hand hygiene technique. 7. Identify and instruct patient/patient small business representative in use of appropriate isolation precautions for identified infection/symptoms. 8. Provide and discuss with patient/patient small business representative on educational MDRO sheet. 9. Encourage and monitor nutritional status daily and consult recycler forklift driver truck driver if indicated. 10. Implement neutropenic guidelines as needed. Outcome: Progressing Note: Evaluation of progress towards goal: Patient will show no new signs of infection, will continue with stable vitals, nurse to continue to assess and monitor until DC. 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 Complete learning assessment and assess knowledge base 2. Provide teaching at level of understanding 3. Provide teaching via preferred learning method(s) Outcome: Progressing Note: Evaluation of progress towards goal: Patient will verbalize the need of knowledge regarding patients reason for stay Problem: Discharge Planning Goal: Discharge to post-acute care, other facility, or home with appropriate resources Description: Patient's goal is: INTERVENTIONS 1. Conduct assessment to determine patient/family and health care team treatment goals, and need for post-acute services based on payer coverage, community resources, and patient preferences, and barriers to discharge 2. Coordinate with Social work, Care Navigation, and Utilization Review to arrange appropriate level of services according to patient's needs based on patient preference and payer coverage in collaboration with the physician and health care team 3. Address psychosocial, clinical, and financial barriers to discharge as identified in assessment in conjunction with the patient/family and health care team 4. Consult appropriate ancillary services (i.e.. PT/OT/ST, etc) as needed 5. Communicate with and update the patient/family, physician, and health care team regarding progress on the discharge plan 6. Identify discharge learning needs (meds, wound care, etc). 7. Arrange for needed discharge transportation as appropriate Outcome: Progressing Note: Evaluation of progress towards goal: Nurse to continue to assist patient with DC planning as needed, nurse to assist to remove barriers to DC as able. Problem: Moderate - High Risk Fall Score Description: Gutierrez Fall Score of =/> 25 or indicated by [facility] Assessment Goal: Patient should be free from fall Description: Interventions: 1. Cowen to environment 2. Hourly rounds addressing the 4 P's (Pain, Positioning, Possessions, Potty) 3. Clear area of hazards (spills, clutter, electrical cords, unnecessary equipment) 4. Place equipment (bed & TV controls, call light, phone, urinal) within reach 5. Encourage patient to wear glasses and hearing aides as appropriate 6. Maintain bed in lowest position 7. Lock wheels on bed/wheelchair 8. Provide adequate lighting, including night light 9. Assess need for additional bedding, food/fluids, pain med's prior to sleep/routinely 10. Provide gripper slippers or personal non-skid footwear 11. Teach patient and patient small business representative to maintain environment for safety and engage in all aspects of fall prevention program 12. Remind patient to call for help before getting out of bed 13. Initiate bed/chair/exit alarms supportive devices as appropriate, (chair wedge, no-skid floor mat, raised edge mattress, hip protectors) 14. Locate patient bed assignment for optimal visualization 15. Evaluate and identify Safe Patient Handling Equipment needs 16. Provide supervision when out of bed or chair 17. Utilize gait belt as needed to assist with ambulation 18. Place adaptive equipment (cane, walker) within reach 19. Request patient small business representative bring adaptive equipment/mobility aids from home or obtain and provide as needed 20. Consult pharmacy regarding effects of med's affecting mobility, cognition, and alternatives 21. Obtain physician order for PT if risk factors associated with mobility are present 22. Obtain physician order for OT as appropriate 23. Utilize diversional activities 24. Educate patient and patient small business representative how to maintain a safe environment during visitation times (notify nurse prior to leaving bedside) 25. Consider appropriateness of medical or non-medical claims specialist 26. Set up voiding schedule as appropriate (every 2 hours) Outcome: Progressing Note: Evaluation of progress towards goal: Patient remains free from fall, nurse to continue with fall interventions and assist patient as needed. [facility] 02-15-2024 Miscellaneous Notes She presented with obstructing left ureteral calculi and fever and had a stent placed by Dr. Vallejo today. Please schedule for cysto, left stent removal, left ureteroscopy with laser lithotripsy and possible stent replacement, [facility] [place] [facility] available Diagnosis ureteral stones Spoke to pt 02/22/2024 [facility] 03/12/2024 @ 1115pm (PFC) [place] 03/26/2024 @ 10am arrive @ 8am Pt aware info mailed 02/22/2024 Copy of letter in chart documented in this encounter [facility] 02-15-2024 Telephone encounter Note She presented with obstructing left ureteral calculi and fever and had a stent placed by Dr. Vallejo today. Please schedule for cysto, left stent removal, left ureteroscopy with laser lithotripsy and [facility] [place] [facility] available Diagnosis ureteral stones [facility] 02-15-2024 Telephone encounter Note Spoke to pt 02/22/2024 [facility] [place] 03/12/2024 @ 1115pm (PFC) [place] 03/26/2024 @ 10am arrive @ 8am Pt aware info mailed 02/22/2024 Copy of letter in chart [facility] 02-15-2024 Progress note Formatting of t his note is different from the original. Images from the original note were not included. DISCHARGE PLANNING NOTE SW met with patient introduced self & role. Pt was alert, oriented during assessment. Pt presented with flank & lower abdominal pain. Pt has h/o frequent UTI, concern for septic stone. CT w/ x2 stones in Lft ureter w/ hydro, pt underwent cystoscopy & stent placement, on IV atb. Patient lives with her spouse in single story. Pt reports she is independent with ADL's and does not use any assistive devices for ambulation. Pt denied any current home care services. Pt denied any concern getting or affording food/medications. Pt PCP and pharmacy verified. Pt denied tobacco, alcohol or illicit drug use. DC plan will be home with spouse support. Pt declined need for HC or DME at this time. Pt will make own PCP f/u appt. Spouse will transport home at dc. SW/CN will continue to follow should any dc needs arise. Services Requested: Services Requested Patient expects to be discharged to:: home Discharge Disposition: Home with self care Does the patient need discharge transportation arranged?: No Initial DC Assessment Completed: Yes Patient Goals: Goals: Goals (pt-stated) Evaluation of progress towards goal: pt would like to return home self care, family support. - DANIEL Cedeno 02/15/24 2:48 PM [facility] [employer] [facility] 02-15-2024 Plan of care note Problem: Pain Goal: Patient goal is pain score less than 4, able to rest, and participant in treatment plan as appropriate Description: INTERVENTIONS: 1. Encourage patient or legal small business representative to report early pain and ask for pain medicine when needed 2. Assess pain using appropriate pain scale and include the scale used when documenting 3. Administer analgesics based on type and severity of pain and evaluate response within appropriate time frame 4. Implement non-pharmacological measures as appropriate and evaluate response 5. Consider cultural and social influences on pain and pain management 6. Notify LIP if interventions ineffective or patient reports new pain 7. Monitor vital signs including pulse ox, end-tidal CO2 based on pain intervention 8. Reassess pain per policy 9. Teach patient or legal small business representative interventions for comforting Outcome: Progressing Note: Evaluation of progress towards goal: Encouraged patient or legal small business representative to report early pain and ask for pain medicine when needed. Assessed pain using appropriate pain scale and include the scale used when documenting. Administered analgesics based on type and severity of pain and evaluate response within appropriate time frame. Implemented non-pharmacological measures as appropriate and evaluate response. Problem: Safety Goal: Patient will be injury free during hospitalization Description: INTERVENTIONS: 1. Assess patient's risk for falls and implement fall prevention plan of care per policy 2. Provide and maintain a safe environment 3. Proper use of double Identifiers 4. Medication administration using the 5 rights 5. Hand hygiene 6. Specimens are labeled at the bedside 7. Instruct patient/ patient small business representative about use of safety devices 8. Include patient/ patient small business representative in decisions related to safety Outcome: Progressing Note: Evaluation of progress towards goal: Assessed patient's risk for falls and implement fall prevention plan of care per policy. Provided and maintain a safe environment. Proper use of double Identifiers. Medication administration using the 5 rights. Problem: Infection Goal: Absence of infection during hospitalization Description: INTERVENTIONS 1. Assess and monitor for signs and symptoms of infection. 2. Monitor lab/diagnostic results. 3. Monitor all insertion sites i.e., indwelling lines, tubes and drains. 4. Monitor endotracheal (as able) and nasal secretions for changes in amount and color. 5. Administer medications as ordered. 6. Instruct and encourage patient and family to use good hand hygiene technique. 7. Identify and instruct patient/patient small business representative in use of appropriate isolation precautions for identified infection/symptoms. 8. Provide and discuss with patient/patient small business representative on educational MDRO sheet. 9. Encourage and monitor nutritional status daily and consult recycler forklift driver truck driver if indicated. 10. Implement neutropenic guidelines as needed. Outcome: Progressing Note: Evaluation of progress towards goal: Assessed and monitored for signs and symptoms of infection. Monitored lab/diagnostic results. Monitored all insertion sites i.e., indwelling lines, tubes and drains. Monitored endotracheal (as able) and nasal secretions for changes in amount and color [facility] 02-15-2024 Consult note Associated Order (s): IP CONSULT TO UROLOGY Urology Consultation Patient: Abundio Iglesias Date of : 1955 ATTENDING: Dr. Aly/Dr. Vallejo covering CHIEF COMPLAINT: Left flank and lower abdominal pain HISTORY OF PRESENT ILLNESS: The patient is a 68 y.o. female who presents with left flank and lower abdominal pain for last 4 days. Patient has significant history of kidney stones with medullary sponge kidney. For the last 4-5 days she has been having lower abdominal pain, thinking she had a UTI. Of note, patient has been on several different antibiotics since the beginning of December for E coli UTI and ongoing symptoms. She was on Cipro prior to admission. She admits to associated chills, nausea and vomiting. She was brought to the [facility] ER and a CT scan reveals 2 stones in the left ureter, 3 x 3 at the left UVJ and 5 x 6 in the left mid ureter with upstream hydronephrosis. Patient was tachycardic and febrile, therefore she was transferred to [facility] for immediate urologic intervention. Past urologic history: As above, patient follows with Dr. Aly with history of nephrolithiasis. She has a history of recurrent kidney stones with medullary sponge kidney. She has undergone ESWL in 2018, bilateral ureteroscopy in 2017 and again in 2020 and 2021. She has also done metabolic workups in 2018 showing elevated oxalate and low citrate and decreased urine volume. She was put on Urocit-K , but did not tolerate this due to constipation. Patient's old records, notes and chart reviewed and summarized above. 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 Visual impairment contacts Past Surgical History: Past Surgical History: Procedure Laterality Date APPENDECTOMY BREAST BIOPSY Left 05/26/1994 benign excisional-not visible CHOLECYSTECTOMY COLONOSCOPY [id number] COLONOSCOPY N/A 03/09/2020 Performed by Jerald Malhotra DO at [facility] CYSTOSCOPY N/A 04/25/2017 Performed by Dimitry Aly MD at [facility] CYSTOSCOPY , right ureteroscopy, with laser right ureter dilation Right 02/12/2021 Performed by Dimitry Aly MD at [facility] CYSTOSCOPY REMOVAL STENT Bilateral 03/31/2021 Performed by Dimitry Aly MD at [facility] CYSTOSCOPY REMOVAL STENT Bilateral 05/23/2017 Performed by Dimitry Aly MD at [facility] CYSTOSCOPY URETEROSCOPY BILATERAL WITH HOMIUM LASER/BILATERAL STENT PLACEMENT/STONE BASKETING Bilateral 05/11/2017 Performed by Dimitry Aly MD at [facility] ESOPHAGOGASTRODUODENOSCOPY ESOPHAGOGASTRODUODENOSCOPY N/A 03/09/2020 Performed by Jerald Malhotra DO at [facility] EXTRACORPOREAL SHOCK WAVE LITHOTRIPSY Right 04/25/2017 Performed by Dimitry Aly MD at [facility] EYE SURGERY INSERTION STENT URETER Bilateral 02/12/2021 Performed by Dimitry Aly MD at [facility] LASER HOLMIUM URETEROSCOPY RENAL STONES < OR=1CM Right 03/31/2021 Performed by Dimitry Aly MD at [facility] NECK SURGERY URETERAL STENT PLACEMENT Previous surgery: See above Medications: Scheduled Meds: pantoprazole, 40 mg, intravenous, Once Continuous Infusions: PRN Meds:. morphine injection ondansetron Allergies: Arthritis [trolamine salicylate], Nsaids (non-steroidal anti-inflammatory drug), Sulfa (sulfonamide antibiotics), and Trimethoprim Social History: Social History Socioeconomic History Marital status: Spouse name: Not on file Number of children: Not on file Years of education: Not on file Highest education level: Not on file Occupational History Not on file Tobacco Use Smoking status: Former Current packs/day: 0.00 Types: Cigarettes Quit date: 2006 Years since quittin.9 Smokeless tobacco: Never Vaping Use Vaping status: Never Used Substance and Sexual Activity Alcohol use: No Drug use: No Sexual activity: Yes Partners: Male control/protection: Post-menopausal Other Topics Concern Not on file Social History Narrative Not on file Social Drivers of Health Financial Resource Strain: Not on file Food Insecurity: No Food Insecurity (04/18/2023) Hunger Screening Food Insecurity - Worry: Never True Food Insecurity - Inability: Never True Transportation Needs: Not on file Physical Activity: Not on file Stress: Not on file Social Connections: Not on file Interpersonal Safety: Unknown (04/21/2023) Received from [facility] Fear of Current or Ex-Partner: Not on file Emotionally Abused: Not on file Physically Abused: Not on file Sexually Abused: Not on file Physically or Sexually Abused: Not on file Housing Instability: Not on file Family History: Family History Problem Relation Age of Onset Heart disease Maternal Grandmother Cancer Maternal Grandfather lung Hypertension Father Heart disease Father Diabetes Father Arthritis Father Hypertension Mother Heart disease Mother Diabetes Mother Diabetes Brother Hypertension Brother Hypertension Sister Ovarian cancer Neg Hx Breast cancer Neg Hx Previous Urologic Family history: Unknown REVIEW OF SYSTEMS: General ROS: positive for - chills, fatigue, and fever Psychological ROS: negative ENT ROS: negative Hematological and Lymphatic ROS: negative Endocrine ROS: negative Respiratory ROS: negative Cardiovascular ROS: negative Gastrointestinal ROS: positive for - abdominal pain and nausea/vomiting Genito-Urinary ROS: see HPI Musculoskeletal ROS: negative Physical Exam: This a 68 y.o. patient Patient Vitals for the past 24 hrs: BP Temp Temp src Pulse Resp SpO2 02/15/24 0145 (!) 128/116 -- -- 77 16 95 % 02/15/24 0016 113/71 -- -- 76 16 95 % 02/14/24 2319 105/72 36.8 C (98.2 F) Oral 74 18 96 % Constitutional: Patient in no acute distress; Neuro: alert and oriented to person place and time. Psych: Mood and affect normal. Skin: Normal Lungs: Respiratory effort normal Cardiovascular: Normal peripheral pulses Abdomen: Soft, non-tender, non-distended with no CVA, flank tenderness Bladder not palpable. Extremities: No edema or calf tenderness LABS: Results from last 7 days Lab Units 02/15/24 0150 WBC X10E9/L 11.9* HEMOGLOBIN g/dL 11.0* HEMATOCRIT % 32.3* PLATELETS X10E9/L 142* Additional Lab/culture results: Urine and blood culture pending Urinalysis: - Imaging Results: CT scan from [place] showing 2 left obstructing ureteral stones with hydronephrosis. Assessment and Plan Impression: 68-year-old female with left-sided obstructive uropathy due to to left ureteral stones Likely UTI, presenting with fever and tachycardia Plan: Patient will be admitted and placed on IV antibiotics. NPO for stent placement later today Discussed with Dr. Vallejo Will place stent urgently if patient should decompensate clinically DAWSON SWANSON 2:23 AM 02/15/2024 DAWSON Swanson 02/15/24 0229 I, ELISEO VALLEJO MD, personally performed the face to face diagnostic evaluation on this patient. My findings are as follows: OR for cysto, left stent . [facility] Work Phone: 02-15-2024 Consult note Associated Order (s): IP CONSULT TO UROLOGY Urology Consultation Patient: Abundio Iglesias Date of : 1955 ATTENDING: Dr. Aly/Dr. Vallejo covering CHIEF COMPLAINT: Left flank and lower abdominal pain HISTORY OF PRESENT ILLNESS: The patient is a 68 y.o. female who presents with left flank and lower abdominal pain for last 4 days. Patient has significant history of kidney stones with medullary sponge kidney. For the last 4-5 days she has been having lower abdominal pain, thinking she had a UTI. Of note, patient has been on several different antibiotics since the beginning of December for E coli UTI and ongoing symptoms. She was on Cipro prior to admission. She admits to associated chills, nausea and vomiting. She was brought to the [facility] ER and a CT scan reveals 2 stones in the left ureter, 3 x 3 at the left UVJ and 5 x 6 in the left mid ureter with upstream hydronephrosis. Patient was tachycardic and febrile, therefore she was transferred to [facility] for immediate urologic intervention. Past urologic history: As above, patient follows with Dr. Aly with history of nephrolithiasis. She has a history of recurrent kidney stones with medullary sponge kidney. She has undergone ESWL in 2018, bilateral ureteroscopy in 2018 and again in 2020 and 2021. She has also done metabolic workups in 2018 showing elevated oxalate and low citrate and decreased urine volume. She was put on Urocit-K , but did not tolerate this due to constipation. Patient's old records, notes and chart reviewed and summarized above. 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 Visual impairment contacts Past Surgical History: Past Surgical History: Procedure Laterality Date APPENDECTOMY BREAST BIOPSY Left 05/26/1994 benign excisional-not visible CHOLECYSTECTOMY COLONOSCOPY [id number] COLONOSCOPY N/A 03/09/2020 Performed by Jerald Malhotra DO at [facility] CYSTOSCOPY N/A 04/25/2017 Performed by Dimitry Aly MD at [facility] CYSTOSCOPY , right ureteroscopy, with laser right ureter dilation Right 02/12/2021 Performed by Dimitry Aly MD at [facility] CYSTOSCOPY REMOVAL STENT Bilateral 03/31/2021 Performed by Dimitry Aly MD at [facility] CYSTOSCOPY REMOVAL STENT Bilateral 05/23/2017 Performed by Dimitry Aly MD at [facility] CYSTOSCOPY URETEROSCOPY BILATERAL WITH HOMIUM LASER/BILATERAL STENT PLACEMENT/STONE BASKETING Bilateral 05/11/2017 Performed by Dimitry Aly MD at [facility] ESOPHAGOGASTRODUODENOSCOPY ESOPHAGOGASTRODUODENOSCOPY N/A 03/09/2020 Performed by Jerald Malhotra DO at [facility] EXTRACORPOREAL SHOCK WAVE LITHOTRIPSY Right 04/25/2017 Performed by Dimitry Aly MD at [facility] EYE SURGERY INSERTION STENT URETER Bilateral 02/12/2021 Performed by Dimitry Aly MD at [facility] LASER HOLMIUM URETEROSCOPY RENAL STONES < OR=1CM Right 03/31/2021 Performed by Dimitry Aly MD at [facility] NECK SURGERY URETERAL STENT PLACEMENT Previous surgery: See above Medications: Scheduled Meds: pantoprazole, 40 mg, intravenous, Once Continuous Infusions: PRN Meds:. morphine injection ondansetron Allergies: Arthritis [trolamine salicylate], Nsaids (non-steroidal anti-inflammatory drug), Sulfa (sulfonamide antibiotics), and Trimethoprim Social History: Social History Socioeconomic History Marital status: Spouse name: Not on file Number of children: Not on file Years of education: Not on file Highest education level: Not on file Occupational History Not on file Tobacco Use Smoking status: Former Current packs/day: 0.00 Types: Cigarettes Quit date: 2006 Years since quittin.9 Smokeless tobacco: Never Vaping Use Vaping status: Never Used Substance and Sexual Activity Alcohol use: No Drug use: No Sexual activity: Yes Partners: Male control/protection: Post-menopausal Other Topics Concern Not on file Social History Narrative Not on file Social Drivers of Health Financial Resource Strain: Not on file Food Insecurity: No Food Insecurity (04/18/2023) Hunger Screening Food Insecurity - Worry: Never True Food Insecurity - Inability: Never True Transportation Needs: Not on file Physical Activity: Not on file Stress: Not on file Social Connections: Not on file Interpersonal Safety: Unknown (04/21/2023) Re[facility] from [facility] Fear of Current or Ex-Partner: Not on file Emotionally Abused: Not on file Physically Abused: Not on file Sexually Abused: Not on file Physically or Sexually Abused: Not on file Housing Instability: Not on file Family History: Family History Problem Relation Age of Onset Heart disease Maternal Grandmother Cancer Maternal Grandfather lung Hypertension Father Heart disease Father Diabetes Father Arthritis Father Hypertension Mother Heart disease Mother Diabetes Mother Diabetes Brother Hypertension Brother Hypertension Sister Ovarian cancer Neg Hx Breast cancer Neg Hx Previous Urologic Family history: Unknown REVIEW OF SYSTEMS: General ROS: positive for - chills, fatigue, and fever Psychological ROS: negative ENT ROS: negative Hematological and Lymphatic ROS: negative Endocrine ROS: negative Respiratory ROS: negative Cardiovascular ROS: negative Gastrointestinal ROS: positive for - abdominal pain and nausea/vomiting Genito-Urinary ROS: see HPI Musculoskeletal ROS: negative Physical Exam: This a 68 y.o. patient Patient Vitals for the past 24 hrs: BP Temp Temp src Pulse Resp SpO2 02/15/24 0145 (!) 128/116 -- -- 77 16 95 % 02/15/24 0016 113/71 -- -- 76 16 95 % 02/14/24 2319 105/72 36.8 C (98.2 F) Oral 74 18 96 % Constitutional: Patient in no acute distress; Neuro: alert and oriented to person place and time. Psych: Mood and affect normal. Skin: Normal Lungs: Respiratory effort normal Cardiovascular: Normal peripheral pulses Abdomen: Soft, non-tender, non-distended with no CVA, flank tenderness Bladder not palpable. Extremities: No edema or calf tenderness LABS: Results from last 7 days Lab Units 02/15/24 0150 WBC X10E9/L 11.9* HEMOGLOBIN g/dL 11.0* HEMATOCRIT % 32.3* PLATELETS X10E9/L 142* Additional Lab/culture results: Urine and blood culture pending Urinalysis: - Imaging Results: CT scan from [facility] showing 2 left obstructing ureteral stones with hydronephrosis. Assessment and Plan Impression: 68-year-old female with left-sided obstructive uropathy due to to left ureteral stones Likely UTI, presenting with fever and tachycardia Plan: Patient will be admitted and placed on IV antibiotics. NPO for stent placement later today Discussed with Dr. Vallejo Will place stent urgently if patient should decompensate clinically DAWSON SWANSON 2:23 AM 02/15/2024 DAWSON Swanson 02/15/24 0229 I, ELISEO VALLEJO MD, personally performed the face to face diagnostic evaluation on this patient. My findings are as follows: OR for cysto, left stent . documented in this encounter [facility] 02-15-2024 Physician Emergency department Note Images from the original note were not included. [facility] - EMERGENCY DEPARTMENT Pt Name: Abundio Iglesias Birthdate: 1955 Chief Complaint: Chief Complaint Patient presents with Flank Pain History of Present Illness: Patient was a 68-year-old female with a past medical history of kidney stone, hypercholesterolemia, hypothyroidism, Graves disease, hypertension presenting today as a transfer from [facility] secondary to urosepsis. Patient was states that she has a history of kidney stones. She was recently diagnosed with 2 kidney stones in the left. She was states that she was started on ciprofloxacin. She could only take 1 dose of Cipro were presenting to the emergency she was states that she was had intermittent fever, chills, malaise, nausea, vomiting. In the emergency room at [facility] she has a CT completed that demonstrated 2 stones stuck in the left ureter with hydronephrosis. As such she was transferred to [facility] for further management. Upon my initial evaluation in the emergency room patient was resting in no acute distress. She was in supine position. Physical exam is unremarkable. Paperwork indicates that labs and imaging were obtained at outside facility. Urology is called to evaluate patient was. 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 Visual impairment contacts Past Surgical History: Past Surgical History: Procedure Laterality Date APPENDECTOMY BREAST BIOPSY Left 05/26/1994 benign excisional-not visible CHOLECYSTECTOMY COLONOSCOPY [id number] COLONOSCOPY N/A 03/09/2020 Performed by Jerald Malhotra DO at [facility] CYSTOSCOPY N/A 04/25/2017 Performed by Dimitry Aly MD at [facility] CYSTOSCOPY , right ureteroscopy, with laser right ureter dilation Right 02/12/2021 Performed by Dimitry Aly MD at [facility] CYSTOSCOPY REMOVAL STENT Bilateral 03/31/2021 Performed by Dimitry Aly MD at [facility] CYSTOSCOPY REMOVAL STENT Bilateral 05/23/2017 Performed by Dimitry Aly MD at [facility] CYSTOSCOPY URETEROSCOPY BILATERAL WITH HOMIUM LASER/BILATERAL STENT PLACEMENT/STONE BASKETING Bilateral 05/11/2017 Performed by Dimitry Aly MD at [facility] ESOPHAGOGASTRODUODENOSCOPY ESOPHAGOGASTRODUODENOSCOPY N/A 03/09/2020 Performed by Jerald Malhotra DO at [facility] EXTRACORPOREAL SHOCK WAVE LITHOTRIPSY Right 04/25/2017 Performed by Dimitry Aly MD at [facility] EYE SURGERY INSERTION STENT URETER Bilateral 02/12/2021 Performed by Dimitry Aly MD at [facility] LASER HOLMIUM URETEROSCOPY RENAL STONES < OR=1CM Right 03/31/2021 Performed by Dimitry Aly MD at [facility] NECK SURGERY URETERAL STENT PLACEMENT Family History: Family History Problem Relation Age of Onset Heart disease Maternal Grandmother Cancer Maternal Grandfather lung Hypertension Father Heart disease Father Diabetes Father Arthritis Father Hypertension Mother Heart disease Mother Diabetes Mother Diabetes Brother Hypertension Brother Hypertension Sister Ovarian cancer Neg Hx Breast cancer Neg Hx Social History: Social History Socioeconomic History Marital status: Tobacco Use Smoking status: Former Current packs/day: 0.00 Types: Cigarettes Quit date: 2006 Years since quittin.9 Smokeless tobacco: Never Vaping Use Vaping status: Never Used Substance and Sexual Activity Alcohol use: No Drug use: No Sexual activity: Yes Partners: Male control/protection: Post-menopausal Social Drivers of Health Food Insecurity: No Food Insecurity (04/18/2023) Hunger Screening Food Insecurity - Worry: Never True Food Insecurity - Inability: Never True Received from [facility] Review of Systems: Review of Systems Physical Exam: ED Triage Vitals [02/14/24 2319] Temp Heart Rate Resp BP SpO2 36.8 C (98.2 F) 74 18 105/72 96 % Temp Source Heart Rate Source Patient Position BP Location FiO2 (%) Oral Pulse Ox Semi-fowlers Left arm -- Vitals: 02/14/24 2319 02/15/24 0016 BP: 105/72 113/71 Temp: 36.8 C (98.2 F) TempSrc: Oral Pulse: 74 76 Resp: 18 16 SpO2: 96% 95% MAP (mmHg): 84 Physical Exam Vitals reviewed. HENT: Head: Normocephalic and atraumatic. Nose: Nose normal. Mouth/Throat: Mouth: Mucous membranes are moist. Eyes: Conjunctiva/sclera: Conjunctivae normal. Cardiovascular: Rate and Rhythm: Normal rate. Pulses: Normal pulses. Pulmonary: Effort: Pulmonary effort is normal. No respiratory distress. Breath sounds: Normal breath sounds. No wheezing. Abdominal: General: Abdomen is flat. There is no distension. Palpations: Abdomen is soft. Tenderness: There is no right CVA tenderness or left CVA tenderness. Musculoskeletal: General: Normal range of motion. Cervical back: Normal range of motion and neck supple. Skin: General: Skin is warm and dry. Capillary Refill: Capillary refill takes less than 2 seconds. Neurological: General: No focal deficit present. Mental Status: She is alert and oriented to person, place, and time. GCS: GCS eye subscore is 4. GCS verbal subscore is 5. GCS motor subscore is 6. Procedure: Procedures Re-evaluation: Re-Evaluation Medical Decision Making Patient was a 68-year-old female presenting today as a transfer from outside facility due to kidney stones. Patient was has 2 kidney stones that it was stuck with hydronephrosis. Patient was also symptomatic suggesting a diagnosis of urosepsis. Imaging labs were obtained at outside facility. On exam patient was resting comfortably in supine position. She was in no acute distress. Abdomen is soft nontender nondistended. There was no CVA tenderness. Pulses are intact and symmetric throughout. Extraocular movements intact. No focal findings on physical exam. Differential diagnosis includes: Infected kidney stones with hydronephrosis Initial plan for this patient was includes repeat of all labs obtained at outside facility, ppi, pain control PRN, antiemetic PRN, admission to hospitalist, urology consult, rocephin Labs were pending at the time of this note. Report was called to Dr. Agosto, hospitalist, who happily accepted the patient for admission. Urology with follows consult. Urology states patient was scheduled for procedure at 11:00 a.m. however she decompensates overnight to give them a call so that they can take the patient was more urgently. Amount and/or Complexity of Data Reviewed Labs: ordered. Risk Prescription drug management. ED Course: Clinical Impressions as of 02/15/24 0122 Septic shock ([facility]) Urinary tract obstruction by kidney stone Other hydronephrosis Shared Visit: 01:12 Santo STEPHENS (scribe) documented on behalf and in the presence of Dr. Jean. The doctor personally saw and evaluated the patient. The doctor discussed the management with the CATRINA/Resident. The doctor reviewed the CATRINA/Resident note, approved the management plan for this patient and takes responsibility for the medical care of the patient. Additional Notes/Findings: Abundio Iglesias is a 68 y.o. female presenting to the ED for chief complaint of flank pain. Pt transferred to ED for [facility]. PT states she has some mild indigestion starting a few hours ago. Pt states she is no longer in pain since recieving pain medication. Exam findings as follows: Constitutional: Awake and alert HENT: Head normocephalic and atraumatic Eyes: conjunctiva unremarkable Cardiovascular: Heart rate regular Pulmonary: Easy work of breathing, speaking full sentences Abdominal: Flat and non-distended Skin: Warm and dry Musculoskeletal: Moving all extremities spontaneously Neurological: no focal deficit . ED Disposition None ED Prescriptions None Scribe Attestation Dr. William Landeros personally performed the services described in the documentation, as scribed by Santo Jennings in my presence, and it is both accurate and complete. Resident Attestation: Dr. Darrick Landeros personally performed a irne-cx-cror diagnostic evaluation on this patient. I have repeated the critical/moore portions of the physical exam and concur with the resident s findings. I have reviewed all laboratory findings and imaging reports. I have reviewed the note authored by the resident and agree with the assessment and plan as written. Please note that portions of this note were completed with a voice recognition program. Efforts were made to edit the dictations but occasionally words are mis-transcribed. Santo Jennings 02/15/24 0122 Armando Hollingsworth MD Resident 02/15/24 0220 Cosigned by Nimisha Jean MD at 02/15/2024 3:10 AM EST [facility] 02-15-2024 Emergency department Note Images from the original note were not included. [facility] - EMERGENCY DEPARTMENT Pt Name: Abundio Iglesias Birthdate: 1955 Chief Complaint: Chief Complaint Patient presents with Flank Pain History of Present Illness: Patient was a 68-year-old female with a past medical history of kidney stone, hypercholesterolemia, hypothyroidism, Graves disease, hypertension presenting today as a transfer from [facility] secondary to urosepsis. Patient was states that she has a history of kidney stones. She was recently diagnosed with 2 kidney stones in the left. She was states that she was started on ciprofloxacin. She could only take 1 dose of Cipro were presenting to the emergency she was states that she was had intermittent fever, chills, malaise, nausea, vomiting. In the emergency room at [facility] she has a CT completed that demonstrated 2 stones stuck in the left ureter with hydronephrosis. As such she was transferred to [facility] for further management. Upon my initial evaluation in the emergency room patient was resting in no acute distress. She was in supine position. Physical exam is unremarkable. Paperwork indicates that labs and imaging were obtained at outside facility. Urology is called to evaluate patient was. 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 Visual impairment contacts Past Surgical History: Past Surgical History: Procedure Laterality Date APPENDECTOMY BREAST BIOPSY Left 05/26/1994 benign excisional-not visible CHOLECYSTECTOMY COLONOSCOPY [id number] COLONOSCOPY N/A 03/09/2020 Performed by Jerald Malhotra DO at [facility] CYSTOSCOPY N/A 04/25/2017 Performed by Dimitry Aly MD at [facility] CYSTOSCOPY , right ureteroscopy, with laser right ureter dilation Right 02/12/2021 Performed by Dimitry Aly MD at [facility] CYSTOSCOPY REMOVAL STENT Bilateral 03/31/2021 Performed by Dimitry Aly MD at [facility] CYSTOSCOPY REMOVAL STENT Bilateral 05/23/2017 Performed by Dimitry Aly MD at [facility] CYSTOSCOPY URETEROSCOPY BILATERAL WITH HOMIUM LASER/BILATERAL STENT PLACEMENT/STONE BASKETING Bilateral 05/11/2017 Performed by Dimitry Aly MD at [facility] ESOPHAGOGASTRODUODENOSCOPY ESOPHAGOGASTRODUODENOSCOPY N/A 03/09/2020 Performed by Jerald Malhotra DO at [facility] EXTRACORPOREAL SHOCK WAVE LITHOTRIPSY Right 04/25/2017 Performed by Dimitry Aly MD at [facility] EYE SURGERY INSERTION STENT URETER Bilateral 02/12/2021 Performed by Dimitry Aly MD at [facility] LASER HOLMIUM URETEROSCOPY RENAL STONES < OR=1CM Right 03/31/2021 Performed by Dimitry Aly MD at [facility] NECK SURGERY URETERAL STENT PLACEMENT Family History: Family History Problem Relation Age of Onset Heart disease Maternal Grandmother Cancer Maternal Grandfather lung Hypertension Father Heart disease Father Diabetes Father Arthritis Father Hypertension Mother Heart disease Mother Diabetes Mother Diabetes Brother Hypertension Brother Hypertension Sister Ovarian cancer Neg Hx Breast cancer Neg Hx Social History: Social History Socioeconomic History Marital status: Tobacco Use Smoking status: Former Current packs/day: 0.00 Types: Cigarettes Quit date: 2006 Years since quittin.9 Smokeless tobacco: Never Vaping Use Vaping status: Never Used Substance and Sexual Activity Alcohol use: No Drug use: No Sexual activity: Yes Partners: Male control/protection: Post-menopausal Social Drivers of Health Food Insecurity: No Food Insecurity (04/18/2023) Hunger Screening Food Insecurity - Worry: Never True Food Insecurity - Inability: Never True Received from [facility] Review of Systems: Review of Systems Physical Exam: ED Triage Vitals [02/14/24 2319] Temp Heart Rate Resp BP SpO2 36.8 C (98.2 F) 74 18 105/72 96 % Temp Source Heart Rate Source Patient Position BP Location FiO2 (%) Oral Pulse Ox Semi-fowlers Left arm -- Vitals: 02/14/24 2319 02/15/24 0016 BP: 105/72 113/71 Temp: 36.8 C (98.2 F) TempSrc: Oral Pulse: 74 76 Resp: 18 16 SpO2: 96% 95% MAP (mmHg): 84 Physical Exam Vitals reviewed. HENT: Head: Normocephalic and atraumatic. Nose: Nose normal. Mouth/Throat: Mouth: Mucous membranes are moist. Eyes: Conjunctiva/sclera: Conjunctivae normal. Cardiovascular: Rate and Rhythm: Normal rate. Pulses: Normal pulses. Pulmonary: Effort: Pulmonary effort is normal. No respiratory distress. Breath sounds: Normal breath sounds. No wheezing. Abdominal: General: Abdomen is flat. There is no distension. Palpations: Abdomen is soft. Tenderness: There is no right CVA tenderness or left CVA tenderness. Musculoskeletal: General: Normal range of motion. Cervical back: Normal range of motion and neck supple. Skin: General: Skin is warm and dry. Capillary Refill: Capillary refill takes less than 2 seconds. Neurological: General: No focal deficit present. Mental Status: She is alert and oriented to person, place, and time. GCS: GCS eye subscore is 4. GCS verbal subscore is 5. GCS motor subscore is 6. Procedure: Procedures Re-evaluation: Re-Evaluation Medical Decision Making Patient was a 68-year-old female presenting today as a transfer from outside facility due to kidney stones. Patient was has 2 kidney stones that it was stuck with hydronephrosis. Patient was also symptomatic suggesting a diagnosis of urosepsis. Imaging labs were obtained at outside facility. On exam patient was resting comfortably in supine position. She was in no acute distress. Abdomen is soft nontender nondistended. There was no CVA tenderness. Pulses are intact and symmetric throughout. Extraocular movements intact. No focal findings on physical exam. Differential diagnosis includes: Infected kidney stones with hydronephrosis Initial plan for this patient was includes repeat of all labs obtained at outside facility, ppi, pain control PRN, antiemetic PRN, admission to hospitalist, urology consult, rocephin Labs were pending at the time of this note. Report was called to Dr. Agosto, hospitalist, who happily accepted the patient for admission. Urology with follows consult. Urology states patient was scheduled for procedure at 11:00 a.m. however she decompensates overnight to give them a call so that they can take the patient was more urgently. Amount and/or Complexity of Data Reviewed Labs: ordered. Risk Prescription drug management. ED Course: Clinical Impressions as of 02/15/24 0122 Septic shock ([facility]) Urinary tract obstruction by kidney stone Other hydronephrosis Shared Visit: 01:12 Santo STEPHENS (scribe) documented on behalf and in the presence of Dr. Jean. The doctor personally saw and evaluated the patient. The doctor discussed the management with the CATRINA/Resident. The doctor reviewed the CATRINA/Resident note, approved the management plan for this patient and takes responsibility for the medical care of the patient. Additional Notes/Findings: Abundio Iglesias is a 68 y.o. female presenting to the ED for chief complaint of flank pain. Pt transferred to ED for [facility]. PT states she has some mild indigestion starting a few hours ago. Pt states she is no longer in pain since recieving pain medication. Exam findings as follows: Constitutional: Awake and alert HENT: Head normocephalic and atraumatic Eyes: conjunctiva unremarkable Cardiovascular: Heart rate regular Pulmonary: Easy work of breathing, speaking full sentences Abdominal: Flat and non-distended Skin: Warm and dry Musculoskeletal: Moving all extremities spontaneously Neurological: no focal deficit . ED Disposition None ED Prescriptions None Scribe Attestation Dr. William Landeros personally performed the services described in the documentation, as scribed by Santo Jennings in my presence, and it is both accurate and complete. Resident Attestation: I, Dr. Hollingsworth personally performed a oyha-pu-yeij diagnostic evaluation on this patient. I have repeated the critical/moore portions of the physical exam and concur with the resident s findings. I have reviewed all laboratory findings and imaging reports. I have reviewed the note authored by the resident and agree with the assessment and plan as written. Please note that portions of this note were completed with a voice recognition program. Efforts were made to edit the dictations but occasionally words are mis-transcribed. Santo Jennings 02/15/24 0122 Armando Hollingsworth MD Resident 02/15/240 Cosigned by Nimisha Jean MD at 02/15/2024 3:10 AM EST Imaging Disc from [facility] hand off to Radiologist 68 yo fm transfer from [facility] cc flank pain, 2 stone blockage of left ureter x5 days. Hx of kidney stones, HTN, thyroid radiation. VSS, NAD, Allergies on file. Bed: 17 Expected date: Expected time: Means of arrival: Other EMS Transport Comments: Abundio Iglesias 68 yr female (1955) has hx of renal stones, previous stent, has freq UTI's and worsening pain, on Cipro outpatient but can't tolerate, tachy, WBC 12.3, concern for septic stone. CT w/ x2 stones in Lft ureter w/ hydro, plan for stent tonight. S/p meds and fluids, Levaquin. Spoke with Dr. Vallejo urology here with plan for OR on arrival to ER to remove stone. Dr Vallejo wants to be called when patient arrives to [facility]. Patient will need to be admitted under medicine with a consul t for urology for stent placement Coming by EMS Dr Disla aware of patient RN report: Febrile on arrival Lactate 2.1 Cultures done at [facility] Lactate now 0.8 100/62 HR 88 96% 2L --- 88% RA 20 RAC IV Tylenol @ 1945 .5mg dilaudid 30mg toradol 1945 4mg Zofran 1736 & 1905 EMS ETA 2130 to [facility]: 110/69 74HR 96% 2L 16RR documented in this encounter [facility] 02-15-2024 History and physical note Images from the original note were not included. [facility] Hospitalists History & Physical Examination [facility]&P Department of Internal Medicine 02/15/2024 Patient Name: Abundio Iglesias : 1955 Chief Complaint Patient presents with Flank Pain HPI Abundio Iglesias is a 68 y.o. female medical history significant for nephrolithiasis, HTN, hypothyroidism, GERD, UTI, who presented to outside ER for evaluation of left flank pain. Patient was found to have obstructing left kidney stones with moderate hydronephrosis and obstruction. Patient was transferred to [facility] due to urology and OR coverage. Patient currently is without complaints. States symptoms began 5 days ago. Admits to nausea and vomiting and has been unable to eat or drink today. Currently on 2L nasal canula oxygen which she required after dilaudid administration. 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 Visual impairment contacts Past Surgical History: Procedure Laterality Date APPENDECTOMY BREAST BIOPSY Left 05/26/1994 benign excisional-not visible CHOLECYSTECTOMY COLONOSCOPY [id number] COLONOSCOPY N/A 03/09/2020 Performed by Jerald Malhotra DO at [facility] CYSTOSCOPY N/A 04/25/2017 Performed by Dimitry Aly MD at [facility] CYSTOSCOPY , right ureteroscopy, with laser right ureter dilation Right 02/12/2021 Performed by Dimitry Aly MD at [facility] CYSTOSCOPY REMOVAL STENT Bilateral 03/31/2021 Performed by Dimitry Aly MD at [facility] CYSTOSCOPY REMOVAL STENT Bilateral 05/23/2017 Performed by Dimitry Aly MD at [facility] CYSTOSCOPY URETEROSCOPY BILATERAL WITH HOMIUM LASER/BILATERAL STENT PLACEMENT/STONE BASKETING Bilateral 05/11/2017 Performed by Dimitry Aly MD at [facility] ESOPHAGOGASTRODUODENOSCOPY ESOPHAGOGASTRODUODENOSCOPY N/A 03/09/2020 Performed by Jerald Malhotra DO at [facility] EXTRACORPOREAL SHOCK WAVE LITHOTRIPSY Right 04/25/2017 Performed by Dimitry Aly MD at [facility] EYE SURGERY INSERTION STENT URETER Bilateral 02/12/2021 Performed by Dimitry Aly MD at [facility] LASER HOLMIUM URETEROSCOPY RENAL STONES < OR=1CM Right 03/31/2021 Performed by Dimitry Aly MD at [facility] NECK SURGERY URETERAL STENT PLACEMENT Allergy: Arthritis [trolamine salicylate], Nsaids (non-steroidal anti-inflammatory drug), Sulfa (sulfonamide antibiotics), and Trimethoprim Prior to Admission medications Medication Sig Start Date End Date Taking? Authorizing Provider estradioL (ESTRACE) 0.01 % (0.1 mg/gram) vaginal cream Insert 2 g into the vagina 2 (two) times a week. 01/05/23 Shawnee Cline, UNISAW OPERATOR-ENTRY LEVEL WEB DEVELOPER irbesartan (AVAPRO) 300 mg tablet Take 1 tablet (300 mg total) by mouth in the morning. Not In System Ref Prov levothyroxine (SYNTHROID, LEVOTHROID) 75 MCG tablet Take 1 tablet (75 mcg total) by mouth in the morning. 07/21/16 Not In System Ref Prov liothyronine (CYTOMEL) 5 MCG tablet Take 1 tablet (5 mcg total) by mouth in the morning. 03/28/19 Not In System Ref Prov mlojbwly-lhob-YK-calcium &mins (THERAGRAN-M) 9 mg iron-400 mcg tablet Take 1 tablet by mouth in the morning. Not In System Ref Prov pravastatin (PRAVACHOL) 40 mg tablet Take 1 tablet (40 mg total) by mouth nightly. Not In System Ref Prov reports that she quit smoking about 17 years ago. Her smoking use included cigarettes. She has never used smokeless tobacco. She reports that she does not drink alcohol and does not use drugs. Family History Problem Relation Age of Onset Heart disease Maternal Grandmother Cancer Maternal Grandfather lung Hypertension Father Heart disease Father Diabetes Father Arthritis Father Hypertension Mother Heart disease Mother Diabetes Mother Diabetes Brother Hypertension Brother Hypertension Sister Ovarian cancer Neg Hx Breast cancer Neg Hx Review of Systems Constitutional: Negative for fever, chills; positive for diaphoresis and fatigue. HENT: Negative for rhinorrhea and vision change. Eyes: Negative for double vision and visual disturbance. Respiratory: Negative for cough, shortness of breath and wheezing. Cardiovascular: Negative for chest pain and leg swelling. Gastrointestinal: Positive for nausea, vomiting, abdominal pain. Endocrine: Negative for polydipsia, polyphagia and polyuria. Genitourinary: Negative for bladder incontinence, decreased urine volume and difficulty urinating;Positive for dysuria, urgency, frequency, left flank pain.. Musculoskeletal: Negative for myalgias and arthralgias. Skin: Negative for pallor, rash and wound. Neurological: Negative for dizziness, syncope, light-headedness, numbness and headaches. Psychiatric/Behavioral: Negative for behavioral problems and agitation. Exam BP 113/71 Pulse 76 Temp 36.8 C (98.2 F) (Oral) Resp 16 LMP (LMP Unknown) SpO2 95% Constitutional: Oriented to person, place and time. Appears well-developed and well-nourished. No distress. HENT: Normocephalic and atraumatic. Nose normal. Eyes: Conjunctivae and EOM are normal. Pupils are equal, round, and reactive to light. No scleral icterus. Neck: Neck supple. No stridor and no tracheal deviation present. Cardiovascular: Normal rate, regular rhythm, normal heart sounds and intact distal pulses. No murmur heard. No JVD. Pulmonary/Chest: Effort normal and breath sounds normal. No respiratory distress. No wheezes. No rales. No tenderness. Abdominal: Soft. Bowel sounds are normal. No distension and no mass. There is no tenderness. Musculoskeletal: Normal range of motion. No edema or tenderness. Neurological: Alert and oriented to person, place, and time. No cranial nerve deficit. Normal muscle tone. Strength 5/5 in all extremities. Skin: Skin is warm and dry. No rash noted. Non diaphoretic. No erythema. No pallor. Psychiatric: Normal mood and affect. Behavior is normal. Judgment and thought content normal. No intake or output data in the 24 hours ending 02/15/24 0111 Labs WBC 12.3 Hgb 12.7 plt 182 INR 0.97 Na138 K 3.5 CO2 24.7 Cr1.42 BUN 21 Lactate 2.1 Imaging No results found. Active Problems: * No active hospital problems. * Assessment and Plan 1. Left sided obstructing kidney stones in the ureter Transferred from [facility] ER for urology eval NPO for procedure Consult urology Cont symptomatic support CT obtained at transferring facility and report uploaded in PACS and physical copy in chart 2. Pyelonephritis Cont IV rocephin Obtain cultures 3. GERD Cont protonix 4. Hypothyroidism Restart home meds when available for review 5. HLD 6. HTN DVT prophylaxis with SCD's Full code Electronically signed by: Gianfranco Agosto DO This note was created with the assistance of a speech-recognition program. Although the intention is to generate a document that actually reflects the content of the visit, no guarantees can be provided that every mistake has been identified and corrected by editing. [facility] [employer] [facility] 02-15-2024 History and physical note Images from the original note were not included. [facility] Hospital[facility] History & Physical Examination [facility] Department of Internal Medicine 02/15/2024 Patient Name: Abundio Iglesias : 1955 Chief Complaint Patient presents with Flank Pain HPI Abundio Iglesias is a 68 y.o. female medical history significant for nephrolithiasis, HTN, hypothyroidism, GERD, UTI, who presented to outside ER for evaluation of left flank pain. Patient was found to have obstructing left kidney stones with moderate hydronephrosis and obstruction. Patient was transferred to [facility] due to urology and OR coverage. Patient currently is without complaints. States symptoms began 5 days ago. Admits to nausea and vomiting and has been unable to eat or drink today. Currently on 2L nasal canula oxygen which she required after dilaudid administration. 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 Visual impairment contacts Past Surgical History: Procedure Laterality Date APPENDECTOMY BREAST BIOPSY Left 05/26/1994 benign excisional-not visible CHOLECYSTECTOMY COLONOSCOPY [id number] COLONOSCOPY N/A 03/09/2020 Performed by Jerald Malhotra DO at [facility] CYSTOSCOPY N/A 04/25/2017 Performed by Dimitry Aly MD at [facility] CYSTOSCOPY , right ureteroscopy, with laser right ureter dilation Right 02/12/2021 Performed by Dimitry Aly MD at [facility] CYSTOSCOPY REMOVAL STENT Bilateral 03/31/2021 Performed by Dimitry Aly MD at [facility] CYSTOSCOPY REMOVAL STENT Bilateral 05/23/2017 Performed by Dimitry Aly MD at [facility] CYSTOSCOPY URETEROSCOPY BILATERAL WITH HOMIUM LASER/BILATERAL STENT PLACEMENT/STONE BASKETING Bilateral 05/11/2017 Performed by Dimitry Aly MD at [facility] ESOPHAGOGASTRODUODENOSCOPY ESOPHAGOGASTRODUODENOSCOPY N/A 03/09/2020 Performed by Jerald Malhotra DO at [facility] EXTRACORPOREAL SHOCK WAVE LITHOTRIPSY Right 04/25/2017 Performed by Dimitry Aly MD at [facility] EYE SURGERY INSERTION STENT URETER Bilateral 02/12/2021 Performed by Dimitry Aly MD at [facility] LASER HOLMIUM URETEROSCOPY RENAL STONES < OR=1CM Right 03/31/2021 Performed by Dimitry Aly MD at [facility] NECK SURGERY URETERAL STENT PLACEMENT Allergy: Arthritis [trolamine salicylate], Nsaids (non-steroidal anti-inflammatory drug), Sulfa (sulfonamide antibiotics), and Trimethoprim Prior to Admission medications Medication Sig Start Date End Date Taking? Authorizing Provider estradioL (ESTRACE) 0.01 % (0.1 mg/gram) vaginal cream Insert 2 g into the vagina 2 (two) times a week. 01/05/23 Shawnee Cline APRN-DAVID irbesartan (AVAPRO) 300 mg tablet Take 1 tablet (300 mg total) by mouth in the morning. Not In System Ref Prov levothyroxine (SYNTHROID, LEVOTHROID) 75 MCG tablet Take 1 tablet (75 mcg total) by mouth in the morning. 07/21/16 Not In System Ref Prov liothyronine (CYTOMEL) 5 MCG tablet Take 1 tablet (5 mcg total) by mouth in the morning. 03/28/19 Not In System Ref Prov pciuabne-aixw-JP-calcium &mins (THERAGRAN-M) 9 mg iron-400 mcg tablet Take 1 tablet by mouth in the morning. Not In System Ref Prov pravastatin (PRAVACHOL) 40 mg tablet Take 1 tablet (40 mg total) by mouth nightly. Not In System Ref Prov reports that she quit smoking about 17 years ago. Her smoking use included cigarettes. She has never used smokeless tobacco. She reports that she does not drink alcohol and does not use drugs. Family History Problem Relation Age of Onset Heart disease Maternal Grandmother Cancer Maternal Grandfather lung Hypertension Father Heart disease Father Diabetes Father Arthritis Father Hypertension Mother Heart disease Mother Diabetes Mother Diabetes Brother Hypertension Brother Hypertension Sister Ovarian cancer Neg Hx Breast cancer Neg Hx Review of Systems Constitutional: Negative for fever, chills; positive for diaphoresis and fatigue. HENT: Negative for rhinorrhea and vision change. Eyes: Negative for double vision and visual disturbance. Respiratory: Negative for cough, shortness of breath and wheezing. Cardiovascular: Negative for chest pain and leg swelling. Gastrointestinal: Positive for nausea, vomiting, abdominal pain. Endocrine: Negative for polydipsia, polyphagia and polyuria. Genitourinary: Negative for bladder incontinence, decreased urine volume and difficulty urinating;Positive for dysuria, urgency, frequency, left flank pain.. Musculoskeletal: Negative for myalgias and arthralgias. Skin: Negative for pallor, rash and wound. Neurological: Negative for dizziness, syncope, light-headedness, numbness and headaches. Psychiatric/Behavioral: Negative for behavioral problems and agitation. Exam BP 113/71 Pulse 76 Temp 36.8 C (98.2 F) (Oral) Resp 16 LMP (LMP Unknown) SpO2 95% Constitutional: Oriented to person, place and time. Appears well-developed and well-nourished. No distress. HENT: Normocephalic and atraumatic. Nose normal. Eyes: Conjunctivae and EOM are normal. Pupils are equal, round, and reactive to light. No scleral icterus. Neck: Neck supple. No stridor and no tracheal deviation present. Cardiovascular: Normal rate, regular rhythm, normal heart sounds and intact distal pulses. No murmur heard. No JVD. Pulmonary/Chest: Effort normal and breath sounds normal. No respiratory distress. No wheezes. No rales. No tenderness. Abdominal: Soft. Bowel sounds are normal. No distension and no mass. There is no tenderness. Musculoskeletal: Normal range of motion. No edema or tenderness. Neurological: Alert and oriented to person, place, and time. No cranial nerve deficit. Normal muscle tone. Strength 5/5 in all extremities. Skin: Skin is warm and dry. No rash noted. Non diaphoretic. No erythema. No pallor. Psychiatric: Normal mood and affect. Behavior is normal. Judgment and thought content normal. No intake or output data in the 24 hours ending 02/15/24 0111 Labs WBC 12.3 Hgb 12.7 plt 182 INR 0.97 Na138 K 3.5 CO2 24.7 Cr1.42 BUN 21 Lactate 2.1 Imaging No results found. Active Problems: * No active hospital problems. * Assessment and Plan 1. Left sided obstructing kidney stones in the ureter Transferred from [facility] ER for urology eval NPO for procedure Consult urology Cont symptomatic support CT obtained at transferring facility and report uploaded in PACS and physical copy in chart 2. Pyelonephritis Cont IV rocephin Obtain cultures 3. GERD Cont protonix 4. Hypothyroidism Restart home meds when available for review 5. HLD 6. HTN DVT prophylaxis with SCD's Full code Electronically signed by: Gianfranco Agosto DO This note was created with the assistance of a speech-recognition program. Although the intention is to generate a document that actually reflects the content of the visit, no guarantees can be provided that every mistake has been identified and corrected by editing. documented in this encounter [facility] 02-15-2024 Emergency department Note Imaging Disc from [facility] hand off to Radiologist [facility] 02-14-2024 Emergency department Triage note 68 yo fm transfer from [facility] cc flank pain, 2 stone blockage of left ureter x5 days. Hx of kidney stones, HTN, thyroid radiation. VSS, NAD, Allergies on file. [facility] [place] 02-14-2024 Emergency department Note Bed: 17 Expected date: Expected time: Means of arrival: Other EMS Transport Comments: Abundio Iglesias 68 yr female (1955) has hx of renal stones, previous stent, has freq UTI's and worsening pain, on Cipro outpatient but can't tolerate, tachy, WBC 12.3, concern for septic stone. CT w/ x2 stones in Lft ureter w/ hydro, plan for stent tonight. S/p meds and fluids, Levaquin. Spoke with Dr. Vallejo urology here with plan for OR on arrival to ER to remove stone. Dr Vallejo wants to be called when patient arrives to [place] ER. Patient will need to be admitted under medicine with a consul t for urology for stent placement Coming by EMS Dr Disla aware of patient RN report: Febrile on arrival Lactate 2.1 Cultures done at [facility] Lactate now 0.8 100/62 HR 88 96% 2L --- 88% RA 20 RAC IV Tylenol @ 1945 .5mg dilaudid 30mg toradol 1944 4mg Zofran 1736 & 1905 EMS ETA 2129 to [facility]: 110/69 74HR 96% 2L 16RR [facility] [place] [facility] Evaluation note Diagnosis Ureteral calculus, right- Primary Calculus of ureter Kidney stones Calculus of kidney Septic shock (CMS-HCC)- Primary Septic shock (CMS-HCC) Urinary tract obstruction by kidney stone Other hydronephrosis [facility] Diagnosis Ureteral calculus, right- Primary Calculus of ureter Kidney stones Calculus of kidney Kidney stones- Primary Calculus of kidney [facility] Diagnosis Ureteral calculus, right- Primary Calculus of ureter Kidney stones Calculus of kidney Kidney stones- Primary Calculus of kidney documented in this encounter [facility] System[facility]Not on filedocumented in this encounter [facility] SystemInstructionsNot on filedocumented in this encounter [facility] System[facility]ructionsNot on filedocumented in this encounter [facility] Summary Purpose Family History No Family History Records FoundNo Family History Records FoundNo Family History Records FoundNo Family History Records FoundNo Family History Records Found Advance Directives No Advanced Directives Records Found Date Activated Date Inactivated Comments 02/15/2024 3:15 AM Date Activated Date Inactivated Comments 02/11/2021 6:45 PM 02/12/2021 10:20 PM Date Activated Date Inactivated Comments 02/15/2024 3:15 AM 02/16/2024 6:31 PM Date Activated Date Inactivated Comments 02/11/2021 6:45 PM 02/12/2021 10:20 PM Additional Source Comments INFORMATION SOURCE (unrecogn ized section and content) DATE CREATED AUTHOR 07/07/2022 [facility] DATE CREATED AUTHOR AUTHOR'S ORGANIZ ATION 02/20/2024 [facility] DATE CREATED AUTHOR AUTHOR'S ORGANIZ ATION 04/09/2024 [facility] DATE CREATED AUTHOR AUTHOR'S ORGANIZ ATION 04/11/2024 [facility] DATE CREATED AUTHOR AUTHOR'S ORGANIZ ATION 08/06/2024 [facility] Reason for Visit (unrecogniz ed section and content) Reason Comments Flank Pain Specialty Diagnoses / Procedures Referred By Contkota t Referred To Contact Diagnoses Urinary tract obstruction by kidney stone Septic shock ([facility]) Other hydronephrosis [facility] - GEN 7 Acute [address] [facility] [place] [address] Phone: tel: fax: Referral ID Status Reason Start Date Expiration Date Visits Re quested Visits Authorized [id number] 1 1 Reason Comments Follow-up Scheduled Active and Recently Administ ered Medications (unrecognized section and content) Medication Order 02/14/2024 02/15/2024 02/16/2024 aprepitant (EMEND) capsule 40 mg (COMPLETED) 40 mg, oral, Once, On Rosa Maria 02/15/24 at 1045, For 1 dose, Pre-op 1045 (Given - Provider: Dayna Ash RN) cefTRIAXone (ROCEPHIN) 1,000 mg in sodium chloride 0.9 % 50 mL IVPB-MBP (COMPLETED) 1,000 mg, intravenous, at 100 mL/hr, Administer over 30 Minutes, Once, On Rosa Maria 02/15/24 at 0115, For 1 dose, Look-alike/sound-alike medication - verify indication for use. Do not co-administer with calcium-containing solutions such as Lactated Ringers., Indication: Other, Specify: urosepsis 0150 (New Bag - Provider: Jerald Park RN)0258 (Stop Bag - Provider: Jerald Park RN) cefTRIAXone (ROCEPHIN) IVPB 1000 mg/50 mL in iso-osmotic dextrose (20 mg/mL premix) 1,000 mg, intravenous, at 100 mL/hr, Administer over 30 Minutes, Every 24 hours, First dose on Rosa Maria 02/15/24 at 1600, Look-alike/sound-alike medication - verify indication for use. Do not co-administer with calcium-containing solutions such as Lactated Ringers., Indication: UTI 0921 (MAR Hold - Provider: User Epic - Reason: Patient not available)1335 (MAR Unhold - Provider: User Epic)1532 (New Bag - Provider: Miladis Padilla RN)1602 (Stop Bag - Provider: Miladis Padilla RN) 1600 (Due) chlorhexidine (PERIDEX) 0.12 % solution 15 mL 15 mL, mouth/throat, 2 times daily, First dose on Mon02/16/24 at 1230, Swish undiluted for 30 seconds, then spit. 1353 (Given - Provid er: Jimena Day RN)2100 (Due) levothyroxine (SYNTHROID, LEVOTHROID) tablet 75 mcg 75 mcg, oral, Daily, First dose on Rosa Maria 02/15/24 at 1615, Look-alike/sound-alike medication. Verify indication for use Administer on empty stomach at least ONE hour before or TWO hours after food Enteral Feeding: For 7 days or less of tube feeding- do NOT hold tube feedings, after 7 days- hold tube feedings ONE hour before and ONE hour after administration DOES NOT APPLY TO NEONATES Monitor thyroid function tests weekly 1740 (Given - Provider: Miladis Carmendy, RN) 0709 (Given - Provider: Clarice Schulz RN) liothyronine (CYTOMEL) tablet 5 mcg 5 mcg, oral, Daily, First dose on Rosa Maria 02/15/24 at 1615, Look-alike/sound-alike medication - verify indication for use. 1741 (Given - Provider: Miladis Padilla RN) 0841 (Given - Provider: Jimena Day RN) losartan (COZAAR) tablet 100 mg 100 mg, oral, Daily, First dose on Mon02/16/24 at 0900, Look-alike/sound-alike medication - verify indication for use. 0841 (Given - Provid er: Jimena Day RN) pantoprazole (PROTONIX) EC tablet 40 mg 40 mg, oral, Every morning before breakfast, First dose on Rosa Maria 02/15/24 at 0700, Look-alike/sound-alike medication - verify indication for use. If patient is receiving enteral feeding, consider alternative PPI or continue IV pantoprazole until the delayed-release tablet can be taken orally, Indication: GERD 0700 (Not Given - Provider: Willow Vergara RN - Reason: Other - Comment: iv medication given @ 0318)0921 (APR Hold - Provider: User Epic - Reason: Patient not available)1335 (APR Unhold - Provider: User Epic) 0709 (Given - Provider: Clarice Schulz RN) pantoprazole (PROTONIX) injection 40 mg (COMPLETED) 40 mg, intravenous, Once, On Rosa Maria 02/15/24 at 0200, For 1 dose, Look-alike/sound-alike medication - verify indication for use., Indication: Other (ONEIL) 0318 (Given - Provider: Willow Vergara RN) sodium chloride 0.9 % flush 3 mL 3 mL, intravenous, Every 12 hours scheduled, First dose on Rosa Maria 02/15/24 at 0900 0900 (Canceled Entry - Provider: Miladis Padilla RN)0921 (APR Hold - Provider: User Epic - Reason: Patient not available)1335 (MAR Unhold - Provider: User Epic) 0000 (Given - Provider: Clarice Schulz RN)0900 (Canceled Entry - Provider: Jimena Day RN)2100 (Due) Continuous Medication Order 02/14/2024 02/15/2024 02/16/2024 lactated ringers infusion (CANCELED) 50 mL/hr, intravenous, Continuous, Starting on Rosa Maria 02/15/24 at 1000, Pre-op, If fluid restriction is not indicated, infuse at a rate up to 5 mL/kg/hr not to exceed the total replacement volume (2 ml/kg/hr) from the time NPO status was initiated. 1117 (New Bag - Provider: STERLING Pinon)1218 (Anesthesia Volume Adjustment - Provider: STERLING Choi) PRN Medication Order 02/14/2024 02/15/2024 02/16/2024 dextrose (GLUTOSE) 40 % gel 15 g 15 g, oral, As needed, low blood sugar, blood glucose less than 70 mg/dL, Starting on Rosa Maria 02/15/24 at 0315, If patient conscious and taking PO. If blood glucose is not greater than 70 mg/dL after initial treatment, repeat treatment. 09 ([facility] Hold - Provider: User Epic - Reason: Patient not available)1335 ([facility] Unhold - Provider: User Epic) dextrose 5 % (D5W) infusion 100 mL/hr, intravenous, Continuous PRN, blood glucose less than 70 mg/dL, Starting on Rosa Maria 02/15/24 at 0315, Use immediately following dextrose 50% or glucagon treatment for patients who are unconscious or NPO. Contact prescriber for additional orders. If blood glucose is not greater than 70 mg/dL after initial treatment, repeat treatment. 09 ([facility] Hold - Provider: User Epic - Reason: Patient not available)1335 ([facility] Unhold - Provider: User Epic) dextrose 50 % in water (D50W) 50% solution 25 mL 25 mL, intravenous, As needed, low blood sugar, blood glucose less than 70 mg/dL and unconscious or NPO with IV access, Starting on Rosa Maria 02/15/24 at 0315, Push over 1-3 minutes STAT. If conscious and not NPO, immediately follow with meal tray or high protein (7 grams) snack if tray not available. If NPO, initiate 5% dextrose in water at 100 mL/hr and contact prescriber for additional orders. If blood glucose is not greater than 70 mg/dL after initial treatment, repeat treatment. VESICANT (RED) Warning: HYPERTONIC solution. 920 ([facility] Hold - Provider: User Epic - Reason: Patient not available)1334 ([facility] Unhold - Provider: User Epic) glucagon HCL injection 1 mg 1 mg, intramuscular, As needed, low blood sugar, blood glucose less than 70 mg/dL and unconscious or NPO without IV access., Starting on Rosa Maria 02/15/24 at 0315, If conscious and not NPO, immediately follow with meal tray or high protein (7Grams) snack if tray not available. If NPO, initiate IV 5% Dextrose/Water at 100 mL/hr and contact prescriber for additional orders. If blood glucose is not greater than 70 mg/dL after initial treatment, repeat treatment. 920 ([facility] Hold - Provider: User Epic - Reason: Patient not available)1334 ([facility] Unhold - Provider: User Epic) HYDROmorphone (PF) (DILAUDID) injection 1 mg 1 mg, intravenous, Every 4 hours PRN, severe pain - pain scale 7-10, Starting on Rosa Maria 02/15/24 at 0846, If IV push, administer over over 2 to 3 minutes. Look-alike/sound-alike medication - verify indication for use. 09 (Given - Provider: Arcelia Padilla RN)920 ([facility] Hold - Provider: User Epic - Reason: Patient not available)1334 ([facility] Unhold - Provider: User Epic) midazolam (PF) (VERSED) injection 2 mg (CANCELED) 2 mg, intravenous, As needed, anxiety, Starting on Rosa Maria 02/15/24 at 0949, For 2 doses, Pre-op, May repeat in 10 minutes, if needed, if original midazolam (VERSED) ineffective, Indication: Other, Indication: anxiety 1113 (Given - Provider: Arcelia Ash RN) morphine injection 2 mg 2 mg, intravenous, Every 4 hours PRN, severe pain - pain scale 7-10, Starting on Rosa Maria 02/15/24 at 0221, Look-alike/sound-alike medication - verify indication for use. 920 ([facility] Hold - Provider: User Epic - Reason: Patient not available)1334 ([facility] Unhold - Provider: User Epic) ondansetron (PF) (ZOFRAN) injection 4 mg 4 mg, intravenous, Every 8 hours PRN, vomiting, nausea, Starting on Rosa Maria 02/15/24 at 0221, Administer over 2-5 minutes. 0839 (Given - Provider: Arcelia Padilla, RN)0921 ([facility] Hold - Provider: User Epic - Reason: Patient not available)1335 ([facility] Unhold - Provider: User Epic) sodium chloride 0.9 % (bag) (NS) 0.9 % irrigation solution (CANCELED) As needed, Starting on Rosa Maria 02/15/24 at 1145, Intra-op 1145 (Given - Provider: Mark Vallejo MD - Comment: FOR USE WITH SCOPE) sodium chloride 0.9 % flush 3 mL 3 mL, intravenous, As needed, line care, before and after each intermittent use, Starting on Rosa Maria 02/15/24 at 0315 0921 ([facility] Hold - Provider: User Epic - Reason: Patient not available)1335 ([facility] Unhold - Provider: User Epic) sodium chloride 0.9 % flush bag 25 mL, intravenous, at 100 mL/hr, Administer over 15 Minutes, As needed, line care, line care after IVPB administration, Starting on Rosa Maria 02/15/24 at 0315 0921 ([facility] Hold - Provider: User Epic - Reason: Patient not available)1335 ([facility] Unhold - Provider: User Epic) sodium chloride 0.9 % infusion 20 mL/hr, intravenous, Continuous PRN, to maintain patency of lines, Starting on Rosa Maria 02/15/24 at 0315 0921 ([facility] Hold - Provider: User Epic - Reason: Patient not available)1335 ([facility] Unhold - Provider: User Epic) sterile water irrigation solution (CANCELED) As needed, Starting on Rosa Maria 02/15/24 at 1147, Intra-op 1147 (Given - Provider: Mark Vallejo MD - Comment: GIVEN TO FIELD) Care Teams (unrecognized sec tion and content) Clinical Resource Nurse Relationship Specialty Start Date End Date My East MD PCP - General Family Medicine 09/24/18 Clinical Resource Nurse Relationship Specialty Start Date End Date My East MD PCP - General Family Medicine 09/24/18 Clinical Resource Nurse Relationship Specialty Start Date End Date My East MD PCP - General Family Medicine 09/24/18 FOR RECORDS PERTAINING TO PATIENTS WHO ARE [...] BE BASED ON THE PRIMARY CLINICAL RECORDS. [facility] [employer] [facility]. provides no warranty or guarantee of the accuracy or completeness of information in this document.
[2024-08-09 10:16] LABS: Bilirubin Urine NEGATIVE (NEGATIVE); Blood Urine TRACE-I (NEGATIVE); Clarity Urine CLEAR (CLEAR); Color Urine LT. YELLOW (YELLOW); Glucose Urine UA NEGATIVE (NEGATIVE); Ketones Urine NEGATIVE (NEGATIVE); Leukocyte Esterase Urine LARGE (NEGATIVE); Nitrite Urine NEGATIVE (NEGATIVE); Protein Urine NEGATIVE (NEG/TRACE); Specific Gravity Urine <=1.005 (1.005-1.025); Urobilinogen Urine 0.2 EU/dL (0.2-1.0)
[2024-08-09 10:28] LABS: Bacteria Urine TRACE #/HPF (NONE SEEN); Cast Seen? NONE SEEN #/LPF (NONE SEEN); Crystals Seen? None Seen #/HPF (None Seen); Mucus Urine NONE SEEN (NONE SEEN); RBC Urine 0-2 #/HPF (0-2); Squamous Epithelial Cell Urine RARE #/LPF (NONE/RARE); Urine Culture Indicated ALREADY ORDERED
== END 2024-08-09 09:52 | disposition home or self-care (01) ==
LOC: LAB 09:55
PROVIDERS: PCP Nurse Practitioner Family; Visit Provider Nurse Practitioner Family
DX: N39.0 Urinary tract infection, site not specified (principal)
CPT/HCPCS: 81001; 87086; 87088; 87186

== ENCOUNTER 2024-09-10 09:19 | Outpatient (OUT) | payer OTHER, SELFPAY ==
--- OUTSIDE RECORDS SUMMARY | 2024-08-12 05:09 | XMS_ITS ---
Author Organization The [facility] in [place] Address [address] [place] [address] Care Team Providers Care Driver Retraining Instructor Name Role Phone Milly King Primary Care Provider [phone] Nico East Unavailable [phone] REASON FOR VISIT urine cx Encounters Encounter Location Date Provider Diagnosis [facility] [address] [place] [address] 08/12/2024 Nico East Plan Of Treatment No Information Progress Notes * Onelia IGLESIASDOB:1955 (68 yo F)Acc No.[id number]:08/12/2024 Patient: Yonny WONGOnelia :1955 A ge:68 Y S ex:Female Address:[address] [place] [phone] * true * Date: Generated for Terryi ng/Fabhavikg/eTransmitting on: 0 09/10/2024 09:22 AM EDT
--- OUTSIDE RECORDS SUMMARY | 2024-08-15 06:00 | XMS_ITS ---
Author Organization The [facility] in [place] Address [address] [place] [address] Care Team Providers Care Street Light Servicer Name Role Phone Milly King Primary Care Provider REASON FOR VISIT urine cx Encounters Encounter Location Date Provider Diagnosis [facility] [address] [place] [address] 08/15/2024 Milly King UTI (urinary tract infection) N39.0 Assessments Encounter Date Diagnosis (ICD Code) Assessment Notes Treatment Notes Treatment Clinical Notes Section Notes 08/15/2024 UTI (urinary tract infection) (ICD-10 - N39.0) Plan Of Treatment Pending Test Test Name Order Date UA (URINALYSIS, COMPLETE) 08/15/2024 Progress Notes * Onelia IGLESIASDOB:1955 (68 yo F)Acc No.[id number]:08/15/2024 Patient: Onelia DELACRUZ :1955 A ge:68 Y S ex:Female Address:[address] [place] [phone] Subjective: * Chief Complaints: * U rine cx * Medical History: * Surgical History: * Hospitalization/Major Diagno stic Procedure: * Medications: Objective: * Vitals: * Physical Examination: Assessment: * Assessment: 1. U TI (urinary tract infection) - N39.0 (Primary) Plan: * Treatment: * Procedure Codes: * true * Date: Generated for Printi ng/Faxing/eTransmitting on: 0 09/10/2024 09:25 AM EDT
--- OUTSIDE RECORDS SUMMARY | 2024-09-03 09:24 | XMS_ITS ---
Author Organization The [facility] in [place] Address [address] [place] [address] Care Team Providers Care Music Box Mechanic Name Role Phone Milly King Primary Care Provider Encounters Encounter Location Date Provider Diagnosis [facility] [address] [place] [address] 09/03/2024 Milly King Primary hypertension I10 and Wellness examination Z00.00 Assessments Encounter Date Diagnosis (ICD Code) Assessment Notes Treatment Notes Treatment Clinical Notes Section Notes 09/03/2024 Primary hypertension (ICD-10 - I10) 09/03/2024 Wellness examination (ICD-10 - Z00.00) Plan Of Treatment Pending Test Test Name Order Date HEMOGLOBIN A1C (GLYCO) 09/03/2024 IRON, TOTAL 09/03/2024 LIPID PANEL (CHOL/TRIG/HDL/LDL) 09/04/19 25 VITAMIN D, 25 LEVEL (TOTAL) 09/03/2024 Insulin Level 09/03/2024 XR DEXA BONE DENSITY 09/03/2024 THYROID PANEL (T4/TSH/FREE T3) CMP (COMP MET RENEE) w/eGFR CKD-EPI 2024 CBC WITH DIFF 09/03/2024 Progress Notes * Onelia IGLESIASDOB:1955 (68 yo F)Acc No.[id number]:09/03/2024 Patient: Yonny WONGOnelia :1955 A ge:68 Y S ex:Female Address:[address] [place] [phone] Subjective: * Chief Complaints: * * Medical History: * Surgical History: * Hospitalization/Major Diagno stic Procedure: * Medications: Objective: * Vitals: * Physical Examination: Assessment: * Assessment: 1. P rimary hypertension - I10 (Primary) 2 . W ellness examination - Z00.00? Plan: * Treatment: * Procedure Codes: * true * Date: Generated for Kristyn gudino/Kaushal/Alejandrinasmitting on: 0 09/10/2024 09:23 AM EDT
--- OUTSIDE RECORDS SUMMARY | 2024-09-04 09:50 | XMS_ITS | Encounter Summary ---
Author Organization [facility] Address [address] [place] [facility] [place] [address] Care Team Providers Care Waterworks Employee Name Role Phone Vladislav East MD Primary Care Provider [phone] Milly King MD Unavailable [phone] Encounter Details Date Type Department Care Team (Late Contact Info) Description 09/04/2024 9:50 AM EDT Ancillary Procedure [facility] [address] [place] [address] Social History Tobacco Use Types Packs/Day Years Used Date Smoking Tobacco: Former Cigarettes Smokeless Tobacco: Never Alcohol Use Standard Drinks/Week Comments Not Currently 0 (1 standard drink = 0.6 oz pur e alcohol) Comments Unknown Sex and Gender Information Value Date Recorded Sex Assigned at Not on file Legal Sex Female 7:00 PM EDT Gender Identity Not on file Sexual Orientation Not on file documented as of this encounter Plan of Treatment Upcoming Encounters Date Type Department Care Team ([facility] Contact Info) Description 10/09/2024 10:00 AM EDT Office Visit [facility] [address] [place] [address] Mandeep Ricketts PA [address] [facility] [place] [address] documented as of this encounter Procedures Procedure Name Priority Date/Time Associated Diagnosis Comments XR KNEE 1-2 VIEWS RIGHT Routine 09/04/2024 9:48 AM EDT Acute pain of right knee documented in this encounter Results * XR knee 1 or 2 views right (09/04/2024 9:48 AM EDT) Anatomical Region Laterality Modality Lower Extremities, Knee Right Radiogra [facility] Imaging Narrative 09/04/2024 10:14 AM EDT Imaging Result: AP and Lateral weight bearing: Bones: The bony structures of the knee, including the distal femur, proximal tibia, and patella, appear normal. Stable alignment. There are no fractures, dislocations, or bony lesions noted. Joint Spaces: The joint spaces are well-maintained bilaterally with no evidence of narrowing. ? Tiny loose body posterior capsule, mild patella femoral arthritis. Soft Tissues: The surrounding soft tissues appear normal. There is no evidence of soft tissue swelling or calcification. Impression: Normal weight-bearing knee X-ray. No acute bony process us Mandeep OSMAN IMG XR PROCEDURES Final Resul t documented in this encounter Visit Diagnoses Not on filedocumented in this encounter Care Teams Waterworks Employee Relationship Specialty Start Date End Date Vladislav East MD [address] [place] [phone] PCP - General Family Medicine 08/19/24 Milly King MD [address] [place] [address] Referring Physician Family Medicine 08/19/24 documented as of this encounter
--- OUTSIDE RECORDS SUMMARY | 2024-09-04 09:55 | XMS_ITS | Encounter Summary ---
Author Organization [facility] Address [address] [facility] [place] [address] Care Team Providers Care Turret Lathe Set Up Operator Name Role Phone Vladislav East MD Primary Care Provider [phone] Milly King MD Unavailable [phone] Encounter Details Date Type Department Care Team (Late Contact Info) Description 09/04/2024 9:55 AM EDT Ancillary Procedure [facility] [address] [place] [address] Social History Tobacco Use Types [...] Upcoming Encounters Date Type Department Care Team ([facility] Contact Info) Description 10/09/2024 10:00 AM EDT Office Visit [facility] [address] [facility] [place] [address] Mandeep Ricketts PA [address] [facility] [address] documented as of this encounter Procedures Procedure Name Priority Date/Time Associated Diagnosis Comments XR KNEE 1-2 VIEWS LEFT Routine 09/04/2024 9:48 AM EDT Acute pain of left knee documented in this encounter Results * XR knee 1 or 2 views left (09/04/2024 9:48 AM EDT) Anatomical Region Laterality Modality Lower Extremities, Knee Left Radiogra [facility] Imaging Narrative 09/04/2024 10:14 AM EDT Imaging Result: AP and Lateral weight bearing: Bones: The bony structures of the knee, including the distal femur, proximal tibia, and patella, appear normal. Stable alignment. There are no fractures, dislocations, or bony lesions noted. Joint Spaces: The joint spaces are well-maintained bilaterally with no evidence of narrowing. Mild patella-femoral arthritis. Soft Tissues: The surrounding soft tissues appear normal. There is no evidence of soft tissue swelling or calcification. Impression: Normal weight-bearing knee X-ray. No acute bony process us Mandeep OSMAN IMG XR PROCEDURES Final Resul t documented in this encounter Visit Diagnoses Not on filedocumented in this encounter Care Teams Turret Lathe Set Up Operator Relationship Specialty Start Date End Date Vladislav East MD [address] [place] [phone] PCP - General Family Medicine 08/19/24 Milly King MD [address] [place] [address] Referring Physician Family Medicine 08/19/24 documented as of this encounter
--- OUTSIDE RECORDS SUMMARY | 2024-09-10 09:22 | XMS_ITS | Encounter Summary ---
Author Organization [facility] Address [address] [facility] [place] [address] Care Team Providers Care C D Reactor Operator Name Role Phone Vladislav East MD Primary Care Provider [phone] Milly King MD Unavailable Encounter Details Date Type Department Care Team (Latest Contact Info) Description 08/28/2024 Travel Social History Tobacco Use Types Packs/Day Years Used Date Smoking Tobacco: Never Assessed Comments Unknown Sex and Gender Information Value Date Recorded Sex Assigned at Not on file Legal Sex Female 7:00 PM EDT Gender Identity Not on file Sexual Orientation Not on file documented as of this encounter Plan of Treatment Upcoming Encounters Date Type Department Care Team ( Contact Info) Description 10/09/2024 10:00 AM EDT Office Visit [facility] [address] [place] [address] Mandeep Ricketts, PA [address] [facility] [place] [address] documented as of this encounter Visit Diagnoses Not on filedocumented in this encounter Care Teams C D Reactor Operator Relationship Specialty Start Date End Date Vladislav East MD [address] [place] [address] PCP - General Family Medicine 08/19/24 Milly King MD [address] [place] [address] Referring Physician Family Medicine 08/19/24 documented as of this encounter
--- OUTSIDE RECORDS SUMMARY | 2024-09-10 09:23 | XMS_ITS | Clinical Summary ---
Author Organization [facility] Address [address] [facility] [place] [address] Phone Care Team Providers Care Phlebotomist Prn Name Role Phone Unavailable Primary Care Provider Unavailabl e Social History Tobacco Use Types Packs/Day Years Used Date Smoking Tobacco: Never Assessed Comments Unknown Sex and Gender Information Value Date Recorded Sex Assigned at Not on file Legal Sex Female 10:10 PM EST Gender Identity Not on file Sexual Orientation Not on file Plan of Treatment Not on file
--- OUTSIDE RECORDS SUMMARY | 2024-09-10 09:23 | XMS_ITS | Encounter Summary ---
Author Organization [facility] Address [address] [facility] [place] [address] Care Team Providers Care Oracle Financials Developer Name Role Phone Vladislav East MD Primary Care Provider [phone] Milly King MD Unavailable [phone] Encounter Details Date Type Department Care Team (Latest Contact Info) Description 09/04/2024 Travel Social History Tobacco Use Types Packs/Day [...] Upcoming Encounters Date Type Department Care Team (Late st Contact Info) Description 10/09/2024 10:00 AM EDT Office Visit [facility] [address] [facility] [place] [place] [address] Mandeep Ricketts, PA [address] [place] [address] documented as of this encounter Visit Diagnoses Not on filedocumented in this encounter Care Teams Oracle Financials Developer Relationship Specialty Start Date End Date Vladislav East MD [address] [place] [address] PCP - General Family Medicine 08/19/24 Milly King MD [address] [place] [address] Referring Physician Family Medicine 08/19/24 documented as of this encounter
--- OUTSIDE RECORDS SUMMARY | 2024-09-10 09:23 | XMS_ITS | Clinical Summary ---
Author Organization [facility] Address [address] [facility] [place] [address] Care Team Providers Care Sugar Coating Hand Name Role Phone Vladislav East MD Primary Care Provider Milly King MD Unavailable [phone] Allergies Active Allergy Reactions Criticality Noted Date Comments Celecoxib Swelling 02/16/2024 Morphine Shortness of breath High 03/12/2024 Sulfa Antibiotics 05/11/2017 Other Reaction(s): Mouth Swelling Sulfamethoxazole-Trimet hoprim 08/11/2006 Trimethoprim Unknown 01/28/2021 Other Reaction(s): Other (See Comments) Trolamine Salicylate Swelling 09/16/2016 Celebrex, vioxx Medications irbesartan (Avapro) 300 MG tablet Take 300 mg by mouth in the morning. Active levothyroxine (Synthroid, Levoxyl) 75 MCG tablet TAKE 1 TABLET BY MOUTH ONCE DAILY IN THE MORNING ON AN EMPTY STOMACH WAIT 30 MINUTES BEFORE EATING OR DRINKING Active pravastatin (Pravachol) 40 MG tablet Take 40 mg by mouth in the morning. Active predniSONE (Deltasone) 20 MG tabletIndicatio ns:Chondromalac ia of left knee,Chondromal acia of right knee Take 2 tablets (40 mg) by mouth Daily for 5 days, THEN 1 tablet (20 mg) Daily for 5 days. Take with food. 15 tablet 09/04/2024 09/15/19 25 Active Active Problems No known active problems Encounters Date Type Department Care Team Description 09/04/2024 9:55 AM EDT Ancillary Procedure [facility] [address] [place] [address] 09/04/2024 9:50 AM EDT Ancillary Procedure [facility] [address] [place] [place] [address] 09/04/2024 9:45 AM EDT Office Visit [facility] [address] [place] [address] Mandeep Ricketts PA Acute pain of right knee (Primary Dx); Acute pain of left knee; Chondromalacia of left knee; Chondromalacia of right knee 09/04/2024 Bamboo flowsheet [facility] [address] [place] [address] Mandeep Ricketts PA 09/04/2024 Travel 08/28/2024 Travel from Last 3 Months Family History Relation Name Status Comments Father Mother Social History Tobacco Use Types Packs/Day Years Used Date Smoking Tobacco: Former Cigarettes Smokeless Tobacco: Never Tobacco Cessation:Counseling Given: Not Answered Alcohol Use Standard Drinks/Week Comments Not Currently 0 (1 standard drink = 0.6 oz pur e alcohol) Comments Unknown Sex and Gender Information Value Date Recorded Sex Assigned at Not on file Legal Sex Female 7:00 PM EDT Gender Identity Not on file Sexual Orientation Not on file Last Filed Vital Signs Vital Sign Reading Time Taken Comments Blood Pressure - - Pulse - - Temperature - - Respiratory Rate - - Oxygen Saturation - - Inhaled Oxygen Concentration - - Weight 73.5 kg (162 lb) 09/04/2024 9:37 AM EDT Height 152.4 cm (5') 09/04/2024 9:37 AM EDT Body Mass Index 31.64 09/04/2024 9:37 AM EDT Plan of Treatment Upcoming Encounters Date Type Department Care Team (Late st Contact Info) Description 10/09/2024 10:00 AM EDT Office Visit [facility] [address] [place] [address] Mandeep Ricketts PA [address] [place] [address] Procedures Procedure Name Priority Date/Time Associated Diagnosis Comments XR KNEE 1-2 VIEWS LEFT Routine 09/04/2024 9:48 AM EDT Acute pain of left knee XR KNEE 1-2 VIEWS RIGHT Routine 09/04/2024 9:48 AM EDT Acute pain of right knee from Last 3 Months Results * XR knee 1 or 2 views right (09/04/2024 9:48 AM EDT) Anatomical Region Laterality Modality Lower Extremities, Knee Right Radiogra phic Imaging Narrative 09/04/2024 10:14 AM EDT Imaging [...] weight-bearing knee X-ray. No acute bony process Mandeep OSMAN [facility] XR PROCEDURES Final Resul t * XR knee 1 or 2 views left (09/04/2024 9:48 AM EDT) Anatomical Region Laterality Modality Lower Extremities, Knee Left Radiogra phic Imaging Narrative 09/04/2024 10:14 AM EDT Imaging [...] No acute bony process us Mandeep OSMAN [facility] XR PROCEDURES Final Resul t from Last 3 Months Insurance [employer] Care Teams Sugar Coating Hand Relationship Specialty Start Date End Date Vladislav East MD [facility] [place] [phone] PCP - General Family Medicine 08/19/24 Milly King MD [facility] [place] [address] Referring Physician Family Medicine 08/19/24
--- OUTSIDE RECORDS SUMMARY | 2024-09-10 09:23 | XMS_ITS | Encounter Summary ---
Author Organization [employer] Address [id number] [address] [place] [address] Care Team Providers Care Jelly Filter Tender Name Role Phone Vladislav East MD Primary Care Provider [phone] Encounter Details Date Type Department Care Team (Late st Contact Info) Description 02/15/2024 Orders Only [facility] [employer] [facility] [place] [address] Transcribe, Orders Support User Pain (Primary Dx) Social History Tobacco Use Types Packs/Day Years Used Date Smoking Tobacco: Former Cigarettes Q uit: 2006 Smokeless Tobacco: Never Alcohol Use Standard Drinks/Week Comments No 0 (1 standard drink = 0.6 oz pur e alcohol) [facility] Utilities Answer Date Recorded In the past 12 months has e electric, gas, oil, or water company threatened to shut off services in your home? No 02/16/2024 PHQ-2 Answer Date Recorded Total Score 0 02/16/2024 PRAPARE - Transportation Answer Date Re corded In the past 12 months, has l ack of transportation kept you from medical appointments or from getting medications? No 01/28 In the past 12 months, has l ack of transportation kept you from meetings, work, or from getting things needed for daily living? No 02/16/2024 Housing Instability Answer Date Recorde d Are you worried or concerned that in the next two months you may not have stable housing that you own, rent or stay in as a part of a household? No 02/16/2024 Childcare Answer Date Recorded Childcare Unknown 08/08/2018 Employment Answer Date Recorded Employment Unknown 08/08/2018 Hunger Screening Answer Date Recorded Within the past 12 months we worried whether our food would run out before we got money to buy more. Never True 02/16/2024 Within the past 12 months th e food we bought just didn't last and we didn't have money to get more. Never True 02/16/2024 Purpose - Life Answer Date Recorded Purpose and direction in life Unknown Comments No Sex and Gender Information Value Date Recorded Sex Assigned at Not on file Legal Sex Female 11:33 AM EDT Gender Identity Not on file Sexual Orientation Not on file documented as of this encounter Functional Status documented as of this encounter Plan of Treatment Upcoming Encounters Date Type Department Care Team (Late st Contact Info) Description 04/15/2025 1:15 PM EST Office Visit [facility] [address] [place] [address] [place] [address] Dimitry Aly MD [address] [place] [address] documented as of this encounter Goals Goal Patient Goal Type Associated Problems Recent Progress Patient-Stated? Author <enter goal here> General Yes Clarice Nayak LSW Note: Evaluation of progress towards goal: pt would like to return home self care, family support. documented as of this encounter Results * CT abdomen and pelvis without contrast (02/14/2024 6:00 PM EST) us Scanning Provider External IMG CT ORDERABLES Fin al Result documented in this encounter Visit Diagnoses Diagnosis Pain- Primary Generalized pain documented in this encounter Additional Health Concerns Assessment Noted Time PHQ-9 Depression Total Score: 0 01/06/20 23 8:59 AM EST A Body Mass Index follow-up plan has been documented for the patient 01/05/2023 9:55 AM EST documented as of this encounter Care Teams Jelly Filter Tender Relationship Specialty Start Date End Date Vladislav East MD PCP - General Family Medicine 09/24/18 documented as of this encounter
--- OUTSIDE RECORDS SUMMARY | 2024-09-10 09:23 | XMS_ITS | Continuity of Care Document ---
Author Organization [facility] Address [address] [place] [address] Problems Unknown Problems Results Test Value / Unit Interpretation Reference Ran ge SARS-COV-2 (COVID19), NAAT[[id number]] Collected: 03/06/2020 05:11 PM Specimen Received: 03/07/2020 05:15 PM SARS-CoV-2 INTERPRETATION [[id number]] Negative Mary Alice l See Note SARS-CoV-2 RNA NOT DETECTEDN egative results do not preclude SARS-CoV-2 infection and should notbe used as the sole basis for patient management decisions. Negativeresults must be combined with clinical observations, patient history,and epidemiological information. Optimum specimen types and timingfor peak viral levels during infections caused by SARS-CoV-2 have notbeen determined. Collection of multiple specimens or types ofspecimens may be necessary to detect virus. Improper specimencollection and handling, sequence variability under primers/probes,or organism present below the limit of detection may lead to falsenegative results. Positive and negative predictive values oftesting are highly dependent on prevalence. False negative testresults are more likely when prevalence is high. SOURCE [[id number]] NASOPHARYNGEAL Normal Note: Methodology is [employer] Real-Time RT-PCR. The expectedresult or reference range is NEGATIVE (Not Detected). For more information regarding COVID-19 testing to include clinicalinformation, methodology detail, intended use, FDA authorization andrecommended fact sheets for patients or healthcare providers, see [employer] Announcement: SARS-CoV-2 (COVID-19) by NAAT at URL below (note,fact sheets are provided by method given in report:[email or web address]-[email or web address]/ Alternatively, see downloadable PDF fact sheet at:https://www.[employer]/JRUXF-50-NU-PCR Allergies, adverse reactions, alerts No known allergies and adverse reactions Medications No administered medications reported Vital Signs No vital signs reported Social History No smoking Hx information available
--- OUTSIDE RECORDS SUMMARY | 2024-09-10 09:23 | XMS_ITS | Encounter Summary ---
Author Organization [facility] Address [address] [facility] [place] [address] Care Team Providers Care Snuff Drier Name Role Phone Vladislav East MD Primary Care Provider [phone] Milly King MD Unavailable [phone] Encounter Details Date Type Department Care Team ([facility] Contact Info) Description 09/04/2024 Bamboo flowsheet [facility] [address] [place] [address] Mandeep Ricketts PA [address] [place] [address] Social History Tobacco Use Types [...] Upcoming Encounters Date Type Department Care Team ([facility] Contact Info) Description 10/09/2024 10:00 AM EDT Office Visit [facility] [address] [facility] [place] [place] [address] Mandeep Ricketts PA [address] [facility] [place] [address] documented as of this encounter Visit Diagnoses Not on filedocumented in this encounter Care Teams Snuff Drier Relationship Specialty Start Date End Date Vladislav East MD [facility] [place] [address] PCP - General Family Medicine 08/19/24 Milly King MD [address] [place] [address] Referring Physician Family Medicine 08/19/24 documented as of this encounter
--- OUTSIDE RECORDS SUMMARY | 2024-09-10 09:23 | XMS_ITS | Encounter Summary ---
Author Organization [employer] Address [facility]-[id number] [address] [place] [address] Care Team Providers Care Wood Filler Name Role Phone Vladislav East MD Primary Care Provider [phone] Encounter Details Date Type Department Care Team (Late st Contact Info) Description 12/01/2021 Telephone [facility] [address] [place], [place] [id number] Jazmin Garcia PA [address] [place] [id number] Social History Tobacco Use Types Packs/Day Years Used Date Smoking Tobacco: Former Cigarettes Q uit: 2006 Smokeless Tobacco: Never Alcohol Use Standard Drinks/Week Comments No 0 (1 standard drink = 0.6 oz pur e alcohol) Childcare Answer Date Recorded Childcare Unknown 08/08/2018 Employment Answer Date Recorded Employment Unknown 08/08/2018 Purpose - Life Answer Date Recorded Purpose and direction in life Unknown Comments No Sex and Gender Information Value Date Recorded Sex Assigned at Not on file Legal Sex Female 11:33 AM EDT Gender Identity Not on file Sexual Orientation Not on file COVID-19 Exposure Response Date Recorded In the last month, have you been in contact with someone who was confirmed or suspected to have Coronavirus / COVID-19? No / Unsure 12/01/2021 4:09 PM EDT documented as of this encounter Miscellaneous Notes * Telephone Encounter - DAWSON Michael - 12/01/2021 4:51 PM EDT Please fax her CT to Dr. Malhotra with attention to the mild wall thickening at the GE junction * Telephone Encounter - Roslyn John LPN - 12/01/2021 4:[address] note was sent to Dr. Malhotra with request to follow up with patient. Thank you. documented in this encounter Plan of Treatment Upcoming Encounters Date Type Department Care Team (Late st Contact Info) Description 04/15/2025 1:15 PM EST Office Visit [facility] [address] [place] [address] [place] [address] Dimitry Aly MD [address] [place] [address] documented as of this encounter Visit Diagnoses Not on filedocumented in this encounter Additional Health Concerns Assessment Noted Time A Body Mass Index follow-up plan has been documented for the patient 12/09/2019 12:06 PM EDT documented as of this encounter Care Teams Wood Filler Relationship Specialty Start Date End Date Vladislav East MD PCP - General Family Medicine 09/24/18 documented as of this encounter
--- OUTSIDE RECORDS SUMMARY | 2024-09-10 09:23 | XMS_ITS | Clinical Summary ---
Author Organization [facility] Address [address] [place] [address] Care Team Providers Care Lead Retail Sales Associate Name Role Phone Iftikhar Medrano Primary Care Provider Allergies Active Allergy Reactions Criticality Noted Date Comments arthritis meds [Other] Swelling 08/11/2006 Celebrex, vioxx Sulfamethoxazole-Trimethoprim 2006 Medications levothyroxine 88 mcg ORAL Tab 0 08/15/2006 Act kristin lansoprazole (PREVACID) 30 mg ORAL CpDR Take one(1) capsule daily. 0 08/15/2006 Active nitrofurantoin (MACRODANTIN) 100 mg ORAL Cap one tablet twice daily 0 08/15/2006 Active Social History Tobacco Use Types Packs/Day Years Used Date Smoking Tobacco: Former Cigarettes 0.5 20 1 03/30/1985 - 01/27/2006 Alcohol Use Standard Drinks/Week Comments No 0 (1 standard drink = 0.6 oz pur e alcohol) Comments No Sex and Gender Information Value Date Recorded Sex Assigned at Not on file Legal Sex Female 8:07 AM EST Gender Identity Not on file Sexual Orientation Not on file Last Filed Vital Signs Vital Sign Reading Time Taken Comments Blood Pressure 122/81 08/15/2006 8:15 AM EDT Pulse 77 08/15/2006 8:15 AM EDT Temperature - - Respiratory Rate 17 08/15/2006 8:15 AM EDT Oxygen Saturation 98% 08/15/2006 8:15 AM EDT Inhaled Oxygen Concentration - - Weight 66.5 kg (146 lb 8 oz) 08/15/2006 8:15 AM EDT Height 152.4 cm (5') 08/15/2006 8:15 AM EDT Body Mass Index 28.61 08/15/2006 8:15 AM EDT Plan of Treatment Health Maintenance Due Date Last Done Comments Anxiety Screening 12/29/1975 Depression Screening 12/29/1975 Hepatitis C Screening 12/29/1975 DTaP,Tdap,Td Vaccine (1 - Tdap) [address] Colonography 2002 Cologuard (FIT-DNA) 2002 Colonoscopy 2002 Colorectal Cancer Screening 2002 Diabetes Screening 2002 Fecal Occult Blood 2002 Lipid Screening 2002 Sigmoidoscopy 2002 Pneumococcal Vaccine: 50+ (1 of 1 - PCV) 12/29/2007 Shingrix Vaccine (1 of 2) 12/29/2007 Bone Density Screening 2022 Covid-19 Vaccine (1 - 2023- season) 2023 Advance Directive Discussion 02/28/2024 Influenza Vaccine (#1) 2024 RSV Vaccine (1 - 1-dose 75+ series) 2032 Insurance PPO OOS Care Teams Lead Retail Sales Associate Relationship Specialty Start Date [place] [address] PCP - General 08/21/06
--- OUTSIDE RECORDS SUMMARY | 2024-09-10 09:25 | XMS_ITS ---
Author Organization [facility] Address [facility]-[id number] [address] 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 Vaginal atrophy 09/19/2017 Overview (09/19/2017): Estrace cream prescribed 09/19/17 Kidney stones 10/13/2016 Overview (04/09/2024): Gross hematuria with CT urogram and cystoscopy [...] ureteral stones. Bilateral ureteroscopy with laser of left- sided stones, right ureter too tight to pass [...] and decrease her risk of recurrent stones. Assessment & Plan (11/02/2021 8:41 AM EDT): I am sending today's urine for microscopic exam and culture. We will call her on 11/04/2021 with the results of the urine test and to see how she does with the Rapaflo and Pyridium. If persistent, we could pursue a CT scan. I also advised that she refrain from pop and try to drink more water. Insomnia 05/27/2013 Shoulder pain 05/27/2013 Malignant tumor of submandibular gland 3 Family history of diabetes mellitus 01/08/2013 Family history of lung cancer 01/08/2013 Graves' disease 12/27/2012 History of cholecystectomy 12/27/2012 Current Treatment and Therapy Plans No current plan information found. Past Treatment and Therapy Plans No past plan information found. Lifetime Dose Tracking * Chemical Lifetime Dose Automatic Entry Manual Entr y Fluoroscopy 4.22 mGy 4.22 mGy 0 mGy
--- OUTSIDE RECORDS SUMMARY | 2024-09-10 09:25 | XMS_ITS | Patient Health Record ---
Author Organization [facility] in [place] Address [address] [place] [address] Care Team Providers Care Sprayer Hand Name Role Phone Milly Pepe Primary Care Provider Cruzito Nico Mishra [phone] Allergies Allergen (clinical drug ingredient) Drug/Non Drug Allergy documented on EMR Reaction Allergy Type Onset Date Status celecoxib CeleBREX leg swelling Drug Allergy Acti ve Substance with sulfonamide structure and antibacterial mechanism of action (substance) Sulfa Antibiotics swelling in legs and mouth Drug Allergy Active morphine Morphine anaphylaxis Drug Allergy Activ e Results Component Value Reference Range Notes UA (Urinalysis, Dipstix only - w/o micro) (Not yet reviewed by provider) Interpretation: Performing Lab: Notes/Report: GLUCOSE - 0 - 133 MG/DL ALBUMIN - NEG - NEG MG/DL BILIRUBIN - NEG - NEG MG/DL SPECIFIC GRAVITY 1.015 1.001 - 1.035 KETONES - NEG - NEG MG/DL BLOOD, UR +++ PH, UR 5.0 5 - 9 UROBILNOGEN 0.2 0.2 - 1 MG/DL NITRITE - NEG - NEG ESTERASE ([place]) ++ NEG - NEG MG/DL Urine Culture, Routine Reviewed date:01/05/2024 03:50:12 PM Interpretation: Performing Lab: Notes/Report: [facility] , Urine Culture, Routine See Below For Report Isolated Organism: Escherichia coli. : O:ESCHCO Organism: 1.1 Antibiotic Interpretation SEAN Status Urine Culture, Routine Urine Culture, Routine *ABNORMAL* Isolated Organism: Escherichia coli. : O:ESCHCO Organism: 1.1 Antibiotic Interpretation SEAN Status Urine Culture, Routine Urine Culture, Routine Greater than 100, 000 colony forming units per mL Isolated Organism: Escherichia coli. : O:ESCHCO Organism: 1.1 Antibiotic Interpretation SEAN Status Urine Culture, Routine Urine Culture, Routine Escherichia coli. Isolated Organism: Escherichia coli. : O:ESCHCO Organism: 1.1 Antibiotic Interpretation SEAN Status Urine Culture, Routine Urine Culture, Routine Organism: Escheri blade coli. : Isolated Organism: Escherichia coli. : O:ESCHCO Organism: 1.1 Antibiotic Interpretation SEAN Status Urine Culture, Routine Urine Culture, Routine *ABNORMAL* Isolated Organism: Escherichia coli. : O:ESCHCO Organism: 1.1 Antibiotic Interpretation SEAN Status Urine Culture, Routine Urine Culture, Routine Cefazolin <=4 ug/mL Isolated Organism: Escherichia coli. : O:ESCHCO Organism: 1.1 Antibiotic Interpretation SEAN Status Urine Culture, Routine Urine Culture, Routine Cefazolin with an SEAN <=16 predicts susceptibility Isolated Organism: Escherichia coli. : O:ESCHCO Organism: 1.1 Antibiotic Interpretation SEAN Status Urine Culture, Routine Urine Culture, Routine to the oral agent s cefaclor, cefdinir, cefpodoxime, Isolated Organism: Escherichia coli. : O:ESCHCO Organism: 1.1 Antibiotic Interpretation SEAN Status Urine Culture, Routine Urine Culture, Routine cefprozil, cefuro amita, cephalexin, and loracarbef when Isolated Organism: Escherichia coli. : O:ESCHCO Organism: 1.1 Antibiotic Interpretation SEAN Status Urine Culture, Routine Urine Culture, Routine used for therapy of uncomplicated urinary tract Isolated Organism: Escherichia coli. : O:ESCHCO Organism: 1.1 Antibiotic Interpretation SEAN Status Urine Culture, Routine Urine Culture, Routine infections due to E. coli, Klebsiella pneumoniae, and Isolated Organism: Escherichia coli. : O:ESCHCO Organism: 1.1 Antibiotic Interpretation SEAN Status Urine Culture, Routine Urine Culture, Routine Proteus mirabilis. Isolated Organism: Escherichia coli. : O:ESCHCO Organism: 1.1 Antibiotic Interpretation SEAN Status Urine Culture, Routine Urine Culture, Routine Greater than 100, 000 colony forming units per mL Isolated Organism: Escherichia coli. : O:ESCHCO Organism: 1.1 Antibiotic Interpretation SEAN Status Urine Culture, Routine Urine Culture, Routine See Below For Report Isolated Organism: Escherichia coli. : O:ESCHCO Organism: 1.1 Antibiotic Interpretation SEAN Status Urine Culture, Routine Urine Culture, Routine Performed at: [facility] Isolated Organism: Escherichia coli. : O:ESCHCO Organism: 1.1 Antibiotic Interpretation SEAN Status Urine Culture, Routine Urine Culture, Routine [address] [place], [place] [id number] Isolated Organism: Escherichia coli. : O:ESCHCO Organism: 1.1 Antibiotic Interpretation SEAN Status Urine Culture, Routine Urine Culture, Routine Kiln Stoker: Jorge Alberto Dixon PhD, Phone: [phone] Isolated Organism: Escherichia coli. : O:ESCHCO Organism: 1.1 Antibiotic Interpretation SEAN Status Urine Culture, Routine Urine Culture, Routine See Below For Report Isolated Organism: Escherichia coli. : O:ESCHCO Organism: 1.1 Antibiotic Interpretation SEAN Status Urine Culture, Routine Urine Culture, Routine AMOXICILLIN/CLAVU LANIC ACID S F Isolated Organism: Escherichia coli. : O:ESCHCO Organism: 1.1 Antibiotic Interpretation SEAN Status Urine Culture, Routine Urine Culture, Routine Ampicillin R F Isolated Organism: Escherichia coli. : O:ESCHCO Organism: 1.1 Antibiotic Interpretation SEAN Status Urine Culture, Routine Urine Culture, Routine Cefepime S F Isolated Organism: Escherichia coli. : O:ESCHCO Organism: 1.1 Antibiotic Interpretation SEAN Status Urine Culture, Routine Urine Culture, Routine Ceftriaxone S F Isolated Organism: Escherichia coli. : O:ESCHCO Organism: 1.1 Antibiotic Interpretation SEAN Status Urine Culture, Routine Urine Culture, Routine Cefuroxime S F Isolated Organism: Escherichia coli. : O:ESCHCO Organism: 1.1 Antibiotic Interpretation SEAN Status Urine Culture, Routine Urine Culture, Routine Ciprofloxacin S F Isolated Organism: Escherichia coli. : O:ESCHCO Organism: 1.1 Antibiotic Interpretation SEAN Status Urine Culture, Routine Urine Culture, Routine Ertapenem S F Isolated Organism: Escherichia coli. : O:ESCHCO Organism: 1.1 Antibiotic Interpretation SEAN Status Urine Culture, Routine Urine Culture, Routine Gentamicin S F Isolated Organism: Escherichia coli. : O:ESCHCO Organism: 1.1 Antibiotic Interpretation SEAN Status Urine Culture, Routine Urine Culture, Routine Imipenem S F Isolated Organism: Escherichia coli. : O:ESCHCO Organism: 1.1 Antibiotic Interpretation SEAN Status Urine Culture, Routine Urine Culture, Routine Levofloxacin S F Isolated Organism: Escherichia coli. : O:ESCHCO Organism: 1.1 Antibiotic Interpretation SEAN Status Urine Culture, Routine Urine Culture, Routine Meropenem S F Isolated Organism: Escherichia coli. : O:ESCHCO Organism: 1.1 Antibiotic Interpretation SEAN Status Urine Culture, Routine Urine Culture, Routine Nitrofurantoin S F Isolated Organism: Escherichia coli. : O:ESCHCO Organism: 1.1 Antibiotic Interpretation SEAN Status Urine Culture, Routine Urine Culture, Routine Tetracycline S F Isolated Organism: Escherichia coli. : O:ESCHCO Organism: 1.1 Antibiotic Interpretation SEAN Status Urine Culture, Routine Urine Culture, Routine Tobramycin S F Isolated Organism: Escherichia coli. : O:ESCHCO Organism: 1.1 Antibiotic Interpretation SEAN Status Urine Culture, Routine Urine Culture, Routine Trimethoprim/Sulf ametho xazole S F Isolated Organism: Escherichia coli. : O:ESCHCO Organism: 1.1 Antibiotic Interpretation SEAN Status Urine Culture, Routine Urine Culture, Routine Piperacillin/Tazo bactam S F Isolated Organism: Escherichia coli. : O:ESCHCO Organism: 1.1 Antibiotic Interpretation SEAN Status Urine Culture, Routine Performing Lab: see note SEE REPORT - [place] Operator Id information not found for OBX-specific line producer legend LC - [facility] LB Urine Culture, Routine Reviewed date:01/29/2024 12:06:25 PM Interpretation: Performing Lab: Notes/Report: [facility] , Urine Culture, Routine See Below For Report O:GNR Organism: 1.1 O:ECMS Organism: Gram negative massimo : Isolated Urine Culture, Routine Antibiotic Interpretation SEAN Status Isolated Urine Culture, Routine *ABNORMAL* O:GNR Organism: 1.1 O:ECMS Organism: Gram negative massimo : Isolated Urine Culture, Routine Antibiotic Interpretation SEAN Status Isolated Urine Culture, Routine Greater than 100, 000 colony forming units per mL O:GNR Organism: 1.1 O:ECMS Organism: Gram negative massimo : Isolated Urine Culture, Routine Antibiotic Interpretation SEAN Status Isolated Urine Culture, Routine Gram negative massimo O:GNR Organism: 1.1 O:ECMS Organism: Gram negative massimo : Isolated Urine Culture, Routine Antibiotic Interpretation SEAN Status Isolated Urine Culture, Routine Organism: Escheri blade coli, : O:GNR Organism: 1.1 O:ECMS Organism: Gram negative massimo : Isolated Urine Culture, Routine Antibiotic Interpretation SEAN Status Isolated Urine Culture, Routine *ABNORMAL* O:GNR Organism: 1.1 O:ECMS Organism: Gram negative massimo : Isolated Urine Culture, Routine Antibiotic Interpretation SEAN Status Isolated Urine Culture, Routine Cefazolin <=4 ug/mL O:GNR Organism: 1.1 O:ECMS Organism: Gram negative massimo : Isolated Urine Culture, Routine Antibiotic Interpretation SEAN Status Isolated Urine Culture, Routine Cefazolin with an SEAN <=16 predicts susceptibility O:GNR Organism: 1.1 O:ECMS Organism: Gram negative massimo : Isolated Urine Culture, Routine Antibiotic Interpretation SEAN Status Isolated Urine Culture, Routine to the oral agent s cefaclor, cefdinir, cefpodoxime, O:GNR Organism: 1.1 O:ECMS Organism: Gram negative massimo : Isolated Urine Culture, Routine Antibiotic Interpretation SEAN Status Isolated Urine Culture, Routine cefprozil, cefuro amita, cephalexin, and loracarbef when O:GNR Organism: 1.1 O:ECMS Organism: Gram negative massimo : Isolated Urine Culture, Routine Antibiotic Interpretation SEAN Status Isolated Urine Culture, Routine used for therapy of uncomplicated urinary tract O:GNR Organism: 1.1 O:ECMS Organism: Gram negative massimo : Isolated Urine Culture, Routine Antibiotic Interpretation SEAN Status Isolated Urine Culture, Routine infections due to E. coli, Klebsiella pneumoniae, and O:GNR Organism: 1.1 O:ECMS Organism: Gram negative massimo : Isolated Urine Culture, Routine Antibiotic Interpretation SEAN Status Isolated Urine Culture, Routine Proteus mirabilis. O:GNR Organism: 1.1 O:ECMS Organism: Gram negative massimo : Isolated Urine Culture, Routine Antibiotic Interpretation SEAN Status Isolated Urine Culture, Routine Greater than 100, 000 colony forming units per mL O:GNR Organism: 1.1 O:ECMS Organism: Gram negative massimo : Isolated Urine Culture, Routine Antibiotic Interpretation SEAN Status Isolated Urine Culture, Routine Escherichia coli, O:GNR Organism: 1.1 O:ECMS Organism: Gram negative massimo : Isolated Urine Culture, Routine Antibiotic Interpretation SEAN Status Isolated Urine Culture, Routine See Below For Report O:GNR Organism: 1.1 O:ECMS Organism: Gram negative massimo : Isolated Urine Culture, Routine Antibiotic Interpretation SEAN Status Isolated Urine Culture, Routine See Below For Report O:GNR Organism: 1.1 O:ECMS Organism: Gram negative massimo : Isolated Urine Culture, Routine Antibiotic Interpretation SEAN Status Isolated Urine Culture, Routine Performed at: [facility] O:GNR Organism: 1.1 O:ECMS Organism: Gram negative massimo : Isolated Urine Culture, Routine Antibiotic Interpretation SEAN Status Isolated Urine Culture, Routine [address], [place] [id number] O:GNR Organism: 1.1 O:ECMS Organism: Gram negative massimo : Isolated Urine Culture, Routine Antibiotic Interpretation SEAN Status Isolated Urine Culture, Routine Kiln Stoker: Jorge Alberto Dixon PhD, Phone: [phone] O:GNR Organism: 1.1 O:ECMS Organism: Gram negative massimo : Isolated Urine Culture, Routine Antibiotic Interpretation SEAN Status Isolated Urine Culture, Routine See Below For Report O:GNR Organism: 1.1 O:ECMS Organism: Gram negative massimo : Isolated Urine Culture, Routine Antibiotic Interpretation SEAN Status Isolated Urine Culture, Routine AMOXICILLIN/CLAVU LANIC ACID S F O:GNR Organism: 1.1 O:ECMS Organism: Gram negative massimo : Isolated Urine Culture, Routine Antibiotic Interpretation SEAN Status Isolated Urine Culture, Routine Ampicillin R F O:GNR Organism: 1.1 O:ECMS Organism: Gram negative massimo : Isolated Urine Culture, Routine Antibiotic Interpretation SEAN Status Isolated Urine Culture, Routine Cefepime S F O:GNR Organism: 1.1 O:ECMS Organism: Gram negative massimo : Isolated Urine Culture, Routine Antibiotic Interpretation SEAN Status Isolated Urine Culture, Routine Ceftriaxone S F O:GNR Organism: 1.1 O:ECMS Organism: Gram negative massimo : Isolated Urine Culture, Routine Antibiotic Interpretation SEAN Status Isolated Urine Culture, Routine Cefuroxime S F O:GNR Organism: 1.1 O:ECMS Organism: Gram negative massimo : Isolated Urine Culture, Routine Antibiotic Interpretation SEAN Status Isolated Urine Culture, Routine Ciprofloxacin S F O:GNR Organism: 1.1 O:ECMS Organism: Gram negative massimo : Isolated Urine Culture, Routine Antibiotic Interpretation SEAN Status Isolated Urine Culture, Routine Ertapenem S F O:GNR Organism: 1.1 O:ECMS Organism: Gram negative massimo : Isolated Urine Culture, Routine Antibiotic Interpretation SEAN Status Isolated Urine Culture, Routine Gentamicin S F O:GNR Organism: 1.1 O:ECMS Organism: Gram negative massimo : Isolated Urine Culture, Routine Antibiotic Interpretation SEAN Status Isolated Urine Culture, Routine Imipenem S F O:GNR Organism: 1.1 O:ECMS Organism: Gram negative massimo : Isolated Urine Culture, Routine Antibiotic Interpretation SEAN Status Isolated Urine Culture, Routine Levofloxacin S F O:GNR Organism: 1.1 O:ECMS Organism: Gram negative massimo : Isolated Urine Culture, Routine Antibiotic Interpretation SEAN Status Isolated Urine Culture, Routine Meropenem S F O:GNR Organism: 1.1 O:ECMS Organism: Gram negative massimo : Isolated Urine Culture, Routine Antibiotic Interpretation SEAN Status Isolated Urine Culture, Routine Nitrofurantoin S F O:GNR Organism: 1.1 O:ECMS Organism: Gram negative massimo : Isolated Urine Culture, Routine Antibiotic Interpretation SEAN Status Isolated Urine Culture, Routine Tetracycline S F O:GNR Organism: 1.1 O:ECMS Organism: Gram negative massimo : Isolated Urine Culture, Routine Antibiotic Interpretation SEAN Status Isolated Urine Culture, Routine Tobramycin S F O:GNR Organism: 1.1 O:ECMS Organism: Gram negative massimo : Isolated Urine Culture, Routine Antibiotic Interpretation SEAN Status Isolated Urine Culture, Routine Trimethoprim/Sulf ametho xazole S F O:GNR Organism: 1.1 O:ECMS Organism: Gram negative massimo : Isolated Urine Culture, Routine Antibiotic Interpretation SEAN Status Isolated Urine Culture, Routine Piperacillin/Tazo bactam S F O:GNR Organism: 1.1 O:ECMS Organism: Gram negative massimo : Isolated Urine Culture, Routine Antibiotic Interpretation SEAN Status Isolated Performing Lab: see note LC - [facility] LB SEE REPORT - [place] Operator Id information not found for OBX-specific line producer legend LACTATE or LACTIC ACID Reviewed date:02/15/2024 09:25:59 AM Interpretation: Performing Lab: Notes/Report: [facility] , Lactate/Lactic Acid 2.1 0.4-2.0 mmol/L RESULT S CALLED TO DAWSON MERRILL Performing Lab: see note ML - [facility] LB UA (CLEAN or CATCH) GORE SEAMER or M ICRO IF IND. Reviewed date:02/15/2024 09:25:59 AM Interpretation: Performing Lab: Notes/Report: [facility] , Color Urine LT. YELLOW YELLOW Clarity Urine CLEAR CLEAR Specific [place] Urine >=1.030 1.005-1.025 pH Urine 5.5 5.0-9.0 Protein Urine 100 NEG/TRACE mg/dL Glucose Urine UA NEGATIVE NEGATIVE mg/dL Bilirubin Urine SMALL NEGATIVE Ketones Urine 15 NEGATIVE mg/dL Blood Urine SMALL NEGATIVE Nitrite Urine NEGATIVE NEGATIVE Urobilinogen Urine 1.0 0.2-1.0 EU/dL Leukocyte Esterase Urine MODERATE NEGATIVE Urine Microscopic Indicated YES Performing Lab: see note ML - [facility] LB URINE MICROSCOPIC ONLY Reviewed date:02/15/2024 09:25:59 AM Interpretation: Performing Lab: Notes/Report: [facility] , WBC Urine 20-50 NONE SEEN #/HPF RBC Urine 0-2 0-2 #/HPF Bacteria Urine MODERATE NONE SEEN #/HPF Mucus Urine SMALL NONE SEEN Squamous Epithelial Cell Urine FEW NONE/RARE #/LPF Crystals Seen? None Seen None Seen #/HPF Cast Seen? SEEN NONE SEEN #/LPF Hyaline Casts Urine RARE Urine Culture Indicated YES Performing Lab: see note - [facility] LB Prothrombin Time INR Reviewed date:02/15/2024 09:25:59 AM Interpretation: Performing Lab: Notes/Report: [facility] , Prothrombin Time 10.3 9.0-11.6 sec INR 0.97 DESIRED INR: 2.0-3.0 CONDITIONS NOT LISTED BELOW 2.5-3.5 RECURRENT THROMBOSIS 2.5-3.5 FOR PROSTHETIC HEART VALVE REPLACEMENT Performing Lab: see note [facility] LB CT abdomen pelvis wo con Reviewed date:02/15/2024 09:25:59 AM Interpretation: Performing Lab: Notes/Report: Source Facility: [place] [address] CT Scan Report Signed Patient: ABUNDIO IGLESIAS MR#: [id number] : 1955 Acct:[id number] Age/Sex: 68 / F ADM Date: 02/14/24 Loc: ER Attending Dr: Ordering Physician: Michelle Limon Date of Service: 02/14/24 Procedure(s): CT abdomen pelvis wo con Accession Number(s): [id number] cc: MILLY PEPE [place] [id number] Patient Name: ABUNDIO IGLESIAS MRN: [id number] date: 1955 Sex: F Assigned Patient Location: ER Current Patient Location: ER Accession/Order Number: [id number] Exam Date: 02/14/2024 17:56 Report Date: 02/14/2024 18:20 At the request of: MICHELLE LIMON Procedure: CT abdomen pelvis wo con CT ABDOMEN/PELVIS WITHOUT IV CONTRAST. INDICATION: Abdominal pain COMPARISON: There are no other studies available for comparison. TECHNIQUE: Contiguous axial images were obtained from the lung bases to the pelvic floor without intravenous or oral contrast. Coronal and sagittal reformations are provided. FINDINGS: LOWER LUNGS: Clear. LIVER/BILIARY TREE: No discrete lesion. No intrahepatic ductal dilatation. GALLBLADDER: Status post cholecystectomy.. CBD: Normal CBD. SPLEEN: Normal in size. PANCREAS: No appreciable peripancreatic fluid. No pancreatic ductal dilatation. No discrete lesion. ADRENALS: Normal. KIDNEYS: There is an obstructing 3 x 3 mm stone in the left UVJ and a 5 x 6 mm stone in the middle third of the left ureter resulting in moderate hydronephrosis. There are multiple nonobstructing left renal stones. STOMACH AND BOWEL: There is a small hiatal hernia. No dilated bowel loops. No bowel wall thickening. APPENDIX: Not visualized. PERITONEAL CAVITY: There is left perinephric stranding. ABDOMINAL WALL: No subcutaneous stranding. No subcutaneous fluid collection. LYMPH NODES: No mesenteric or retroperitoneal lymphadenopathy by CT criteria. ABDOMINAL AORTA: No aneurysm. PELVIS: No acute abnormality. MUSCULOSKELETAL: No acute osseous abnormality. CT/CT abdomen pelvis wo con IMPRESSION: Obstructing stones in the left UVJ and left mid ureter resulting in moderate hydronephrosis. Electronically authenticated by: JET CATES Date: 02/14/2024 18:20 Dictated By: Jet Cates M.D. Signed By: 02/14/241822 DD/ 19 TD/TT: Building Superintendent: [place] [address] CT Scan Report Signed Patient: ABUNDIO IGLESIAS MR#: [id number] : 1955 Acct:[id number] Age/Sex: 68 / F ADM Date: 02/14/24 Loc: ER Attending Dr: Ordering Physician: Michelle Limon Date of Service: 02/14/24 Procedure(s): CT abdomen pelvis wo con Accession Number(s): [id number] cc: MILLY PEPE [place] [id number] Patient Name: ABUNDIO IGLESIAS MRN: [facility]:[id number] date: 1955 Sex: F Assigned Patient Location: ER Current Patient Location: ER Accession/Order Numb er: [id number] Exam Date: 17:56 Report Date: 02/14/2024 18:20 At the request of: MICHELLE LIMON Procedure: CT abdome n pelvis wo con CT ABDOMEN/PELVIS WITHOUT IV CONTRAST. INDICATION: Abdomina l pain COMPARISON: There ar e no other studies available for comparison. TECHNIQUE: Contiguou s axial images were obtained from the lung bases to the pelvic floor without intravenous or oral contrast. Coronal and sagittal reformations are provided. FINDINGS: LOWER LUNGS: Clear. LIVER/BILIARY TREE: No discrete lesion. No intrahepatic ductal dilatation. GALLBLADDER: Status post cholecystectomy.. CBD: Normal CBD. SPLEEN: Normal in size. PANCREAS: No appreciable peripancreatic fluid. No pancreatic ductal dilatation. No discrete lesion. ADRENALS: Normal. KIDNEYS: There is an obstructing 3 x 3 mm stone in the left UVJ and a 5 x 6 mm stone in the middle third of the left ureter resulting in moderate hydronephrosis. Ther e are multiple nonobstructing left renal stones. STOMACH AND BOWEL: There is a small hiatal hernia. No dilated bowel loops. No bowel wall thickening. APPENDIX: Not visualized. PERITONEAL CAVITY: There is left perinephric stranding. ABDOMINAL WALL: No subcutaneous stranding. No subcutaneous fluid collection. LYMPH NODES: No mesenteric or retroperitoneal lymphadenopathy by CT criteria. ABDOMINAL AORTA: No aneurysm. PELVIS: No acute abnormality. MUSCULOSKELETAL: No acute osseous abnormality. CT/CT abdomen pelvis wo con IMPRESSION: Obstructing stones i n the left UVJ and left mid ureter resulting in moderate hydronephrosis. Electronically authenticated by: JET CATES Date: 02/14/2024 18:20 Dictated By: Xiang Cates M.D. Signed By: 02/14/241822 DD/ 19 TD/TT: Building Superintendent: CBC AUTO DIFF Reviewed date:02/15/2024 09:25:59 AM Interpretation: Performing Lab: Notes/Report: [facility] , White Blood Count 12.3 4.0-11.0 10 3/uL Red Blood Count 4.27 4.20-5.40 10 6/uL Hemoglobin 12.7 12.0-16.0 g/dL Hematocrit 38.0 36.0-48.0 % Mean Corpuscular Volume 89.0 81.0-99.0 fL Mean Corpuscular Hemoglobin 29.7 26.7-34.0 pg Mean Corpuscular HGB Conc 33.4 29.9-35.2 g/dL Red Cell Distribution Width 13.3 11.0-15.0 % Platelet Count 182 150-450 10 3/uL Mean Platelet Volume 12.0 9.5-13.5 fL Performing Lab: see note ML - [facility] LB Manual Differential Reviewed date:02/15/2024 09:25:59 AM Interpretation: Performing Lab: Notes/Report: [facility] , Segmented Neutrophils % Manual 79.0 43.0-75.0 Band Neutrophils % 10.0 0-5 % Lymphocytes Percent Manual 9.0 20.5-60.0 % Monocytes Percent Manual 0.0 1.7-12.0 % Eosinophils Percent Manual 1.0 0.9-7.0 % Basophils Percent Manual 1.0 0.2-2.0 % Segmented Neut Absolute Manual 9.71 1.4-6.5 10 3/uL Band Neutrophils Absolute 1.2 0.0-0.3 10 3/uL Lymphocytes Absolute Manual 1.10 1.20-3.80 10 3/uL Monocytes Absolute Manual 0.00 0.30-0.80 10 3/uL Eosinophils Absolute Manual 0.12 0.00-0.70 10 3/uL Basophils Abs Manual 0.12 0.00-0.10 10 3/uL Performing Lab: see note ML - [facility] LB PROF 14(COMP METB) Reviewed date:02/15/2024 09:25:59 AM Interpretation: Performing Lab: Notes/Report: [facility] , Sodium 138 136-145 mmol/L Potassium 3.5 3.5-5.1 mmol/L Chloride 100 98-107 mmol/L Carbon Dioxide 24.7 21.0-32.0 mmol/L Anion Gap 16.8 Glucose 119 74-106 mg/dL Blood Urea Nitrogen 21.0 7.0-18.0 mg/dL Creatinine 1.42 0.55-1.02 mg/dL Estimated GFR ( Lalita 45 >=60 mL/min/1.73m 2 Estimated GFR (Non- Trini 37 >=60 mL/min/1.73m 2 BUN Creatinine Ratio 14.8 Calcium 9.2 8.5-10.1 mg/dL Bilirubin Total 1.5 0.2-1.0 mg/dL Aspartate Amino Transferase 33 15-37 U/L Alanine Aminotransferase 31 14-59 U/L Alkaline Phosphatase 86 46-116 U/L Total Protein 6.9 6.4-8.2 g/dL Albumin Level 3.1 3.4-5.0 g/dL Globulin 3.8 Albumin Globulin Ratio 0.8 Performing Lab: see note - [facility] LB LACTATE or LACTIC ACID Reviewed date:02/15/2024 09:25:59 AM Interpretation: Performing Lab: Notes/Report: [facility] , Lactate/Lactic Acid 0.8 0.4-2.0 mmol/L Performing Lab: see note - [facility] LB CBC AUTO DIFF Reviewed date:07/04/2024 01:50:48 PM Interpretation: Performing Lab: Notes/Report: [facility] , White Blood Count 5.9 4.0-11.0 10 3/uL Red Blood Count 4.84 4.20-5.40 10 6/uL Hemoglobin 14.2 12.0-16.0 g/dL Hematocrit 42.3 36.0-48.0 % Mean Corpuscular Volume 87.4 81.0-99.0 fL Mean Corpuscular Hemoglobin 29.3 26.7-34.0 pg Mean Corpuscular HGB Conc 33.6 29.9-35.2 g/dL Red Cell Distribution Width 13.4 11.0-15.0 % Platelet Count 229 150-450 10 3/uL Mean Platelet Volume 12.1 9.5-13.5 fL Neutrophils Percent Auto 59.5 43.0-75.0 % Lymphocytes Percent Auto 25.8 20.5-60.0 % Monocytes Percent Auto 9.7 1.7-12.0 % Eosinophils Percent Auto 3.9 0.9-7.0 % Basophils Percent Auto 0.9 0.2-2.0 % Immature Granulocytes Pct Auto 0.2 0.0-0.5 % Neutrophils Absolute Auto 3.5 1.4-6.5 10 3/uL Lymphocytes Absolute Auto 1.5 1.2-3.8 10 3/uL Monocytes Absolute Auto 0.6 0.3-0.8 10 3/uL Eosinophils Absolute Auto 0.2 0.0-0.7 10 3/uL Basophils Absolute Auto 0.1 0.0-0.1 10 3/uL Immature Granulocytes Abs Auto 0.01 0.00-0.03 10 3/uL Performing Lab: see note ML - [facility] FREE T3 Reviewed date:07/04/2024 01:50:48 PM Interpretation: Performing Lab: Notes/Report: [facility] , Free T3 3.26 2.18-3.98 pg/mL Performing Lab: see note ML - [facility] LB T4 Reviewed date:07/04/2024 01:50:48 PM Interpretation: Performing Lab: Notes/Report: [facility] , T4 Thyroxine 11.50 4.80-13.90 ug/dL Performing Lab: see note ML - [facility] LB TSH Reviewed date:07/04/2024 01:50:48 PM Interpretation: Performing Lab: Notes/Report: [facility] , Thyroid Stimulating Hormone 1.942 0.358-3.740 uIU/mL Performing Lab: see note - [facility] LB VITAMIN D 25 [place] Reviewed date:07/04/2024 01:50:48 PM Interpretation: Performing Lab: Notes/Report: [facility] , Vitamin D 60.8 20-<30 ng/mL Vit D insufficient >100 ng/mL Potential Toxicity 30-100 ng/mL Vit D sufficient <20 ng/mL Vit D deficient Performing Lab: see note ML - [facility] LB UA RANDOM W or MICROSCOPIC Reviewed date:08/09/2024 12:17:00 PM Interpretation: Performing Lab: Notes/Report: [facility] , Color Urine LT. YELLOW YELLOW Clarity Urine CLEAR CLEAR Specific [place] Urine <=1.005 1.005-1.025 pH Urine 6.0 5.0-9.0 Protein Urine NEGATIVE NEG/TRACE mg/dL Glucose Urine UA NEGATIVE NEGATIVE mg/dL Bilirubin Urine NEGATIVE NEGATIVE Ketones Urine NEGATIVE NEGATIVE mg/dL Blood Urine TRACE-I NEGATIVE Nitrite Urine NEGATIVE NEGATIVE Urobilinogen Urine 0.2 0.2-1.0 EU/dL Leukocyte Esterase Urine LARGE NEGATIVE WBC Urine 10-20 NONE SEEN #/HPF RBC Urine 0-2 0-2 #/HPF Bacteria Urine TRACE NONE SEEN #/HPF Mucus Urine NONE SEEN NONE SEEN Squamous Epithelial Cell Urine RARE NONE/RARE #/LPF Crystals Seen? None Seen None Seen #/HPF Cast Seen? NONE SEEN NONE SEEN #/LPF Urine Culture Indicated ALREADY ORDERED Performing Lab: see note ML - [facility] LB Urine Culture - [facility] Reviewed date:08/15/2024 10:33:09 AM Interpretation: Performing Lab: Notes/Report: [facility] , Urine Culture - [facility] See Below For Report Testing performed at [facility] Isolated Antibiotic Interpretation SEAN Status Almo Count Urine Culture - [facility] O:KLEOXY Organism: 1.1 Urine Culture - [facility] [place] [place] Urine Culture - [facility] [place] [place] Wolfgang [place] [address] Testing performed at [facility] Isolated Antibiotic Interpretation SEAN Status Almo Count Urine Culture - [facility] [place] O:KLEOXY Organism: 1.1 Urine Culture - [facility] [place] Urine Culture - [facility] See Below For Report Testing performed at [facility] Isolated Antibiotic Interpretation SEAN Status Almo Count Urine Culture - [facility] [place] O:KLEOXY Organism: 1.1 Urine Culture - [facility] [place] Urine Culture - [facility] See Below For Report Testing performed at [facility] Isolated Antibiotic Interpretation SEAN Status Almo Count Urine Culture - [facility] [place] O:KLEOXY Organism: 1.1 Urine Culture - [facility] [place] [place] Urine Culture - [facility] >100,000 Testing performed at [facility] Isolated Antibiotic Interpretation SEAN Status Almo Count Urine Culture - [facility] [place] O:KLEOXY Organism: 1.1 Urine Culture - [facility] [place] [place] Urine Culture - [facility] See Below For Report Testing performed at [facility] Isolated Antibiotic Interpretation SEAN Status Almo Count Urine Culture - [facility] [place] O:KLEOXY Organism: 1.1 Urine Culture - [facility] [place] Urine Culture - [facility] [place] [place] Amikacin S F Testing performed at [facility] Isolated Antibiotic Interpretation SEAN Status Almo Count Urine Culture - [facility] [place] O:KLEOXY Organism: 1.1 Urine Culture - [facility] [place] Urine Culture - [facility] [place] [place] Amoxicillin/Clavula riley S F Testing performed at [facility] Isolated Antibiotic Interpretation SEAN Status Almo Count Urine Culture - [facility] [place] O:KLEOXY Organism: 1.1 Urine Culture - [facility] [place] Urine Culture - [facility] [place] Aztreonam S F Testing performed at [facility] Isolated Antibiotic Interpretation SEAN Status Almo Count Urine Culture - [facility] [place] O:KLEOXY Organism: 1.1 Urine Culture - [facility] [place] Urine Culture - [facility] [place] [place] Ceftazidime S F Testing performed at [facility] Isolated Antibiotic Interpretation SEAN Status Almo Count Urine Culture - [facility] [place] O:KLEOXY Organism: 1.1 Urine Culture - [facility] [place] Urine Culture - [facility] [place] Ceftazidime/Avibact am S F Testing performed at [facility] Isolated Antibiotic Interpretation SEAN Status Almo Count Urine Culture - [facility] [place] O:KLEOXY Organism: 1.1 Urine Culture - [facility] [place] Urine Culture - [facility] [place] Ceftolozane/Tazobac lemon S F Testing performed at [facility] Isolated Antibiotic Interpretation SEAN Status Almo Count Urine Culture - [facility] [place] O:KLEOXY Organism: 1.1 Urine Culture - [facility] [place] Urine Culture - [facility] [place] Ciprofloxacin S F Testing performed at [facility] Isolated Antibiotic Interpretation SEAN Status Almo Count Urine Culture - [facility] [place] O:KLEOXY Organism: 1.1 Urine Culture - [facility] [place] Urine Culture - [facility] [place] Ertapenem S F Testing performed at [facility] Isolated Antibiotic Interpretation SEAN Status Almo Count Urine Culture - [facility] [place] O:KLEOXY Organism: 1.1 Urine Culture - [facility] [place] Urine Culture - [facility] [place] Gentamicin S F Testing performed at [facility] Isolated Antibiotic Interpretation SEAN Status Almo Count Urine Culture - [facility] [place] O:KLEOXY Organism: 1.1 Urine Culture - [facility] [place] Urine Culture - [facility] [place] Levofloxacin S F Testing performed at [facility] Isolated Antibiotic Interpretation SEAN Status Almo Count Urine Culture - [facility] [place] O:KLEOXY Organism: 1.1 Urine Culture - [facility] [place] Urine Culture - [facility] [place] Meropenem S F Testing performed at [facility] Isolated Antibiotic Interpretation SEAN Status Almo Count Urine Culture - [facility] [place] O:KLEOXY Organism: 1.1 Urine Culture - [facility] [place] Urine Culture - [facility] [place] Meropenem/Vaborbact am S F Testing performed at [facility] Isolated Antibiotic Interpretation SEAN Status Almo Count Urine Culture - [facility] [place] O:KLEOXY Organism: 1.1 Urine Culture - [facility] [place] Urine Culture - [facility] [place] Nitrofurantoin S F Testing performed at [facility] Isolated Antibiotic Interpretation SEAN Status Almo Count Urine Culture - [facility] [place] O:KLEOXY Organism: 1.1 Urine Culture - [facility] [place] Urine Culture - [facility] [place] Tetracycline S F Testing performed at [facility] Isolated Antibiotic Interpretation SEAN Status Almo Count Urine Culture - [facility] [place] O:KLEOXY Organism: 1.1 Urine Culture - [facility] [place] Urine Culture - [facility] [place] Tigecycline S F Testing performed at [facility] Isolated Antibiotic Interpretation SEAN Status Almo Count Urine Culture - [facility] [place] O:KLEOXY Organism: 1.1 Urine Culture - [facility] [place] Urine Culture - [facility] [place] Tobramycin S F Testing performed at [facility] Isolated Antibiotic Interpretation SEAN Status Almo Count Urine Culture - [facility] [place] O:KLEOXY Organism: 1.1 Urine Culture - [facility] [place] Urine Culture - [facility] [place] Ampicillin/Sulbacta m S F Testing performed at [facility] Isolated Antibiotic Interpretation SEAN Status Almo Count Urine Culture - [facility] [place] O:KLEOXY Organism: 1.1 Urine Culture - [facility] [place] Urine Culture - [facility] [place] Cefazolin R F Testing performed at [facility] Isolated Antibiotic Interpretation SEAN Status Almo Count Urine Culture - [facility] [place] O:KLEOXY Organism: 1.1 Urine Culture - [facility] [place] Urine Culture - [facility] [place] Cefepime S F Testing performed at [facility] Isolated Antibiotic Interpretation SEAN Status Almo Count Urine Culture - [facility] [place] O:KLEOXY Organism: 1.1 Urine Culture - [facility] [place] Urine Culture - [facility] [place] Ceftriaxone S F Testing performed at [facility] Isolated Antibiotic Interpretation SEAN Status Almo Count Urine Culture - [facility] [place] O:KLEOXY Organism: 1.1 Urine Culture - [facility] [place] Urine Culture - [facility] [place] Cefuroxime S F Testing performed at [facility] Isolated Antibiotic Interpretation SEAN Status Almo Count Urine Culture - [facility] [place] O:KLEOXY Organism: 1.1 Urine Culture - [facility] [place] Urine Culture - [facility] [place] Piperacillin/Tazoba ctam S F Testing performed at [facility] Isolated Antibiotic Interpretation SEAN Status Almo Count Urine Culture - [facility] [place] O:KLEOXY Organism: 1.1 Urine Culture - [facility] [place] Urine Culture - [facility] [place] Trimethoprim/Sulfa S F Testing performed at [facility] Isolated Antibiotic Interpretation SEAN Status Almo Count Urine Culture - [facility] [place] O:KLEOXY Organism: 1.1 Urine Culture - [facility] [place] Performing Lab: see note ML - [facility] SEE REPORT - [place] Operator Id information not found for OBX-specific line producer legend Aerobe ID + Suscept Reviewed date:03/11/2024 10:44:25 AM Interpretation: Performing Lab: Notes/Report: [facility] , Aerobe ID + Suscept See Below For Report Organism: 1.1 O:ECMS Isolated Aerobe ID + Suscept Antibiotic Interpretation SEAN Status Aerobe ID + Suscept Organism: [place] a coli, : Organism: 1.1 O:ECMS Isolated Aerobe ID + Suscept Antibiotic Interpretation SEAN Status Aerobe ID + Suscept *ABNORMAL* Organism: 1.1 O:ECMS Isolated Aerobe ID + Suscept Antibiotic Interpretation SEAN Status Aerobe ID + Suscept Received aerobic bot tle only. Organism: 1.1 O:ECMS Isolated Aerobe ID + Suscept Antibiotic Interpretation SEAN Status Aerobe ID + Suscept Susceptibility to follow. Organism: 1.1 O:ECMS Isolated Aerobe ID + Suscept Antibiotic Interpretation SEAN Status Aerobe ID + Suscept Escherichia coli, Organism: 1.1 O:ECMS Isolated Aerobe ID + Suscept Antibiotic Interpretation SEAN Status Aerobe ID + Suscept See Below For Report Organism: 1.1 O:ECMS Isolated Aerobe ID + Suscept Antibiotic Interpretation SEAN Status Aerobe ID + Suscept Performed at: [facility] Organism: 1.1 O:ECMS Isolated Aerobe ID + Suscept Antibiotic Interpretation SEAN Status Aerobe ID + Suscept [address], [place] [id number] Organism: 1.1 O:ECMS Isolated Aerobe ID + Suscept Antibiotic Interpretation SEAN Status Aerobe ID + Suscept Kiln Stoker: Evangelist Dixon PhD, Phone: [phone] Organism: 1.1 O:ECMS Isolated Aerobe ID + Suscept Antibiotic Interpretation SEAN Status Aerobe ID + Suscept See Below For Report Organism: 1.1 O:ECMS Isolated Aerobe ID + Suscept Antibiotic Interpretation SEAN Status Aerobe ID + Suscept AMOXICILLIN/CLAVULAN IC ACID S F Organism: 1.1 O:ECMS Isolated Aerobe ID + Suscept Antibiotic Interpretation SEAN Status Aerobe ID + Suscept Ampicillin R F Organism: 1.1 O:ECMS Isolated [place]obe ID + Suscept Antibiotic Interpretation SEAN Status Aerobe ID + Suscept Cefepime S F Organism: 1.1 O:ECMS Isolated Aerobe ID + Suscept Antibiotic Interpretation SEAN Status Aerobe ID + Suscept Ceftriaxone S F Organism: 1.1 O:ECMS Isolated Aerobe ID + Suscept Antibiotic Interpretation SEAN Status Aerobe ID + Suscept Cefuroxime S F Organism: 1.1 O:ECMS Isolated Aerobe ID + Suscept Antibiotic Interpretation SEAN Status Aerobe ID + Suscept Ciprofloxacin S F Organism: 1.1 O:ECMS Isolated Aerobe ID + Suscept Antibiotic Interpretation SEAN Status Aerobe ID + Suscept Ertapenem S F Organism: 1.1 O:ECMS Isolated Aerobe ID + Suscept Antibiotic Interpretation SEAN Status Aerobe ID + Suscept Gentamicin S F Organism: 1.1 O:ECMS Isolated Aerobe ID + Suscept Antibiotic Interpretation SEAN Status Aerobe ID + Suscept Imipenem S F Organism: 1.1 O:ECMS Isolated Aerobe ID + Suscept Antibiotic Interpretation SEAN Status Aerobe ID + Suscept Levofloxacin S F Organism: 1.1 O:ECMS Isolated Aerobe ID + Suscept Antibiotic Interpretation SEAN Status Aerobe ID + Suscept Meropenem S F Organism: 1.1 O:ECMS Isolated Aerobe ID + Suscept Antibiotic Interpretation SEAN Status Aerobe ID + Suscept Tetracycline S F Organism: 1.1 O:ECMS Isolated Aerobe ID + Suscept Antibiotic Interpretation SEAN Status Aerobe ID + Suscept Tobramycin S F Organism: 1.1 O:ECMS Isolated Aerobe ID + Suscept Antibiotic Interpretation SEAN Status Aerobe ID + Suscept Trimethoprim/Sulfame tho xazole S F Organism: 1.1 O:ECMS Isolated Aerobe ID + Suscept Antibiotic Interpretation SEAN Status Aerobe ID + Suscept Piperacillin/Tazobac lemon S F Organism: 1.1 O:ECMS Isolated Aerobe ID + Suscept Antibiotic Interpretation SEAN Status Performing Lab: see note LC - [facility] LB SEE REPORT - [place] Operator Id information not found for OBX-specific line producer legend Urine Culture, Routine Reviewed date:02/19/2024 08:29:54 AM Interpretation: Performing Lab: Notes/Report: [facility] , Urine Culture, Routine See Below For Report Urine Culture, Routine Urine Culture, Routine Mixed urogenital joy Urine Culture, Routine Urine Culture, Routine 10,000-25,000 col lobito forming units per mL Urine Culture, Routine Urine Culture, Routine Performed at[facility], Routine Urine Culture, Routine [address], [place] [id number] Urine Culture, Routine Urine Culture, Routine Kiln Stoker: Jorge Alberto Dixon PhD, Phone: [phone] Urine Culture, Routine Performing Lab: see note LC - [facility] LB SEE REPORT - [place] Operator Id information not found for OBX-specific line producer legend Venous Blood Gas Reviewed date:02/15/2024 09:25:59 AM Interpretation: Performing Lab: Notes/Report: [facility] , pH VBG 7.374 7.330-7.430 PCO2 VBG 43.3 40.0-52.0 mmHg Performing Lab: see note ML - [facility] LB Manual Differential Reviewed date:02/14/2024 12:14:41 PM Interpretation: Performing Lab: Notes/Report: [facility] , Segmented Neutrophils % Manual 80.0 43.0-75.0 Band Neutrophils % 5.0 0-5 % Lymphocytes Percent Manual 11.0 20.5-60.0 % Monocytes Percent Manual 4.0 1.7-12.0 % Eosinophils Percent Manual 0.0 0.9-7.0 % Basophils Percent Manual 0.0 0.2-2.0 % Segmented Neut Absolute Manual 11.68 1.4-6.5 10 3/uL Band Neutrophils Absolute 0.7 0.0-0.3 10 3/uL Lymphocytes Absolute Manual 1.60 1.20-3.80 10 3/uL Monocytes Absolute Manual 0.58 0.30-0.80 10 3/uL Eosinophils Absolute Manual 0.00 0.00-0.70 10 3/uL Basophils Abs Manual 0.00 0.00-0.10 10 3/uL Performing Lab: see note ML - [facility] LB Blood Culture 2 Reviewed date:02/26/2024 08:32:09 AM Interpretation: Performing Lab: Notes/Report: [facility] , Blood Culture 2 See Below For Report [id number] NO GROWTH AT 5 DAYS. Blood Culture 2 Performing Lab: see note ML - [facility] LB PROF 14(COMP METB) Reviewed date:02/14/2024 12:14:41 PM Interpretation: Performing Lab: Notes/Report: [facility] , Sodium 142 136-145 mmol/L Potassium 3.6 3.5-5.1 mmol/L Chloride 105 98-107 mmol/L Carbon Dioxide 27.6 21.0-32.0 mmol/L Anion Gap 13.0 Glucose 126 74-106 mg/dL Blood Urea Nitrogen 21.0 7.0-18.0 mg/dL Creatinine 1.35 0.55-1.02 mg/dL Estimated GFR ( Lalita 48 >=60 mL/min/1.73m 2 Estimated GFR (Non- Trini 39 >=60 mL/min/1.73m 2 BUN Creatinine Ratio 15.6 Calcium 9.1 8.5-10.1 mg/dL Bilirubin Total 1.0 0.2-1.0 mg/dL Aspartate Amino Transferase 27 15-37 U/L Alanine Aminotransferase 26 14-59 U/L Alkaline Phosphatase 80 46-116 U/L Total Protein 6.4 6.4-8.2 g/dL Albumin Level 2.9 3.4-5.0 g/dL Globulin 3.5 Albumin Globulin Ratio 0.8 Performing Lab: see note ML - [facility] CBC AUTO DIFF Reviewed date:02/14/2024 12:14:41 PM Interpretation: Performing Lab: Notes/Report: [facility] , White Blood Count 14.6 4.0-11.0 10 3/uL Red Blood Count 4.22 4.20-5.40 10 6/uL Hemoglobin 12.6 12.0-16.0 g/dL Hematocrit 37.7 36.0-48.0 % Mean Corpuscular Volume 89.3 81.0-99.0 fL Mean Corpuscular Hemoglobin 29.9 26.7-34.0 pg Mean Corpuscular HGB Conc 33.4 29.9-35.2 g/dL Red Cell Distribution Width 13.2 11.0-15.0 % Platelet Count 185 150-450 10 3/uL Mean Platelet Volume 11.5 9.5-13.5 fL Performing Lab: see note ML - [facility] BLOOD CULTURE ID PANEL Reviewed date:02/16/2024 03:44:07 PM Interpretation: Performing Lab: Notes/Report: [facility] , CTX-M NOT DETECTED NOT DETECTE CTX-M previously reported as: --- 02/16/241426 --- NOT APPLICABLE IMP NOT DETECTED NOT DETECTE NOT APPLICABLE IMP previously reported as: --- 02/16/241426 --- KPC NOT DETECTED NOT DETECTE KPC previously reported as: NOT APPLICABLE --- 02/16/241426 --- mcr-1 NOT DETECTED NOT DETECTE mcr-1 previously reported as: NOT APPLICABLE --- 02/16/241427 --- mecA/C NOT APPLICABLE NOT DETECTE mecA/C and MREJ (MRSA) NOT APPLICABLE NOT DETECTE NDM NOT DETECTED NOT DETECTE NDM previously reported as: --- 02/16/241427 --- NOT APPLICABLE OXA-48-like NOT DETECTED NOT DETECTE OXA-48-like previously reported as: NOT APPLICABLE --- 02/16/241427 --- Radha/B NOT APPLICABLE NOT DETECTE VIM NOT DETECTED NOT DETECTE VIM previously reported as: NOT APPLICABLE --- 02/16/241428 --- Source BLOOD Enterococcus faecalis NOT DETECTED NOT DETECTE Enterococcus faecium NOT DETECTED NOT DETECTE Listeria monocytogenes NOT DETECTED NOT DETECTE Staphylococcus spp. NOT DETECTED NOT DETECTE Staphylococcus aureus NOT DETECTED NOT DETECTE Staphylococcus epidermidis NOT DETECTED NOT DETECTE Staphylococcus lugdunensis NOT DETECTED NOT DETECTE Streptococcus spp. NOT DETECTED NOT DETECTE Streptococcus agalactiae NOT DETECTED NOT DETECTE Streptococcus pneumoniae NOT DETECTED NOT DETECTE Streptococcus pyogenes NOT DETECTED NOT DETECTE A. calcoaceticus-baumannii Cpx NOT DETECTED NOT DETECTE Bacteroides fragilis NOT DETECTED NOT DETECTE Enterobacterales DETECTED NOT DETECTE DEHAIRING MACHINE TENDER at 0214 RESULTS CALLED TO ASMITA Dodson RN @BY Amol Lemons, Enterobacter cloacae complex NOT DETECTED NOT DETECTE Escherichia coli DETECTED NOT DETECTE DEHAIRING MACHINE TENDER at 0214 RESULTS CALLED TO ASMITA Dodson RN @BY Amol Lemons, Klebsiella aerogenes NOT DETECTED NOT DETECTE Klebsiella oxytoca NOT DETECTED NOT DETECTE Klebsiella pneumoniae group NOT DETECTED NOT DETECTE Proteus spp. NOT DETECTED NOT DETECTE Salmonella spp. NOT DETECTED NOT DETECTE Serratia marcescens NOT DETECTED NOT DETECTE Haemophilus influenzae NOT DETECTED NOT DETECTE Neisseria meningitidis NOT DETECTED NOT DETECTE Pseudomonas aeruginosa NOT DETECTED NOT DETECTE Stenotrophomonas maltophilia NOT DETECTED NOT DETECTE Aniyah albicans NOT DETECTED NOT DETECTE Aniyah auris NOT DETECTED NOT DETECTE Aniyah glabrata NOT DETECTED NOT DETECTE Aniyah krusei NOT DETECTED NOT DETECTE Aniyah parapsilosis NOT DETECTED NOT DETECTE Aniyah tropicalis NOT DETECTED NOT DETECTE Cryptococcus neoformans/gattii NOT DETECTED NOT DETECTE Performing Lab: see note ML - [facility] LB Urine Culture, Routine Reviewed date:02/15/2024 09:25:59 AM Interpretation: Performing Lab: Notes/Report: [facility] , Urine Culture, Routine See Below For Report Organism: 1.1 Organism: Escherichia coli. : Isolated Antibiotic Interpretation SEAN Status O:[facility]CO Urine Culture, Routine Urine Culture, Routine *ABNORMAL* Organism: 1.1 Organism: Escherichia coli. : Isolated Antibiotic Interpretation SEAN Status O:[facility] Urine Culture, Routine Urine Culture, Routine Greater than 100, 000 colony forming units per mL Organism: 1.1 Organism: Escherichia coli. : Isolated Antibiotic Interpretation SEAN Status O:[facility] Urine Culture, Routine Urine Culture, Routine Escherichia coli. Organism: 1.1 Organism: Escherichia coli. : Isolated Antibiotic Interpretation SEAN Status O:[facility] Urine Culture, Routine Urine Culture, Routine Organism: Escheri blade coli. : Organism: 1.1 Organism: Escherichia coli. : Isolated Antibiotic Interpretation SEAN Status O:[facility] Urine Culture, Routine Urine Culture, Routine *ABNORMAL* Organism: 1.1 Organism: Escherichia coli. : Isolated Antibiotic Interpretation SEAN Status O:[facility] Urine Culture, Routine Urine Culture, Routine Cefazolin <=4 ug/mL Organism: 1.1 Organism: Escherichia coli. : Isolated Antibiotic Interpretation SEAN Status O:[facility] Urine Culture, Routine Urine Culture, Routine Cefazolin with an SEAN <=16 predicts susceptibility Organism: 1.1 Organism: Escherichia coli. : Isolated Antibiotic Interpretation SEAN Status O:[facility] Urine Culture, Routine Urine Culture, Routine to the oral agent s cefaclor, cefdinir, cefpodoxime, Organism: 1.1 Organism: Escherichia coli. : Isolated Antibiotic Interpretation SEAN Status O:[facility] Urine Culture, Routine Urine Culture, Routine cefprozil, cefuro amita, cephalexin, and loracarbef when Organism: 1.1 Organism: Escherichia coli. : Isolated Antibiotic Interpretation SEAN Status O:[facility] Urine Culture, Routine Urine Culture, Routine used for therapy of uncomplicated urinary tract Organism: 1.1 Organism: Escherichia coli. : Isolated Antibiotic Interpretation SEAN Status O:[facility] Urine Culture, Routine Urine Culture, Routine infections due to E. coli, Klebsiella pneumoniae, and Organism: 1.1 Organism: Escherichia coli. : Isolated Antibiotic Interpretation SEAN Status O:[facility] Urine Culture, Routine Urine Culture, Routine Proteus mirabilis. Organism: 1.1 Organism: Escherichia coli. : Isolated Antibiotic Interpretation SEAN Status O:ESCHCO Urine Culture, Routine Urine Culture, Routine Greater than 100, 000 colony forming units per mL Organism: 1.1 Organism: Escherichia coli. : Isolated Antibiotic Interpretation SEAN Status O:ESCHCO Urine Culture, Routine Urine Culture, Routine See Below For Report Organism: 1.1 Organism: Escherichia coli. : Isolated Antibiotic Interpretation SEAN Status O:ESCHCO Urine Culture, Routine Urine Culture, Routine Performed at: [facility] Organism: 1.1 Organism: Escherichia coli. : Isolated Antibiotic Interpretation SEAN Status O:ESCHCO Urine Culture, Routine Urine Culture, Routine [address], [place] [id number] Organism: 1.1 Organism: Escherichia coli. : Isolated Antibiotic Interpretation SEAN Status O:ESCHCO Urine Culture, Routine Urine Culture, Routine Kiln Stoker: Jorge Alberto Dixon PhD, Phone: [phone] Organism: 1.1 Organism: Escherichia coli. : Isolated Antibiotic Interpretation SEAN Status O:ESCHCO Urine Culture, Routine Urine Culture, Routine See Below For Report Organism: 1.1 Organism: Escherichia coli. : Isolated Antibiotic Interpretation SEAN Status O:ESCHCO Urine Culture, Routine Urine Culture, Routine AMOXICILLIN/CLAVU LANIC ACID S F Organism: 1.1 Organism: Escherichia coli. : Isolated Antibiotic Interpretation SEAN Status O:ESCHCO Urine Culture, Routine Urine Culture, Routine Ampicillin R F Organism: 1.1 Organism: Escherichia coli. : Isolated Antibiotic Interpretation SEAN Status O:ESCHCO Urine Culture, Routine Urine Culture, Routine Cefepime S F Organism: 1.1 Organism: Escherichia coli. : Isolated Antibiotic Interpretation SEAN Status O:ESCHCO Urine Culture, Routine Urine Culture, Routine Ceftriaxone S F Organism: 1.1 Organism: Escherichia coli. : Isolated Antibiotic Interpretation SEAN Status O:ESCHCO Urine Culture, Routine Urine Culture, Routine Cefuroxime S F Organism: 1.1 Organism: Escherichia coli. : Isolated Antibiotic Interpretation SEAN Status O:ESCHCO Urine Culture, Routine Urine Culture, Routine Ciprofloxacin S F Organism: 1.1 Organism: Escherichia coli. : Isolated Antibiotic Interpretation SEAN Status O:ESCHCO Urine Culture, Routine Urine Culture, Routine Ertapenem S F Organism: 1.1 Organism: Escherichia coli. : Isolated Antibiotic Interpretation SEAN Status O:ESCHCO Urine Culture, Routine Urine Culture, Routine Gentamicin S F Organism: 1.1 Organism: Escherichia coli. : Isolated Antibiotic Interpretation SEAN Status O:ESCHCO Urine Culture, Routine Urine Culture, Routine Imipenem S F Organism: 1.1 Organism: Escherichia coli. : Isolated Antibiotic Interpretation SEAN Status O:ESCHCO Urine Culture, Routine Urine Culture, Routine Levofloxacin S F Organism: 1.1 Organism: Escherichia coli. : Isolated Antibiotic Interpretation SEAN Status O:ESCHCO Urine Culture, Routine Urine Culture, Routine Meropenem S F Organism: 1.1 Organism: Escherichia coli. : Isolated Antibiotic Interpretation SEAN Status O:ESCHCO Urine Culture, Routine Urine Culture, Routine Nitrofurantoin S F Organism: 1.1 Organism: Escherichia coli. : Isolated Antibiotic Interpretation SEAN Status O:ESCHCO Urine Culture, Routine Urine Culture, Routine Tetracycline S F Organism: 1.1 Organism: Escherichia coli. : Isolated Antibiotic Interpretation SEAN Status O:ESCHCO Urine Culture, Routine Urine Culture, Routine Tobramycin S F Organism: 1.1 Organism: Escherichia coli. : Isolated Antibiotic Interpretation SEAN Status O:ESCHCO Urine Culture, Routine Urine Culture, Routine Trimethoprim/Sulf ametho xazole S F Organism: 1.1 Organism: Escherichia coli. : Isolated Antibiotic Interpretation SEAN Status O:ESCHCO Urine Culture, Routine Urine Culture, Routine Piperacillin/Tazo bactam S F Organism: 1.1 Organism: Escherichia coli. : Isolated Antibiotic Interpretation SEAN Status O:ESCHCO Urine Culture, Routine Performing Lab: see note LC - [facility] LB SEE REPORT - [place] Operator Id information not found for OBX-specific line producer legend UA RANDOM W or MICROSCOPIC Reviewed date:02/14/2024 12:14:41 PM Interpretation: Performing Lab: Notes/Report: [facility] , Color Urine LT. YELLOW YELLOW Clarity Urine CLEAR CLEAR Specific [place] Urine 1.015 1.005-1.025 pH Urine 6.0 5.0-9.0 Protein Urine TRACE NEG/TRACE mg/dL Glucose Urine UA NEGATIVE NEGATIVE mg/dL Bilirubin Urine NEGATIVE NEGATIVE Ketones Urine NEGATIVE NEGATIVE mg/dL Blood Urine TRACE-I NEGATIVE Nitrite Urine NEGATIVE NEGATIVE Urobilinogen Urine 1.0 0.2-1.0 EU/dL Leukocyte Esterase Urine LARGE NEGATIVE WBC Urine 50-75 NONE SEEN #/HPF RBC Urine 2-5 0-2 #/HPF Bacteria Urine LARGE NONE SEEN #/HPF Mucus Urine NONE SEEN NONE SEEN Squamous Epithelial Cell Urine FEW NONE/RARE #/LPF Urine Culture Indicated ALREADY ORDERED Performing Lab: see note ML - [facility] LB UA RANDOM W or MICROSCOPIC Reviewed date:01/29/2024 12:08:11 PM Interpretation: Performing Lab: Notes/Report: [facility] , Color Urine LT. YELLOW YELLOW Clarity Urine SL CLOUDY CLEAR Specific [place] Urine 1.010 1.005-1.025 pH Urine 6.0 5.0-9.0 Protein Urine NEGATIVE NEG/TRACE mg/dL Glucose Urine UA NEGATIVE NEGATIVE mg/dL Bilirubin Urine NEGATIVE NEGATIVE Ketones Urine NEGATIVE NEGATIVE mg/dL Blood Urine TRACE-I NEGATIVE Nitrite Urine NEGATIVE NEGATIVE Urobilinogen Urine 0.2 0.2-1.0 EU/dL Leukocyte Esterase Urine MODERATE NEGATIVE WBC Urine 50-75 NONE SEEN #/HPF RBC Urine 2-5 0-2 #/HPF Bacteria Urine SMALL NONE SEEN #/HPF Mucus Urine NONE SEEN NONE SEEN Squamous Epithelial Cell Urine RARE NONE/RARE #/LPF Crystals Seen? None Seen None Seen #/HPF Cast Seen? NONE SEEN NONE SEEN #/LPF Urine Culture Indicated ALREADY ORDERED Performing Lab: see note ML - [facility] UA RANDOM W or MICROSCOPIC Reviewed date:01/04/2024 12:26:24 PM Interpretation: Performing Lab: Notes/Report: [facility] , Color Urine LT. GREEN YELLOW Clarity Urine SL CLOUDY CLEAR Specific [place] Urine 1.015 1.005-1.025 pH Urine 6.0 5.0-9.0 Protein Urine NEGATIVE NEG/TRACE mg/dL Glucose Urine UA NEGATIVE NEGATIVE mg/dL Bilirubin Urine NEGATIVE NEGATIVE Ketones Urine NEGATIVE NEGATIVE mg/dL Blood Urine TRACE-I NEGATIVE Nitrite Urine NEGATIVE NEGATIVE Urobilinogen Urine 0.2 0.2-1.0 EU/dL Leukocyte Esterase Urine LARGE NEGATIVE WBC Urine 50-75 NONE SEEN #/HPF RBC Urine 2-5 0-2 #/HPF Bacteria Urine SMALL NONE SEEN #/HPF Mucus Urine NONE SEEN NONE SEEN Squamous Epithelial Cell Urine RARE NONE/RARE #/LPF Crystals Seen? None Seen None Seen #/HPF Cast Seen? NONE SEEN NONE SEEN #/LPF Urine Culture Indicated ALREADY ORDERED Performing Lab: see note ML - [facility] LB UA (Urinalysis, Dipstix only - w/o micro) Reviewed date:08/09/2024 09:29:05 AM Interpretation: Performing Lab: Notes/Report: COLOR yellow Yellow - Lizzy - CLARITY cloudy Clear - Clear GLUCOSE - 0 - 133 MG/DL ALBUMIN - NEG - NEG MG/DL BILIRUBIN - NEG - NEG MG/DL SPECIFIC GRAVITY 1.000 1.001 - 1.035 KETONES - NEG - NEG MG/DL BLOOD, UR trace PH, UR 5 5 - 9 UROBILNOGEN 0.2 0.2 - 1 MG/DL NITRITE + NEG - NEG ESTERASE ([place]) ++ NEG - NEG MG/DL XR chest 2V Reviewed date:07/04/2024 01:50:48 PM Interpretation: Performing Lab: Notes/Report: Source Facility: [place] [address] [place] [address] XRay Report Signed Patient: ABUNDIO IGLESIAS MR#: [id number] : 1955 Acct:[id number] Age/Sex: 68 / F ADM Date: 07/02/24 Loc: LAB Attending Dr: MILLY PEPE Ordering Physician: MILLY PEPE Date of Service: 07/02/24 Procedure(s): XR chest 2V Accession Number(s): [id number] cc: MILLY PEPE [place] [address] Patient Name: ABUNDIO IGLESIAS MRN: [facility]:[id number] date: 1955 Sex: F Assigned Patient Location: LAB Current Patient Location: LAB Accession/Order Number: [id number] Exam Date: 07/02/2024 11:30 Report Date: 07/02/2024 11:30 At the request of: MILLY PEPE Procedure: XR chest 2V Chest 2 views CLINICAL HISTORY: Dyspnea On Exertion COMPARISON: None FINDINGS: Heart appears normal in size. No consolidation pneumothorax pleural effusion or free air. XR/XR chest 2V IMPRESSION: NO ACUTE CARDIOPULMONARY ABNORMALITY. Impression dictated by: Milo Davila Jr., D.O. 07/02/2024 11:30 AM Dictation Location: [place] [address] Electronically authenticated by: [id number] Y Date: 07/02/2024 11:30 Dictated By: Milo Davila M.D. Signed By: 07/02/24 1133 DD/ 1130 TD/TT: Building Superintendent: [place] [address] XRay Report Signed Patient: ABUNDIO IGLESIAS MR#: [id number] : 1955 Acct:[id number] Age/Sex: 68 / F ADM Date: 07/02/24 Loc: LAB Attending Dr: MILLY PEPE Ordering Physician: MILLY PEPE Date of Service: 07/02/24 Procedure(s): XR lisa st 2V Accession Number(s): [id number] cc: MILLY PEPE [place] [address] Patient Name: ABUNDIO IGLESIAS MRN: [facility]:[id number] date: 1955 Sex: F Assigned Patient Location: LAB Current Patient Location: LAB Accession/Order Numb er: [id number] Exam Date: 07/02/2024 11:30 Report Date: 07/02/2024 11:30 At the request of: MILLY PEPE Procedure: XR chest 2V Chest 2 views CLINICAL HISTORY: Dyspnea On Exertion COMPARISON: None FINDINGS: Heart appears normal in size. No consolidation pneumothorax pleural effusion or free air. XR/XR chest 2V IMPRESSION: NO ACUTE CARDIOPULMONARY ABNORMALITY. Impression dictated by: Jair Lira Jr.ORedd 07/02/2024 11:30 AM Dictation Location: [place] [address] Electronically authenticated by: [id number] Y Date: 07/02/2024 11:30 Dictated By: Milo Davila M.D. Signed By: 07/02/24 1133 DD/ 1130 TD/TT: Building Superintendent: LURDES kaufman perf SPECT rest str Reviewed date:08/01/2024 04:11:25 PM Interpretation: Performing Lab: Notes/Report: Source Facility: [place] [address] [place] [address] Nuclear Medicine Report Signed Patient: ABUNDIO IGLESIAS MR#: [id number] : 1955 Acct:[id number] Age/Sex: 68 / F ADM Date: 07/29/24 Loc: NM Attending Dr: Leandro Lay M.D. Ordering Physician: Leandro Lay M.D. Date of Service: 07/29/24 Procedure(s): NM mandeep perf SPECT rest str Accession Number(s): [id number] cc: MILLY PEPE ; Leandro Lay M.D. Patient Name: ABUNDIO IGLESIAS MR#: [id number] : 1955 Exam Date: 07/29/2024 Ordering Doctor: DR LEANDRO LAY M.D. RADIOLOGY REPORT PROCEDURE: NM MANDEEP PERF SPECT REST STR COMPARISON: None. INDICATIONS: SHORTNESS OF BREATH TECHNIQUE: Exam Description: Stress/Rest one day protocol gated SPECT Rest Imagin.6 mCi Tc-99m Cardiolite IV on 07/29/2024 Stress Imaging 30.9 mCi Tc-99m Cardiolite IV on 07/29/2024 Exercise Protocol: Archie Heart Rate (bpm): Rest: 73 Max: 153 PMHR: 99 Blood Pressure: Rest: 138/78 Max: 146/90 Exercise Time: Minutes: 6 Seconds: 25 Stage Reached: Stage: 3 Mets 8.2 Symptoms: Rest and peak stress ECG findings were pending and the exercise portion of the study was pending per attending physician [facility] . For more details please see separate cardiac stress test report. FINDINGS: QUALITY OF STUDY: Good PERFUSION DEFECT: None LOCATION: SIZE: SEVERITY: TYPE: WALL MOTION: Normal LV SIZE: 42 mL. TID / TCD: 0.8 LVEF: Calculated EF 84%. SUMMARY: Normal Myocardial perfusion imaging study CONCLUSION: Normal myocardial perfusion stress test without evidence of ischemia or infarction Normal left ventricle systolic function, EF 84% No transient ischemic dilatation, TID 0.8 EKG portion of stress test is reported seperately Dictated by: Sarthak Shepherd MD on 08/01/2024 at 15:47 Approved by: Sarthak Shepherd MD on 08/01/2024 at 15:51 Dictated By: Sarthak Shepherd M.D. Signed By: 08/01/24 1553 DD/ 1551 TD/TT: Building Superintendent: [place] [address] Nuclear Medicine Report Signed Patient: ABNUDIO IGLESIAS MR#: [id number] : 1955 Acct:[id number] Age/Sex: 68 / F ADM Date: 07/29/24 Loc: [place] Attending Dr: Leandro Lay M.D. Ordering Physician: Leandro Lay M.D. Date of Service: 07/29/24 Procedure(s): NM mandeep perf SPECT rest str Accession Number(s): [id number] cc: MILLY PEEP ; Leandro Lay M.D. Patient Name: ABUNDIO IGLESIAS MR#: [id number] : 1955 Exam Date: 07/29/2024 Ordering Doctor: DR LEANDRO LAY M.D. RADIOLOGY REPORT PROCEDURE: NM MANDEEP PE RF SPECT REST STR COMPARISON: None. INDICATIONS: SHORTNE SS OF BREATH TECHNIQUE: Exam Description: Stress/Rest one day protocol gated SPECT Rest Imagin.6 mC i Tc-99m Cardiolite IV on 07/29/2024 Stress Imaging 30.9 mCi Tc-99m Cardiolite IV on 07/29/2024 Exercise Protocol: Archie Heart Rate (bpm): Re st: 73 Max: 153 PMHR: 99 Blood Pressure: Res t: 138/78 Max: 146/90 Exercise Time: Minut es: 6 Seconds: 25 Stage Reached: Stage : 3 Mets 8.2 Symptoms: Rest and peak stress ECG findings were pending and the exercise portion of the study was pending pe r attending physician [facility] . For more details please see separate cardiac str ess test report. FINDINGS: QUALITY OF STUDY: Good PERFUSION DEFECT: None LOCATION: SIZE: SEVERITY: TYPE: WALL MOTION: Normal LV SIZE: 42 mL. TID / TCD: 0.8 LVEF: Calculated EF 84%. SUMMARY: Normal Myocardial perfusion imaging study CONCLUSION: Normal myocardial perfusion stress test without evidence of ischemia or infarction Normal left ventricl e systolic function, EF 84% No transient ischemi c dilatation, TID 0.8 EKG portion of stres s test is reported seperately Dictated by: Sarthak Shepherd MD on 08/01/2024 at 15:47 Approved by: Sarthak Shepherd MD on 08/01/2024 at 15:51 Dictated By: Sarthak Shepherd M.D. Signed By: 08/01/24 1553 DD/ 155 TD/TT: Building Superintendent: PROF Fischer(COMP METB) Reviewed date:07/04/2024 01:50:48 PM Interpretation: Performing Lab: Notes/Report: [facility] , Sodium 137 136-145 mmol/L Potassium 4.2 3.5-5.1 mmol/L Chloride 100 98-107 mmol/L Carbon Dioxide 28.7 21.0-32.0 mmol/L Anion Gap 12.5 Glucose 98 74-106 mg/dL Blood Urea Nitrogen 22.0 7.0-18.0 mg/dL Creatinine 0.98 0.55-1.02 mg/dL Estimated GFR ( Lalita >60 >=60 mL/min/1.73m 2 Estimated GFR (Non- Trini 57 >=60 mL/min/1.73m 2 BUN Creatinine Ratio 22.4 Calcium 8.9 8.5-10.1 mg/dL Bilirubin Total 0.7 0.2-1.0 mg/dL Aspartate Amino Transferase 20 15-37 U/L Alanine Aminotransferase 21 14-59 U/L Alkaline Phosphatase 79 46-116 U/L Total Protein 7.1 6.4-8.2 g/dL Albumin Level 3.8 3.4-5.0 g/dL Globulin 3.3 Albumin Globulin Ratio 1.2 Performing Lab: see note ML - [facility] LB LIPID PROFILE Reviewed date:07/04/2024 01:50:48 PM Interpretation: Performing Lab: Notes/Report: [facility] , Triglycerides 51 <=150 mg/dL Cholesterol 173 <=200 mg/dL HDL Cholesterol 72 40-60 mg/dL <40 mg/dl - HIGH CARDIOVASCULAR RISK > or =60 mg/dl - LOW CARDIOVASCULAR RISK LDL Cholesterol Calculated 91.0 100-129 mg/dl NEAR OR ABOVE OPTIMAL <100 mg/dl OPTIMAL >190 mg/dl VERY HIGH 130-159 mg/dl BORDERLINE HIGH 160-189 mg/dl HIGH VLDL CHOLESTEROL 10.2 Chol HDL Ratio 2.4 3.3 - 4.4 LOW RISK >11.0 HIGH RISK 4.4 - 7.1 AVERAGE RISK 7.1 - 11.0 MODERATE RISK Performing Lab: see note ML - [facility] LB IRON Reviewed date:07/04/2024 01:50:48 PM Interpretation: Performing Lab: Notes/Report: [facility] , Iron 90.0 50.0-170.0 ug/dL Performing Lab: see note - [facility] LB INSULIN Reviewed date:07/04/2024 01:50:48 PM Interpretation: Performing Lab: Notes/Report: [facility] , Insulin 6.7 2.6-24.9 uIU/mL [address], [place] [id number] Performed at: [facility] Kiln Stoker: Killian Dixon PhD, Phone: [phone] Performing Lab: see note [facility] GLYCOHEMOGLOBIN A1C Reviewed date:07/04/2024 01:50:48 PM Interpretation: Performing Lab: Notes/Report: [facility] , Glycohemoglobin A1C 5.9 4.5-6.2 % ADA RECOMMENDED LIMIT 4.0 - 6.0 ACTION SUGGESTED ADA THERAPEUTIC TARGET < 7.0 > 7.0 Estimated Average Glucose 123 Performing Lab: see note - [facility] Reason For Referral No Information Medications Medication SIG (Take, Route, Frequency, Duration) Notes Start Date End Date Status Irbesartan 300 MG 1 tablet Orally Once a day for 30 days Active Levothyroxine Sodium 75 MCG TAKE 1 TABLE T BY MOUTH ONCE DAILY IN THE MORNING ON AN EMPTY STOMACH. WAIT 30 MINUTES BEFORE EATING OR DRINKING for 90 Active Liothyronine Sodium 5 MCG TAKE 1 TABLET BY MOUTH ONCE DAILY IN THE MORNING ON AN EMPTY STOMACH. WAIT 30 MINUTES BEFORE EATING OR DRINKING for 90 Active Ondansetron HCl 4 MG 1 tablet Orally BID prn for 14 days 02/15/2024 Active Pravastatin Sodium 40 MG Take 1 tablet b y mouth once daily for 30 days for 90 Active Cipro 500 MG 1 tablet Orally ever y 12 hrs for 10 days 02/14/2024 Active Social History Tobacco Use: Social History Observation Description Date Details (start date - stop date) Former Smoker NA - NA Tobacco Use/Smoking Question Answer Notes Patient is a former smoker How long has it been since you last smoked? > 10 years Alcohol Screen (Audit-C) Question Answer Notes Did you have a drink containing alcohol in the p ast year? No Points 0 Interpretation Negative AUDIT-C (Standard) Question Answer Notes Did you have a drink containing alcohol in the p ast year? 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 Problem Anxiety disorder (788679531) Anxiety disorder, unspecified (F41.9) Active confirmed Problem Chronic pharyngitis (355737) Chronic pharyngitis (J31.2) Active confirmed Problem Palpitations (90788418) Palpitations (R00.2) Active confirmed Problem Dysuria (40745051) Dysuria (R30.0) Active confi rmed Problem Gross hematuria (333950066) Gross hematuria (R31.0) Active confirmed Problem Family history of diabetes mellitus (605415648) Family history of diabetes mellitus (Z83.3) Active confirmed Problem Abdominal pain (04703451) Abdominal pain (R10.9) Active confirmed Problem Chest pain (48004797) Chest pain (R07.9) Active confirmed Problem Hyperlipidaemia (13648262) Hyperlipemia (E78.5) Active confirmed Problem Hypertension (69050337) Hypertension (I10) Active confirmed Problem Gastroesophageal reflux disease (041141688) GERD (gastroesophageal reflux disease) (K21.9) Active confirmed Problem Dyslipidemia (986055487) Dyslipidemia (E78.5) Active confirmed Problem Anxiety (94428590) Anxiety (F41.9) Active confi rmed Problem Edema (01043562) Edema (R60.9) Active confirmed Problem Tachycardia (0865363) Tachycardia (R00.0) Active confirmed Problem Dyspnea on exertion (13007260) Dyspnea on exertion (R06.09) Active confirmed Problem Hyperglycemia (67876980) Hyperglycemia (R73.9) Active confirmed Problem Insomnia (160462869) Insomnia (G47.00) Active confirmed Problem Shoulder pain (70712790) Shoulder pain (M25.519) Active confirmed Problem History of cholecystectomy (259285891) History of cholecystectomy (Z90.49) Active confirmed Problem Esophageal reflux (157963807) Esophageal reflux (K21.9) Active confirmed Problem Urinary tract infectious disease (02046226) UTI (urinary tract infection) (N39.0) Active confirmed Problem Nausea (500166625) Nausea (R11.0) Active confir med Problem Pharyngitis (944729244) Pharyngitis (J02.9) Active confirmed Problem Acute bronchitis (56389515) Acute bronchitis (J20.9) Active confirmed Problem Pre-surgery evaluation (264344775) Pre-op exam (Z01.818) Active confirmed Problem Body mass index 30.00 to 34.99 (648047142153974) BMI 34.0-34.9,adult (Z68.34) Active confirmed Problem Alopecia areata (25727873) Alopecia areata (L63.9) Active confirmed Problem Renal function tests abnormal (220053666) Renal function test abnormal (R94.4) Active confirmed Problem Sciatica (44523008) Sciatic pain , left (M54.32) Active confirmed Problem Blood in urine (10408734) Blood in urine (R31.9) Active confirmed Problem Right upper quadrant pain (335059422) Abdominal pain, right upper quadrant (R10.11) Active confirmed Problem Right upper quadrant pain (550564619) RUQ pain (R10.11) Active confirmed Problem Chronic gastritis (5606534) Chronic gastritis (K29.50) Active confirmed Problem Renal calculus (82714904) Renal calculus (N20.0) Active confirmed Problem Essential hypertension (12196035) Essential (primary) hypertension (I10) Active confirmed Problem History of gastrointestinal disease (185119103) H/O esophageal reflux (Z87.19) Active confirmed Problem History of tubal ligation (897486326) History of tubal ligation (Z98.51) Active confirmed Problem Annual wellness visit (504284845662279) Wellness examination (Z00.00) Active confirmed Problem Family history of lung cancer (020656666) Family history of lung cancer (Z80.1) Active confirmed Problem Pain in pelvis (71768435) Pelvic pain (R10.2) Active confirmed Problem Postablative hypothyroidism (983520872) Other postablative hypothyroidism (E89.0) Active confirmed Problem Graves' disease (330831242) Graves' disease (E05.00) Active confirmed Problem Chronic pharyngitis (197138) Sore throat, chronic (J31.2) Active confirmed Problem Microscopic hematuria (782874372) Microscopic hematuria (R31.29) Active confirmed Problem 86438916 Primary hypertension (I10) Active confirmed Problem Lower abdominal pain (77656081) Suprapubic distress, unspecified laterality (R10.30) Active confirmed Problem 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 Problem Obese class I (finding) (399006697984363) Class 1 obesity (E66.9) Active confirmed Vital Signs Heart Rate 82 /min 06/27/2024 Temperature 99.0 degrees Fahrenheit 02/14/2024 Oximetry 96 % 06/27/2024 Blood pressure diastolic 80 mm Hg 08/09/2024 Height 60 in 08/09/2024 Blood pressure systolic 138 mm Hg 08/09/2024 Weight 166.2 lbs 08/09/2024 BMI 32.46 kg/m2 08/09/2024 Encounters Encounter Location Date Provider Diagnosis [address] [address] 01/02/2024 Milly Pepe Dysuria R30.[address] [address] 02/14/2024 Milly Pepe UTI (urinary tract infection) N39.[address] [address] 05/21/2024 Milly Pepe Primary hypertension I10 ; Class 1 obesity E66.9 and Right knee pain M25.[address] [address] 06/27/2024 Milly Pepe Tachycardia R00.0 ; Anxiety F41.9 ; Hypertension I10 and Dyspnea on exertion R06.[address] [address] 08/09/2024 Milly Pepe UTI (urinary tract infection) N39.[address] [address] 09/03/2024 Milly Pepe Primary hypertension I10 and Wellness examination Z00.[address] [address] 03/05/2024 Milly Pepe [facility] [address] [facility] [place] [address] 03/27/2024 Milly Pepe [facility] [address] [facility] [place] [address] 07/04/2024 Milly Pepe [facility] [address] [facility] [place] [address] 08/09/2024 Nico sonia [facility] [address] [facility] [place] [address] 08/12/2024 Nico [facility] [address] [facility] [place] [address] 08/15/2024 Milly Pepe UTI (urinary tract infection) N39.0 [facility] [address] [facility] [place] [address] 01/05/2024 Milly Pepe UTI (urinary tract infection) N39.0 [facility] [address] [place] [address] 01/29/2024 Milly Pepe Urinary tract infection N39.0 [facility] [address] [place] [facility] [place] [address] 02/13/2024 Milly Pepe [facility] [address] [facility] [place] [address] 02/14/2024 Milly Pepe Anemia D64.9 and Dehydration E86.0 [place] [address] [place] [address] 02/14/2024 Milly Pepe [facility] [address] [place] [address] 02/15/2024 Milly Pepe Assessments Encounter Date Diagnosis (ICD Code) Assessment Notes Treatment Notes Treatment Clinical Notes Section Notes 01/02/2024 Dysuria (ICD-10 - R30.0) 02/14/2024 UTI (urinary tract infection) (ICD-10 - N39.0) repeat UA CS 7-10 days after completion abx 05/21/2024 Primary hypertension (ICD-10 - I10) continue irbesartan BP ok, continue monitor 05/21/2024 Class 1 obesity (ICD-10 - E66.9) going to restart wt [employer] walking fu if needed discussed meds 08/09/2024 UTI (urinary tract infection) (ICD-10 - N39.0) close monitoring of sx with kidney stone issues, if feeling worse, needs to fu pt verbalizes understanding 01/05/2024 UTI (urinary tract infection) (ICD-10 - N39.0) 01/29/2024 Urinary tract infection (ICD-10 - N39.0) 02/14/2024 Anemia (ICD-10 - D64.9) 02/14/2024 Dehydration (ICD-10 - E86.0) 08/15/2024 UTI (urinary tract infection) (ICD-10 - N39.0) 09/03/2024 Wellness examination (ICD-10 - Z00.00) 09/03/2024 Primary hypertension (ICD-10 - I10) 06/27/2024 Tachycardia (ICD-10 - R00.0) fu cardiology 06/27/2024 Anxiety (ICD-10 - F41.9) discussed medications handout given 05/21/2024 Right knee pain (ICD-10 - M25.561) rest ice brace nsaids fu if not improving 06/27/2024 Hypertension (ICD-10 - I10) continue irbesartan, continue monitor, looks good today 06/27/2024 Dyspnea on exertion (ICD-10 - R06.09) fu cardiology call for apt Plan Of Treatment Pending Test Test Name Order Date CMP (COMPLETE METABOLIC PANEL) CMP (COMPLETE METABOLIC PANEL) UA (URINALYSIS, COMPLETE) 01/02/2024 UA (URINALYSIS, COMPLETE) 02/14/2024 UA (URINALYSIS, COMPLETE) 08/09/2024 UA (URINALYSIS, COMPLETE) 06/19/2023 UA (URINALYSIS, COMPLETE) 01/05/2024 UA (URINALYSIS, COMPLETE) 01/29/2024 UA (URINALYSIS, COMPLETE) 08/15/2024 HEMOGLOBIN A1C (GLYCO) 09/03/2024 HEMOGLOBIN A1C (GLYCO) 06/27/2024 HEMOGLOBIN A1C (GLYCO) 06/13/2023 IRON, TOTAL 06/13/2023 IRON, TOTAL 06/27/2024 IRON, TOTAL 09/03/2024 LIPID PANEL (CHOL/TRIG/HDL/LDL) 09/04/19 25 LIPID PANEL (CHOL/TRIG/HDL/LDL) 06/28/19 25 LIPID PANEL (CHOL/TRIG/HDL/LDL) 06/13/19 24 CBC WITH DIFF 06/13/2023 CBC WITH DIFF 02/14/2024 VITAMIN D, 25 LEVEL (TOTAL) 06/13/2023 VITAMIN D, 25 LEVEL (TOTAL) 06/27/2024 VITAMIN D, 25 LEVEL (TOTAL) 09/03/2024 Urine Culture 01/29/2024 Urine Culture 08/09/2024 Urine Culture 01/05/2024 Urine Culture 01/02/2024 Urine Culture 02/14/2024 UA (Urinalysis, Dipstix only - w/o micro ) 01/02/2024 Insulin Level 06/13/2023 Insulin Level 06/27/2024 Insulin Level 09/03/2024 CMP - Comprehensive Metabolic Panel 01/27 CBC W/AUTO DIFF 02/14/2024 CULTURE URINE 06/19/2023 URINE MICROSCOPIC ONLY 01/29/2024 ECHOCARDIO M or 2D COMPLETE 03/08/2023 US CAROTID ART ELTON 03/08/2023 XR DEXA BONE DENSITY 09/03/2024 XR KUB 1 VIEW 06/22/2023 THYROID PANEL (T4/TSH/FREE T3) 5 THYROID PANEL (T4/TSH/FREE T3) 4 THYROID PANEL (T4/TSH/FREE T3) 5 CMP (COMP MET RENEE) w/eGFR CKD-EPI 2024 CMP (COMP MET RENEE) w/eGFR CKD-EPI 2024 CBC WITH DIFF 06/27/2024 CBC WITH DIFF 09/03/2024 Insurance Providers Payer Name Payer Address Payer Phone Subscriber Number Group Number Insured Name Patient Relationship to Insured Coverage Start Date Coverage End Date [employer] [address] [place] [address] [phone] [id number] Abundio Iglesias Self - patient is the insured 3 Medical (General) History Medical History History ICD Code Esophageal reflux K21.9 Malignant neoplasm of submandibular glan d C08.0 Other postablative hypothyroidism E89.0 Edema R60.9 Dyslipidemia E78.5 Hypertension I10 BMI 34.0-34.9,adult Z68.34 History of cholecystectomy Z90.49 Graves' disease E05.00 Salivary gland cancer C08.9 History of tubal ligation Z98.51 Anxiety F41.9 Tachycardia R00.0 Hyperglycemia R73.9 UTI (urinary tract infection) N39.0 Pelvic pain R10.2 Pharyngitis J02.9 Blood in urine R31.9 Chronic gastritis K29.50 H/O esophageal reflux Z87.19 GERD (gastroesophageal reflux disease) K 21.9 Wellness examination Z00.00 Nausea R11.0 Acute bronchitis J20.9 RUQ pain R10.11 Sciatic pain, left M54.32 Chronic pharyngitis J31.2 Sore throat, chronic J31.2 Renal calculus N20.0 Renal function test abnormal R94.4 Pre-op exam Z01.818 Suprapubic distress, unspecified lateral ity R10.30 Gross hematuria R31.0 Microscopic hematuria R31.29 Dysuria R30.0 Dyspnea on exertion R06.09 Chest pain R07.9 Alopecia areata L63.9 Abdominal pain R10.9 Palpitations R00.2 Shoulder pain M25.519 Insomnia G47.00 Abdominal pain, right upper quadrant R10 .11 Family history of lung cancer Z80.1 Family history of diabetes mellitus Z83. 3 Surgical History Surgery Date(Month/Year) stent for kidney stones placed and remov ed 02/2024 Cancer Removal- Neck Gall Bladder Removal
--- OUTSIDE RECORDS SUMMARY | 2024-09-10 09:26 | XMS_ITS | Clinical Summary ---
Author Organization [employer] tem Address [id number] [address] [place] [address] Care Team Providers Care Fold Skiver Name Role Phone Vladislav East MD Primary Care Provider [phone] Allergies Active Allergy Reactions Criticality Noted Date Comments Trolamine Salicylate Swelling 09/16/2016 Celebrex, vioxx Celecoxib Swelling 02/16/2024 Morphine Shortness Of Breath High 03/12/2024 Nsaids (Non-Steroidal Anti-Inflammatory Drug) Other (See Comments) 01/28/2021 Sulfa (Sulfonamide Antibiotics) 05/11/2017 Trimethoprim Other (See Comments) 01/28/2021 Medications levothyroxine (SYNTHROID, LEVOTHROID) 75 MCG tablet Take 1 tablet (75 mcg total) by mouth in the morning. 07/21/2016 Active liothyronine (CYTOMEL) 5 MCG tablet Take 1 tablet (5 mcg total) by mouth in the morning. 03/28/2019 Active pravastatin (PRAVACHOL) 40 mg tablet Take 1 tablet (40 mg total) by mouth nightly. Active irbesartan (AVAPRO) 300 mg tablet Take 1 tablet (300 mg total) by mouth in the morning. Active iydkftcl-vtex-Z A-calcium &mins (THERAGRAN-M) 9 mg iron-400 mcg tablet Take 1 tablet by mouth in the morning. Active HYDROcodone-nahum taminophen (NORCO) 5-325 mg per tabletIndicatio ns:Kidney stones Take 1 tablet by mouth every 6 (six) hours as needed for pain for up to 4 doses. Max Daily Amount: 4 tablets 4 tablet 03/26/2024 Active Active Problems Problem Noted Date Diagnosed Date [...] Graves' disease 12/27/2012 History of cholecystectomy 12/27/2012 Immunizations Immunization Administration Dates Next Due Tdap 10/22/2021 Zoster Live 10/24/2015 Zoster Vaccine Recombinant 02/08/2021,11/21/2020 Family History Medical History Relation Name Comments Diabetes Brother Hypertension Brother Arthritis Father Diabetes Father Heart disease Father Hypertension Father Cancer Maternal Grandfather lung Heart disease Maternal Grandmother Diabetes Mother Heart disease Mother Hypertension Mother Hypertension Sister Breast cancer Neg Hx Ovarian cancer Neg Hx Relation Name Status Comments Brother Alive Father Maternal Grandfather Maternal Grandmother Mother Sister Alive Social History Tobacco Use Types Packs/Day Years Used Date Smoking Tobacco: Former Cigarettes Q uit: 2006 Smokeless Tobacco: Never Tobacco Cessation:Counseling Given: Not Answered Alcohol Use Standard Drinks/Week Comments No 0 (1 standard drink = 0.6 oz pur e alcohol) [employer] Utilities Answer Date Recorded In the past 12 months has th e electric, gas, oil, or water company [...] got money to buy more. Never True 04/09/2024 Within the past 12 months th e food we bought just didn't last and we didn't have money to get more. Never True 04/09/2024 Purpose - Life Answer Date Recorded Purpose and direction in life Unknown Comments No Sex and Gender Information Value Date Recorded Sex Assigned at Not on file Legal Sex Female 11:33 AM EDT Gender Identity Not on file Sexual Orientation Not on file Last Filed Vital Signs Vital Sign Reading Time Taken Comments Blood Pressure 103/72 04/09/2024 2:57 PM EST Pulse 73 04/09/2024 2:57 PM EST Temperature 36.1 C (97 F) 03/26/2024 10:24 AM EST Respiratory Rate 20 03/26/2024 11:05 AM EST Oxygen Saturation 95% 03/26/2024 11:05 AM EST Inhaled Oxygen Concentration - - Weight 73.5 kg (162 lb) 04/09/2024 2:57 PM EST Height 152.4 cm (5') 04/09/2024 2:57 PM EST Body Mass Index 31.64 04/09/2024 2:57 PM EST Plan of Treatment Upcoming Encounters Date Type Department Care Team (Late st Contact Info) Description 04/15/2025 1:15 PM EST Office Visit [facility] [address] [place] [address] [place] [address] [address] [place] [address] Dimitry Aly MD [address] [place] [address] Health Maintenance Due Date Last Done Comments Fall Risk Screening 2022 Adult BMI Follow Up Plan 01/06/2024 01/05/2023 Mammogram 10/22/2024 10/23/2023, 05/0 04/2022, 03/30/2021, Additional history exists Influenza Vaccine 10/28/2024 Depression Screening 02/15/2025 02/16/2024 Adult BMI Screening 04/09/2025 04/09/2024 Tobacco Screening 04/09/2025 04/09/2024 Colonoscopy 03/09/2030 03/09/2020, 02/27, 03/19/2012 DTaP,Tdap and Td Vaccines (2 - Td or Tdap) 10/23/2031 10/22/2021 Zoster (Shingles) Vaccine Completed 2020, 11/21/2020, 10/24/2015 Pap Smear Discontinued 01/05/2023, 10/2022, 09/19/2017, Additional history exists Goals Goal Patient Goal Type Associated Problems Recent Progress Patient-Stated? Author <enter goal here> General Yes Clarice Nayak LSW Note: Evaluation of progress towards goal: pt would like to return home self care, family support. Medical Devices Implanted Type Area Developmental Mathematics Instructor Device Identifier Shelf Expiration Date Model / Serial / Lot Stent Percuflex Delphia+ 6x24 - [id number] Implanted:Qty: 1 on 05/11/2017 by Dimitry Aly MD at [facility] Stent Left: Ureter [employer] 08/05/2019 [id number] / / [id number] Stent Percuflex Delphia+ 6x24 - [id number] Implanted:Qty: 1 on 05/11/2017 by Dimitry Aly MD at [facility] Stent Right: Ureter [employer] 12/09/2019 [id number] / / [id number] Set Stnt 24cm 6fr Universa 2 Pgtl Crv Ureter Aq Rdpq Grad - [id number] Implanted:Qty: 1 on 02/15/2024 by Neri Schuler MD at [facility] Stent Left: Ureter [employer] 09/28/2026 [id number] / / [id number] Explanted Type Area Developmental Mathematics Instructor Device Identifier Shelf Expiration Date Model / Serial / Lot Stent Uret 6fr 22cm Pgtl Crv Tpr Tip Bldr Mrk Lp Lg Inr Lum Rpl [id number] [facility] [id number] - Sn/A - [id number] Implanted:Qty: 1 on 02/12/2021 by Dimitry Aly MD at [facility] Explanted:Qty: 1 on 03/31/2021 by Dimitry Aly MD at [facility] Stent Left: Ureter [employer] SCIENTIFIC UROLOGY 11/13/2023 [id number] / N/A / [id number] Stent Uret 6fr 22cm Pgtl Crv Tpr Tip Bldr Mrk Lp Lg Inr Lum Rpl [id number] [facility] [id number] - Sn/A - [id number] Implanted:Qty: 1 on 02/12/2021 by Dimitry Aly MD at [facility] Explanted:Qty: 1 on 03/31/2021 by Dimitry Aly MD at [facility] Stent Right: Ureter [employer] SCIENTIFIC UROLOGY 08/24/2023 [id number] / N/A / [id number] Procedures Procedure Name Priority Date/Time Associated Diagnosis Comments MAMM SCREENING BILATERAL W CAD Routine 10/23/2023 11:54 AM EDT Encounter for screening mammogram for breast cancer HIGH RISK HPV W/EDGAR Routine 01/05/2023 6:32 AM EST Cervical smear, as part of routine gynecological examination COLONOSCOPY 03/09/2020 8:36 AM EST from Last 3 Months or Most Recently Relevant to Health Maintenance Results * Mammography screening bilateral with CAD (10/23/2023 11:54 AM EDT) Anatomical Region Laterality Modality Breast Bilateral Mammography 10/24/2023 11:1 6 AM EDT Narrative 10/24/2023 11:24 AM EDT ONELIA IGLESIAS 1955 [id number] EXAM: MAMM SCREENING BILATERAL W CAD, 10/23/2023 [...] 11:24 AM 1 c MAMM 1 YR [facility] Accredited Performing Facility: [facility] - Mammography/DEXA Imaging [address] [facility] [address] Procedure Note Darrel Phillips MD - 10/24/2023 ONELIA IGLESIAS 1955 [id number] EXAM: MAMM SCREENING BILATERAL W CAD, 10/23/2023 11:35 AM CLINICAL INDICATIONS: Screening, Encounter for screening mammogram forbreast cancer COMPARISON: 09/27/2017 through 06/29/2022 TECHNIQUE: Bilateral digital tomosynthesis MLO and CC views of the breasts wereobtained, with creation of synthetic 2D views. Computer aided detectionwas utilized. FINDINGS: The breasts are heterogeneously dense, which may obscure small masses. There are no suspicious masses, calcifications, or areas of architecturaldistortion. IMPRESSION: No mammographic evidence of malignancy. BI-RADS: BI-RADS 1 - Negative Recommendation: Routine screening mammogram in 1 year. Finalized by Darrel Phillips MD on 10/24/2023 11:24 AM 1 c MAMM 1 YR [facility] Accredited Performing Facility: [facility] - Mammography/DEXA Imaging [address] [facility] [address] [address] [employer] IMG MAMMOGRAPHY ORDERABL ES Final Result * High risk HPV w/edgar (01/05/2023 6:32 AM EST) Hpv specimen type ThinPrep 01/06/2023 6:32 AM EST [facility] Hpv 16 Negative Negative^N egative 01/06/2023 3:34 PM EST [facility] Hpv 18 Negative Negative^N egative 01/06/2023 3:34 PM EST [facility] Other high risk hpv Negative Negative^N egative 01/06/2023 3:34 PM EST [facility] Comment: HPV types 31,33,35,39,45,52,56,58,59,66 and 68 DNA were undetectable. THINP 01/05/2023 6:32 AM EST 01/06/2023 6:33 AM EST us [place] [employer] LAB BLOOD ORDERABLES Fin al Result [facility] [address] [facility], [place] [address] [facility] [address] [place] [address], [address] [place] [address] * Colonoscopy (03/09/2020 8:36 AM EST) 03/09/2020 8:36 AM EST Narrative PM CARDIOVASCULAR - 03/09/2020 8:[address] [facility] Patient Name: Onelia Iglesias Procedure Date No Time: 03/09/2020 CSN : [id number] Date of : 1955 Admit Type: Outpatient Age: 64 Room: [place] [address] Gender: Female Note Status: Finalized Attending MD: Jerald Malhotra DO Procedure: Colonoscopy Indications: Abdominal pain in the right upper quadrant, Rectal bleeding Providers: Jerald Malhotra DO Medicines: Propofol per Anesthesia Complications: No immediate complications. Procedure: After I obtained informed consent, the scope was passed under direct vision. Throughout the procedure, the patient's blood pressure, pulse, and oxygen saturations were monitored continuously. The [facility]LYMPUS [id number] # [id number] PEDIATRIC COLONOSCOPE was introduced through the anus and advanced to the cecum, identified by appendiceal orifice and ileocecal valve. The colonoscopy was performed without difficulty. The patient tolerated the procedure well. The quality of the bowel preparation was excellent. Findings: The perianal and digital rectal examinations were normal. A 3 mm polyp was found in the appendiceal orifice. The polyp was sessile. The polyp was removed with a hot snare. Resection and retrieval were complete. The exam was otherwise without abnormality on direct and retroflexion views. Estimated Blood Loss: Estimated blood loss: none. Impression: - One 3 mm polyp at the appendiceal orifice, removed with a hot snare. Resected and retrieved. - The examination was otherwise normal on direct and retroflexion views. Recommendation: - Discharge patient to home. - Repeat colonoscopy in 5 years for surveillance based on pathology results. - Return to my office in 1 week. Procedure Code(s): --- Professional --- 67733, Colonoscopy, flexible; with removal of tumor(s), polyp(s), or other lesion(s) by snare technique Diagnosis Code(s): --- Professional --- K63.5, Polyp of colon R10.11, Right upper quadrant pain K62.5, Hemorrhage of anus and rectum CPT copyright 2019 [employer]. All rights reserved. The codes documented in this report are preliminary and upon crew car driver review may be revised to meet current compliance requirements. DO Jerald Guillen DO 03/09/2020 8:51:49 AM Number of Addenda: 0 Note Initiated On: 03/09/2020 8:36 AM Procedure Note Jerald Malhotra DO - 03/09/[address] [facility] Patient Name: Onelia Iglesias Procedure Date No Time: 03/09/2020 CSN : [id number] Date of : 1955 Admit Type: Outpatient Age: 64 Room: [place] [address] Gender: Female Note Status: Finalized Attending MD: Jerald Malhotra DO Procedure: Colonoscopy Indications: Abdominal pain in the right upper quadrant, Rectal bleeding Providers: Jerald Malhotra DO Medicines: Propofol per Anesthesia Complications: No immediate complications. Procedure: After I obtained informed consent, the scope was passed under direct vision. Throughout theprocedure, the patient's blood pressure, pulse, and oxygen saturations were monitored continuously. [facility] [id number] # [id number] PEDIATRIC COLONOSCOPE was introduced through the anus and advanced to thececum, identified by appendiceal orifice and ileocecalvalve. The colonoscopy was performed without difficulty.The patient tolerated the procedure well. The qualityof the bowel preparation was excellent. Findings: The perianal and digital rectal examinations were normal. A 3 mm polyp was found in the appendiceal orifice. The polyp was sessile. The polyp was removed with a hot snare. Resection andretrieval were complete. The exam was otherwise without abnormality on direct and retroflexion views. Estimated Blood Loss: Estimated blood loss: none. Impression: - One 3 mm polyp at the appendiceal orifice,removed with a hot snare. Resected and retrieved. - The examination was otherwise normal on directand retroflexion views. Recommendation: - Discharge patient to home. - Repeat colonoscopy in 5 years for surveillancebased on pathology results. - Return to my office in 1 week. Procedure Code(s): --- Professional --- 81250, Colonoscopy, flexible; with removal of tumor(s), polyp(s), or other lesion(s) by snare technique Diagnosis Code(s): --- Professional --- K63.5, Polyp of colon R10.11, Right upper quadrant pain K62.5, Hemorrhage of anus and rectum CPT copyright 2019 [employer]. All rights reserved. The codes documented in this report are preliminary and upon crew car driver reviewmay be revised to meet current compliance requirements. DO Jerald Guillen DO 03/09/2020 8:51:49 AM Number of Addenda: 0 Note Initiated On: 03/09/2020 8:36 AM Jerald Malhotra DO GI PROCEDURE ORDERABLES Fin al Result PM CARDIOVASCULAR from Last 3 Months or Most Recently Relevant to Health Maintenance Insurance [employer] Advance Directives * Full Code (Latest Code Status on File) Date Activated Date Inactivated Comments 02/15/2024 3:15 AM 02/16/2024 6:31 PM * Full Code Date Activated Date Inactivated Comments 02/11/2021 6:45 PM 02/12/2021 10:20 PM Care Teams Fold Skiver Relationship Specialty Start Date End Date Vladislav East MD PCP - General Family Medicine 09/24/18
--- OUTSIDE RECORDS SUMMARY | 2024-09-10 09:48 | XMS_ITS | CCD ---
Author Organization [facility] CliniSyut Care Team Providers Care Assembly Hand Name Role Phone MILLY PEPE Admitting Unavailable [...] Unavailable My East MD Primary Care Provider [phone] RESIDENT, EMILE ADMITTING NIGHT Admitting Un available NIMISHA JEAN Attending Unavailable HOY, MY M Primary Care Unavailable SHEEBA, YOLY G Consulting Unavailable ENRI VALLEJO Consulting Unavailable SHEEBA, YOLY Attending Unavailable SHEEBA, YOLY Referring Unavailable HOY, MY M Primary Care Unavailable SHAWNEE RODRÍGUEZ Attending Unavailable SHAWNEE RODRÍGUEZ Referring Unavailable HOY, MY M Primary Care Unavailable SHEEBA, YOLY G Referring Unavailable HOY, MY M Primary Care Unavailable SHEEBA, YOLY G Referring Unavailable HOY, MY M Primary Care Unavailable SHEEBA, YOLY G Referring Unavailable HOY, MY M Primary Care Unavailable SHEEBA, YOLY G Admitting Unavailable SHEEBA, YOLY G Attending Unavailable HOY, MY M Primary Care Unavailable SHEEBA, YOLY Referring Unavailable HOY, MY M Primary Care Unavailable SHEEBA, YOLY Referring Unavailable HOY, MY M Primary Care Unavailable SHEEBA, YOLY G Attending Unavailable SHEEBA, YOLY G Referring Unavailable HOY, MY M Primary Care Unavailable HOY, MY M Referring Unavailable HOY, MY M Primary Care Unavailable SHEEBA, YOLY G Attending Unavailable HOY, MY M Referring Unavailable HOY, MY M Primary Care Unavailable SHEEBA, YOLY G Attending Unavailable HOY, MY M Referring Unavailable MY EAST Primary Care Unavailable ERIC RICE Attending Unavailable Milly Pepe Attending Unavailable Milly Pepe Admitting Unavailable My [place] MD Primary Care Provider Milly Pepe MD Unavailable FERMIN RICKETTS Attending Unavailable FERMIN RICKETTS Referring Unavailable Allergies Allergy Classification Reported Allergen(s) Allergy Type Date of Onset Reaction(s) Facility (5 sources) NSAIDs; Translations: [NSAIDS (NON-STEROIDAL ANTI-INFLAMMATORY DRUG)] Drug allergy (disorder) 06-28-19 17 [facility] (1 source) Sulfamethoxazole / Trimethoprim Drug Allergy 07-05-19 17 [facility] (8 sources) celecoxib; Translations: [CELECOXIB] Drug Allergy 02-16-20 24 Swelling [facility] (4 sources) Non-steroidal anti-inflammatory agent Propensity to adverse reactions to drug 01-29-20 21 Other (See Comments) [facility] (10 sources) Sulfonamides (Antibiotic); Translations: [SULFA (SULFONAMIDE ANTIBIOTICS)] Propensity to adverse reactions to drug 05-12-19 18 [facility] (10 sources) Trimethoprim; Translations: [TRIMETHOPRIM] Drug Allergy 01-29-20 21 Other (See Comments), Unknown [facility] (8 sources) trolamine salicylate; Translations: [TROLAMINE SALICYLATE] Drug Allergy 09-17-19 17 Swelling [facility] (7 sources) Morphine; Translations: [MORPHINE] Drug Allergy 03-12-19 25 Shortness Of Breath [facility] (3 sources) Sulfamethoxazole / Trimethoprim; Translations: [SULFAMETHOXAZOLE-T RIMETHOPRIM] Drug Allergy 08-12-19 07 [facility] Repository (2 sources) celecoxib Drug Allergy 02-16-20 24 Swelling [facility] (2 sources) trolamine salicylate Drug Allergy 09-17-19 17 Swelling [facility] Medications Current Medications Medication Drug Class(es) Dates [...] Minutes, Every 24 hours, First dose on Mon02/15/24 at 1600, Look-alike/sound -alike medication - verify [...] for use. irbesartan 300 mg oral tablet (7 sources) Angiotensin 2 Receptor Jesus take 1 tablet by mouth in the morning irbesartan (Avapro) 300 MG tablet Take 300 mg by mouth in the morning. Active levothyroxine sodium 0.075 mg oral tablet (8 sources) l-Thyroxine Start: 07-21-2016 take 1 tablet by mouth in the morning levothyroxine (SYNTHROID, LEVOTHROID) 75 MCG tablet Take 1 tablet (75 mcg total) by mouth in the morning. 07/21/2016 Active take 1 tablet by chris th once daily in the morning levothyroxine (Synthroid, Levoxyl) 75 MC G tablet TAKE 1 TABLET BY MOUTH ONCE DAILY IN THE MORNING ON AN EMPTY STOMACH WAIT 30 MINUTES BEFORE EATING OR DRINKING Active liothyronine sodium 0.005 mg oral tablet (6 sources) l-Triiodothyronine Start: 03-28-2019 take 1 tablet by mouth in the morning liothyronine (CYTOMEL) 5 MCG tablet Take 1 tablet (5 mcg total) by mouth in the morning. 03/28/2019 Active losartan potassium 50 mg oral tablet (1 source) Angiotensin 2 Receptor Jesus Start: 02-16-2024 take 100 mg by mouth once daily 100 mg, oral, Daily, First dose on Mon02/16/24 at 0900, Look-alike/sound -alike medication - verify indication for use. 1 ml morphine sulfate 2 mg/ml injection (1 source) Opioid Agonist Start: 02-15-2024 take 2 mg intravenously every four hours as needed for pain 2 mg, intravenous, Every 4 hours PRN, severe pain - pain scale 7-10, Starting on Rosa Maria 02/15/24 at 0221, Look-alike/sound -alike medication - verify indication for use. jvsfglrr-xmap-SF -calcium &mins (THERAGRAN-M) 9 mg iron-400 mcg tablet (5 sources) ehluomqg-mnqe-CK -calcium &mins (THERAGRAN-M) 9 mg iron-400 mcg tablet Take 1 tablet by mouth in the morning. Active jgaugblg-pvia-QX -calcium &mins (THERAGRAN-M) 9 mg iron-400 mcg [...] minutes. pravastatin sodium 40 mg oral tablet (7 sources) HMG-CoA Reductase Inhibitor take 1 tablet by mouth in the morning pravastatin (Pravachol) 40 MG tablet Take 40 mg by mouth in the morning. Active predniSONE 20 mg oral tablet (2 sources) Start: 09-04-2024 End: 09-14-2024 take 2 tablets by mouth once daily, then take 1 tablet by mouth once daily at mealtime predniSONE (Deltasone) 20 MG tablet Indications: Chondromalacia of left knee , Chondromalacia of right knee Take 2 tablets (40 mg) by mouth Daily for 5 days, THEN 1 tablet (20 mg) Daily for 5 days. Take with food. 15 tablet 09/04/2024 09/14/2024 Active 125 ml sodium chloride 9 mg/ml [...] Active Problems Problem Classification Problem Date Documented Da te Episodic/Chronic Abdominal pain (1 source) Flank pain [...] atrophic vaginitis] Onset: 09-19-2017 09-19-2017 Chronic Other bone disease and musculoskeletal deformities (2 sources) Chondromalacia of left knee; Translations: [Chondromalacia, left knee] 09-04-2024 Episodic Other bone disease and musculoskeletal deformities (2 sources) Chondromalacia; Translations: [Chondromalacia, right knee] 09-04-2024 Episodic Other diseases of kidney and ureters [...] [Shortness of breath] Onset: 07-18-2024 Episodic Other non-traumatic joint disorders (4 sources) Pain in right knee; Translations: [Pain in joint, lower leg] 09-04-2024 Episodic Other nutritional; endocrine; and metabolic disorders [...] Test Name Value Interpretation Reference Range Facility No Panel Informationon 09-04 Radiology Study observation (narrative) [facility] XR Knee - left 1 or 2 Viewso n 09-04-2024 Imaging Result: AP and Lateral weight bearing: [...] weight-bearing knee X-ray. No acute bony process Airphrame e XR Knee - right 1 or 2 Views on 09-04-2024 Imaging Result: AP and Lateral weight bearing: [...] weight-bearing knee X-ray. No acute bony process Airphrame e Urine Cultureon 08-09-2024 Bacteria identified Cx Nom (U) ORGANISM: Klebsiella oxytoca (O:KLEOXY) [place] Count >100,000 Aerobic SEAN Charge ([id number]) ----- SUSCEPTIBILITY ---- ORGANISM: O:KLEOXY ANTIBIOTIC INTERPRETATION SEAN Amikacin S <16 Amoxacillin/K Clavulanate S <8 Ampicillin/Sulbactam S 88/4 Aztreonam S <4 Cefazolin R >16 Cefepime S <2 Ceftazidime S <1 Ceftazidime/Avibacta m S <4 Ceftolozane/Tazobact am S <2 Ceftriaxone S <1 Cefuroxime S <4 Ciprofloxacin S <0.25 Ertapenem S <0.5 Gentamicin S <2 Levofloxacin S <0.5 Meropenem S <1 Meropenem/Vaborbacta m S <2 Nitrofurantoin S <32 Piperacillin/Tazobac lemon S <8 Tetracycline S <4 Tigecycline S <2 Tobramycin S <2 Trimethoprim/Sulfame thoxazole S <0.5 S = SUSCEPTIBLE I = INTERMEDIATE R = RESISTANT BLANK = DATA NOT AVAILABLE, OR DRUG NOT ADVISABLE OR TESTED R* = RESISTANCE DUE TO EXTENDED SPECTRUM BETA-LACTAMASES ESBL = EXTENDED SPECTRUM BETA-LACTAMASE TFG = THYMIDINE-DEPENDENT STRAIN VERONIKA = BETA-LACTAMASE POSITIVE IB = INDUCIBLE BETA-LACTAMASE. APPEARS IN PLACE OF 'S' WITH SPECIES KNOWN TO POSSESS INDUCIBLE BETA-LACTAMASES. POTENTIALLY THEY MAY BECOME RESISTANT TO ALL B-LACTAM DRUGS. PERFORMED BY: [place] [address] PATHOLOGIST ROOM SERVICE ASSOCIATE BETTY ROBERTO M.D. Normal [facility] Comment on above: Performed By: #### C UU #### [address] 36on 08-05-2024 36 MD Nathaly Pacheco MA Please reassure her that her stress test was normal. She can follow-up with her PCP. Thank Advised patient of Dr. Rice's finding. Patient verbalized understanding. Normal [facility] Orders Onlyon 08-05-2024 Orders Only [id number] Abundio Iglesias 1955 F Date Provider Department [place] 08/05/2024 [id number], HISTORICAL CARD [facility] Family History Problem Relation Age of Onset Heart failure Mother Heart attack Father Heart attack Father's Brother Family Status - Relation Status Age at Mother Father Father's Brother Normal [facility] Orders Onlyon 07-30-2024 Orders Only [id number] Abundio Iglesias 1955 F Date Provider Department Center 07/30/2024 [id number], HISTORICAL DANTE [facility] Family History Problem Relation Age of Onset Heart failure Mother Heart attack Father Heart attack Father's Brother Family Status - Relation Status Age at Mother Father Father's Brother Normal [facility] Office Visiton 07-18-2024 Follow-up visit [id number] Abundio Iglesias 1955 F Date Provider Department Center 07/18/2024 Ning-ERIC RICE DANTE [facility] Family History Problem Relation Age of Onset Heart failure Mother Heart attack Father Heart attack Father's Brother Family Status - Relation Status Age at Mother Father Father's Brother Level of Service:85599 NE OFFICE/OUTPATIENT ESTABLISHED MOD MDM 30 MIN Normal [facility] Orders Onlyon 07-17-2024 Orders Only [id number] Abundio Iglesias 1955 F Date Provider Department Center 07/17/2024 [id number], HISTORICAL DANTE [facility] Family History Problem Relation Age of Onset Heart failure Mother Heart attack Father Heart attack Father's Brother Family Status - Relation Status Age at Mother Father Father's Brother Normal [facility] XR ABDOMEN AP 1 VWon 025 XR [...] Marie MD on 04/08/2024 12:49 PM Normal [facility] URINALYSISon 03-12-2024 Bilirubin Ql (U) Negative Normal NEG [facility] Comment on above: Performed By: #### U A #### [facility] ([id number]) [address], [address] [place] [address] BLOOD/HGB Large Abnormal NEG [facility] Comment on above: Performed By: #### U A #### [facility] ([id number]) [address], [address] [place] [address] Color (U) YELLOW Normal YELLOW [facility] Comment on above: Performed By: #### U A #### [facility] ([id number]) [address], [address] [place] [address] Glucose Ql (U) Negative Normal NEG [facility] Comment on above: Performed By: #### U A #### [facility] ([id number]) [address], [address] [place] [address] Ketones Ql (U) Negative Normal NEG [facility] Comment on above: Performed By: #### U A #### [facility] ([id number]) [address], [address] [place] [address] Leukocyte esterase Test strip Ql (U) Negative Normal NEG [facility] Comment on above: Performed By: #### U A #### [facility] ([id number]) [address], [address] [place] [address] MUCOUS PRESENT Abnormal NONE [facility] Comment on above: Performed By: #### U A #### [facility] ([id number]) [address], [address] [place] [address] Nitrite Ql (U) Negative Normal NEG [facility] Comment on above: Performed By: #### U A #### [facility] ([id number]) [address], [address] [place] [address] pH (U) 6.0 [pH] Normal 5.0-8.5 [facility] Comment on above: Performed By: #### U A #### [facility] ([id number]) [address] [place] [address], [address] [place] [address] Protein Ql (U) Negative Normal NEG [facility] Comment on above: Performed By: #### U A #### [facility] ([id number]) [address] [place] [address], [address] [place] [address] R.B.CELLS 1 /hpf Normal 0-5 [facility] Comment on above: Performed By: #### U A #### [facility] ([id number]) [address] [place] [address] [address] [place] [address] Specific gravity (U) [Rel density] 1.007 Normal 1.003-1.035 [facility] Comment on above: Performed By: #### U A #### [facility] ([id number]) [address] [place] [address], [address] [place] [address] SQUAMOUS EPITHELIUM <1 Normal 0-5 [facility] Comment on above: Performed By: #### U A #### [facility] ([id number]) [address] [place] [address], [facility] [address] [place] [address] TURBIDITY CLEAR Normal CLEAR [facility] Comment on above: Performed By: #### U A #### [facility] ([id number]) [address] [place] [address], [address] [place] [address] Urobilinogen (U) [Mass/Vol] mg/dL Normal <1.1 [facility] Comment on above: Performed By: #### U A #### [facility] ([id number]) [address] [place] [address], [address] [place] [address] W.B.CELLS 1 /hpf Normal 0-5 [facility] Comment on above: Performed By: #### U A #### [facility] ([id number]) [address], [address] [place] [address] URINE CULTUREon 03-12-2024 Bacteria identified Cx Nom (U) CULTURE RESULTS <10,000 ORGANISMS/ML NORMAL URO GENITAL DARSHANA Normal [facility] Comment on above: Performed By: #### 6 30-4 #### [facility] ([id number]) [address], [address] [place] [address] BASIC METABOLIC PANLon 02-15 Anion gap [Moles/Vol] 12 mmol/L Normal 5-15 [facility] Comment on above: Performed By: #### C BCA, CMP, 3040-3 #### [facility] ([id number]) [address], [address] [place] [address] Calcium [Mass/Vol] 9.0 mg/dL Normal 8.5-10.5 [facility] Comment on above: Performed By: #### C BCA, CMP, 0-3 #### [facility] ([id number]) [address], [address] [place] [address] Chloride [Moles/Vol] 106 mmol/L Normal 98-109 [facility] Comment on above: Performed By: #### C BCA, CMP, 3040-3 #### [facility] ([id number]) [address], [address] [place] [address] CO2 [Moles/Vol] 21 mmol/L Low 22-32 [facility] Comment on above: Performed By: #### C BCA, CMP, 3040-3 #### [facility] ([id number]) [address], [address] [place] [address] Creatinine [Mass/Vol] 1.00 mg/dL Normal 0.40-1.00 [facility] Comment on above: Result Comment: METH OD TRACEABLE TO IDMS STANDARD Performed By: #### C BCA, CMP, 3040-3 #### [facility] ([id number]) [address] [address] [place] [address] GFR/1.73 sq M.predicted among non-blacks MDRD (S/P/Bld) [Vol rate/Area] 62 mL/min/{1.73_m2} Normal >59 [facility] Comment on above: Result Comment: Reported eGFR is based on the CKD-EPI 2020 equation that does not use a race coefficient. Performed By: #### Any MELENDEZ CMP, 3040-3 #### [facility] ([id number]) [address] [place] [address] Glucose [Mass/Vol] 108 mg/dL High 65-99 [facility] Comment on above: Performed By: #### Any MELENDEZ CMP, 3040-3 #### [facility] ([id number]) [address] [place] [address] Potassium [Moles/Vol] 3.9 mmol/L Normal 3.5-5.0 [facility] Comment on above: Performed By: #### Any MELENDEZ [facility], 3040-3 #### [facility] ([id number]) [address] [place] [address] Sodium [Moles/Vol] 139 mmol/L Normal 134-146 [facility] Comment on above: Performed By: #### Any MELENDEZ CMP, 3040-3 #### [facility] ([id number]) [address] [place] [address] Urea nitrogen [Mass/Vol] 30 mg/dL High 5-27 [facility] Comment on above: Performed By: #### Any MELENDEZ CMP, 3040-3 #### [facility] ([id number]) [address] [place] [address] Bacteria identified Cx Nom ( U)on 02-16-2024 Service comment (Unsp spec) [Interp] <10,000 ORGANISMS/ML NORMAL URO GENITAL DARSHANA [facility] Service comment (Unsp spec) [Interp] URINE RECEIVED WITHOUT PRESERVATIVE [facility] Service comment (Unsp spec) [Interp] NO GROWTH AT <1000 CFU/mL [facility] Basic Metabolic Panelon -2 Anion gap [Moles/Vol] 12 mmol/L 5 - 15 mmol/L [facility] Calcium [Mass/Vol] 9 mg/dL 8.5 - 10. 5 mg/dL [facility] Chloride [Moles/Vol] 106 mmol/L 98 - 10 9 mmol/L [facility] CO2 [Moles/Vol] 21 mmol/L Low 22 - 32 mmol/L [facility] Creatinine [Mass/Vol] 1 mg/dL 0.40 - 1.00 mg/dL [facility] Comment on above: METHOD TRACEABLE TO IDNM STANDARD eGFR (CKD-EPI)non-race dependent 62 - PINF [facility] Comment on above: Reported eGFR is based on the CKD-EPI 2020 equation that does not use a race coefficient. Glucose [Mass/Vol] 108 mg/dL High 65 - 99 mg/dL [facility] Interpretation and review of laboratory results Abnormal [facility] Potassium [Moles/Vol] 3.9 mmol/L 3.5 - 5.0 mmol/L [facility] Sodium [Moles/Vol] 139 mmol/L 134 - 146 mmol/L [facility] Urea nitrogen [Mass/Vol] 30 mg/dL High 5 - 27 mg/dL [facility] CBC AND AUTO DIFFon 02-16-20 ABSOLUTE BASOPHIL 0.0 X10E9/L Normal 0.0-0.2 [facility] Comment on above: Performed By: #### C BCA, CMP, 3040-3 #### [facility] ([id number]) [address], [address] [place] [address] ABSOLUTE NEUTROPHIL 11.2 X10E9/L High 1.5-6.6 [facility] Comment on above: Performed By: #### C BCA, CMP, 3040-3 #### [facility] ([id number]) [address], [address] [place] [address] Basophils/100 WBC (Bld) 0.2 % Normal [facility] Comment on above: Performed By: #### Any MELENDEZ CMP, 3039-3 #### [facility] ([id number]) [address], [address] [place] [address] Eosinophils (Bld) [#/Vol] 0.0 10*3/uL Normal 0.0-0.4 [facility] Comment on above: Performed By: #### Any MELENDEZ CMP, 3039-3 #### [facility] ([id number]) [address], [address] [place] [address] Eosinophils/100 WBC (Bld) 0.3 % Normal [facility] Comment on above: Performed By: #### Any MELENDEZ CMP, 3039-3 #### [facility] ([id number]) [address], [address] [place] [address] Erythrocyte distribution width (RBC) [Ratio] 13.6 % Normal 11.5-15.0 [facility] Comment on above: Performed By: #### Any MELENDEZ, CMP, 3039-3 #### [facility] ([id number]) [address], [address] [place] [address] Hematocrit (Bld) [Volume fraction] 34.5 % Low 35-47 [facility] Comment on above: Performed By: #### Any MELENDEZ, CMP, 3039-3 #### [facility] ([id number]) [address], [address] [place] [address] Hemoglobin (Bld) [Mass/Vol] 11.6 g/dL Low 11.7-15.5 [facility] Comment on above: Performed By: #### Any MELENDEZ, CMP, 3039-3 #### [facility] ([id number]) [address], [address] [place] [address] Lymphocytes (Bld) [#/Vol] 0.8 10*3/uL Low 1.0-3.5 [facility] Comment on above: Performed By: #### Any MELENDEZ CMP, 3039-3 #### [facility] ([id number]) [address], [address] [place] [address] Lymphocytes/100 WBC (Bld) 6.3 % Normal [facility] Comment on above: Performed By: #### Ayn MELENDEZ CMP, 3039-3 #### [facility] ([id number]) [address], [facility] [address] [place] [address] MCH (RBC) [Entitic mass] 29.7 pg Normal 27-34 [facility] Comment on above: Performed By: #### Any MELENDEZ CMP, 3039-3 #### [facility] ([id number]) [address], [address] [place] [address] MCHC (RBC) [Mass/Vol] 33.8 g/dL Normal 32-36 [facility] Comment on above: Performed By: #### Any MELENDEZ CMP, 3039-3 #### [facility] ([id number]) [address], [address] [place] [address] MCV (RBC) [Entitic vol] 88 fL Normal 80-100 [facility] Comment on above: Performed By: #### Any MELENDEZ CMP, 3039-3 #### [facility] ([id number]) [address], [address] [place] [address] Monocytes (Bld) [#/Vol] 1.0 10*3/uL High 0-0.9 [facility] Comment on above: Performed By: #### Any MELENDEZ CMP, 3039-3 #### [facility] ([id number]) [address], [address] [place] [address] Monocytes/100 WBC (Bld) 7.9 % Normal [facility] Comment on above: Performed By: #### Any MELENDEZ, CMP, 3040-3 #### [facility] ([id number]) [address], [facility] [address] [place] [address] Neutrophils/100 WBC (Bld) 85.3 % Normal [facility] Comment on above: Performed By: #### Any MELENDEZ, CMP, 0-3 #### [facility] ([id number]) [address], [address] [address] Platelet mean volume (Bld) [Entitic vol] 11.1 fL Normal 7-12 [facility] Comment on above: Performed By: #### Any MELENDEZ, CMP, 3040-3 #### [facility] ([id number]) [address] [place] [address] Platelets (Bld) [#/Vol] 164 10*3/uL Normal 150-450 [facility] Comment on above: Performed By: #### Any MELENDEZ, CMP, 0-3 #### [facility] ([id number]) [address] [place] [address] RBC COUNT 3.92 X10E12/L Normal 3.80-5.20 [facility] Comment on above: Performed By: #### Any MELENDEZ, CMP, 0-3 #### [facility] ([id number]) [address] [address] WBC (Bld) [#/Vol] 13.2 10*3/uL High 4.0-11.0 [facility] Comment on above: Performed By: #### Any MELENDEZ, CMP, 0-3 #### [facility] ([id number]) [address], [facility] [address] [place] [address] CBC auto differentialon 12-2 0-2023 Basophils (Bld) [#/Vol] 0 10*3/uL [facility] Basophils/100 WBC (Bld) 0.2 % [facility] Eosinophils (Bld) [#/Vol] 0 10*3/uL [facility] Eosinophils/100 WBC (Bld) 0.3 % [facility] Erythrocyte distribution width (RBC) [Ratio] 13.6 % 11.5 - 15.0 % [facility] Hematocrit (Bld) [Volume fraction] 34.5 % Low 35 - 47 % [facility] Hemoglobin (Bld) [Mass/Vol] 11.6 g/dL Low 11.7 - 15.5 g/dL [facility] Interpretation and review of laboratory results Abnormal [facility] Lymphocytes (Bld) [#/Vol] 0.8 10*3/uL Low [facility] Lymphocytes/100 WBC (Bld) 6.3 % [facility] MCH (RBC) [Entitic mass] 29.7 pg 27 - 34 pg [facility] MCHC (RBC) [Mass/Vol] 33.8 g/dL 32 - 36 g/dL [facility] MCV (RBC) [Entitic vol] 88 fL 80 - 100 fL [facility] Monocytes (Bld) [#/Vol] 1 10*3/uL High [facility] Monocytes/100 WBC (Bld) 7.9 % [facility] Neutrophils (Bld) [#/Vol] 11.2 10*3/uL High [facility] Neutrophils/100 WBC (Bld) 85.3 % [facility] Platelet mean volume (Bld) [Entitic vol] 11.1 fL 7 - 12 fL [facility] Platelets (Bld) [#/Vol] 164 10*3/uL [facility] RBC (Bld) [#/Vol] 3.92 10*6/uL [facility] WBC corrected for nucl RBC Auto (Bld) [#/Vol] 13.2 High [facility] BLOOD CULTUREon 02-15-2024 Bacteria identified Aer cx Nom (Bld) CULTURE RESULTS NO GROWTH 5 DAYS Normal [facility] CBC AND AUTO DIFFon 02-15-20 24 Band form neutrophils/100 WBC (Bld) 7.8 % Normal [facility] Comment on above: Performed By: #### C BCA, CMP, 3039- #### [facility] ([id number]) [address] [facility] [address] [place] [address] Erythrocyte distribution width (RBC) [Ratio] 13.9 % Normal 11.5-15.0 [facility] Comment on above: Performed By: #### Any MELENDEZ CMP, 3039-3 #### [facility] ([id number]) [address] [facility] [address] [place] [address] Hematocrit (Bld) [Volume fraction] 32.3 % Low 35-47 [facility] Comment on above: Performed By: #### Any MELENDEZ CMP, 3039-04 #### [facility] ([id number]) [address] [facility] [address] [place] [address] Hemoglobin (Bld) [Mass/Vol] 11.0 g/dL Low 11.7-15.5 [facility] Comment on above: Performed By: #### Any MELENDEZ CMP, 3039-04 #### [facility] ([id number]) [address] [facility] [address] [place] [address] Lymphocytes (Bld) [#/Vol] 0.6 10*3/uL Low 1.0-3.5 [facility] Comment on above: Performed By: #### Any MELENDEZ CMP, 3039-3 #### [facility] ([id number]) [address] [facility] [address] [place] [address] Lymphocytes/100 WBC (Bld) 4.9 % Normal [facility] Comment on above: Performed By: #### Any MELENDEZ CMP, 3039-3 #### [facility] ([id number]) [address] [facility] [address] [place] [address] MCH (RBC) [Entitic mass] 30.2 pg Normal 27-34 [facility] Comment on above: Performed By: #### Any MELENDEZ CMP, 3039-3 #### [facility] ([id number]) [address] [place] [address] MCHC (RBC) [Mass/Vol] 34.0 g/dL Normal 32-36 [facility] Comment on above: Performed By: #### C NORA, CMP, 3040-3 #### [facility] ([id number]) [address] [place] [address] MCV (RBC) [Entitic vol] 89 fL Normal 80-100 [facility] Comment on above: Performed By: #### Any MELENDEZ, CMP, 3039-3 #### [facility] ([id number]) [address] [place] [address] Monocytes (Bld) [#/Vol] 0.2 10*3/uL Normal 0-0.9 [facility] Comment on above: Performed By: #### Any MELENDEZ, CMP, 3039-3 #### [facility] ([id number]) [address] [place] [address] Monocytes/100 WBC (Bld) 1.9 % Normal [facility] Comment on above: Performed By: #### Any MELENDEZ, CMP, 3039-3 #### [facility] ([id number]) [address] [place] [address] NEUTROPHIL VACUOLES 1+ Abnormal NONE [facility] Comment on above: Performed By: #### Any MELENDEZ, CMP, 3039-3 #### [facility] ([id number]) [address] [place] [address] Neutrophils (Bld) [#/Vol] 11.1 10*3/uL High 1.5-6.6 [facility] Comment on above: Performed By: #### Any MELENDEZ, CMP, 0-3 #### [facility] ([id number]) [address] [place] [address] OVALOCYTE 1+ Abnormal NONE [facility] Comment on above: Performed By: #### Any MELENDEZ CMP, 3040-3 #### [facility] ([id number]) [address] [facility] [address] [place] [address] Platelet mean volume (Bld) [Entitic vol] 10.6 fL Normal 7-12 [facility] Comment on above: Performed By: #### Any MELENDEZ CMP, 0-3 #### [facility] ([id number]) [address] [address] [place] [address] Platelets (Bld) [#/Vol] 142 10*3/uL Low 150-450 [facility] Comment on above: Performed By: #### Any MELENDEZ CMP, 0-3 #### [facility] ([id number]) [address] [facility] [address] [place] [address] RBC COUNT 3.64 X10E12/L Low 3.80-5.20 [facility] Comment on above: Performed By: #### Any MELENDEZ CMP, 0-3 #### [facility] ([id number]) [address] [address] SEG NEUTROPHIL 85.4 % Normal [facility] Comment on above: Performed By: #### Any MELENDEZ CMP, 0-3 #### [facility] ([id number]) [address] [address] WBC (Bld) [#/Vol] 11.9 10*3/uL High 4.0-11.0 [facility] Comment on above: Performed By: #### Any MELENDEZ CMP, 0-3 #### [facility] ([id number]) [address] [facility] [address] [place] [address] CBC auto differentialon 01-27 Band form neutrophils/100 WBC (Bld) 7.8 % [facility] Erythrocyte distribution width (RBC) [Ratio] 13.9 % 11.5 - 15.0 % [facility] Hematocrit (Bld) [Volume fraction] 32.3 % Low 35 - 47 % [facility] Hemoglobin (Bld) [Mass/Vol] 11 g/dL Low 11.7 - 15.5 g/dL [facility] Interpretation and review of laboratory results Abnormal [facility] Leukocyte toxic vacuoles LM Ql (Bld) 1+ Abnormal NONE^NONE [facility] Lymphocytes (Bld) [#/Vol] 0.6 10*3/uL Low [facility] Lymphocytes/100 WBC (Bld) 4.9 % [facility] MCH (RBC) [Entitic mass] 30.2 pg 27 - 34 pg [facility] MCHC (RBC) [Mass/Vol] 34 g/dL 32 [...] System RBC (Bld) [#/Vol] 3.64 10*6/uL Low [facility] Segmented neutrophils/100 WBC (Bld) 85.4 % [facility] WBC corrected for nucl RBC Auto (Bld) [#/Vol] 11.9 High [facility] COMPREHENSIVE METABOLIC PANE [place] 02-15-2024 Albumin [Mass/Vol] 3.4 g/dL Normal 3.2-5.3 [facility] Comment on above: Performed By: #### C BCA, CMP, 3040-3 #### [facility] ([id number]) [address] [facility] [place] [address] ALP [Catalytic activity/Vol] 71 U/L Normal 39-130 [facility] Comment on above: Performed By: #### C NORA CMP, 0-3 #### [facility] ([id number]) [address] [place] [address] ALT [Catalytic activity/Vol] 29 U/L Normal 0-31 [facility] Comment on above: Performed By: #### C NORA, CMP, 3039-3 #### [facility] ([id number]) [address] [place] [address] Anion gap [Moles/Vol] 9 mmol/L Normal 5-15 [facility] Comment on above: Performed By: #### Any MELENDEZ CMP, 3039-3 #### [facility] ([id number]) [address] [place] [address] AST [Catalytic activity/Vol] 42 U/L High 0-41 [facility] Comment on above: Performed By: #### C BCA, CMP, 3039-3 #### [facility] ([id number]) [address] [place] [address] Bilirubin [Mass/Vol] 1.1 mg/dL Normal 0.3-1.2 [facility] Comment on above: Performed By: #### C BCA, CMP, 3039-3 #### [facility] ([id number]) [address] [place] [address] Calcium [Mass/Vol] 8.4 mg/dL Low 8.5-10.5 [facility] Comment on above: Performed By: #### C BCA, CMP, 3039-3 #### [facility] ([id number]) [address] [place] [address] Chloride [Moles/Vol] 103 mmol/L Normal 98-109 [facility] Comment on above: Performed By: #### C JACKIE MELENDEZ, 3040-3 #### [facility] ([id number]) [address] [place] [address] CO2 [Moles/Vol] 24 mmol/L Normal 22-32 [facility] Comment on above: Performed By: #### C NORA CMP, 3040-3 #### [facility] ([id number]) [address] [place] [address] Creatinine [Mass/Vol] 1.43 mg/dL High 0.40-1.00 [facility] Comment on above: Result Comment: METH OD TRACEABLE TO IDMS STANDARD Performed By: #### C JACKIE MELENDEZ, 0-3 #### [facility] ([id number]) [address] [address] [place] [address] GFR/1.73 sq M.predicted among non-blacks MDRD (S/P/Bld) [Vol rate/Area] 40 mL/min/{1.73_m2} Low >59 [facility] Comment on above: Result Comment: Reported eGFR is based on the CKD-EPI 2020 equation that does not use a race coefficient. Performed By: #### C JACKIE MELENDEZ, 3040-3 #### [facility] ([id number]) [address] [place] [address] Glucose [Mass/Vol] 105 mg/dL High 65-99 [facility] Comment on above: Performed By: #### C JACKIE MELENDEZ, 3040-3 #### [facility] ([id number]) [address] [place] [address] Potassium [Moles/Vol] 4.1 mmol/L Normal 3.5-5.0 [facility] Comment on above: Performed By: #### C NORA CMP, 3040-3 #### [facility] ([id number]) [address] [place] [address] Protein [Mass/Vol] 5.8 g/dL Low 6.0-8.0 [facility] Comment on above: Performed By: #### C BCA, CMP, 3040-3 #### [facility] ([id number]) [address] [place] [address] Sodium [Moles/Vol] 136 mmol/L Normal 134-146 [facility] Comment on above: Performed By: #### C BCA, CMP, 3040-3 #### [facility] ([id number]) [address] [place] [address] Urea nitrogen [Mass/Vol] 28 mg/dL High 5-27 [facility] Comment on above: Performed By: #### C BCA, CMP, 3040-3 #### [facility] ([id number]) [address] [place] [address] Cobalamin (Vitamin B12) [Mas s/Vol]on 02-15-2024 [facility] Comprehensive metabolic pane jordan 02-15-2024 Albumin [Mass/Vol] 3.4 g/dL 3.2 - 5.3 g/dL [facility] ALP [Catalytic activity/Vol] 71 U/L 39 - 130 U/L [facility] ALT No additional P-5'-P [Catalytic activity/Vol] 29 U/L 0 - 31 U/L [facility] Anion gap [Moles/Vol] 9 mmol/L 5 - 15 mmol/L [facility] AST [Catalytic activity/Vol] 42 U/L High 0 - 41 U/L [facility] Bilirubin [Mass/Vol] 1.1 mg/dL 0.3 - 1 .2 mg/dL [facility] Calcium [Mass/Vol] 8.4 mg/dL Low 8.5 - 10. 5 mg/dL [facility] Chloride [Moles/Vol] 103 mmol/L 98 - 10 9 mmol/L [facility] CO2 [Moles/Vol] 24 mmol/L 22 - 32 mmol/L [facility] Creatinine [Mass/Vol] 1.43 mg/dL High 0.40 - 1.00 mg/dL [facility] Comment on above: METHOD TRACEABLE TO IDNM STANDARD eGFR (CKD-EPI)non-race dependent 40 Low - PINF [facility] Comment on above: Reported eGFR is based on the CKD-EPI 2020 equation that does not use a race coefficient. Glucose [Mass/Vol] 105 mg/dL High 65 - 99 mg/dL [facility] Potassium [Moles/Vol] 4.1 mmol/L 3.5 - 5.0 mmol/L [facility] Protein [Mass/Vol] 5.8 g/dL Low 6.0 - 8.0 g/dL [facility] Sodium [Moles/Vol] 136 mmol/L 134 - 146 mmol/L [facility] Urea nitrogen [Mass/Vol] 28 mg/dL High 5 - 27 mg/dL [facility] FERRITINon 02-15-2024 Ferritin [Mass/Vol] 82 ng/mL Normal 11-307 [facility] Comment on above: Performed By: #### 1 9123-9, FEPR, 2276-4, 2284-8, 2132-9 #### [facility] ([id number]) [address] [facility] [address] [address] [place] [address] FL FLUOROSCOPY UP TO 1 HOURo n [...] Morin MD on 02/15/2024 12:17 PM Normal [facility] Ferritinon 02-15-2024 Ferritin [Mass/Vol] 82 ng/mL 11 - 307 ng/mL P [facility] Ferritin [Mass/Vol]on 2023 [facility] Folateon 02-15-2024 Folate [Mass/Vol] 22.2 ng/mL 5.8 - PINF ng/mL [facility] Comment on above: NEW REFERENCE RANGE Folate [Mass/Vol]on 02-15-20 24 [facility] FOLIC ACID 22.2 ng/mL Normal >5.8 [facility] Comment on above: Result Comment: NEW REFERENCE RANGE Performed By: #### 1 9123-9, FEPR, 2276-4, 2284-8, 2131-10 #### [facility] ([id number]) [address] [place] [address] IRON PROFILEon 02-15-2024 Iron [Mass/Vol] 11 ug/dL Low 50-170 [facility] Comment on above: Performed By: #### 1 9123-9, FEPR, 2276-4, 2284-8, 9 #### [facility] ([id number]) [address], [address] [place] [address] IRON BINDING 274 ug/dL Normal 250-425 [facility] Comment on above: Performed By: #### 1 9123-9, FEPR, 2276-4, 2284-8, 9 #### [facility] ([id number]) [address] [place] [address] IRON SATURATION 4 % SATURATION Low 15-50 [facility] Comment on above: Performed By: #### 1 9123-9, FEPR, 2276-4, 2284-8, 2131-10 #### [facility] ([id number]) [address] [place] [address] Iron and TIBCon 02-15-2024 Interpretation and review of laboratory results Abnormal [facility] Iron [Mass/Vol] 11 ug/dL Low 50 - 170 ug/dL [facility] Iron binding capacity [Mass/Vol] 274 ug/dL 250 - 425 ug/dL [facility] Iron saturation [Mass fraction] 4 Low [facility] LIPASEon 02-15-2024 Lipase [Catalytic activity/Vol] 8 U/L Low 11-82 [facility] Comment on above: Performed By: #### C BCA, CMP, 3040-3 #### [facility] ([id number]) [address] [facility], [address] [place] [address] Lactate (P julianne) [Moles/Vol]o n 02-15-2024 [facility] LACTATE W/REFLEX 0.8 mmol/L Normal 0.4-2.0 [facility] Comment on above: Result Comment: Result did not trigger repeat Lactate, re-order if needed. Performed By: #### 3 3-1 #### [facility] ([id number]) [address] [facility], [address] [place] [address] Lactate w/ Reflexon 02-15-20 24 Lactate (P julianne) [Moles/Vol] 0.8 mmol/L 0.4 - 2.0 mmol/L [facility] Comment on above: Result did not trigger repeat Lactate, re-order if needed. Lipaseon 02-15-2024 Lipase [Catalytic activity/Vol] 8 U/L Low U/L [facility] MAGNESIUMon 02-15-2024 Magnesium [Mass/Vol] 1.7 mg/dL Low 1.8-2.6 [facility] Comment on above: Performed By: #### 1 9123-9, FEPR, 2276-4, 2284-8, 2132-9 #### [facility] ([id number]) [address] [facility] [place] [address] Magnesiumon 02-15-2024 Magnesium [Mass/Vol] 1.7 mg/dL Low 1.8 - 2 .6 mg/dL [facility] Magnesium [Mass/Vol]on 02-14 Interpretation and review of laboratory results Abnormal [facility] No Panel Informationon 02-14 Interpretation and review of laboratory results Abnormal [facility] RF Less than 1 houron 2023 INTRAOPERATIVE FLUOROSCOPY HISTORY: Left stent placement IMPRESSION: Intraoperative fluoroscopy provided for the clinical service during placement of left ureteral stent. Reference air kerma 2.3 mGy. A radiologist was not present during this procedure. Questions regarding this exam should be directed to the clinical service that performed the procedure. Finalized by Denver Morin MD on 02/15/2024 12:17 PM SECTRAPACS Denver Morin MD - 02/15/2024 INTRAOPERATIVE FLUOROSCOPY HISTORY: Left stent placement IMPRESSION: Intraoperative fluoroscopy provided for the clinical service during placement of left ureteral stent. Reference air kerma 2.3 mGy. A radiologist was not present during this procedure. Questions regarding this exam should be directed to the clinical service that performed the procedure. Finalized by Denver Morin MD on 02/15/2024 12:17 PM [facility] Radiology Study observation (narrative) [facility] RF Less than 1 hourOrdered B y: Denver Morin on 02-15-2024 [facility] Work Phone: URINE CULTUREon 02-15-2024 Bacteria identified Cx Nom (U) SPECIMEN NOTES URINE RECEIVED WITHOUT PRESERVATIVE CULTURE RESULTS NO GROWTH AT <1000 CFU/mL Normal [facility] Comment on above: Performed By: #### C NORA CMP, 3040-3 #### [facility] ([id number]) [address] [place] [address] Bacteria identified Cx Nom (U) CULTURE RESULTS <10,000 ORGANISMS/ML NORMAL URO GENITAL DARSHANA Normal [facility] Comment on above: Performed By: #### C NORA CMP, 3040-3 #### [facility] ([id number]) [address] [place] [address] VITAMIN B12on 02-15-2024 Cobalamin (Vitamin B12) [Mass/Vol] 190 pg/mL Normal 180-914 [facility] Comment on above: Performed By: #### 1 9123-9, FEPR, 2276-4, 2284-8, 2132-9 #### [facility] ([id number]) [address] [place] [address] Vitamin B12on 02-15-2024 Cobalamin (Vitamin B12) [Mass/Vol] 190 pg/mL 180 - 914 pg/mL [facility] 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 Zackery Beck CBC AUTO DIFFon 05-20-2022 BASO # 0.1 103/ul Normal 0.0-0.1 [facility] Comment on above: Performed By: #### C BC #### [facility] [address] [place] [address] Dr. Zackery Beck Basophils/100 WBC (Bld) 0.6 % Normal 0.2-2.0 [facility] Comment on above: Performed By: #### C BC #### [facility] [address] [place] [address] Dr. Zackery Beck EO # 0.1 103/ul Normal 0.0-0.7 [facility] Comment on above: Performed By: #### C BC #### [facility] [address] [place] [address] Dr. Zackery Beck Eosinophils/100 WBC (Bld) 1.8 % Normal 0.9-7.0 [facility] Comment on above: Performed By: #### C BC #### [facility] [address] [place] [address] Dr. Zackery Beck Erythrocyte distribution width (RBC) [Ratio] 13.6 % Normal 11.0-15.0 [facility] Comment on above: Performed By: #### C BC #### [facility] [address] [place] [address] Dr. Zackery Beck Hematocrit (Bld) [Volume fraction] 48.1 % Critically high 36.0-48.0 [facility] Comment on above: Performed By: #### C BC #### [facility] [address] [place] [address] Dr. Zackery Beck Hemoglobin (Bld) [Mass/Vol] 16.0 g/dL Normal 12.0-16.0 [facility] Comment on above: Performed By: #### C BC #### [facility] [address] [place] [address] Dr. Zackery Beck IG # 0.02 10e3/ul Normal 0.00-0.03 [facility] Comment on above: Performed By: #### C BC #### [facility] [address] [place] [address] Dr. Zackery Beck IG % 0.3 % Normal 0.0-0.5 [facility] Comment on above: Performed By: #### C BC #### [facility] [address] [place] [address] Dr. Zackery Beck LYMPH # 1.5 103/ul Normal 1.2-3.8 [facility] Comment on above: Performed By: #### C BC #### [facility] [address] [place] [address] Dr. Zackery Beck Lymphocytes/100 WBC (Bld) 19.0 % Critically low 20.5-60.0 [facility] Comment on above: Performed By: #### C BC #### [facility] [address] [place] [address] Dr. Zackery Beck MANUAL DIFF REQ NO Normal [facility] Comment on above: Performed By: #### C BC #### [facility] [address] [place] [address] Dr. Zackery Beck MCH (RBC) [Entitic mass] 28.6 pg Normal 26.7-34.0 [facility] Comment on above: Performed By: #### C BC #### [facility] [address] [place] [address] Dr. Zackery Bekc MCHC (RBC) [Mass/Vol] 33.3 g/dL Normal 29.9-35.2 [facility] Comment on above: Performed By: #### C BC #### [facility] [address] [place] [address] Dr. Zackery Beck MCV (RBC) [Entitic vol] 85.9 fL Normal 81.0-99.0 [facility] Comment on above: Performed By: #### C BC #### [facility] [address] [address] [address] Zackery Beck MONO # 0.5 103/ul Normal 0.3-0.8 [facility] Comment on above: Performed By: #### C BC #### [facility] [address] [address] [address] Zackery Beck Monocytes/100 WBC (Bld) 6.7 % Normal 1.7-12.0 [facility] Comment on above: Performed By: #### C BC #### [facility] [address] [place] [address] Dr. Zackery Beck NEUT # 5.6 103/ul Normal 1.4-6.5 [facility] Comment on above: Performed By: #### C BC #### [facility] [address] [place] [address] Dr. Zackery Beck Neutrophils/100 WBC (Bld) 71.6 % Normal 43.0-75.0 [facility] Comment on above: Performed By: #### C BC #### [facility] [address] [place] [address] Dr. Zackery Beck Platelet mean volume (Bld) [Entitic vol] 11.6 fL Normal 9.5-13.5 [facility] Comment on above: Performed By: #### C BC #### [facility] [address] [place] [address] Dr. Zackery Beck PLT 249 103/ul Normal 150-450 [facility] Comment on above: Performed By: #### C BC #### [facility] [address] [place] [address] Dr. Zackery Beck RBC 5.60 106/ul Critically high 4.20-5.40 [facility] Comment on above: Performed By: #### C BC #### [facility] [address] [place] [address] Dr. Zackery Beck WBC 7.8 103/ul Normal 4.0-11.0 [facility] Comment on above: Performed By: #### C BC #### [facility] [address] [place] [address] Dr. Zackery Beck FREE THYROXINE INDEX T7on FTI 3.74 Normal 1.30-4.50 [facility] Comment on above: Performed By: #### L IPID, TSH, CMP, T7 #### [facility] [address] [place] [address] Dr. Zackery Beck T3U 37.0 % Normal 30.0-39.0 [facility] Comment on above: Performed By: #### L IPID, TSH, CMP, T7 #### [facility] [address] [place] [address] Dr. Zackery Beck T4 [Mass/Vol] 10.10 ug/dL Normal 4.80-13.90 [facility] Comment on above: Performed By: #### L IPID, TSH, CMP, T7 #### [facility] [address] [place] [address] Dr. Zackery Beck GLYCOHEMOGLOBIN A1Con 2022 ADA RECOMMENDATION SEE BELOW Normal [facility] Comment on above: Result Comment: ADA RECOMMENDED LIMIT 4.0 - 6.0 ADA THERAPEUTIC TARGET < 7.0 ACTION SUGGESTED > 7.0 Performed By: #### A 1C #### [facility] [address] [place] [address] Dr. Zackery Beck Glucose [Mass/Vol] 114 mg/dL Normal [facility] Comment on above: Performed By: #### A 1C #### [facility] [address] [place] [address] Dr. Zackery Beck HbA1c (Bld) [Mass fraction] 5.6 % Normal 4.5-6.2 [facility] Comment on above: Performed By: #### A 1C #### [facility] [address] [place] [address] Dr. Zackery Beck IRONon 05-20-2022 Iron [Mass/Vol] 84.0 ug/dL Normal 50.0-170.0 [facility] Comment on above: Performed By: #### I GÓMEZ #### [facility] [address] [address] [address] Zackery Beck LIPID PROFILEon 05-20-2022 CHOL-HDL RATIO NORM SEE BELOW Normal [facility] Comment on above: Result Comment: 3.3 - 4.4 LOW RISK 4.4 - 7.1 AVERAGE RISK 7.1 - 11.0 MODERATE RISK >11.0 HIGH RISK Performed By: #### L IPID, TSH, CMP, T7 #### [facility] [address] [address] [address] Zackery Beck Cholesterol [Mass/Vol] 293 mg/dL Critically high <=200 [facility] Comment on above: Performed By: #### L IPID, TSH, CMP, T7 #### [facility] [address] [address] [address] Zackery Beck Cholesterol in HDL [Mass/Vol] 71 mg/dL Critically high 40-60 [facility] Comment on above: Performed By: #### L IPID, TSH, CMP, T7 #### [facility] [address] [address] [address] Zackery Beck Cholesterol in LDL [Mass/Vol] 206.4 mg/dL Normal [facility] Comment on above: Performed By: #### L IPID, TSH, CMP, T7 #### [facility] [address] [address] [address] Zackery Beck Cholesterol.total/Ch olesterol in HDL [Mass ratio] 4.1 {ratio} Normal [facility] Comment on above: Performed By: #### L IPID, TSH, CMP, T7 #### [facility] [address] [address] [address] Zackery Beck HDL NORMAL > or = 60 mg/dl - LOW CARDIOVASCULAR RISK <40 mg/dl - HIGH CARDIOVASCULAR RISK Normal [facility] Comment on above: Performed By: #### L IPID, TSH, CMP, T7 #### [facility] [address] [place] [address] Dr. Zackery Beck LDL CALC NORMAL SEE BELOW Normal [facility] Comment on above: Result Comment: <100 mg/dl OPTIMAL 100 - 129 mg/dl NEAR OR ABOVE OPTIMAL 130 - 159 mg/dl BORDERLINE HIGH 160 - 189 mg/dl HIGH >190 mg/dl VERY HIGH Performed By: #### L IPID, TSH, CMP, T7 #### [facility] [address] [address] [address] Zackery Beck Triglyceride [Mass/Vol] 78 mg/dL Normal <=150 [facility] Comment on above: Performed By: #### L IPID, TSH, CMP, T7 #### [facility] [address] [address] [address] Zackery Beck VLDL CALC 15.6 mg/dL Normal [facility] Comment on above: Performed By: #### L IPID, TSH, CMP, T7 #### [facility] [address] [address] [address] Zackery Beck PROF 14(COMP METB)on 023 Albumin [Mass/Vol] 4.3 g/dL Normal 3.4-5.0 [facility] Comment on above: Performed By: #### L IPID, TSH, CMP, T7 #### [facility] [address] [address] [address] Zackery Beck Albumin/Globulin [Mass ratio] 1.3 {ratio} Normal [facility] Comment on above: Performed By: #### L IPID, TSH, CMP, T7 #### [facility] [address] [address] [address] Zackery Beck ALP [Catalytic activity/Vol] 94 U/L Normal 46-116 [facility] Comment on above: Performed By: #### L IPID, TSH, CMP, T7 #### [facility] [address] [address] [address] Zackery Beck ALT [Catalytic activity/Vol] 20 U/L Normal 14-59 [facility] Comment on above: Performed By: #### L IPID, TSH, CMP, T7 #### [facility] [address] [address] [address] Zackery Beck Anion gap [Moles/Vol] 16.5 mmol/L Normal [facility] Comment on above: Performed By: #### L IPID, TSH, CMP, T7 #### [facility] [address] [address] [address] Zackery Beck AST [Catalytic activity/Vol] 20 U/L Normal 15-37 [facility] Comment on above: Performed By: #### L IPID, TSH, CMP, T7 #### [facility] [address] [address] [address] Zackery Beck Bilirubin [Mass/Vol] 0.5 mg/dL Normal 0.2-1.0 [facility] Comment on above: Performed By: #### L IPID, TSH, CMP, T7 #### [facility] [address] [address] [address] Zackery Beck Calcium [Mass/Vol] 9.5 mg/dL Normal 8.5-10.1 [facility] Comment on above: Performed By: #### L IPID, TSH, CMP, T7 #### [facility] [address] [address] [address] Zackery Beck Chloride [Moles/Vol] 103 mmol/L Normal 98-107 [facility] Comment on above: Performed By: #### L IPID, TSH, CMP, T7 #### [facility] [address] [address] [address] Zackery Beck CO2 [Moles/Vol] 23.5 mmol/L Normal 21.0-32.0 [facility] Comment on above: Performed By: #### L IPID, TSH, CMP, T7 #### [facility] [address] [place] [address] Dr. Zackery Beck Creatinine [Mass/Vol] 0.93 mg/dL Normal 0.55-1.02 [facility] Comment on above: Performed By: #### L IPID, TSH, CMP, T7 #### [facility] [address] [place] [address] Dr. Zackery Beck EGFR-AF SAUDI ARABIAN >60 Normal >=60 [facility] Comment on above: Performed By: #### L IPID, TSH, CMP, T7 #### [facility] [address] [place] [address] Dr. Zackery Beck EGFR-NON AF SAUDI ARABIAN >60 Normal >=60 [facility] Comment on above: Performed By: #### L IPID, TSH, CMP, T7 #### [facility] [address] [address] [address] Zackery Beck Globulin (S) [Mass/Vol] 3.2 g/dL Normal [facility] Comment on above: Performed By: #### L IPID, TSH, CMP, T7 #### [facility] [address] [address] [address] Zackery Beck Glucose [Mass/Vol] 112 mg/dL Critically high 74-106 [facility] Comment on above: Performed By: #### L IPID, TSH, CMP, T7 #### [facility] [address] [address] [address] Zackery Beck Potassium [Moles/Vol] 4.0 mmol/L Normal 3.5-5.1 [facility] Comment on above: Performed By: #### L IPID, TSH, CMP, T7 #### [facility] [address] [address] [address] Zackery Beck Protein [Mass/Vol] 7.5 g/dL Normal 6.4-8.2 [facility] Comment on above: Performed By: #### L IPID, TSH, CMP, T7 #### [facility] [address] [address] [address] Zackery Beck Sodium [Moles/Vol] 139 mmol/L Normal 136-145 [facility] Comment on above: Performed By: #### L IPID, TSH, CMP, T7 #### [facility] [address] [address] [address] Zackery Beck Urea nitrogen [Mass/Vol] 30.0 mg/dL Critically high 7.0-18.0 [facility] Comment on above: Performed By: #### L IPID, TSH, CMP, T7 #### [facility] [address] [address] [address] Zackery Beck Urea nitrogen/Creatinine [Mass ratio] 32.3 mg/mg Normal [facility] Comment on above: Performed By: #### L IPID, TSH, CMP, T7 #### [facility] [address] [place] [address] Dr. Zackery Beck TSHon 05-20-2022 TSH 0.652 uIU/mL Normal 0.358-3.740 The [facility] Comment on above: Performed By: #### L IPID, TSH, CMP, T7 #### [facility] [address] [place] [address] Dr. Zackery Beck CULTURE URINEon 10-19-2021 CULTURE URINE Culture Observations: LIGHT GROWTH OF MIXED GENITAL DARSHANA. NO POTENTIAL PATHOGENS SEEN. Normal [facility] Comment on above: Performed By: #### U RCX #### [facility] [address] [place] [address] Dr. Zackery Beck UA RANDOM W/MICROSCOPICon AMORPHOUS CRYSTALS RARE Normal [facility] Comment on above: Performed By: #### U AMIC #### [facility] [address] [place] [address] Dr. Zackery Beck BACTERIA TRACE Abnormal NONE SEEN [facility] Comment on above: Performed By: #### U AMIC #### [facility] [address] [place] [address] Dr. Zackery Beck Bilirubin Ql (U) Negative Normal NEGATIVE [facility] Comment on above: Performed By: #### U AMIC #### [facility] [address] [place] [address] Dr. Zackery Beck CAST NONE SEEN Normal NONE SEEN [facility] Comment on above: Performed By: #### U AMIC #### [facility] [address] [place] [address] Dr. Zackery Beck Clarity (U) CLEAR Normal CLEAR [facility] Comment on above: Performed By: #### U AMIC #### [facility] [address] [place] [address] Dr. Zackery Beck Color (U) LT. YELLOW Normal YELLOW [facility] Comment on above: Performed By: #### U AMIC #### [facility] [address] [place] [address] Dr. Zackery Beck Crystals LM Nom (Urine sed) SEEN Abnormal NONE SEEN [facility] Comment on above: Performed By: #### U AMIC #### [facility] [address] [address] [address] Zackery Beck Epithelial cells LM Ql (Urine sed) RARE Normal NONE SEEN /RARE [facility] Comment on above: Performed By: #### U AMIC #### [facility] [address] [address] [address] Zackery Beck Glucose Ql (U) Negative Normal NEGATIVE [facility] Comment on above: Performed By: #### U AMIC #### [facility] [address] [address] [address] Zackery Beck Hemoglobin Ql (U) TRACE-LYSED Abnormal NEGATIVE [facility] Comment on above: Performed By: #### U AMIC #### [facility] [address] [place] [address] Dr. Zackery Beck Ketones Ql (U) Negative Normal NEGATIVE [facility] Comment on above: Performed By: #### U AMIC #### [facility] [address] [address] [address] Zackery Beck LEUKOCYTES TRACE Abnormal NEGATIVE [facility] Comment on above: Performed By: #### U AMIC #### [facility] [address] [address] [address] Zackery Beck MUCOUS TRACE Abnormal NONE SEEN [facility] Comment on above: Performed By: #### U AMIC #### [facility] [address] [address] [address] Zackery Beck Nitrite Ql (U) Negative Normal NEGATIVE [facility] Comment on above: Performed By: #### U AMIC #### [facility] [address] [address] [address] Zackery Beck pH (U) 5.5 [pH] Normal 5-9 [facility] Comment on above: Performed By: #### U AMIC #### [facility] [address] [place] [address] Dr. Zackery Beck RBC 2-5 Abnormal 0-2 [facility] Comment on above: Performed By: #### U AMIC #### [facility] [address] [address] [address] Zackery Beck SPEC GRAVITY <=1.005 Abnormal 1.005-<=1.025 [facility] Comment on above: Performed By: #### U AMIC #### [facility] [address] [address] [address] Zackery Bekc UA PROTEIN Negative Normal NEGATIVE/ TRACE [facility] Comment on above: Performed By: #### U AMIC #### [facility] [address] [address] [address] Zackery Beck Urobilinogen Qn (U) 0.2 {Monse'U}/dL Normal 0.2 - 1. 0 [facility] Comment on above: Performed By: #### U AMIC #### [facility] [address] [place] [address] Dr. Zackery Beck WBC 5-10 Abnormal NONE SEEN [facility] Comment on above: Performed By: #### U AMIC #### [facility] [address] [address] [address] Zackery Beck XR KUB 1 VIEWon [...] SHWETA FISCHER Date: 2021-10-19 18:38 Normal [facility] Vital Signs Date Time Vital Sign Value Performing Clinician Facility 09-04-2024 09:37-0400 Body height 152.4 cm Fermin OSMAN Work Phone: [facility] 09-04-2024 09:37-0400 Body mass index (BMI) [Ratio] 31.64 kg/m2 Fermin OSMAN Work Phone: [facility] 09-04-2024 09:37-0400 Body weight 73.48 kg Fermin OSMAN Work Phone: [facility] 04-09-2024 14:57-0500 Body height 152.[address] 04-09-2024 14:57-0500 Body mass index (BMI) [Ratio] 31.64 kg/m2 [address] 04-09-2024 14:57-0500 Body weight 73.[address] 04-09-2024 14:57-0500 Diastolic blood pressure 72 mm[Hg] [address] 04-09-2024 14:57-0500 Heart rate 73 /min [address] 04-09-2024 14:57-0500 Systolic blood pressure 103 mm[Hg] [address] 02-16-2024 12:02-0500 Body temperature 98.01 [degF] Chacha Arambula MD Work Phone: [facility] 02-16-2024 12:02-0500 Diastolic blood pressure 94 mm[Hg] Chacha Arambula MD Work Phone: [facility] 02-16-2024 12:02-0500 Heart rate 77 /min Chacha Arambula MD Work Phone: [facility] 02-16-2024 12:02-0500 Respiratory rate 16 /min Chacha Arambula MD Work Phone: [facility] 02-16-2024 12:02-0500 SaO2% (BldA) [Mass fraction] 94 % Chacha Arambula MD Work Phone: [facility] 02-16-2024 12:02-0500 Systolic blood pressure 149 mm[Hg] Chacha Arambula MD Work Phone: [facility] 02-15-2024 05:00-0500 Body mass index (BMI) [Ratio] 34.14 kg/m2 Chacha Arambula MD Work Phone: [facility] 02-15-2024 05:00-0500 Body weight 79.3 kg Chacha Arambula MD Work Phone: [facility] 02-15-2024 03:23-0500 Body height 152.4 cm Chacha Arambula MD Work Phone: [facility] Encounters Encounter Date Encounter Type Care Provider Facility Start: 09-04-2024 End: 09-04-2024 Bamboo flowsheet Fermin OSMAN Work Phone: [facility] Start: 09-04-2024 End: 09-04-2024 Bamboo flowsheet Fermin Ricketts PA Work Phone: [facility] Start: 09-04-2024 End: 09-04-2024 Office outpatient new 45 minutes Fermin OSMAN Work Phone: [facility] Comment on above: Acute pain of right knee (Primary Dx); Acute pain of left knee; Chondromalacia of left knee; Chondromalacia of right knee Start: 09-04-2024 End: 09-04-2024 ambulatory FERMIN RICKETTS Not Available Start: 08-09-2024 End: 08-09-2024 ambulatory Milly Pepe Facility:[facility] Start: 07-18-2024 End: 07-18-2024 ambulatory [facility] Start: 04-09-2024 End: 04-09-2024 Office outpatient visit 15 minutes Yoly Aly MD Work Phone: [facility] Comment on above: Kidney stones (Prima ry Dx) Start: 04-09-2024 End: 04-09-2024 ambulatory YOLY ALY [facility] Start: 04-08-2024 End: 04-08-2024 Orders Only Tom Cervantes [facility] Comment on above: Kidney stones (Prima ry Dx) Start: 03-26-2024 End: 03-26-2024 Evaluation and management of inpatient YOLY ALY [facility] Start: 03-12-2024 End: 03-12-2024 ambulatory [facility] Start: 03-12-2024 Encounter for other preprocedural examination [facility] Start: 02-15-2024 End: 02-22-2024 Telephone encounter Yoly Aly MD Work Phone: [facility] Start: 02-15-2024 [facility] Start: 02-14-2024 End: 02-16-2024 Evaluation and management of inpatient Nimisha Jean MD Work Phone: [facility] Acute Comment on above: Septic shock (CMS-HC C) (Primary Dx); Urinary tract obstruction by kidney stone; Other hydronephrosis Start: 10-23-2023 End: 10-23-2023 ambulatory [facility] Start: 06-22-2023 End: 06-22-2023 ambulatory [facility] Start: 04-18-2023 End: 04-18-[address] [facility] Start: 04-14-2023 End: 04-14-2023 ambulatory [facility] Start: 04-14-2023 End: 04-15-2023 [facility] Start: 06-30-2022 End: 07-01-2022 ambulatory MILLY PEPE Facility:[facility] Start: 05-22-2022 Encounter for genera l adult medical examination without abnormal findings MILLY PEPE [facility] Start: 05-20-2022 End: 05-21-2022 ambulatory MILLY PEPE Facility:[facility] Start: 05-20-2022 End: 05-21-2022 Encounter for general adult medical examination without abnormal findings MILLY PEPE Facility:[facility] Start: 10-19-2021 End: 10-20-2021 ambulatory MILLY PEPE Facility:[facility] Procedures Date Procedure Procedure Detail Performing Clinician Start: 09-04-2024 Radiologic examination knee 1/2 views Fermin OSMAN Work Phone: Start: 09-04-2024 Radiologic examination knee 1/2 views Fermin OSMAN Work Phone: Start: 04-09-2024 Follow-up visit Follow-up YOLY ALY Start: 02-16-2024 Basic metabolic panel calcium total Gianfranco Agosto DO Work Phone: Start: 02-16-2024 Adult depression screening assessment Yoly Aly MD Work Phone: Start: 02-15-2024 Fluoroscopy up to 1 hour physician/qhp time Neri Vallejo MD Work Phone: Start: 02-15-2024 Culture bacterial quanttative colony count urine Neri Vallejo MD Work Phone: Start: 02-15-2024 End: 02-15-2024 Cysto w/insert ureteral stent Neri Vallejo MD Work Phone: Start: 02-15-2024 End: 02-15-2024 Culture bacterial quanttative colony count urine Armando Hollingsworth MD Work Phone: Start: 02-15-2024 Cyanocobalamin vitamin b-12 Gianfranco Agosto DO Work Phone: Start: 02-15-2024 PULSE OXIMETRY, SPOT Gianfranco Agosto DO Work Phone: Start: 02-15-2024 Comprehensive metabolic panel Armando Hollingsworth MD Work Phone: Start: 10-23-2023 Mammography Yoly Aly MD Work Phone: Start: 03-09-2020 Colonoscopy Yoly Aly MD Work Phone: Start: 12-27-2012 History of cholecystectomy History of cholecystectomy Chacha Arambula MD Work Phone: Plan of Treatment Date Care Activity Detail Author Start: 10-23-2031 DTaP,Tdap and Td Vaccines (2 - Td or Tdap) DTaP,Tdap and Td Vaccines (2 - Td or Tdap) [facility] [employer] [facility] Start: 03-09-2030 Screening for malign ant neoplasm of colon Colonoscopy [facility] Start: 04-15-2025 End: 04-15-2025 Patient encounter procedure 04/15/2025 1:15 PM EST Office Visit [facility] [address] [place] [address] [facility] [place] [address] Yoly Aly MD [facility] [place] [address] [facility] Start: 04-09-2025 Adult BMI Screening Adult BMI Screen ing [facility] Start: 04-09-2025 Tobacco Screening Tobacco Screening [facility] Start: 04-09-2025 End: 04-09-2026 XR Abdomen AP X-ray abdomen ap 1 view Imaging Routine Kidney stones Expected: 04/09/2025, Expires: 04/09/2026 [facility]: Comment on above: Expected: 04/09/2025 , Expires: 04/09/2026 Start: 03-26-2025 Adult BMI Screening Adult BMI Screen ing [facility] Start: 03-26-2025 Tobacco Screening Tobacco Screening [facility] Start: 02-15-2025 Depression Screening Depression Scre ening [facility] Start: 02-15-2025 Tobacco Screening Tobacco Screening [facility] Start: 02-14-2025 Adult BMI Screening Adult BMI Screen ing [facility] Start: 10-22-2024 Screening for malign ant neoplasm of breast Mammogram [facility] Start: 10-09-2024 End: 10-09-2024 Patient encounter procedure 10/09/2024 10:00 AM EDT Office Visit [facility] [address] [address] Fermin Ricketts PA [address] [address] [facility] Start: 09-04-2024 End: 09-04-2024 Patient encounter procedure 09/04/2024 9:45 AM EDT Office Visit [facility] [place] [phone] Fermin Ricketts, DA[place] [address] [facility] [address] [place] [address] Acute pain of right knee (Primary Dx) [facility] Comment on above: Acute pain of right knee (Primary Dx) Start: 04-09-2024 End: 04-09-2024 Patient encounter procedure 04/09/2024 3:15 PM EST Office Visit [facility] [address] [place] [address] [address] [facility] [address] Yoly Aly MD [address] [place] [address] [facility] Start: 04-09-2024 End: 04-09-2024 Telemedicine consultation with patient 04/09/2024 3:00 PM EST Telemedicine [facility] [address] [place] [address] [place] [address] Yoly Aly MD [address] [place] [address] [facility] Start: 04-08-2024 End: 04-08-2025 XR Abdomen AP X-ray abdomen ap 1 view Imaging Routine Kidney stones Expected: 04/08/2024, Expires: 04/08/2025 [facility] Work Phone: Comment on above: Expected: 04/08/2024 , Expires: 04/08/2025 Start: 03-26-2024 End: 03-26-2024 Admission to same day surgery center 03/26/2024 10:00 AM EST - 03/26/2024 11:00 AM EST Surgery [facility] [address] [place] [id number] Yoly Aly MD [address] [place] [address] LASER HOLMIUM URETEROSCOPY RENAL STONES < OR=1CM [90347 (CPT )] [facility] Comment on above: LASER HOLMIUM URETER OSCOPY RENAL STONES < OR=1CM [23504 (CPT )] Start: 03-26-2024 End: 03-26-2024 Cysto w/insert ureteral stent CYSTOSCOPY EXCHANGE STENT URETER Kidney stones 03/26/2024 10:00 AM EST [facility] Start: 03-26-2024 End: 03-26-2024 Cysto w/ureteroscopy w/lithotripsy LASER HOLMIUM URETEROSCOPY RENAL STONES < OR=1CM Kidney stones 03/26/2024 10:00 AM EST [facility] Start: 03-26-2024 Subsequent hospital visit by physician 03/26/2024 10:00 AM EST Hospital Encounter [facility] [address] [place] [phone] Yoly Aly MD [address] [place] [address] [facility] Start: 03-12-2024 End: 03-12-2024 Patient encounter procedure 03/12/2024 1:45 PM EST Office Visit [facility] [address] [place] [address] [address] [facility] [phone] Yloy Aly MD [address] [place] [address] [facility] Start: 03-12-2024 End: 03-12-2024 Patient encounter procedure 03/12/2024 11:15 AM EST Procedure visit [facility] Admit [address] [place] [phone] [facility] Admit Start: 01-06-2024 Adult BMI Follow Up Plan Adult BMI Follow Up Plan [facility] Start: 10-29-2023 Influenza vaccination [facility] Start: 2022 Fall Risk Screening [facility] Bacteria identified in Blood by Aerobe culture [employer] Work Phone: Oxygen Therapy - Maintain SpO2: 90%; *LATIN DANCE INSTRUCTOR Guidelines for O2: Yes; Document: [email or web address]\ep ic\EPIC_Reference\Order s\Respiratory Care Guidelines\CPG Oxygen 2022.pdf Oxygen Therapy - Maintain SpO2: 90%; *LATIN DANCE INSTRUCTOR Guidelines for O2: Yes; Document: \[email or web address]\e pic\EPIC_Reference\Ord ers\Respiratory Care Guidelines\CPG Oxygen 2022.pdf Respiratory Care Routine As Needed until discontinued starting 02/15/2024 [employer] Work Phone: Comment on above: As Needed until disc ontinued starting 02/15/2024 Respiratory Care consult *LATIN DANCE INSTRUCTOR Guidelines for Resp Care Consult: Yes; Document: \[email or web address]\ep ic\EPIC_Reference\Order s\Respiratory Care Guidelines\CPG Consult 2019.pdf Respiratory Care consult *LATIN DANCE INSTRUCTOR Guidelines for Resp Care Consult: Yes; Document: \[email or web address]\e pic\EPIC_Reference\Ord ers\Respiratory Care Guidelines\CPG Consult 2020.pdf Respiratory Care Routine Every 12 hour check until discontinued starting 02/15/2024 [facility] Comment on above: Every 12 hour check until discontinued starting 02/15/2024 Immunizations Immunization Date Immunization Notes Care Provider Salina hdialgo 10-22-2021 tetanus toxoid, redu jennifer diphtheria toxoid, and acellular pertussis vaccine, adsorbed Chacha Arambula MD [facility] 02-08-2021 zoster vaccine recombinant Chacha Arambula MD [facility] Phone: [facility] 11-21-2020 zoster vaccine recombinant Chacha Arambula MD [facility] 10-24-2015 zoster vaccine, live Chacha Arambula MD Work Phone: [facility] [employer] Payers Date Payer Category Payer Self-pay 2024 Medicare (Managed Care) [employer] [id number] 2022 Medicare HMO [employer]OTED [facility] [id number] 2022 Medicare [id number] Private Health Insurance [id number] Unknown [id number] 2.16.840.1.987132.3.579. 2.593 1955 Unknown [id number] 2.16.840.1.584049.3.579. 2.593 1955 Unknown [id number] 2.16.840.1.624420.3.579. 2.593 1955 Unknown [id number] 2.16.840.1.807037.3.579. 2.1286 1955 Unknown [id number] 2.16.840.1.226530.3.579. 2.1286 1955 Unknown [id number] 2.16.840.1.657263.3.579. 2.1286 1955 Unknown [id number] 2.16.840.1.680643.3.579. 2.6 1957 Unknown [id number] 2.16.840.1.622347.3.579. 2.1286 1955 Unknown [id number] 2.16.840.1.166004.3.579. 2.1285 1957 Unknown [id number] 2.16.840.1.985167.3.579. 2.128 1957 Unknown [id number] 2.16.840.1.159717.3.579. 2.1285 1955 Unknown [id number] 2.16.840.1.096854.3.579. 2.1285 1957 Unknown [id number] 2.16.840.1.105945.3.579. 2.1285 1957 Unknown [id number] 2.16.840.1.396237.3.579. 2.128 1957 Unknown [id number] 2.16840.1.716735.3.579. 2.1285 1957 Unknown [id number] 2.16.840.1.231408.3.579. 2.1285 1955 Unknown [id number] 2.16.840.1.833489.3.579. 2.1259 1957 Unknown [id number] 2.16.840.1.136258.3.579. 2.1259 1955 Unknown [id number] 2.16.840.1.633290.3.579. 2.1259 Unknown [id number] Unknown [id number] 2.16.840.1.396329.3.579. 2.531 Social History Date Type Detail Facility Start: 2021 End: 09-04-[address] [facility] Ex-smoker [facility] End: 02-27-2006 History of tobacco use Current smoker [facility] End: 02-27-2006 History of tobacco use Cigarette Smoker [facility] Start: 2021 End: 09-04-2024 Tobacco use and exposure Smokeless tobacco non-user [facility] Start: 02-16-2024 End: 04-09-2024 Alcoholic beverage intake Current non-drinker of alcohol (finding) [facility] Start: 03-10-2020 End: 02-16-2024 History of Social function [facility] Start: 03-10-2020 End: 02-16-2024 [facility] [employer] [facility] Has the [employer], [employer], flexReceipts, or water company threatened to shut off services in your home in past 12Mo No [facility] Adolescent depressio n screening assessment 0 [facility] Start: 1955 Sex assigned at Not on file P [facility] Start: 10-02-2014 Sex Female (finding) [facility] smoking consumption unknown [facility] Start: 09-04-2024 Alcoholic beverage intake Ex-drinker (finding) [facility] Medical Equipment Procedure Code Equipment Code Equipment Origin al Text Equipment Identifier Dates Stent Percuflex [place]+ 6x24 - [id number] Start: 05-11-2017 Stent Percuflex [place]+ 6x24 - [id number] Start: 05-11-2017 Set Stnt 24cm 6f r Universa 2 Pgtl Crv Ureter Aq Rdpq Grad - [id number] Start: 02-15-2024 Goals Date Patient Goal Desired Activity /State Personal health goal Comment on above: Formatting of this n ote might be different from the original. Evaluation of progress towards goal: pt would like to return home self care, family support. Functional Status Date Assessment Result Facility [facility] Clinical Notes 02-14-2024 to 09-04-2024 DAWSON Serrano - 09/04/2024 9:45 AM Francois Aly MD - 04/09/2024 3:00 PM Hugo Cervantes CMA - 04/08/2024 10:15 AM ESTPlan of Care - Jimena Day RN - 02/16/2024 11:28 AM EST Note Date & Type Note Facility 09-04-2024 History of Present illness Narrative Images from the original note were not included. Orthopedic Office note: NAME: Abundio Iglesias : 1955 NEW PT WITH B/L KNEE PAIN ~1MO- NO KNOWN INJURY - PT STATES SHE DID HAVE PAIN PRIOR TO A MONTH AGO BUT SYMPTOMS RESOLVED AND RECENTLY RETURNED- NO TX XRAY B/L KNEE TODAY EPIC 09/04/24 PAIN ANTERIOR KNEE- DENIES SWELLING- DENIES INSTABILITY- PAIN CAN BE SHARP- SOMETIMES CAUSES PT TO LIMP- SOME DIFFICULTY WITH STAIRS- +IBUPROFEN- PT ICES/ELEVATES Knee Musculoskeletal Exam Gait Gait is normal. Inspection Leg length disparity: no discrepancy Right Erythema: none Effusion: mild Edema: none Ecchymosis: none Deformity: none Alignment: normal Left Erythema: none Effusion: mild Edema: none Ecchymosis: none Deformity: none Alignment: normal Palpation Right Right knee palpation is unremarkable. Increased warmth: none Masses: none Crepitus: patellofemoral Tenderness: present Patella: moderate Left Left knee palpation is unremarkable. Increased warmth: none Masses: none Tenderness: present Patella: moderate Range of Motion Right Right knee range of motion is normal and full. Left Left knee range of motion is normal and full. Strength Right Right knee strength is normal. Extension: 5/5. Flexion: 5/5. Left Left knee strength is normal. Extension: 5/5. Instability Right Instability signs: none - stable Varus stress grade: normal Valgus stress grade: normal Anterior drawer: normal Medial Mayra test: negative Lateral Mayra test: negative Left Instability signs: none - stable Varus stress grade: normal Valgus stress grade: normal Anterior drawer: normal Medial Mayra test: negative Lateral Mayra test: negative Neurovascular Right Right knee neurovascular exam is normal. Pulses - PT: normal Posterior tibial: 2+ Capillary refill: warm and well-perfused Left Left knee neurovascular exam is normal. Pulses - PT: normal Posterior tibial: 2+ Capillary refill: warm and well-perfused Special Signs Right Right knee special signs are normal. Straight leg raise: normal Patellar apprehension: moderate Left Straight leg raise: normal Patellar apprehension: moderate General Constitutional: appears stated age Labored breathing: no Psychiatric: normal mood and affect Neurological: alert Skin: intact Lymphadenopathy: none Orders Placed This Encounter Procedures XR knee 1 or 2 views right Reason for exam:: PAIN XR knee 1 or 2 views left Views: AP Views: Lateral Reason for exam:: PAIN Procedures Results - Imaging: - X-rays of the knees reviewed at bedside ICD-10-CM 1. Acute pain of right knee M25.561 XR knee 1 or 2 views right 2. Acute pain of left knee M25.562 XR knee 1 or 2 views left 3. 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 Her walking regimen was discussed. She was down for a period of time with kidney stones and then resumed her activity with symptom onset. X-rays were reviewed at bedside, showing no severe symptoms concerning for loose body involvement. A gradual return to walking half a mile every other day, then three-quarters, and then a full mile with day breaks in between was recommended. Bicycle use was also suggested. The importance of stretching and home exercises was emphasized. She will be given a prednisone taper with risks and benefits discussed. If symptoms persist, an intra-articular injection or MRI will be considered. Treatment plan: A gradual return to walking half a mile every other day, then three-quarters, and then a full mile with day breaks in between was recommended. Bicycle use was also suggested. The importance of stretching and home exercises was emphasized. She will be given a prednisone taper. Clinical decision making: Risks and benefits of prednisone taper were discussed. If symptoms persist, an intra-articular injection or MRI will be considered. Follow-up: She will follow up in 4 to 5 weeks. Questions answered in laymen terms at the bedside. The diagnosis, home exercise plan and any ongoing restrictions/ recommendations reviewed. If unable to be reached in office, I recommend evaluation at nearest Emergency Room if any symptoms worsened or new symptoms develop for requiring urgent evaluation. Visit was preformed using [employer]pilot safety inspector speech recognition. documented in this encounter [facility] 07-18-2024 Note [facility] Consult Note Reason [...] Tobacco Use: Medium Risk (04/09/2024) Received from [facility] Patient History Smoking Tobacco Use: Former Smokeless Tobacco Use: Never Passive Exposure: Not on file Alcohol Use: Not on file Financial Resource Strain: Not on file Food Insecurity: No Food Insecurity (04/09/2024) [facility] Hunger Screening Within the past 12 months we worried whether our food would run out before we got money to buy more.: Never True Within the past 12 months the food we bought just didn't last and we didn't have money to get more.: Never True Transportation Needs: No Transportation Needs (02/16/2024) [facility] PRAPARE - Transportation Lack of Transportation (Medical): No Lack of Transportation (Non-Medical): No Physical Activity: Not on file Stress: Not on file Social Connections: Not on file Intimate Partner Violence: Unknown (04/21/2023) [place] Safety & Environment Fear of Current or Ex-Partner: Not on file Emotionally Abused: Not on file Physically Abused: Not on file Sexually Abused: Not on file Physically or Sexually Abused: Not on file Depression: Not at risk (02/16/2024) [facility] PHQ-2 Total Score: 0 Housing Stability: Low Risk (02/16/2024) Received from [facility] Housing Instability Are you worried or concerned that in the next two months you may not have stable housing that you own, rent or stay in as a part of a household?: No Utilities: Not At Risk (02/16/2024) [facility] Utilities Threatened with loss of utilities: No [...] tablet Take 40 (more content not included)... [facility] 04-09-2024 History of Present illness Narrative Images from the original note were not included. [address] [place] [address] A [facility] [address] 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 Visual impairment contacts Past Surgical History: Procedure Laterality Date APPENDECTOMY BREAST BIOPSY Left 05/26/1994 benign excisional-not visible CHOLECYSTECTOMY COLONOSCOPY 3143-2022 COLONOSCOPY N/A 03/09/2020 Performed by Jerald Malhotra DO at [facility] CYSTOSCOPY N/A 04/25/2017 Performed by Yoly Aly MD at [facility] CYSTOSCOPY , right ureteroscopy, with laser right ureter dilation Right 02/12/2021 Performed by Yoly Aly MD at [facility] CYSTOSCOPY INSERTION STENT LEFT URETER Left 02/15/2024 Performed by Neri Vallejo MD at [facility] CYSTOSCOPY REMOVAL STENT Left 03/26/2024 Performed by Yoly Aly MD at [facility] CYSTOSCOPY REMOVAL STENT Bilateral 03/31/2021 Performed by Yoly Aly MD at [facility] CYSTOSCOPY REMOVAL STENT Bilateral 05/23/2017 Performed by Yoly Aly MD at [facility] CYSTOSCOPY URETEROSCOPY BILATERAL WITH HOMIUM LASER/BILATERAL STENT PLACEMENT/STONE BASKETING Bilateral 05/11/2017 Performed by Yoly Aly MD at [facility] ESOPHAGOGASTRODUODENOSCOPY ESOPHAGOGASTRODUODENOSCOPY N/A 03/09/2020 Performed by Jerald Malhotra DO at [facility] EXTRACORPOREAL SHOCK WAVE LITHOTRIPSY Right 04/25/2017 Performed by Yoly Aly MD at [facility] EYE SURGERY INSERTION STENT URETER Bilateral 02/12/2021 Performed by Yoly Aly MD at [facility] LASER HOLMIUM URETEROSCOPY RENAL STONES < OR=1CM Left 03/26/2024 Performed by Yoly Aly MD at [facility] LASER HOLMIUM URETEROSCOPY RENAL STONES < OR=1CM Right 03/31/2021 Performed by Yoly Aly MD at [facility] SURGERY NECK SURGERY URETERAL STENT PLACEMENT Family History [...] mcg total) by mouth in the morning. uqrxklou-cahl-AH-calcium &mins (THERAGRAN-M) 9 mg iron-400 mcg tablet [...] decrease her risk of recurrent stones. Follow-up: Yoly Aly MD This note was created with the assistance of a speech recognition program. While intending to generate a timely document that accurately reflects the content of the visit, no guarantee can be provided that every grammatical or spelling mistake has been or will be identified or corrected. Thank you for your understanding. documented in this encounter [facility] 04-08-2024 History of Present illness Narrative [facility] registration called requesting us to place an order for a KUB prior to appt coming up with Dr. Aly. Last KUB was on date of surgery. Pt was under the impression and requested order to be placed. Order placed. documented in this encounter [facility] 02-16-2024 Progress note Formatting of [...] - Vanesa Polanco RN 02/16/24 1:50 PM [facility] 02-16-2024 Miscellaneous Notes DISCHARGE PLANNING NOTE Case [...] Description: INTERVENTIONS: 1. Encourage patient or legal medical service representative to report early pain and ask [...] per policy 9. Teach patient or legal medical service representative interventions for comforting Note: Evaluation of [...] at the bedside 7. Instruct patient/ patient medical service representative about use of safety devices 8. Include patient/ patient medical service representative in decisions related to safety Note: [...] hygiene technique. 7. Identify and instruct patient/patient medical service representative in use of appropriate isolation precautions for identified infection/symptoms. 8. Provide and discuss with patient/patient medical service representative on educational MDRO sheet. 9. Encourage and monitor nutritional status daily and consult housefellow if indicated. 10. Implement neutropenic guidelines as needed. Note: Evaluation of progress towards goal: Patient will show no new signs of infection, will continue with stable vitals, nurse to continue to assess and monitor until DC. Problem: Knowledge Deficit Goal: Patient/patient medical service representative demonstrates understanding of disease process, treatment [...] Description: INTERVENTIONS: 1. Encourage patient or legal medical service representative to report early pain and ask [...] per policy 9. Teach patient or legal medical service representative interventions for comforting Outcome: Progressing Note: Evaluation of progress towards goal: Encouraged patient or legal medical service representative to report early pain and ask [...] at the bedside 7. Instruct patient/ patient medical service representative about use of safety devices 8. Include patient/ patient medical service representative in decisions related to safety Outcome: [...] hygiene technique. 7. Identify and instruct patient/patient medical service representative in use of appropriate isolation precautions for identified infection/symptoms. 8. Provide and discuss with patient/patient medical service representative on educational MDRO sheet. 9. Encourage and monitor nutritional status daily and consult housefellow if indicated. 10. Implement neutropenic guidelines as needed. Outcome: Progressing Note: Evaluation of progress towards goal: Assessed and monitored for signs and symptoms of infection. Monitored lab/diagnostic results. Monitored all insertion sites i.e., indwelling lines, tubes and drains. Problem: Knowledge Deficit Goal: Patient/patient medical service representative demonstrates understanding of disease process, treatment [...] be free from fall Description: Interventions: 1. [place] to environment 2. Hourly rounds addressing the [...] non-skid footwear 11. Teach patient and patient medical service representative to maintain environment for safety and [...] (cane, walker) within reach 19. Request patient medical service representative bring adaptive equipment/mobility aids from home or obtain and provide as needed 20. Consult pharmacy regarding effects of med's affecting mobility, cognition, and alternatives 21. Obtain physician order for PT if risk factors associated with mobility are present 22. Obtain physician order for OT as appropriate 23. Utilize diversional activities 24. Educate patient and patient medical service representative how to maintain a safe environment during visitation times (notify nurse prior to leaving bedside) 25. Consider appropriateness of medical or non-medical specialist 26. Set up voiding schedule as [...] Description: INTERVENTIONS: 1. Encourage patient or legal medical service representative to report early pain and ask [...] per policy 9. Teach patient or legal medical service representative interventions for comforting Outcome: Progressing Note: [...] at the bedside 7. Instruct patient/ patient medical service representative about use of safety devices 8. Include patient/ patient medical service representative in decisions related to safety Outcome: [...] hygiene technique. 7. Identify and instruct patient/patient medical service representative in use of appropriate isolation precautions for identified infection/symptoms. 8. Provide and discuss with patient/patient medical service representative on educational MDRO sheet. 9. Encourage and monitor nutritional status daily and consult housefellow if indicated. 10. Implement neutropenic guidelines as needed. Outcome: Progressing Note: Evaluation of progress towards goal: Patient will show no new signs of infection, will continue with stable vitals, nurse to continue to assess and monitor until DC. Problem: Knowledge Deficit Goal: Patient/patient medical service representative demonstrates understanding of disease process, treatment [...] be free from fall Description: Interventions: 1. [place] to environment 2. Hourly rounds addressing the [...] non-skid footwear 11. Teach patient and patient medical service representative to maintain environment for safety and [...] (cane, walker) within reach 19. Request patient medical service representative bring adaptive equipment/mobility aids from home or obtain and provide as needed 20. Consult pharmacy regarding effects of med's affecting mobility, cognition, and alternatives 21. Obtain physician order for PT if risk factors associated with mobility are present 22. Obtain physician order for OT as appropriate 23. Utilize diversional activities 24. Educate patient and patient medical service representative how to maintain a safe environment during visitation times (notify nurse prior to leaving bedside) 25. Consider appropriateness of medical or non-medical specialist 26. Set up voiding schedule as [...] Description: INTERVENTIONS: 1. Encourage patient or legal medical service representative to report early pain and ask [...] per policy 9. Teach patient or legal medical service representative interventions for comforting Outcome: Progressing Note: Evaluation of progress towards goal: Encouraged patient or legal medical service representative to report early pain and ask [...] at the bedside 7. Instruct patient/ patient medical service representative about use of safety devices 8. Include patient/ patient medical service representative in decisions related to safety Outcome: [...] hygiene technique. 7. Identify and instruct patient/patient medical service representative in use of appropriate isolation precautions for identified infection/symptoms. 8. Provide and discuss with patient/patient medical service representative on educational MDRO sheet. 9. Encourage and monitor nutritional status daily and consult housefellow if indicated. 10. Implement neutropenic guidelines as needed. Outcome: Progressing Note: Evaluation of progress towards goal: Assessed and monitored for signs and symptoms of infection. Monitored lab/diagnostic results. Monitored all insertion sites i.e., indwelling lines, tubes and drains. Monitored endotracheal (as able) and nasal secretions for changes in amount and color documented in this encounter [facility] [employer] 02-16-2024 Hospital Discharge instructions Chacha Arambula MD - 02/16/2024 11:46 AM EST If you have any questions regarding care after discharge please call your doctor. Please seek medical attention for symptoms that are worsening or not improving. If you are experiencing an emergency, call . Follow up with your primary care physician within 1-2 weeks of discharge. Please follow up with Urology. Discharged on an antibiotic called ciprofloxacin. Please take as prescribed. Please see discharge paperwork for further information about this medication. The following attachments cannot be sent through Care Everywhere.Ciprofloxacin (Systemic), ADULT (Syrian)documented in this encounter [facility] 02-16-2024 Hospital course Narrative Images from the original note were not included. [facility] Medicine Discharge Summary Patient Name: Abundio Iglesias : 1955 PCP: [facility] MD DATE OF ADMISSION: 02/14/2024 DATE OF DISCHARGE: 02/16/2024 PRIMARY DISCHARGE DIAGNOSIS: Pyelonephritis secondary to left-sided obstructing kidney stones SECONDARY DISCHARGE DIAGNOSIS: GERD Hypothyroidism Hyperlipidemia Essential hypertension CONSULTANTS: Urology [facility]/HOSPITAL COURSE SUMMARY: Abundio Iglesias is a 68 y.o. female who presented to [facility] outside ER on 02/14 with chief complaint of flank pain. Found to have obstructing left kidney stones with moderate hydronephrosis and obstruction and therefore was transferred to [facility] for urologic evaluation. Had stent placed with [...] Procedure Component Value Units Date/Time Urine Culture [[id number]] Collected: 02/15/24 1155 Specimen: Urine from Other Updated: 02/16/24 1004 Specimen Notes URINE RECEIVED WITHOUT PRESERVATIVE Culture NO GROWTH AT <1000 CFU/mL Urine culture [[id number]] Collected: 02/15/24 1000 Specimen: Urine Updated: 02/15/24 1820 Blood culture #1 [[id number]] Collected: 02/15/24 0200 Specimen: Blood Updated: 02/16/24 0248 Culture NO GROWTH 1 DAY Blood culture #2 [[id number]] Collected: 02/15/24 0200 Specimen: Blood Updated: 02/16/24 [...] 5 MCG tablet Commonly known as: CYTOMEL zvxampyx-cbma-BB-calcium &mins 9 mg iron-400 mcg tablet Commonly known as: THERAGRAN-M pravastatin 40 mg tablet Commonly known as: PRAVACHOL STOP taking these medications estradioL 0.01 % (0.1 mg/gram) vaginal cream Commonly known as: ESTRACE Where to Get Your Medications These medications were sent to [facility] [address] [place] [address] [facility] [address] [address] cefDINIR 300 mg capsule 35 minutes were spent on discharging this patient. Chacha Arambula MD documented in this encounter [facility] 02-16-2024 Plan of care note Problem: Pain Goal: Patient goal is pain score less than 4, able to rest, and participant in treatment plan as appropriate Description: INTERVENTIONS: 1. Encourage patient or legal medical service representative to report early pain and ask [...] per policy 9. Teach patient or legal medical service representative interventions for comforting Note: Evaluation of [...] at the bedside 7. Instruct patient/ patient medical service representative about use of safety devices 8. Include patient/ patient medical service representative in decisions related to safety Note: [...] hygiene technique. 7. Identify and instruct patient/patient medical service representative in use of appropriate isolation precautions for identified infection/symptoms. 8. Provide and discuss with patient/patient medical service representative on educational MDRO sheet. 9. Encourage and monitor nutritional status daily and consult housefellow if indicated. 10. Implement neutropenic guidelines as needed. Note: Evaluation of progress towards goal: Patient will show no new signs of infection, will continue with stable vitals, nurse to continue to assess and monitor until DC. Problem: Knowledge Deficit Goal: Patient/patient medical service representative demonstrates understanding of disease process, treatment plan, medications, and discharge instructions Description: INTERVENTIONS 1. Complete learning assessment and assess knowledge base 2. Provide teaching at level of understanding 3. Provide teaching via preferred learning method(s) Note: Evaluation of progress towards goal: Nurse to continue education with patient and family as needed via their preferred learning method until DC. [facility] 02-16-2024 History of Present illness Narrative Images [...] Katie Agustin MD Urology PGY5 Cosigned by Yoly Aly MD at 02/16/2024 4:47 PM EST Associated attestation - Yoly Aly MD - 02/16/2024 4:47 PM EST As above. Ok to remove starks. Will defer to primary team to follow up urine cultures and treat accordingly. I have requested follow-up ureteroscopy to address the stones once her UTIs treated documented in this encounter [facility] 02-15-2024 Plan of care note Problem: Pain Goal: Patient goal is pain score less than 4, able to rest, and participant in treatment plan as appropriate Description: INTERVENTIONS: 1. Encourage patient or legal medical service representative to report early pain and ask [...] per policy 9. Teach patient or legal medical service representative interventions for comforting Outcome: Progressing Note: Evaluation of progress towards goal: Encouraged patient or legal medical service representative to report early pain and ask [...] at the bedside 7. Instruct patient/ patient medical service representative about use of safety devices 8. Include patient/ patient medical service representative in decisions related to safety Outcome: [...] hygiene technique. 7. Identify and instruct patient/patient medical service representative in use of appropriate isolation precautions for identified infection/symptoms. 8. Provide and discuss with patient/patient medical service representative on educational MDRO sheet. 9. Encourage and monitor nutritional status daily and consult housefellow if indicated. 10. Implement neutropenic guidelines as needed. Outcome: Progressing Note: Evaluation of progress towards goal: Assessed and monitored for signs and symptoms of infection. Monitored lab/diagnostic results. Monitored all insertion sites i.e., indwelling lines, tubes and drains. Problem: Knowledge Deficit Goal: Patient/patient medical service representative demonstrates understanding of disease process, treatment [...] be free from fall Description: Interventions: 1. [place] to environment 2. Hourly rounds addressing the [...] non-skid footwear 11. Teach patient and patient medical service representative to maintain environment for safety and [...] (cane, walker) within reach 19. Request patient medical service representative bring adaptive equipment/mobility aids from home or obtain and provide as needed 20. Consult pharmacy regarding effects of med's affecting mobility, cognition, and alternatives 21. Obtain physician order for PT if risk factors associated with mobility are present 22. Obtain physician order for OT as appropriate 23. Utilize diversional activities 24. Educate patient and patient medical service representative how to maintain a safe environment during visitation times (notify nurse prior to leaving bedside) 25. Consider appropriateness of medical or non-medical specialist 26. Set up voiding schedule as [...] and notify LIP if unable to irrigate. [facility] 02-15-2024 Plan of care note Problem: Pain Goal: Patient goal is pain score less than 4, able to rest, and participant in treatment plan as appropriate Description: INTERVENTIONS: 1. Encourage patient or legal medical service representative to report early pain and ask [...] per policy 9. Teach patient or legal medical service representative interventions for comforting Outcome: Progressing Note: [...] at the bedside 7. Instruct patient/ patient medical service representative about use of safety devices 8. Include patient/ patient medical service representative in decisions related to safety Outcome: [...] hygiene technique. 7. Identify and instruct patient/patient medical service representative in use of appropriate isolation precautions for identified infection/symptoms. 8. Provide and discuss with patient/patient medical service representative on educational MDRO sheet. 9. Encourage and monitor nutritional status daily and consult housefellow if indicated. 10. Implement neutropenic guidelines as needed. Outcome: Progressing Note: Evaluation of progress towards goal: Patient will show no new signs of infection, will continue with stable vitals, nurse to continue to assess and monitor until DC. Problem: Knowledge Deficit Goal: Patient/patient medical service representative demonstrates understanding of disease process, treatment [...] Score of =/> 25 or indicated by [facility] Assessment Goal: Patient should be free from fall Description: Interventions: 1. [place] to environment 2. Hourly rounds addressing the [...] non-skid footwear 11. Teach patient and patient medical service representative to maintain environment for safety and [...] (cane, walker) within reach 19. Request patient medical service representative bring adaptive equipment/mobility aids from home or obtain and provide as needed 20. Consult pharmacy regarding effects of med's affecting mobility, cognition, and alternatives 21. Obtain physician order for PT if risk factors associated with mobility are present 22. Obtain physician order for OT as appropriate 23. Utilize diversional activities 24. Educate patient and patient medical service representative how to maintain a safe environment during visitation times (notify nurse prior to leaving bedside) 25. Consider appropriateness of medical or non-medical specialist 26. Set up voiding schedule as appropriate (every 2 hours) Outcome: Progressing Note: Evaluation of progress towards goal: Patient remains free from fall, nurse to continue with fall interventions and assist patient as needed. [facility] 02-15-2024 Miscellaneous Notes She presented with obstructing left ureteral calculi and fever and had a stent placed by Dr. Vallejo today. Please schedule for cysto, left stent removal, left ureteroscopy with laser lithotripsy and possible stent replacement, general, [facility] or [facility] available Diagnosis ureteral stones Spoke to pt 02/22/2024 Pat sparrow bush 03/12/2024 @ 1115pm ([facility]) [place] 03/26/2024 @ 10am arrive @ 8am Pt aware info mailed 02/22/2024 Copy of letter in chart documented in this encounter [facility] 02-15-2024 Telephone encounter Note She presented with obstructing left ureteral calculi and fever and had a stent placed by Dr. Vallejo today. Please schedule for cysto, left stent removal, left ureteroscopy with laser lithotripsy and possible stent replacement, general, [facility] or [facility] available Diagnosis ureteral stones [facility] 02-15-2024 Telephone encounter Note Spoke to pt 02/22/2024 Pat greg 03/12/2024 @ 1115pm ([facility]) [place] 03/26/2024 @ 10am arrive @ 8am Pt aware info mailed 02/22/2024 Copy of letter in chart [facility] 02-15-2024 Progress note Formatting of t his [...] support. - DANIEL Cedeno 02/15/24 2:48 PM [facility] 02-15-2024 Plan of care note Problem: Pain Goal: Patient goal is pain score less than 4, able to rest, and participant in treatment plan as appropriate Description: INTERVENTIONS: 1. Encourage patient or legal medical service representative to report early pain and ask [...] per policy 9. Teach patient or legal medical service representative interventions for comforting Outcome: Progressing Note: Evaluation of progress towards goal: Encouraged patient or legal medical service representative to report early pain and ask [...] at the bedside 7. Instruct patient/ patient medical service representative about use of safety devices 8. Include patient/ patient medical service representative in decisions related to safety Outcome: [...] hygiene technique. 7. Identify and instruct patient/patient medical service representative in use of appropriate isolation precautions for identified infection/symptoms. 8. Provide and discuss with patient/patient medical service representative on educational MDRO sheet. 9. Encourage and monitor nutritional status daily and consult housefellow if indicated. 10. Implement neutropenic guidelines as needed. Outcome: Progressing Note: Evaluation of progress towards goal: Assessed and monitored for signs and symptoms of infection. Monitored lab/diagnostic results. Monitored all insertion sites i.e., indwelling lines, tubes and drains. Monitored endotracheal (as able) and nasal secretions for changes in amount and color [facility] 02-15-2024 Consult note Associated Order (s): IP CONSULT TO UROLOGY Urology Consultation Patient: Abnudio Iglesias Date of : 1955 ATTENDING: Dr. Aly/Dr. Ganga dubose CHIEF COMPLAINT: Left flank and lower abdominal [...] and vomiting. She was brought to the [facility] ER and a CT scan reveals 2 stones in the left ureter, 3 x 3 at the left UVJ and 5 x 6 in the left mid ureter with upstream hydronephrosis. Patient was tachycardic and febrile, therefore she was transferred to [facility] for immediate urologic intervention. 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 Visual impairment contacts Past Surgical History: Past Surgical History: Procedure Laterality Date APPENDECTOMY BREAST BIOPSY Left 05/26/1994 benign excisional-not visible CHOLECYSTECTOMY COLONOSCOPY [id number] COLONOSCOPY N/A 03/09/2020 Performed by Jerald Malhotra DO at [facility] CYSTOSCOPY N/A 04/25/2017 Performed by Yoly Aly MD at [facility] CYSTOSCOPY , right ureteroscopy, with laser right ureter dilation Right 02/12/2021 Performed by Yoly Aly MD at [facility] CYSTOSCOPY REMOVAL STENT Bilateral 03/31/2021 Performed by Yoly Aly MD at [facility] CYSTOSCOPY REMOVAL STENT Bilateral 05/23/2017 Performed by Yoly Aly MD at [facility] CYSTOSCOPY URETEROSCOPY BILATERAL WITH HOMIUM LASER/BILATERAL STENT PLACEMENT/STONE BASKETING Bilateral 05/11/2017 Performed by Yoly Aly MD at [facility] ESOPHAGOGASTRODUODENOSCOPY ESOPHAGOGASTRODUODENOSCOPY N/A 03/09/2020 Performed by Jerald Malhotra DO at [facility] EXTRACORPOREAL SHOCK WAVE LITHOTRIPSY Right 04/25/2017 Performed by Yoly Aly MD at [facility] EYE SURGERY INSERTION STENT URETER Bilateral 02/12/2021 Performed by Yoly Aly MD at [facility] LASER HOLMIUM URETEROSCOPY RENAL STONES < OR=1CM Right 03/31/2021 Performed by Yoly Aly MD at [facility] NECK SURGERY URETERAL STENT PLACEMENT Previous surgery: [...] Interpersonal Safety: Unknown (04/21/2023) Received from [facility] Safety & Environment Fear of Current or [...] Urinalysis: - Imaging Results: CT scan from [place] showing 2 left obstructing ureteral stones with [...] AM 02/15/2024 DAWSON Swanson 02/15/24 0229 I, NERI VALLEJO MD, personally performed the face to face diagnostic evaluation on this patient. My findings are as follows: OR for cysto, left stent . [employer] Work Phone: 02-15-2024 Consult note Associated Order [...] and vomiting. She was brought to the [facility] ER and a CT scan reveals 2 stones in the left ureter, 3 x 3 at the left UVJ and 5 x 6 in the left mid ureter with upstream hydronephrosis. Patient was tachycardic and febrile, therefore she was transferred to [facility] for immediate urologic intervention. Past urologic history: As above, patient follows with Dr. Sheeba with history of nephrolithiasis. 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 Visual impairment contacts Past Surgical History: Past Surgical History: Procedure Laterality Date APPENDECTOMY BREAST BIOPSY Left 05/26/1994 benign excisional-not visible CHOLECYSTECTOMY COLONOSCOPY [id number] COLONOSCOPY N/A 03/09/2020 Performed by Jerald Malhotra DO at [facility] CYSTOSCOPY N/A 04/25/2017 Performed by Yoly Aly MD at [facility] CYSTOSCOPY , right ureteroscopy, with laser right ureter dilation Right 02/12/2021 Performed by Yoly Aly MD at [facility] CYSTOSCOPY REMOVAL STENT Bilateral 03/31/2021 Performed by Yoly Aly MD at [facility] CYSTOSCOPY REMOVAL STENT Bilateral 05/23/2017 Performed by Yoly Aly MD at [facility] CYSTOSCOPY URETEROSCOPY BILATERAL WITH HOMIUM LASER/BILATERAL STENT PLACEMENT/STONE BASKETING Bilateral 05/11/2017 Performed by Yoly Aly MD at [facility] ESOPHAGOGASTRODUODENOSCOPY ESOPHAGOGASTRODUODENOSCOPY N/A 03/09/2020 Performed by Jerald Malhotra DO at [facility] EXTRACORPOREAL SHOCK WAVE LITHOTRIPSY Right 04/25/2017 Performed by Yoly Aly MD at [facility] EYE SURGERY INSERTION STENT URETER Bilateral 02/12/2021 Performed by Yoly Aly MD at [facility] LASER HOLMIUM URETEROSCOPY RENAL STONES < OR=1CM Right 03/31/2021 Performed by Yoly Aly MD at [facility] NECK SURGERY URETERAL STENT PLACEMENT Previous surgery: [...] Interpersonal Safety: Unknown (04/21/2023) Received from [facility] Safety & Environment Fear of Current or [...] Urinalysis: - Imaging Results: CT scan from [place] showing 2 left obstructing ureteral stones with [...] AM 02/15/2024 DAWSON Swanson 02/15/24 0229 I, NERI VALLEJO MD, personally performed the face to face diagnostic evaluation on this patient. My findings are as follows: OR for cysto, left stent . documented in this encounter [facility] 02-15-2024 Physician Emergency department Note Images from the original note were not included. [facility] - EMERGENCY DEPARTMENT Pt Name: Abundio Iglesias Birthdate: 1955 Chief Complaint: Chief Complaint Patient presents with Flank Pain History of Present Illness: Patient was a 68-year-old female with a past medical history of kidney stone, hypercholesterolemia, hypothyroidism, Graves disease, hypertension presenting today as a transfer from [facility] secondary to urosepsis. Patient was states [...] nausea, vomiting. In the emergency room at [facility] she has a CT completed that demonstrated 2 stones stuck in the left ureter with hydronephrosis. As such she was transferred to [facility] for further management. 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 Visual impairment contacts Past Surgical History: Past Surgical History: Procedure Laterality Date APPENDECTOMY BREAST BIOPSY Left 05/26/1994 benign excisional-not visible CHOLECYSTECTOMY COLONOSCOPY [id number] COLONOSCOPY N/A 03/09/2020 Performed by Jerald Malhotra DO at [facility] CYSTOSCOPY N/A 04/25/2017 Performed by Yoly Aly MD at [facility] CYSTOSCOPY , right ureteroscopy, with laser right ureter dilation Right 02/12/2021 Performed by Yoly Aly MD at [facility] CYSTOSCOPY REMOVAL STENT Bilateral 03/31/2021 Performed by Yoly Aly MD at [facility] CYSTOSCOPY REMOVAL STENT Bilateral 05/23/2017 Performed by Yoly Aly MD at [facility] CYSTOSCOPY URETEROSCOPY BILATERAL WITH HOMIUM LASER/BILATERAL STENT PLACEMENT/STONE BASKETING Bilateral 05/11/2017 Performed by Yoly Aly MD at [facility] ESOPHAGOGASTRODUODENOSCOPY ESOPHAGOGASTRODUODENOSCOPY N/A 03/09/2020 Performed by Jerald Malhotra DO at [facility] EXTRACORPOREAL SHOCK WAVE LITHOTRIPSY Right 04/25/2017 Performed by Yoly Aly MD at [facility] EYE SURGERY INSERTION STENT URETER Bilateral 02/12/2021 Performed by Yoly Aly MD at [facility] LASER HOLMIUM URETEROSCOPY RENAL STONES < OR=1CM Right 03/31/2021 Performed by Yoly Aly MD at [facility] SURGERY NECK SURGERY URETERAL STENT PLACEMENT Family History: [...] Types: Cigarettes Quit date: 2006 Years since quittin. Smokeless tobacco: Never Vaping Use Vaping status: Never Used Substance and Sexual Activity Alcohol use: No Drug use: No Sexual activity: Yes Partners: Male control/protection: Post-menopausal Social Drivers of Health Food Insecurity: No Food Insecurity (04/18/2023) Hunger Screening Food Insecurity - Worry: Never True Food Insecurity - Inability: Never True Received from [facility] [place] Safety & Environment Review of Systems: [...] Impressions as of 02/15/24 0122 Septic shock ([facility]) Urinary tract obstruction by kidney stone Other hydronephrosis Shared Visit: 01:12 Santo STEPHENS (scrluz maria) documented on behalf and in the presence [...] flank pain. Pt transferred to ED for [place]. PT states she has some mild indigestion [...] Attestation: Dr. Darrick Landeros personally performed a [id number] diagnostic evaluation on this patient. I have [...] Jean MD at 02/15/2024 3:10 AM EST [facility] 02-15-2024 Emergency department Note Images from the original note were not included. [facility] EM[facility]Y DEPART[facility] Pt Name: Abundio Iglesias Birthdate: 1955 Chief Complaint: Chief Complaint Patient presents with Flank Pain History of Present Illness: Patient was a 68-year-old female with a past medical history of kidney stone, hypercholesterolemia, hypothyroidism, Graves disease, hypertension presenting today as a transfer from [facility] secondary to urosepsis. Patient was states [...] nausea, vomiting. In the emergency room at [facility] she has a CT completed that demonstrated 2 stones stuck in the left ureter with hydronephrosis. As such she was transferred to [facility] for further management. 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 Visual impairment contacts Past Surgical History: Past Surgical History: Procedure Laterality Date APPENDECTOMY BREAST BIOPSY Left 05/26/1994 benign excisional-not visible CHOLECYSTECTOMY COLONOSCOPY [id number] COLONOSCOPY N/A 03/09/2020 Performed by Jerald Malhotra DO at [facility] CYSTOSCOPY N/A 04/25/2017 Performed by Yoly Aly MD at [facility] CYSTOSCOPY , right ureteroscopy, with laser right ureter dilation Right 02/12/2021 Performed by Yoly Aly MD at [facility] CYSTOSCOPY REMOVAL STENT Bilateral 03/31/2021 Performed by Yoly Aly MD at [facility] CYSTOSCOPY REMOVAL STENT Bilateral 05/23/2017 Performed by Yoly Aly MD at [facility] CYSTOSCOPY URETEROSCOPY BILATERAL WITH HOMIUM LASER/BILATERAL STENT PLACEMENT/STONE BASKETING Bilateral 05/11/2017 Performed by Yoly Aly MD at [facility] ESOPHAGOGASTRODUODENOSCOPY ESOPHAGOGASTRODUODENOSCOPY N/A 03/09/2020 Performed by Jerald Malhotra DO at [facility] EXTRACORPOREAL SHOCK WAVE LITHOTRIPSY Right 04/25/2017 Performed by Yoly Aly MD at [facility] EYE SURGERY INSERTION STENT URETER Bilateral 02/12/2021 Performed by Yoly Aly MD at [facility] LASER HOLMIUM URETEROSCOPY RENAL STONES < OR=1CM Right 03/31/2021 Performed by Yoly Aly MD at [facility] SURGERY NECK SURGERY URETERAL STENT PLACEMENT Family History: [...] - Inability: Never True Received from [facility] [place] Safety & Environment Review of Systems: Review of Systems Physical Exam: ED Triage Vitals [02/14/249] Temp Heart Rate Resp BP SpO2 36.8 [...] Impressions as of 02/15/24 0122 Septic shock ([facility]) Urinary tract obstruction by kidney stone Other [...] flank pain. Pt transferred to ED for [place]. PT states she has some mild indigestion [...] Attestation: Dr. Darrick Landeros personally performed a bfpn-[id number]-[id number] diagnostic evaluation on this patient. I have [...] 02/15/2024 3:10 AM EST Imaging Disc from [place] hand off to Radiologist 68 yo fm transfer from [place] cc flank pain, 2 stone blockage of [...] to be called when patient arrives to [facility]. Patient will need to be admitted under medicine with a consul t for urology for stent placement Coming by EMS Dr Disla aware of patient RN report: Febrile on arrival Lactate 2.1 Cultures done at [place] ED Lactate now 0.8 100/62 HR 88 96% 2L --- 88% RA 20 RAC IV Tylenol @ 1945 .5mg dilaudid 30mg toradol 1944 4mg Zofran 1736 & 1905 EMS ETA 2130 to [facility]: 110/69 74HR 96% 2L 16RR documented in this encounter [employer] 02-15-2024 History and physical note Images from the original note were not included. [facility] Physician Hospitalists History & Physical Examination H&P [...] hydronephrosis and obstruction. Patient was transferred to [facility] due to urology and OR coverage. 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 Visual impairment contacts Past Surgical History: Procedure Laterality Date APPENDECTOMY BREAST BIOPSY Left 05/26/1994 benign excisional-not visible CHOLECYSTECTOMY COLONOSCOPY [id number] COLONOSCOPY N/A 03/09/2020 Performed by Jerald Malhotra DO at [facility] CYSTOSCOPY N/A 04/25/2017 Performed by Yoly Aly MD at [facility] CYSTOSCOPY , right ureteroscopy, with laser right ureter dilation Right 02/12/2021 Performed by Yoly Aly MD at [facility] CYSTOSCOPY REMOVAL STENT Bilateral 03/31/2021 Performed by Yoly Aly MD at [facility] CYSTOSCOPY REMOVAL STENT Bilateral 05/23/2017 Performed by Yoly Aly MD at [facility] CYSTOSCOPY URETEROSCOPY BILATERAL WITH HOMIUM LASER/BILATERAL STENT PLACEMENT/STONE BASKETING Bilateral 05/11/2017 Performed by Yoly Aly MD at [facility] ESOPHAGOGASTRODUODENOSCOPY ESOPHAGOGASTRODUODENOSCOPY N/A 03/09/2020 Performed by Jerald Malhotra DO at [facility] EXTRACORPOREAL SHOCK WAVE LITHOTRIPSY Right 04/25/2017 Performed by Yoly Aly MD at [facility] EYE SURGERY INSERTION STENT URETER Bilateral 02/12/2021 Performed by Yoly Aly MD at [facility] LASER HOLMIUM URETEROSCOPY RENAL STONES < OR=1CM Right 03/31/2021 Performed by Yoly Aly MD at [facility] NECK SURGERY URETERAL STENT PLACEMENT Allergy: Arthritis [...] morning. 03/28/19 Not In System Ref Prov ywnivxll-cajw-OD-calcium &mins (THERAGRAN-M) 9 mg iron-400 mcg tablet [...] kidney stones in the ureter Transferred from [facility] for urology eval NPO for procedure Consult [...] has been identified and corrected by editing. [facility] [employer] [facility] 02-15-2024 History and physical note Images from the original note were not included. [facility] Physician Hospitalists History & Physical Examination H&P [...] hydronephrosis and obstruction. Patient was transferred to [facility] due to urology and OR coverage. 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 Visual impairment contacts Past Surgical History: Procedure Laterality Date APPENDECTOMY BREAST BIOPSY Left 05/26/1994 benign excisional-not visible CHOLECYSTECTOMY COLONOSCOPY [id number] COLONOSCOPY N/A 03/09/2020 Performed by Jerald Malhotra DO at [facility] CYSTOSCOPY N/A 04/25/2017 Performed by Yoly Aly MD at [facility] CYSTOSCOPY , right ureteroscopy, with laser right ureter dilation Right 02/12/2021 Performed by Yoly Aly MD at [facility] CYSTOSCOPY REMOVAL STENT Bilateral 03/31/2021 Performed by Yoly Aly MD at [facility] CYSTOSCOPY REMOVAL STENT Bilateral 05/23/2017 Performed by Yoly Aly MD at [facility] CYSTOSCOPY URETEROSCOPY BILATERAL WITH HOMIUM LASER/BILATERAL STENT PLACEMENT/STONE BASKETING Bilateral 05/11/2017 Performed by Yoly Aly MD at [facility] ESOPHAGOGASTRODUODENOSCOPY ESOPHAGOGASTRODUODENOSCOPY N/A 03/09/2020 Performed by Jerald Malhotra DO at [facility] EXTRACORPOREAL SHOCK WAVE LITHOTRIPSY Right 04/25/2017 Performed by Yoly Aly MD at [facility] EYE SURGERY INSERTION STENT URETER Bilateral 02/12/2021 Performed by Yoly Aly MD at [facility] LASER HOLMIUM URETEROSCOPY RENAL STONES < OR=1CM Right 03/31/2021 Performed by Yoly Aly MD at [facility] NECK SURGERY URETERAL STENT PLACEMENT Allergy: Arthritis [...] morning. 03/28/19 Not In System Ref Prov hncrxpjs-detg-ZS-calcium &mins (THERAGRAN-M) 9 mg iron-400 mcg tablet [...] kidney stones in the ureter Transferred from [facility] ER for urology eval NPO for [...] corrected by editing. documented in this encounter [facility] 02-15-2024 Emergency department Note Imaging Disc from [place] hand off to Radiologist [facility] 02-14-2024 Emergency department Triage note 68 yo fm transfer from [place] cc flank pain, 2 stone blockage of left ureter x5 days. Hx of kidney stones, HTN, thyroid radiation. VSS, NAD, Allergies on file. [facility] 02-14-2024 Emergency department Note Bed: 17 Expected [...] to be called when patient arrives to [facility]. Patient will need to be admitted under medicine with a consul t for urology for stent placement Coming by EMS Dr Disla aware of patient RN report: Febrile on arrival Lactate 2.1 Cultures done at [place] ED Lactate now 0.8 100/62 HR 88 96% 2L --- 88% RA 20 RAC IV Tylenol @ 1945 .5mg dilaudid 30mg toradol 1945 4mg Zofran 1736 & 1905 EMS ETA 2129 to [facility]: 110/69 74HR 96% 2L 16RR [facility] [employer] [facility] Evaluation note Diagnosis Ureteral calculus, right- Primary Calculus of ureter Kidney stones Calculus of kidney Septic shock (CMS-HCC)- Primary Septic shock (CMS-HCC) Urinary tract obstruction by kidney stone Other hydronephrosis documented [facility] Diagnosis Ureteral calculus, right- Primary Calculus of ureter Kidney stones Calculus of kidney Kidney stones- Primary Calculus of kidney [facility] Diagnosis Ureteral calculus, right- Primary Calculus of ureter Kidney stones Calculus of kidney Kidney stones- Primary Calculus of kidney [facility]* Diagnosis Acute pain of right knee- Primary Acute pain of left knee Chondromalacia of left knee Chondromalacia of right knee documented in this encounter [facility] HealthcareInstructionsNot on filedocumented in this encounterProMediSelect [facility] SystemInstructionsNot on filedocumented in this encounterProKet[facility] SystemInstructionsNot on filedocumented in this encounterProKet[facility] System Summary Purpose Family History No Family [...] and content) DATE CREATED AUTHOR 07/07/2022 [facility] DATE CREATED AUTHOR AUTHOR'S ORGANIZ ATION 02/20/2024 [facility] DATE CREATED AUTHOR AUTHOR'S ORGANIZ ATION 04/09/2024 [facility] DATE CREATED AUTHOR AUTHOR'S ORGANIZ ATION 04/11/2024 [facility] DATE CREATED AUTHOR AUTHOR'S ORGANIZ ATION 08/10/2024 [facility] DATE CREATED AUTHOR AUTHOR'S ORGANIZ ATION 08/12/2024 [facility] DATE CREATED AUTHOR AUTHOR'S ORGANIZ ATION 09/08/2024 [facility] EPIC Reason for Visit (unrecogniz ed section and content) Reason Comments Flank Pain Specialty Diagnoses / Procedures Referred By Ronald t Referred To Contact Diagnoses Urinary tract obstruction by kidney stone Septic shock ([facility]) Other hydronephrosis [facility] [address] [place] [address] Phone: tel: fax: Referral ID Status Reason Start Date Expiration Date Visits Re quested Visits Authorized [id number] 1 1 Reason Comments Follow-up Reason Comments Pain Scheduled Active and Recently Administ ered Medications [...] 75 mcg, oral, Daily, First dose on Mon02/15/24 at 1615, Look-alike/sound-alike medication. Verify indication for [...] tests weekly 1740 (Given - Provider: Miladis Padilla RN) 0709 (Given - Provider: Clarice Schulz RN) liothyronine (CYTOMEL) tablet 5 mcg 5 mcg, oral, Daily, First dose on Mon02/15/24 at 1615, Look-alike/sound-alike medication - verify indication [...] Every morning before breakfast, First dose on Mon02/15/24 at 0700, Look-alike/sound-alike medication - verify indication for use. If patient is receiving enteral feeding, consider alternative PPI or continue IV pantoprazole until the delayed-release tablet can be taken orally, Indication: GERD 0700 (Not Given - Provider: Willow Vergara RN - Reason: Other - Comment: iv medication given @ 0318)0921 (MAR Hold - Provider: User Epic - Reason: Patient not available)1335 (MAR Unhold - Provider: User Epic) 0709 (Given - Provider: Clarice Schulz RN) pantoprazole (PROTONIX) injection 40 mg (COMPLETED) 40 mg, intravenous, Once, On Rosa Maria 02/15/24 at 0200, For 1 dose, Look-alike/sound-alike medication - verify indication for use., Indication: Other (ONEIL) 0318 (Given - Provider: Willow Vergara, RN) sodium chloride 0.9 % flush 3 mL 3 mL, intravenous, Every 12 hours scheduled, First dose on Rosa Maria 02/15/24 at 0900 0900 (Canceled Entry - Provider: Miladis Padilla, MOON)0921 (MAR Hold - Provider: User Epic - [...] 70 mg/dL after initial treatment, repeat treatment. 0921 (APR Hold - Provider: User Epic - Reason: Patient not available)1335 (MAR Unhold - Provider: User Epic) dextrose 5 % (D5W) infusion 100 mL/hr, intravenous, Continuous PRN, blood glucose less than 70 mg/dL, Starting on Rosa Maria 02/15/24 at 0315, Use immediately following dextrose 50% or glucagon treatment for patients who are unconscious or NPO. Contact prescriber for additional orders. If blood glucose is not greater than 70 mg/dL after initial treatment, repeat treatment. 920 ([facility] Hold - Provider: User Epic - Reason: Patient not available)1334 ([facility] Unhold - Provider: User Epic) [...] treatment. VESICANT (RED) Warning: HYPERTONIC solution. 920 ([facility] Hold - Provider: User Epic - Reason: Patient not available)1334 ([facility] Unhold - Provider: User Epic) [...] mg/dL after initial treatment, repeat treatment. 920 ([facility] Hold - Provider: User Epic - Reason: Patient not available)133 ([facility] Unhold - Provider: User Epic) HYDROmorphone (PF) (DILAUDID) injection 1 mg 1 mg, intravenous, Every 4 hours PRN, severe pain - pain scale 7-10, Starting on Rosa Maria 02/15/24 at 0846, If IV push, administer over over 2 to 3 minutes. Look-alike/sound-alike medication - verify indication for use. 905 (Given - Provider: Arcelia Padilla RN)920 ([facility] Hold - Provider: User Epic - Reason: Patient not available)1335 ([facility] Unhold - Provider: User Epic) midazolam (PF) (VERSED) injection 2 mg (CANCELED) 2 mg, intravenous, As needed, anxiety, Starting on Rosa Maria 02/15/24 at 0949, For 2 doses, Pre-op, May repeat in 10 minutes, if needed, if original midazolam (VERSED) ineffective, Indication: Other, Indication: anxiety 1113 (Given - Provider: Arcelia Ash, MOON) morphine injection 2 mg 2 mg, intravenous, Every 4 hours PRN, severe pain - pain scale 7-10, Starting on Rosa Maria 02/15/24 at 0221, Look-alike/sound-alike medication - verify indication for use. 0921 ([facility] Hold - Provider: User Epic - Reason: Patient not available)1335 ([facility] Unhold - Provider: User Epic) ondansetron (PF) (ZOFRAN) injection 4 mg 4 mg, intravenous, Every 8 hours PRN, vomiting, nausea, Starting on Rosa Maria 02/15/24 at 0221, Administer over 2-5 minutes. 0839 (Given - Provider: Arcelia Padilla, MOON)0921 ([facility] Hold - Provider: User Epic - Reason: Patient not available)1335 ([facility] Unhold - Provider: User Epic) [...] on Rosa Maria 02/15/24 at 0315 0921 ([facility] Hold - Provider: User Epic - Reason: Patient not available)1335 ([facility] Unhold - Provider: User Epic) sodium chloride 0.9 % flush bag 25 mL, intravenous, at 100 mL/hr, Administer over 15 Minutes, As needed, line care, line care after IVPB administration, Starting on Rosa Maria 24 at 0315 0921 ([facility] Hold - Provider: User Epic - Reason: Patient not available)1335 ([facility] Unhold - Provider: User Epic) sodium chloride 0.9 % infusion 20 mL/hr, intravenous, Continuous PRN, to maintain patency of lines, Starting on Rosa Maria 02/15/24 at 0315 0921 (APR Hold - Provider: User Epic - Reason: Patient not available)1335 (MAR Unhold - Provider: User Epic) sterile water irrigation solution (CANCELED) As needed, Starting on Rosa Maria 02/15/24 at 1147, Intra-op 1147 (Given - Provider: Mark Vallejo MD - Comment: GIVEN TO FIELD) Care Teams (unrecognized sec tion and content) Assembly Hand Relationship Specialty Start Date End Date My East MD PCP - General Family Medicine 09/24/18 Assembly Hand Relationship Specialty Start Date End Date My East MD PCP - General Family Medicine 09/24/18 Assembly Hand Relationship Specialty Start Date End Date My East MD PCP - General Family Medicine 09/24/18 Assembly Hand Relationship Specialty Start Date End Date My East MD [address] [phone] PCP - General Family Medicine 08/19/24 Milly Pepe MD [address] [place] [address] Referring Physician Family Medicine 08/19/24 Assembly Hand Relationship Specialty Start Date End Date My East MD [address] [place] [phone] PCP - General Family Medicine 08/19/24 Milly Pepe MD [address] [place] [address] Referring Physician Family Medicine 08/19/24 FOR RECORDS PERTAINING TO PATIENTS WHO ARE [...] BE BASED ON THE PRIMARY CLINICAL RECORDS. [facility]. provides no warranty or guarantee of the accuracy or completeness of information in this document.
[2024-09-10 12:11] LABS: Glucose Urine UA NEGATIVE (NEGATIVE)
[2024-09-10 14:26] LABS: Cast Seen? NONE SEEN #/LPF (NONE SEEN); Crystals Seen? None Seen #/HPF (None Seen)
== END 2024-09-10 09:20 | disposition home or self-care (01) ==
LOC: LAB 09:20
PROVIDERS: PCP Nurse Practitioner Family; Visit Provider Nurse Practitioner Family
DX: N39.0 Urinary tract infection, site not specified (principal)
CPT/HCPCS: 81001

== ENCOUNTER 2024-09-10 09:28 | Outpatient (OUT) | payer OTHER, SELFPAY | END 2024-09-10 09:29 | disposition home or self-care (01) | LOC: RAD 09:28 | PROVIDERS: PCP Nurse Practitioner Family; Visit Provider Nurse Practitioner Family | DX: M81.0 Age-related osteoporosis without current pathological fracture (principal); N39.0 Urinary tract infection, site not specified; M85.80 Other specified disorders of bone density and structure, unspecified site | CPT/HCPCS: 77080; 81001 ==